=== PATIENT | female | born 1940 | race Caucasian/White ===

== ENCOUNTER 2018-06-21 17:01 | Inpatient (IN) | payer MEDICARE, OTHER, SELFPAY ==
[2018-06-21 17:05] VITALS: BP 165/79; PULSE 52; RESP 16; TEMP 35.3; O2SAT 99; BMI 21.6
--- NOTE | 2018-06-21 17:27 | EKG12_ITS ---
Test Reason : GEN ILLNESS Blood Pressure : / mmHG Vent. Rate : 050 BPM Atrial Rate : 050 BPM P-R Int : 196 ms QRS Dur : 096 ms QT Int : 540 ms P-R-T Axes : 060 033 039 degrees QTc Int : 492 ms Poor data quality, interpretation may be adversely affected Sinus bradycardia Prolonged QT Abnormal ECG Confirmed by TALON TILLEY, CHRISTIAN ([id number]), video editor MILTON DUVALL ([id number] on 06/22/2018 3:50:41 PM Referred By: JAMES Confirmed By:CHRISTIAN HANLEY MD
--- NOTE | 2018-06-21 17:27 | RAD_ITS ---
STUDY: X-RAY CHEST REASON FOR EXAM: Female, 78 years old. Aches. TECHNIQUE: Portable chest. COMPARISON: 08/26/2014. FINDINGS: The lungs are clear and expanded. Mild linear fibrotic changes are noted at the left lung base. There is no demonstrated pleural abnormality. Normal size heart. Normal mediastinum and jez. Normal visualized pulmonary arteries. Normal visualized aortic arch and descending thoracic aorta. Normal visualized thoracic spine. Normal visualized ribs, clavicles, and shoulders. There is no demonstrated abnormality of the visualized soft tissue structures of the upper abdomen. RAD/Chest 1 View (Portable) IMPRESSION: No acute process. Electronically Signed: Marilyn Dockery MD at 17:58 EST Tel , Service support ,
--- NOTE | 2018-06-21 17:29 | ED.VIS.GEN ---
History of Present Illness Chief Complaint: General Illness Informant: Patient, Family Onset: Today Context: - - since woke up Timing: Continuous Quality: weak Location: all over Current Severity: Severe Maximum Severity: Severe Worsened by: nothing Relieved by: nothing Associated Symptoms: feels cold, tired. no other sx. Narrative: Son states patient is usually very active as she was yesterday when he saw her and was with her. She lives alone. She has been lying in bed all day today because of being tired and feeling weak and cold. She has no other symptoms. Coincidentally, she was scratched in the right hand by a stray cat yesterday. She states it is not bothering her. Prior similar symptoms: No - Past Medical History (1) Alcohol abuse Status: Chronic (2) Benign essential hypertension Status: Chronic (3) Chronic back pain Status: Chronic (4) Chronic blood loss anemia Status: Chronic (5) Depression Status: Chronic (6) Hyperlipidemia Status: Chronic (7) PUD (peptic ulcer disease) Status: Chronic Past Medical History - Allergies and Home Meds Allergies/Adverse Reactions: Allergies No Known Allergies Allergy (Verified 06/21/18 17:10) Surgical History: appendectomy, - - Right hip hemiarthroplasty. Lives: Alone Smoking Status: Never smoker Alcohol: Occasional - states she has a glass of wine before bed nightly. son states in recent past, was drinking heavily while coping w/ of daughter last year. Drugs: None - Family History Maternal Family History: Reports: No pertinent history Paternal Family History: Reports: No pertinent history Review of Systems General: Reports: Malaise. Denies: Chills, Fever, Sweats Eyes: Denies: Visual changes - bilaterally, Diplopia ENT: Denies: Bilateral ear pain, Rhinorrhea, Sore throat Cardiovascular: Denies: Chest pain, Palpitations, Heart racing Respiratory: Denies: Dyspnea, Cough, Dyspnea on exertion, Orthopnea, Paroxysmal nocturnal dyspnea Gastrointestinal: Denies: Abdominal pain, Nausea, Vomiting, Diarrhea, Constipation, Melena, Hematochezia Genitourinary: Denies: Dysuria, Hematuria, Frequency Musculoskeletal: Reports: Extremity Pain - achy in BLE today. Denies: Neck pain, Back pain, Swelling Skin: Reports: Abrasions - right hand yesterday by stray cat. Denies: Rash, Abscess, Wounds Neurological: Denies: Headache, Weakness, Parasthesia, Numbness Psych: Denies: Suicidal thoughts, Suicidal ideations Endocrine: Reports: Cold intolerance. Denies: Polyuria, Polydipsia Hematologic: Reports: Easy bruising. Denies: Easy bleeding Allergy: Denies: Uticaria, Swelling of the mouth, Swelling of the tongue Physical Exam Vital Signs/Narrative: Vital Signs Pulse Resp BP Pulse Ox 06/21/18 17:05 52 L 16 165/79 H 99 Inital Vital Signs reviewed: Yes General: Well nourished, Well developed, - - appears weak. speaking, but softly. Head: Normocephalic, Atraumatic Eyes: Perrl, EOMI. Negative for: Scleral icterus ENT: Moist mucous membranes, No rhinorrhea, TM's clear. Negative for: Nasal congestion, Sinus tenderness Neck: Supple, Nontender, No lymphadenopathy, No JVD Cardiovascular: Regular rate, Regular rhythm, No murmurs, Normal S1, Normal S2, Bradycardia - borderline w/ HR in low 50's Respiratory: No distress, CTA bilaterally, Chest nontender Abdomen: Soft, Nontender, Nondistended, Normal bowel sounds Back: Nontender, Normal Inspection Extremities: Nontender, No edema, - - no RUE epitrochlear or axillary LAD Skin: Normal color, No rash, Trauma - small superficial abrasion w/ minor contusion dorsal right hand w/o discharge or signs of infection Neurological: Alert, Oriented x3, Cranial nerves II-XII grossly intact, Normal Sensation, Weakness - all over, worse in LEs; able to move them but not able to resist gravity for more than 1-2 seconds. Psychological: Normal affect Diagnostic/Tx/Re-eval Impressions Chest X-Ray 06/21/18 17:27 IMPRESSION: No acute process. Electronically Signed: Marilyn Dockery MD at 17:58 EST Tel , Service support , 06/21/18 17:27 Chest 1 View (Portable) [RAD] Stat Laboratory Results 06/21/18 06/21/18 06/21/18 17:47 17:47 17:47 WBC 7.5 RBC 4.93 Hgb 16.3 H Hct 46.3 MCV 93.9 MCH 33.1 H MCHC 35.2 RDW 14.3 RDW Differential 48.6 H Plt Count 252 MPV 9.2 Immature Gran % (Auto) 0.100 Neut % (Auto) 78.5 H Lymph % (Auto) 13.4 L [place] % (Auto) 7.5 Eos % (Auto) 0.1 Baso % (Auto) 0.4 Absolute Neuts (auto) 5.9 Absolute Lymphs (auto) 1.00 Total Counted Not Reportable Sodium 127 L Potassium 4.2 Chloride 93 L Carbon Dioxide 19.0 L Anion Gap 15 BUN 32 H Creatinine 0.95 Estim Creat Clear Calc 39.85 Est GFR (MDRD) Af Amer 73 Est GFR (MDRD) Non-Af 61 BUN/Creatinine Ratio 33.6 H Glucose 46 L Lactic Acid 3.4 H Calcium 9.2 Troponin I < 0.015 TSH 0.40 Urine Color Urine Clarity Urine pH Ur Specific [place] Urine Protein Urine Glucose (UA) Urine Ketones Urine Occult Blood Urine Nitrite Urine Bilirubin Urine Urobilinogen Ur Leukocyte Esterase Urine RBC Urine WBC Ur Squamous Epith Cells Urine Bacteria Urine Mucus 06/21/18 18:26 WBC RBC Hgb Hct MCV MCH MCHC RDW RDW Differential Plt Count MPV Immature Gran % (Auto) Neut % (Auto) Lymph % (Auto) [place] % (Auto) Eos % (Auto) Baso % (Auto) Absolute Neuts (auto) Absolute Lymphs (auto) Total Counted Sodium Potassium Chloride Carbon Dioxide Anion Gap BUN Creatinine Estim Creat Clear Calc Est GFR (MDRD) Af Amer Est GFR (MDRD) Non-Af BUN/Creatinine Ratio Glucose Lactic Acid Calcium Troponin I TSH Urine Color Fiona Urine Clarity Cloudy Urine pH 5.0 Ur Specific [place] 1.025 Urine Protein 100 H Urine Glucose (UA) Normal Urine Ketones 50 H Urine Occult Blood 10 H Urine Nitrite Positive H Urine Bilirubin 1 H Urine Urobilinogen 1 H Ur Leukocyte Esterase 100 H Urine RBC 0-5 SEEN Urine WBC 50-100 SEEN Ur Squamous Epith Cells 0 SEEN Urine Bacteria 3+ Urine Mucus 0 SEEN - Rhythm Strip Rhythm Strip: Sinus Rhythm Rate: 55 Ectopy: None - EKG Initial EKG Interpretation: No Acute Injury Pattern, Sinus Bradycardia, - - otherwise nml EKG Prior: Unchanged - Medical Decision Making Lactate was obtained because the patient's temperature was low, however after the workup was completed, she does not meet Sirs criteria, although the lactic acid is elevated/abnormal. She was given IV fluids, given her prerenal azotemia likely due to dehydration, as well as Rocephin for what appears to be a significant urinary tract infection. She has mild hyponatremia at 127, possibly contributing to her weakness. On reevaluation she is more alert, however still feels fairly weak and states that she could not stand or walk at home. I discussed admission to the hospital which she was amenable to. Discussed with hospitalist. ED Disposition - Plan for ED Patient: Disposition: Acute Care Hospital [facility] Chief Complaint: General Illness Diagnosis: UTI (urinary tract infection), Generalized weakness, Dehydration
[2018-06-21 18:11] LABS: Absolute Neutrophil Count 5.9 X10^3/uL (2.0-7.7); Basophil# 0.03 X10^3/uL; Basophil% 0.4 % (0-1); Eosinophil# 0.01 X10^3/uL; Eosinophils% 0.1 % (0-5); Hematocrit 46.3 % (37-47); Hemoglobin 16.3 g/dl (12.0-15.0); Lymphocyte % 13.4 % (19-41); Mean Corp Hgb Conc 35.2 g/gl (32-36); Mean Corpuscular Hgb 33.1 pg (27.0-32.0); Mean Corpuscular Volume 93.9 fL (81-99); Mean Platelet Vol. 9.2 fl (6.2-12.0); Monocyte# 0.56 X10^3/uL; Monocyte% 7.5 % (0-10); Neutrophil # 5.85 X10^3/uL (2.7-7.7); Neutrophil % 78.5 % (47-70); POSITIVE COUNT NO; POSITIVE DIFFERENTIAL NO; POSITIVE MORPHOLOGY NO; Platelet Count 252 K/mm3 (150-450); RBC Distribution Width CV 14.3 % (11.6-14.6); RBC Distribution Width SD 48.6 fl (35.1-43.9); Red Blood Count 4.93 M/mm3 (4.2-5.4); White Blood Count 7.5 K/mm3 (4.4-11.0)
[2018-06-21 18:30] LABS: Anion Gap 15 (5-15); BUN 32 mg/dL (7-18); BUN/Creat Ratio 33.6 RATIO (10-20); Calcium,Total 9.2 mg/dL (8.5-10.1); Chloride 93 mmol/L (98-107); Creatinine, Serum 0.95 mg/dL (0.55-1.02); EST Glomerular Filtration Rate 61 mL/min (>60); Est Glom Filt Rate - Afr Amer 73 mL/min (>60); Estimated Creatinine Clearance 39.85 ml/min; Glucose 46 mg/dL (74-106); Potassium 4.2 mmol/L (3.5-5.1); Sodium Level 127 mmol/L (136-145)
[2018-06-21] MEDS: 0.9% Normal Saline 1,000 ML 150 ML IV (18:35)
[2018-06-21 18:38] LABS: Lactic Acid 3.4 mmol/L (0.4-2.0)
[2018-06-21 18:38] LABS: Mucous, Urine 0 SEEN /hpf (<or=2+); Squamous Epithelial Cells - UA 0 SEEN /hpf (5-10)
[2018-06-21 18:42] LABS: Glucose, Dipstick Normal (Normal); Ketone-Dipstick 50 mg/dl (Negative); Leukocyte Esterase-Dipstick 100 /ul (Negative); Nitrite-Dipstick Positive (Negative); Occult Blood-Urine 10 /ul (Negative); Protein-Dipstick 100 mg/dl (Negative); Specific Gravity, Urine 1.025 (1.002-1.030); Urine Urobilinogen 1 mg/dl (Normal)
[2018-06-21 18:51] LABS: Color, Urine Amber (Yellow); Urine Bilirubin Dipstick 1 mg/dL (Negative); Urine Clarity Cloudy (Clear)
[2018-06-21 18:52] LABS: Red Blood Cells-Urine 0-5 SEEN /hpf (0-5); White Blood Cells 50-100 SEEN /hpf (0-5)
[2018-06-21 18:53] LABS: Bacteria 3+ /hpf (None Seen)
[2018-06-21 19:02] VITALS: BP 131/68; PULSE 95; RESP 16; O2SAT 97
[2018-06-21] MEDS: Ceftriaxone 1 GM/50 ML BAG IV (20:39)
--- NOTE | 2018-06-21 21:31 | PCM.HP.STD ---
Problem List (1) Decreased functional residual capacity Status: Acute (2) UTI (urinary tract infection) Status: Acute (3) Generalized weakness Status: Acute (4) Dehydration Status: Acute (5) History of DVT (deep vein thrombosis) Status: Chronic (6) PUD (peptic ulcer disease) Status: Chronic (7) Chronic back pain Status: Chronic (8) Hyperlipidemia Status: Chronic (9) Depression Status: Chronic (10) Benign essential hypertension Status: Chronic (11) Alcohol abuse Status: Chronic (12) Right arm weakness Status: Acute (13) Gastrointestinal bleed Status: Chronic (14) Recurrent dislocation of right hip Status: Chronic (15) Chronic blood loss anemia Status: Chronic (16) Recurrent falls Status: Chronic History of Present Illness Date of Admission: 06/21/18 Chief Complaint: Could not to stand up and was not able to walk today The patient is a 78 year old F with multiple comorbidities as mentioned above including recurrent fall, chronic blood loss anemia, PUD with history of GI bleed was brought into ER for generalized weakness. The patient is lethargic and very dehydrated and history taken from the son. She nods her head but understands the simple question. As per the son, she could not stand up and walk this morning today. She denies any recent fall. She is dehydrated and has decreased appetite. Denies lower urinary tract symptoms including burning micturition, increased frequency, urgency, or obstructive symptoms. She denies URI or flulike symptoms. She is feeling cold and shivering. The patient also had cat scratch in her right hand but does not have ulcer and no change in the function of her hand; although she has osteoarthritic changes of PIP and DIP. She is able to make a right-hand fist and abrasions. Vitals in the ER shows temperature 95.5?F temporal; HR 52/M.In ED, basic workup shows H&H 16.3/46.3 suggestive of hemoconcentration. Her baseline H&H is 11.3/33.9. Hyponatremia, hypochloremia. Bicarb 19. UA is positive of nitrite, LE, WBC 5200 cells and 3+ bacteria suggestive of UTI. Chest x-ray reported no acute process. [] Past Medical History Past Medical History (Chronic Problems): Chronic Problems History of DVT (deep vein thrombosis) (Chronic) PUD (peptic ulcer disease) (Chronic) Chronic back pain (Chronic) Hyperlipidemia (Chronic) Depression (Chronic) Benign essential hypertension (Chronic) Alcohol abuse (Chronic) Gastrointestinal bleed (Chronic) Recurrent dislocation of right hip (Chronic) Chronic blood loss anemia (Chronic) Recurrent falls (Chronic) Allergies No Known Allergies Allergy (Verified 06/21/18 17:10) Home Medications: Ambulatory Orders Medication Instructions Recorded Atorvastatin Calcium [Lipitor] 40 mg PO QHS #30 tablet 08/24/13 Pantoprazole Sodium [Protonix] 40 mg PO BID #60 tablet 06/16/14 fentaNYL patch [Duragesic patch] 25 mcg TRANSDERM. Q72H #10 patch 06/29/14 Aspirin E.C. [Ecotrin] 81 mg PO DAILY 06/21/18 Cholecalciferol (Vitamin D3) 2,000 unit PO DAILY 06/21/18 [D3-2000] Ferrous Sulfate [Iron] 325 mg PO DAILY 06/21/18 Ibandronate Sodium [Boniva] 150 mg PO Q30D 06/21/18 Metoprolol Succinate [Toprol Xl] 100 mg PO DAILY 06/21/18 Surgical History: appendectomy, - - Right hip hemiarthroplasty. Lives: Alone Smoking Status: Never smoker Alcohol: Occasional - states she has a glass of wine before bed nightly. son states in recent past, was drinking heavily while coping w/ of daughter last year. Drugs: None - *Family History Maternal History Items: No pertinent history Paternal History Items: No pertinent history Review of Systems Constitutional: Reports: Anorexia, Chills, Malaise, Weakness, Fatigue. Denies: Weight Change HEENT: Denies: Head Aches, Sinus Congestion, Sinus Drainage Cardiovascular: Denies: Chest Pain, Palpitations Respiratory: Denies: Cough, Shortness of breath at rest, Sputum production Gastrointestinal: Denies: Abdominal Pain, Nausea, Vomiting Genitourinary: Denies: Dysuria, Frequency, Hematuria, Nocturia, Retention, Urgency Musculoskeletal: Reports: Back Pain, Joint Pain. Denies: Joint Tenderness Skin: Denies: Rash, Wounds Neurological: Reports: Balance problems. Denies: Focal weakness, Numbness, Tingling Psychiatric: Denies: Anxiety, Depression, Homicidal Ideations, Suicidal Ideations Hematologic/ Lymphatic: Denies: Easy Bruising, Easy Bleeding VTE Information - Inpt Only VTE Present on Admission: No VTE Mechan Device Prophylaxis: SCD's VTE Pharm Prophylaxis ordered?: No Patient Problems: Active and Suspected Problems UTI (urinary tract infection) (Acute) Generalized weakness (Acute) Dehydration (Acute) Decreased functional residual capacity (Acute) - Physical Exam General: Alert, Oriented x3, Cooperative, Lethargic HEENT: Atraumatic, PERRLA, EOMI, Normocephalic Oral: Dry Mucosa Neck: Supple, No JVD, Negative Carotid Bruits Lungs: Clear to auscultation, No rhonchi, No wheeze, No rales, Diminished Cardiovascular: Regular rate, Regular Rhythm, Normal S1, Normal S2, No murmurs Abdomen: Bowel Sounds Present, Soft, Non Tender, Non-Distended Extremities: No edema, Capillary Refill Less than 3 Seconds Skin: No rashes, No breakdown Musculoskeletal: No Tenderness to Palpation of Joints or Extremities, Arthritic Changes, Muscle Wasting Neurological: Cranial nerves II-XII grossly intact, Deep Tendon Reflexes 2+/4 and Symmetrical, Neuro grossly intact, - - Patient able to lift legs for 5 seconds. Power 4/5 at major joints and lower extremity Psych/Mental Status: Normal Affect, Appropriate Vital Signs Temp Pulse Resp BP Pulse Ox 95.5 F L 95 16 131/68 H 97 06/21/18 17:05 06/21/18 19:02 06/21/18 19:02 06/21/18 19:02 06/21/18 19:02 Oxygen Delivery Method Room Air Weight: 118 lb 4.8 oz Body Mass Index (BMI) 21.6 Finger Stick Blood Glucose 88 Laboratory Tests Past 24 Hrs 06/21/18 06/21/18 06/21/18 17:47 17:47 17:47 WBC 7.5 RBC 4.93 Hgb 16.3 H Hct 46.3 MCV 93.9 MCH 33.1 H MCHC 35.2 RDW 14.3 RDW Differential 48.6 H Plt Count 252 MPV 9.2 Immature Gran % (Auto) 0.100 Neut % (Auto) 78.5 H Lymph % (Auto) 13.4 L [place] % (Auto) 7.5 Eos % (Auto) 0.1 Baso % (Auto) 0.4 Absolute Neuts (auto) 5.9 Absolute Lymphs (auto) 1.00 Total Counted Not Reportable Sodium 127 L Potassium 4.2 Chloride 93 L Carbon Dioxide 19.0 L Anion Gap 15 BUN 32 H Creatinine 0.95 Estim Creat Clear Calc 39.85 Est GFR (MDRD) Af Amer 73 Est GFR (MDRD) Non-Af 61 BUN/Creatinine Ratio 33.6 H Glucose 46 L Lactic Acid 3.4 H Calcium 9.2 Troponin I < 0.015 TSH 0.40 Urine Color Urine Clarity Urine pH Ur Specific [place] Urine Protein Urine Glucose (UA) Urine Ketones Urine Occult Blood Urine Nitrite Urine Bilirubin Urine Urobilinogen Ur Leukocyte Esterase Urine RBC Urine WBC Ur Squamous Epith Cells Urine Bacteria Urine Mucus 06/21/18 18:26 WBC RBC Hgb Hct MCV MCH MCHC RDW RDW Differential Plt Count MPV Immature Gran % (Auto) Neut % (Auto) Lymph % (Auto) [place] % (Auto) Eos % (Auto) Baso % (Auto) Absolute Neuts (auto) Absolute Lymphs (auto) Total Counted Sodium Potassium Chloride Carbon Dioxide Anion Gap BUN Creatinine Estim Creat Clear Calc Est GFR (MDRD) Af Amer Est GFR (MDRD) Non-Af BUN/Creatinine Ratio Glucose Lactic Acid Calcium Troponin I TSH Urine Color [place]iona Urine Clarity Cloudy Urine pH 5.0 Ur Specific [place] 1.025 Urine Protein 100 H Urine Glucose (UA) Normal Urine Ketones 50 H Urine Occult Blood 10 H Urine Nitrite Positive H Urine Bilirubin 1 H Urine Urobilinogen 1 H Ur Leukocyte Esterase 100 H Urine RBC 0-5 SEEN Urine WBC 50-100 SEEN Ur Squamous Epith Cells 0 SEEN Urine Bacteria 3+ Urine Mucus 0 SEEN Assessment/Plan All Active Problems UTI (urinary tract infection) (Acute) Generalized weakness (Acute) Dehydration (Acute) Decreased functional residual capacity (Acute) Right arm weakness (Acute) The patient is a 78 year old F with multiple comorbidities as mentioned above including recurrent fall, chronic blood loss anemia, PUD with history of GI bleed was brought into ER for generalized weakness. The patient is lethargic and very dehydrated and history taken from the son. She nods her head but understands the simple question. As per the son, she could not stand up and walk this morning today. She denies any recent fall. She is dehydrated and has decreased appetite. Denies lower urinary tract symptoms including burning micturition, increased frequency, urgency, or obstructive symptoms. She denies URI or flulike symptoms. She is feeling cold and shivering. The patient also had cat in her right hand but does not have ulcer and no change in the function of her hand; although she has osteoarthritic changes of PIP and DIP. She is able to make a right-hand fist and abrasions. Vitals in the ER shows temperature 95.5?F temporal; HR 52/M.In ED, basic workup shows H&H 16.3/46.3 suggestive of hemoconcentration. Her baseline H&H is 11.3/33.9. Hyponatremia, hypochloremia. Bicarb 19. UA is positive of nitrite, LE, WBC 5200 cells and 3+ bacteria suggestive of UTI. Chest x-ray reported no acute process. 1. SIRS (08/18; hypothermia, temperature 95.5?F), with sepsis, lactic acid 3.4 and generalized weakness probably related to UTI: Patient is being admitted on regular MedSurg floor. Started on IV Rocephin. Urine culture ordered in the ER. Blood cultures x2 ordered. The patient retains urine, bladder scan postvoid residual and will need kidneys and bladder ultrasound. BUN/creatinine 32/0.95 suggestive of prerenal azotemia. 2. UTI: As mentioned above 3. Lactic acidosis probably secondary to sepsis UTI and dehydration: Needs vigorous rehydration. IV fluid normal saline 150 mill per hour major intake/output. 4. Abrasions and right dorsum of hand due to cat scratch; does not look infectious/sepsis: Acute decrease in functional capacity: PT and OT. 5. Hypertension: Blood pressure is controlled. Other chronic comorbidities include chronic peptic ulcer disease with past history of GI bleed, history of DVT, dyslipidemia, recurrent falls, chronic lower back pain and diffuse degenerative joint disease with history of recurrent dislocation of right hip: Home medication reconciliation done. Living will/advanced directive: Discussed with the patient and her son near the bedside. Patient does not want artificial life support including intubation, tube feed, ventilator and/chest compression. Patient has living will at home and son was advised to bring the copy scanned in our EMR. Patient is DNR CC Arrest. Total time spent in [id number] encounter in discussion of advanced directive 18 minutes. Code Visit OBSV E&M: 38422 Initial observation care L3 Procedures: 69123 Advncd Care Plan 30 Min
[2018-06-21 21:53] LABS: Reflex Lactate? Y
[2018-06-21 22:14] VITALS: BP 163/80; PULSE 56; RESP 16; TEMP 35.8; O2SAT 100
[2018-06-21 22:15] VITALS: BMI 21.2
[2018-06-21 22:23] VITALS: BMI 21.2
[2018-06-21 22:53] LABS: Erythrocyte Sedimentation Rate 11 mm/hr (0-30)
[2018-06-21] MEDS: Pantoprazole Sodium 40 MG Tablet PO (23:02)
[2018-06-21] MEDS: Atorvastatin Calcium 40 MG Tablet PO (23:02)
[2018-06-21] MEDS: Enoxaparin 40 MG/0.4 ML Syringe SC (23:02)
[2018-06-21] MEDS: Docusate Sodium 100 MG Capsule 200 MG PO (23:05)
[2018-06-21 23:35] LABS: Bedside Glucose 49 mg/dL (70-110)
[2018-06-22] MEDS: Dextrose 50%-Water 25 GM/50 ML DISP.SYRIN IV (00:02)
[2018-06-22] MEDS: Dextrose 5%/0.9% NaCl 1,000 ML 150 ML IV (00:03)
[2018-06-22] MEDS: oxyCODONE 5 MG Tablet PO ×3 (00:43→10:25)
[2018-06-22] MEDS: Acetaminophen 325 MG Tablet 650 MG PO ×2 (00:43→10:25)
--- NOTE | 2018-06-22 00:44 | NURSING ---
Pt had Fentanyl 25mcg patch on from home. Clarified with Dr. Pereyra that he does not want pt to continue this. Patch wasted with Cara Bergman RN in Rx destroyer.
--- NOTE | 2018-06-22 00:47 | NURSING ---
Pt had on 25mcg Fentanyl patch from home. Wasted with pt's primary RN, Dottie Cox, in Rx destroyer per MD orders to remove.
[2018-06-22 00:56] LABS: Urine Chloride 42 mmol/L (Not Establ.); Urine Sodium 60 mmol/L (Not Establ.)
[2018-06-22 01:08] LABS: Osmolality, Urine 557 mOsm/KG
[2018-06-22 01:16] LABS: Bedside Glucose 227 mg/dL (70-110)
[2018-06-22 02:46] VITALS: BP 132/71; PULSE 69; RESP 18; TEMP 37.4; O2SAT 99
[2018-06-22 05:04] LABS: Absolute Lymphocyte Count 0.64 X10^3/ul (0.83-4.51); Absolute Neutrophil Count 9.4 X10^3/uL (2.0-7.7); Basophil# 0.01 X10^3/uL; Basophil% 0.1 % (0-1); Hematocrit 34.9 % (37-47); Hemoglobin 12.5 g/dl (12.0-15.0); Lymphocyte # 0.64 X10^3/ul (4.0); Lymphocyte % 5.7 % (19-41); Mean Corp Hgb Conc 35.8 g/gl (32-36); Mean Corpuscular Volume 92.1 fL (81-99); Mean Platelet Vol. 8.9 fl (6.2-12.0); Monocyte# 1.08 X10^3/uL; Monocyte% 9.7 % (0-10); Neutrophil # 9.43 X10^3/uL (2.7-7.7); Neutrophil % 84.2 % (47-70); Platelet Count 210 K/mm3 (150-450); RBC Distribution Width CV 13.3 % (11.6-14.6); Red Blood Count 3.79 M/mm3 (4.2-5.4); White Blood Count 11.2 K/mm3 (4.4-11.0)
[2018-06-22 05:05] LABS: POSITIVE COUNT NO; POSITIVE DIFFERENTIAL NO; POSITIVE MORPHOLOGY NO
[2018-06-22 05:28] LABS: Anion Gap 11 (5-15); BUN 31 mg/dL (7-18); BUN/Creat Ratio 28.4 RATIO (10-20); Calcium,Total 7.3 mg/dL (8.5-10.1); Chloride 99 mmol/L (98-107); Creatinine, Serum 1.09 mg/dL (0.55-1.02); EST Glomerular Filtration Rate 52 mL/min (>60); Est Glom Filt Rate - Afr Amer 63 mL/min (>60); Estimated Creatinine Clearance 33.13 ml/min; Glucose 274 mg/dL (74-106); Sodium Level 131 mmol/L (136-145)
[2018-06-22 05:30] LABS: Lactic Acid 2.1 mmol/L (0.4-2.0)
[2018-06-22] MEDS: 0.9% Normal Saline 1,000 ML 100 ML IV ×2 (06:17→18:21)
[2018-06-22 06:31] LABS: Bedside Glucose 234 mg/dL (70-110)
--- NOTE | 2018-06-22 06:58 | US_ITS ---
STUDY: RENAL ULTRASOUND - COMPLETE REASON FOR EXAM: Female, 78 years old. Hydronephrosis TECHNIQUE: Ultrasound evaluation of the kidneys was performed with real-time and static shipley-scale imaging. COMPARISON: None. FINDINGS: RIGHT KIDNEY: Normal location of the right kidney, which is normal in size. The right kidney measures 9.0 x 4.2 x 4.7 cm. There is a normal cortex of the right kidney. The renal cortex measures 1.5 cm. There is an 8 mm upper pole cyst. There are no right renal calculi. There is no right hydronephrosis. DISTAL RIGHT URETER: There is non-visualization of the distal right ureter. LEFT KIDNEY: Normal location of the left kidney, which is normal in size. The left kidney measures 9.2 x 4.6 x 4.7 cm. There is a normal cortex of the left kidney. The renal cortex measures 1.1 cm. There is no left renal mass or cyst. There are no left renal calculi. There is no left hydronephrosis. DISTAL LEFT URETER: There is non-visualization of the distal left ureter. BLADDER: The partially distended urinary bladder has a volume of 72 ml. There is a normal wall thickness of the distended urinary bladder. There is no demonstrated mass within the urinary bladder. There are no demonstrated bladder calculi. US/Kidney and Bladder IMPRESSION: Probable small right upper pole cyst. Electronically Signed: Alan Guerin DO at 0:01 EST Tel [phone], Service support ,
[2018-06-22 08:40] LABS: Hemoglobin A1c 5.1 % (4.2-6.3)
[2018-06-22 08:46] VITALS: BP 125/49; PULSE 70; RESP 18; TEMP 36.9; O2SAT 96
[2018-06-22] MEDS: Ferrous Sulfate 325 MG Tablet PO (08:47)
[2018-06-22] MEDS: Polyethylene Glycol 3350 17 GM PACKET PO (08:47)
[2018-06-22] MEDS: Aspirin E.C. 81 MG Tablet PO (08:47)
[2018-06-22] MEDS: Enoxaparin 40 MG/0.4 ML Syringe SC (08:47)
[2018-06-22] MEDS: Pantoprazole Sodium 40 MG Tablet PO ×2 (08:47→23:06)
[2018-06-22 08:48] VITALS: PULSE 70
[2018-06-22] MEDS: Metoprolol(XL)Succ 100 MG Tablet PO (08:48)
[2018-06-22 08:58] LABS: Reflex Lactate? Y
--- NOTE | 2018-06-22 09:48 | PCM.PN.HOSP ---
Patient Problems: Active and Suspected Problems UTI (urinary tract infection) (Acute) Generalized weakness (Acute) Dehydration (Acute) Decreased functional residual capacity (Acute) Severe sepsis (Acute) Subjective: complains of diffuse arthralgias--chronic. Did have some oral pain after drinking Ensure chocolate. Vitals/I&O's: Vital Signs Temp Pulse Resp BP Pulse Ox 36.9 C 70 18 125/49 H 96 06/22/18 08:46 06/22/18 08:48 06/22/18 08:46 06/22/18 08:46 06/22/18 08:46 Oxygen Delivery Method Room Air Weight: 51 kg Body Mass Index (BMI) 21.2 Finger Stick Blood Glucose 88 Intake and Output for Last 24 Hours 06/20/18 06/21/18 06/22/18 23:59 23:59 23:59 Intake Total 1845 / 1845 Output Total 1100 / 1100 Balance - / 745 / 745 General: Alert, Cooperative, No apparent distress, - - febrile HEENT: Atraumatic, Normocephalic Oral: Moist Mucosa, No Gingival or Mucosal Lesions/ Ulcerations Neck: No Nodes, Thyroid Normal Size and Texture Lungs: Clear to auscultation, Normal air movement, No rhonchi, No wheeze Cardiovascular: Regular rate, Regular Rhythm, Normal S1, Normal S2, No murmurs Abdomen: Bowel Sounds Present, Soft, Non Tender, Non-Distended, No Hepato-splenomegaly, - - no CVA tenderness Extremities: No edema, No Calf Tenderness Skin: No rashes, No breakdown Musculoskeletal: No Tenderness to Palpation of Joints or Extremities, No Muscle Wasting Neurological: - - no clonus. DTRs intact. Psych/Mental Status: Appropriate, Flat Affect Microbiology Past 72 Hours 06/22/18 00:58 Mucosa - Nasopharyngeal Influenza Types A,B Direct FA (KYLER) - Final Laboratory Results 06/21/18 17:47: WBC 7.5, RBC 4.93, Hgb 16.3 H, Hct 46.3, MCV 93.9, MCH 33.1 H, MCHC 35.2, RDW 14.3, RDW Differential 48.6 H, Plt Count 252, MPV 9.2, Immature Gran % (Auto) 0.100, Neut % (Auto) 78.5 H, Lymph % (Auto) 13.4 L, [place] % (Auto) 7.5, Eos % (Auto) 0.1, Baso % (Auto) 0.4, Absolute Neuts (auto) 5.9, Absolute Lymphs (auto) 1.00, Total Counted Not Reportable 06/21/18 17:47: Sodium 127 L, Potassium 4.2, Chloride 93 L, Carbon Dioxide 19.0 L, Anion Gap 15, BUN 32 H, Creatinine 0.95, Estim Creat Clear Calc 39.85, Est GFR (MDRD) Af Amer 73, Est GFR (MDRD) Non-Af 61, BUN/Creatinine Ratio 33.6 H, Glucose 46 L, Calcium 9.2, Troponin I < 0.015, TSH 0.40 06/21/18 17:47: Lactic Acid 3.4 H 06/21/18 17:55: ESR 11 06/21/18 18:26: Urine Color Fiona, Urine Clarity Cloudy, Urine pH 5.0, Ur Specific [place] 1.025, Urine Protein 100 H, Urine Glucose (UA) Normal, Urine Ketones 50 H, Urine Occult Blood 10 H, Urine Nitrite Positive H, Urine Bilirubin 1 H, Urine Urobilinogen 1 H, Ur Leukocyte Esterase 100 H, Urine RBC 0-5 SEEN, Urine WBC 50-100 SEEN, Ur Squamous Epith Cells 0 SEEN, Urine Bacteria 3+, Urine Mucus 0 SEEN 06/21/18 23:00: Lactic Acid 3.0 H 06/21/18 23:33: POC Glucose 49 L 06/22/18 00:30: Urine Osmolality 557 06/22/18 00:30: Urine Creatinine 66.40 06/22/18 00:30: Ur Random Sodium 60, Urine Potassium 44.0, Urine Chloride 42 06/22/18 01:13: POC Glucose 227 H 06/22/18 04:52: WBC 11.2 H, RBC 3.79 L, Hgb 12.5, Hct 34.9 L, MCV 92.1, MCH 33.0 H, MCHC 35.8, RDW 13.3, RDW Differential 43.0, Plt Count 210, MPV 8.9, Immature Gran % (Auto) 0.300, Neut % (Auto) 84.2 H, Lymph % (Auto) 5.7 L, [place] % (Auto) 9.7, Eos % (Auto) 0.0, Baso % (Auto) 0.1, Absolute Neuts (auto) 9.4 H, Absolute Lymphs (auto) 0.64 L, Total Counted Not Reportable 06/22/18 04:52: Sodium 131 L, Potassium 4.0, Chloride 99, Carbon Dioxide 21.0, Anion Gap 11, BUN 31 H, Creatinine 1.09 H, Estim Creat Clear Calc 33.13, Est GFR (MDRD) Af Amer 63, Est GFR (MDRD) Non-Af 52 L, BUN/Creatinine Ratio 28.4 H, Glucose 274 H, Calcium 7.3 L 06/22/18 04:52: Lactic Acid 2.1 H 06/22/18 04:52: Hemoglobin A1c 5.1 06/22/18 06:26: POC Glucose 234 H Current Medications Acetaminophen (Tylenol) 650 mg PO Q6H PRN PRN PRN Reason: Mild Pain (scale 0-3)/T>100.7 Last Admin: 06/22/18 00:43 Dose: 650 mg Al Hydroxide/Mg Hydroxide (Mylanta Ii) 30 ml PO Q6H PRN PRN PRN Reason: Gastric Burning [facility]ir[facility]) [facility] Last Admin: 06/22/18 08:47 Dose: 81 mg Atorvastatin Calcium (Lipitor) 40 mg PO QHS [facility] Last Admin: 06/21/18 23:02 Dose: 40 mg Bisacodyl (Dulcolax) 10 mg RECTAL DAILY PRN PRN PRN Reason: Constipation Cholecalciferol (Vitamin D) 2,000 unit PO DAILY [facility] Last Admin: 06/22/18 08:48 Dose: 2,000 unit Docusate Sodium (Colace) 200 mg PO BID PRN PRN PRN Reason: Constipation Last Admin: 06/21/18 23:05 Dose: 200 mg Enoxaparin Sodium (Lovenox) 40 mg SC DAILY [facility] Last Admin: 06/22/18 08:47 Dose: 40 mg Ferrous Sulfate (Ferrous Sulfate) [facility] Last Admin: 06/22/18 08:47 Dose: 325 mg Ceftriaxone Sodium (Rocephin) 1 gm in 50 mls @ 100 mls/hr IV Q24 [facility] Sodium Chloride () 1,000 mls @ 100 mls/hr IV .Q10H [facility] Last Admin: 06/22/18 06:17 Dose: 100 mls/hr Metoprolol Succinate (Toprol Xl (Beta Jaxon)) 100 mg PO DAILY [facility] Last Admin: 06/22/18 08:48 Dose: 100 mg Nutritional Formula (Lactose Free) (Ensure Enlive) 120 ml PO 4X/DAY [facility] Last Admin: 06/22/18 08:49 Dose: 120 ml Ondansetron HCl (Zofran) 4 mg IV Q8H PRN PRN PRN Reason: Nausea Oxycodone HCl (Oxyir) 5 mg PO Q4H PRN PRN PRN Reason: Moderate Pain (pain scale 4-5) Last Admin: 06/22/18 06:23 Dose: 5 mg Pantoprazole Sodium (Protonix) 40 mg PO BID [facility] Last Admin: 06/22/18 08:47 Dose: 40 mg Polyethylene Glycol (Miralax) 17 gm PO DAILY [facility] Last Admin: 06/22/18 08:47 Dose: 17 gm Tamsulosin HCl (Flomax) 0.4 mg PO DAILY [facility] Medical Necessity - Tobacco Use Smoking Status: Never smoker Assessment/Plan All Active Problems UTI (urinary tract infection) (Acute) Generalized weakness (Acute) Dehydration (Acute) Decreased functional residual capacity (Acute) Severe sepsis (Acute) 1. Severe sepsis POA (2/4 SIRS criteria: temp < 36 and HR > 90) 2/2 UTI continue IVF follow up lactic acid until normal follow up cultures. 2. UTI. CTX follow up renal US, no clinical pyelo 3. chronic pain patient lethargic on arrival, so fentanyl held now that she is more alert, will resume 4. DVT proph: LMWH. DW patient's son at bedside. Code Visit Inpatient E&M: [id number] [facility] Hosp L3
[2018-06-22] MEDS: Ceftriaxone 1 GM/50 ML BAG IV (09:50)
[2018-06-22] MEDS: Tamsulosin HCl 0.4 MG Capsule PO (09:51)
--- NOTE | 2018-06-22 09:54 | PN_ITS ---
Patient Problems: Active and Suspected Problems UTI (urinary tract infection) (Acute) Generalized weakness (Acute) Dehydration (Acute) Decreased functional residual capacity (Acute) Severe sepsis (Acute) Subjective: complains of diffuse arthralgias--chronic. Did have some oral pain after drinking Ensure chocolate. Vitals/I&O's: Vital Signs Temp Pulse Resp BP Pulse Ox 36.9 C 70 18 125/49 H 96 06/22/18 08:46 06/22/18 08:48 06/22/18 08:46 06/22/18 08:46 06/22/18 08:46 Oxygen Delivery Method Room Air Weight: 51 kg Body Mass Index (BMI) 21.2 Finger Stick Blood Glucose 88 Intake and Output for Last 24 Hours 06/20/18 06/21/18 06/22/18 23:59 23:59 23:59 Intake Total 1845 / 1845 Output Total 1100 / 1100 Balance - / 745 / 745 General: Alert, Cooperative, No apparent distress, - - febrile HEENT: Atraumatic, Normocephalic Oral: Moist Mucosa, No Gingival or Mucosal Lesions/ Ulcerations Neck: No Nodes, Thyroid Normal Size and Texture Lungs: Clear to auscultation, Normal air movement, No rhonchi, No wheeze Cardiovascular: Regular rate, Regular Rhythm, Normal S1, Normal S2, No murmurs Abdomen: Bowel Sounds Present, Soft, Non Tender, Non-Distended, No Hepato- splenomegaly, - - no CVA tenderness Extremities: No edema, No Calf Tenderness Skin: No rashes, No breakdown Musculoskeletal: No Tenderness to Palpation of Joints or Extremities, No Muscle Wasting Neurological: - - no clonus. DTRs intact. Psych/Mental Status: Appropriate, Flat Affect Microbiology Past 72 Hours 06/22/18 00:58 Mucosa - Nasopharyngeal Influenza Types A,B Direct FA (KYLER) - Final Laboratory Results 06/21/18 17:47: WBC 7.5, RBC 4.93, Hgb 16.3 H, Hct 46.3, MCV 93.9, MCH 33.1 H, MCHC 35.2, RDW 14.3, RDW Differential 48.6 H, Plt Count 252, MPV 9.2, Immature Gran % (Auto) 0.100, Neut % (Auto) 78.5 H, Lymph % (Auto) 13.4 L, [place] % (Auto) 7.5, Eos % (Auto) 0.1, Baso % (Auto) 0.4, Absolute Neuts (auto) 5.9, Absolute Lymphs (auto) 1.00, Total Counted Not Reportable 06/21/18 17:47: Sodium 127 L, Potassium 4.2, Chloride 93 L, Carbon Dioxide 19.0 L, Anion Gap 15, BUN 32 H, Creatinine 0.95, Estim Creat Clear Calc 39.85, Est GFR (MDRD) Af Amer 73, Est GFR (MDRD) Non-Af 61, BUN/Creatinine Ratio 33.6 H, Glucose 46 L, Calcium 9.2, Troponin I < 0.015, TSH 0.40 06/21/18 17:47: Lactic Acid 3.4 H 06/21/18 17:55: ESR 11 06/21/18 18:26: Urine Color Fiona, Urine Clarity Cloudy, Urine pH 5.0, Ur Specific [place] 1.025, Urine Protein 100 H, Urine Glucose (UA) Normal, Urine Ketones 50 H, Urine Occult Blood 10 H, Urine Nitrite Positive H, Urine Bilirubin 1 H, Urine Urobilinogen 1 H, Ur Leukocyte Esterase 100 H, Urine RBC 0-5 SEEN, Urine WBC 50-100 SEEN, Ur Squamous Epith Cells 0 SEEN, Urine Bacteria 3+, Urine Mucus 0 SEEN 06/21/18 23:00: Lactic Acid 3.0 H 06/21/18 23:33: POC Glucose 49 L 06/22/18 00:30: Urine Osmolality 557 06/22/18 00:30: Urine Creatinine 66.40 06/22/18 00:30: Ur Random Sodium 60, Urine Potassium 44.0, Urine Chloride 42 06/22/18 01:13: POC Glucose 227 H 06/22/18 04:52: WBC 11.2 H, RBC 3.79 L, Hgb 12.5, Hct 34.9 L, MCV 92.1, MCH 33.0 H, MCHC 35.8, RDW 13.3, RDW Differential 43.0, Plt Count 210, MPV 8.9, Immature Gran % (Auto) 0.300, Neut % (Auto) 84.2 H, Lymph % (Auto) 5.7 L, [place] % (Auto) 9.7, Eos % (Auto) 0.0, Baso % (Auto) 0.1, Absolute Neuts (auto) 9.4 H, Absolute Lymphs (auto) 0.64 L, Total Counted Not Reportable 06/22/18 04:52: Sodium 131 L, Potassium 4.0, Chloride 99, Carbon Dioxide 21.0, Anion Gap 11, BUN 31 H, Creatinine 1.09 H, Estim Creat Clear Calc 33.13, Est GFR (MDRD) Af Amer 63, Est GFR (MDRD) Non-Af 52 L, BUN/Creatinine Ratio 28.4 H, Glucose 274 H, Calcium 7.3 L 06/22/18 04:52: Lactic Acid 2.1 H 06/22/18 04:52: Hemoglobin A1c 5.1 06/22/18 06:26: POC Glucose 234 H Current Medications Acetaminophen (Tylenol) 650 mg PO Q6H PRN PRN PRN Reason: Mild Pain (scale 0-3)/T>100.7 Last Admin: 06/22/18 00:43 Dose: 650 mg Al Hydroxide/Mg Hydroxide (Mylanta Ii) 30 ml PO Q6H PRN PRN PRN Reason: Gastric [facility]ing [facility] Last Admin: 06/22/18 08:47 Dose: 81 mg Atorvastatin Calcium (Lipitor) 40 mg PO QHS [facility] Last Admin: 06/21/18 23:02 Dose: 40 mg Bisacodyl (Dulcolax) 10 mg RECTAL DAILY PRN PRN PRN Reason: Constipation Cholecalciferol (Vitamin D) 2,000 unit PO DAILY [facility] Last Admin: 06/22/18 08:48 Dose: 2,000 unit Docusate Sodium (Colace) 200 mg PO BID PRN PRN PRN Reason: Constipation Last Admin: 06/21/18 23:05 Dose: 200 mg Enoxaparin Sodium (Lovenox) 40 mg SC DAILY [facility] Last Admin: 06/22/18 08:47 Dose: 40 mg Ferrous Sulfate ([facility]ous Sulfate) [facility] Last Admin: 06/22/18 08:47 Dose: 325 mg Ceftriaxone Sodium (Rocephin) 1 gm in 50 mls @ 100 mls/hr IV Q24 [facility] Sodium Chloride () 1,000 mls @ 100 mls/hr IV .Q10H [facility] Last Admin: 06/22/18 06:17 Dose: 100 mls/hr Metoprolol Succinate (Toprol Xl (Beta Jaxon)) 100 mg PO DAILY [facility] Last Admin: 06/22/18 08:48 Dose: 100 mg Nutritional Formula (Lactose Free) (Ensure Enlive) 120 ml PO 4X/DAY [facility] Last Admin: 06/22/18 08:49 Dose: 120 ml Ondansetron HCl (Zofran) 4 mg IV Q8H PRN PRN PRN Reason: Nausea Oxycodone HCl (Oxyir) 5 mg PO Q4H PRN PRN PRN Reason: Moderate Pain (pain scale 4-5) Last Admin: 06/22/18 06:23 Dose: 5 mg Pantoprazole Sodium (Protonix) 40 mg PO BID [facility] Last Admin: 06/22/18 08:47 Dose: 40 mg Polyethylene Glycol (Miralax) 17 gm PO DAILY [facility] Last Admin: 06/22/18 08:47 Dose: 17 gm Tamsulosin HCl (Flomax) 0.4 mg PO DAILY [facility] Medical Necessity - Tobacco Use Smoking Status: Never smoker Assessment/Plan All Active Problems UTI (urinary tract infection) (Acute) Generalized weakness (Acute) Dehydration (Acute) Decreased functional residual capacity (Acute) Severe sepsis (Acute) 1. Severe sepsis * POA (2/4 SIRS criteria: temp < 36 and HR > 90) * 2/2 UTI * continue IVF * follow up lactic acid until normal * follow up cultures. 2. UTI. * CTX * follow up renal US, no clinical pyelo 3. chronic pain * patient lethargic on arrival, so fentanyl held * now that she is more alert, will resume 4. DVT proph: LMWH. DW patient's son at bedside. Code Visit Inpatient E&M: [id number] Subs Hosp L3
[2018-06-22] MEDS: fentaNYL 25 MCG Patch TRANSDERM. (10:33)
[2018-06-22 11:12] VITALS: O2SAT 96
[2018-06-22 11:40] LABS: Bedside Glucose 136 mg/dL (70-110)
[2018-06-22 14:20] VITALS: BP 120/55; PULSE 61; RESP 18; TEMP 36.9; O2SAT 98
[2018-06-22 16:36] LABS: Bedside Glucose 154 mg/dL (70-110)
[2018-06-22 17:00] LABS: Lactic Acid 1.4 mmol/L (0.4-2.0)
[2018-06-22 19:49] VITALS: BP 147/81; PULSE 73; RESP 14; TEMP 37.1; O2SAT 99
[2018-06-22] MEDS: Atorvastatin Calcium 40 MG Tablet PO (23:06)
[2018-06-22 23:26] LABS: Bedside Glucose 106 mg/dL (70-110)
[2018-06-23 03:07] VITALS: BP 126/56; PULSE 61; RESP 16; TEMP 37.1; O2SAT 98
[2018-06-23] MEDS: 0.9% Normal Saline 1,000 ML 100 ML IV ×2 (04:15→14:42)
[2018-06-23 06:56] LABS: Absolute Lymphocyte Count 1.29 X10^3/ul (0.83-4.51); Basophil# 0.02 X10^3/uL; Basophil% 0.3 % (0-1); Eosinophil# 0.07 X10^3/uL; Eosinophils% 1.1 % (0-5); Hemoglobin 11.2 g/dl (12.0-15.0); Lymphocyte # 1.29 X10^3/ul (4.0); Mean Corpuscular Hgb 32.7 pg (27.0-32.0); Mean Corpuscular Volume 93.6 fL (81-99); Mean Platelet Vol. 9.2 fl (6.2-12.0); Monocyte# 0.76 X10^3/uL; Monocyte% 12.4 % (0-10); Platelet Count 160 K/mm3 (150-450); RBC Distribution Width CV 13.8 % (11.6-14.6); RBC Distribution Width SD 45.9 fl (35.1-43.9); Red Blood Count 3.42 M/mm3 (4.2-5.4); White Blood Count 6.2 K/mm3 (4.4-11.0)
[2018-06-23 07:00] LABS: POSITIVE COUNT NO; POSITIVE DIFFERENTIAL NO; POSITIVE MORPHOLOGY NO
[2018-06-23 07:01] LABS: Bedside Glucose 98 mg/dL (70-110)
[2018-06-23 07:06] LABS: Anion Gap 5 (5-15); BUN 16 mg/dL (7-18); BUN/Creat Ratio 22.3 RATIO (10-20); Calcium,Total 7.3 mg/dL (8.5-10.1); Chloride 106 mmol/L (98-107); Creatinine, Serum 0.72 mg/dL (0.55-1.02); EST Glomerular Filtration Rate 84 mL/min (>60); Est Glom Filt Rate - Afr Amer 102 mL/min (>60); Estimated Creatinine Clearance 36.12 ml/min; Glucose 81 mg/dL (74-106); Potassium 3.7 mmol/L (3.5-5.1); Sodium Level 135 mmol/L (136-145)
--- NOTE | 2018-06-23 08:42 | PCM.PN.HOSP ---
Patient Problems: Active and Suspected Problems UTI (urinary tract infection) (Acute) Generalized weakness (Acute) Decreased functional residual capacity (Acute) Subjective: Feeling better. Wants to go home and take care of her pets. Vitals/I&O's: Vital Signs Temp Pulse Resp BP Pulse Ox 37.1 C 61 16 126/56 H 98 06/23/18 03:07 06/23/18 03:07 06/23/18 03:07 06/23/18 03:07 06/23/18 03:07 Oxygen Delivery Method Room Air Weight: 51 kg Body Mass Index (BMI) 21.2 Finger Stick Blood Glucose 88 Intake and Output for Last 24 Hours 06/21/18 06/22/18 06/23/18 23:59 23:59 23:59 Intake Total 3324 / 3324 1475 / 1475 Output Total 1100 / 1100 Balance - / - 2224 / 2224 1475 / 1475 General: Alert, Cooperative, No apparent distress HEENT: Atraumatic, Normocephalic Oral: Moist Mucosa, No Gingival or Mucosal Lesions/ Ulcerations Neck: No Nodes, Thyroid Normal Size and Texture Lungs: Clear to auscultation, Normal air movement, No rhonchi, No wheeze Cardiovascular: Regular rate, Regular Rhythm, Normal S1, Normal S2, No murmurs Abdomen: Bowel Sounds Present, Soft, Non Tender, Non-Distended, No Hepato-splenomegaly Extremities: No edema, No Calf Tenderness Skin: No rashes, No breakdown Musculoskeletal: No Tenderness to Palpation of Joints or Extremities, No Muscle Wasting Psych/Mental Status: Flat Affect, - - minimal eye contact. withdrawn when told she would not be discharged today. Microbiology Past 72 Hours 06/22/18 00:58 Mucosa - Nasopharyngeal Influenza Types A,B Direct FA (KYLER) - Final Laboratory Results 06/22/18 09:56: Lactic Acid 3.0 H 06/22/18 11:35: POC Glucose 136 H 06/22/18 16:22: Lactic Acid 1.4 06/22/18 16:23: POC Glucose 154 H 06/22/18 23:09: POC Glucose 106 06/23/18 06:25: Sodium 135 L, Potassium 3.7, Chloride 106, Carbon Dioxide 24.0, Anion Gap 5, BUN 16, Creatinine 0.72, Estim Creat Clear Calc 36.12, Est GFR (MDRD) Af Amer 102, Est GFR (MDRD) Non-Af 84, BUN/Creatinine Ratio 22.3 H, Glucose 81, Calcium 7.3 L 06/23/18 06:25: WBC 6.2, RBC 3.42 L, Hgb 11.2 L, Hct 32.0 L, MCV 93.6, MCH 32.7 H, MCHC 35.0, RDW 13.8, RDW Differential 45.9 H, Plt Count 160, MPV 9.2, Immature Gran % (Auto) 0.200, Neut % (Auto) 65.0, Lymph % (Auto) 21.0, [place] % (Auto) 12.4 H, Eos % (Auto) 1.1, Baso % (Auto) 0.3, Absolute Neuts (auto) 4.0, Absolute Lymphs (auto) 1.29, Total Counted Not Reportable 06/23/18 06:52: POC Glucose 98 Current Medications Acetaminophen (Tylenol) 650 mg PO Q6H PRN PRN PRN Reason: Mild Pain (scale 0-3)/T>100.7 Last Admin: 06/22/18 10:25 Dose: 650 mg Al Hydroxide/Mg Hydroxide (Mylanta Ii) 30 ml PO Q6H PRN PRN PRN Reason: Gastric Burning [facility]) [facility] Last Admin: 06/22/18 08:47 Dose: 81 mg Atorvastatin Calcium (Lipitor) 40 mg PO QHS [facility] Last Admin: 06/22/18 23:06 Dose: 40 mg Bisacodyl (Dulcolax) 10 mg RECTAL DAILY PRN PRN PRN Reason: Constipation Cholecalciferol (Vitamin D) 2,000 unit PO DAILY [facility] Last Admin: 06/22/18 08:48 Dose: 2,000 unit Docusate Sodium (Colace) 200 mg PO BID PRN PRN PRN Reason: Constipation Last Admin: 06/21/18 23:05 Dose: 200 mg Enoxaparin Sodium (Lovenox) 40 mg SC DAILY [facility] Last Admin: 06/22/18 08:47 Dose: 40 mg Fentanyl (Duragesic Patch) 25 mcg TRANSDERM. Q72H [facility] Last Admin: 06/22/18 10:33 Dose: 25 mcg Ferrous Sulfate (F[facility]ous Sulfate) [facility] Last Admin: 06/22/18 08:47 Dose: 325 mg Ceftriaxone Sodium (Rocephin) 1 gm in 50 mls @ 100 mls/hr IV Q24 [facility] Last Admin: 06/22/18 09:50 Dose: 100 mls/hr Sodium Chloride () 1,000 mls @ 100 mls/hr IV .Q10H [facility] Last Admin: 06/23/18 04:15 Dose: 100 mls/hr Metoprolol Succinate (Toprol Xl (Beta Jaxon)) 100 mg PO DAILY [facility] Last Admin: 06/22/18 08:48 Dose: 100 mg Nutritional Formula (Lactose Free) (Ensure Enlive) 120 ml PO 4X/DAY [facility] Last Admin: 06/22/18 23:11 Dose: Not Given Ondansetron HCl (Zofran) 4 mg IV Q8H PRN PRN PRN Reason: Nausea Oxycodone HCl (Oxyir) 5 mg PO Q4H PRN PRN PRN Reason: Moderate Pain (pain scale 4-5) Last Admin: 06/22/18 10:25 Dose: 5 mg Pantoprazole Sodium (Protonix) 40 mg PO BID [facility] Last Admin: 06/22/18 23:06 Dose: 40 mg Polyethylene Glycol (Miralax) 17 gm PO DAILY [facility] Last Admin: 06/22/18 08:47 Dose: 17 gm Tamsulosin HCl (Flomax) 0.4 mg PO DAILY [facility] Medical Necessity - Tobacco Use Smoking Status: Never smoker Assessment/Plan All Active Problems Severe sepsis (Resolved) UTI (urinary tract infection) (Acute) Generalized weakness (Acute) Dehydration (Resolved) Decreased functional residual capacity (Acute) 1. Severe sepsis resolved POA (2/4 SIRS criteria: temp < 36 and HR > 90) 2/2 UTI HLIV lactic acid normal follow up cultures. 2. UTI. CTX follow up renal US, no clinical pyelo 3. chronic pain patient lethargic on arrival, so fentanyl held now that she is more alert, will resume 4. DVT proph: LMWH. 5. Disposition: pt wants to go home today to care for her pets. I told her I need verification on cultures before discharging her. She was informed that she could leave on her own accord, but by doing so, she will be leaving AMA. Additionally, told she could get worse or even by doing so; and insurance may not pay for her hospitalization if she leaves AMA. Reluctantly, pt says that she will stay. Code Visit Inpatient E&M: [id number] Subs Hosp L2
--- NOTE | 2018-06-23 08:46 | PN_ITS ---
Patient Problems: Active and Suspected Problems UTI (urinary tract infection) (Acute) Generalized weakness (Acute) Decreased functional residual capacity (Acute) Subjective: Feeling better. Wants to go home and take care of her pets. Vitals/I&O's: Vital Signs Temp Pulse Resp BP Pulse Ox 37.1 C 61 16 126/56 H 98 06/23/18 03:07 06/23/18 03:07 06/23/18 03:07 06/23/18 03:07 06/23/18 03:07 Oxygen Delivery Method Room Air Weight: 51 kg Body Mass Index (BMI) 21.2 Finger Stick Blood Glucose 88 Intake and Output for Last 24 Hours 06/21/18 06/22/18 06/23/18 23:59 23:59 23:59 Intake Total 3324 / 3324 1475 / 1475 Output Total 1100 / 1100 Balance - / - 2224 / 2224 1475 / 1475 General: Alert, Cooperative, No apparent distress HEENT: Atraumatic, Normocephalic Oral: Moist Mucosa, No Gingival or Mucosal Lesions/ Ulcerations Neck: No Nodes, Thyroid Normal Size and Texture Lungs: Clear to auscultation, Normal air movement, No rhonchi, No wheeze Cardiovascular: Regular rate, Regular Rhythm, Normal S1, Normal S2, No murmurs Abdomen: Bowel Sounds Present, Soft, Non Tender, Non-Distended, No Hepato- splenomegaly Extremities: No edema, No Calf Tenderness Skin: No rashes, No breakdown Musculoskeletal: No Tenderness to Palpation of Joints or Extremities, No Muscle Wasting Psych/Mental Status: Flat Affect, - - minimal eye contact. withdrawn when told she would not be discharged today. Microbiology Past 72 Hours 06/22/18 00:58 Mucosa - Nasopharyngeal Influenza Types A,B Direct FA (KYLER) - Final Laboratory Results 06/22/18 09:56: Lactic Acid 3.0 H 06/22/18 11:35: POC Glucose 136 H 06/22/18 16:22: Lactic Acid 1.4 06/22/18 16:23: POC Glucose 154 H 06/22/18 23:09: POC Glucose 106 06/23/18 06:25: Sodium 135 L, Potassium 3.7, Chloride 106, Carbon Dioxide 24.0, Anion Gap 5, BUN 16, Creatinine 0.72, Estim Creat Clear Calc 36.12, Est GFR (MDRD) Af Amer 102, Est GFR (MDRD) Non-Af 84, BUN/Creatinine Ratio 22.3 H, Glucose 81, Calcium 7.3 L 06/23/18 06:25: WBC 6.2, RBC 3.42 L, Hgb 11.2 L, Hct 32.0 L, MCV 93.6, MCH 32.7 H, MCHC 35.0, RDW 13.8, RDW Differential 45.9 H, Plt Count 160, MPV 9.2, Immature Gran % (Auto) 0.200, Neut % (Auto) 65.0, Lymph % (Auto) 21.0, [place] % (Auto) 12.4 H, Eos % (Auto) 1.1, Baso % (Auto) 0.3, Absolute Neuts (auto) 4.0, Absolute Lymphs (auto) 1.29, Total Counted Not Reportable 06/23/18 06:52: POC Glucose 98 Current Medications Acetaminophen (Tylenol) 650 mg PO Q6H PRN PRN PRN Reason: Mild Pain (scale 0-3)/T>100.7 Last Admin: 06/22/18 10:25 Dose: 650 mg Al Hydroxide/Mg Hydroxide (Mylanta Ii) 30 ml PO Q6H PRN PRN PRN Reason: Gastric Burning [facility]) [facility] Last Admin: 06/22/18 08:47 Dose: 81 mg Atorvastatin Calcium (Lipitor) 40 mg PO QHS [facility] Last Admin: 06/22/18 23:06 Dose: 40 mg Bisacodyl (Dulcolax) 10 mg RECTAL DAILY PRN PRN PRN Reason: Constipation Cholecalciferol (Vitamin D) 2,000 unit PO DAILY [facility] Last Admin: 06/22/18 08:48 Dose: 2,000 unit Docusate Sodium (Colace) 200 mg PO BID PRN PRN PRN Reason: Constipation Last Admin: 06/21/18 23:05 Dose: 200 mg Enoxaparin Sodium (Lovenox) 40 mg SC DAILY [facility] Last Admin: 06/22/18 08:47 Dose: 40 mg Fentanyl (Duragesic Patch) 25 mcg TRANSDERM. Q72H [facility] Last Admin: 06/22/18 10:33 Dose: 25 mcg Ferrous Sulfate (F[facility]ous Sulfate) [facility] Last Admin: 06/22/18 08:47 Dose: 325 mg Ceftriaxone Sodium (Rocephin) 1 gm in 50 mls @ 100 mls/hr IV Q24 [facility] Last Admin: 06/22/18 09:50 Dose: 100 mls/hr Sodium Chloride () 1,000 mls @ 100 mls/hr IV .Q10H [facility] Last Admin: 06/23/18 04:15 Dose: 100 mls/hr Metoprolol Succinate (Toprol Xl (Beta Jaxon)) 100 mg PO DAILY [facility] Last Admin: 06/22/18 08:48 Dose: 100 mg Nutritional Formula (Lactose Free) (Ensure Enlive) 120 ml PO 4X/DAY [facility] Last Admin: 06/22/18 23:11 Dose: Not Given Ondansetron HCl (Zofran) 4 mg IV Q8H PRN PRN PRN Reason: Nausea Oxycodone HCl (Oxyir) 5 mg PO Q4H PRN PRN PRN Reason: Moderate Pain (pain scale 4-5) Last Admin: 06/22/18 10:25 Dose: 5 mg Pantoprazole Sodium (Protonix) 40 mg PO BID [facility] Last Admin: 06/22/18 23:06 Dose: 40 mg Polyethylene Glycol (Miralax) 17 gm PO DAILY [facility] Last Admin: 06/22/18 08:47 Dose: 17 gm Tamsulosin HCl (Flomax) 0.4 mg PO DAILY [facility] Medical Necessity - Tobacco Use Smoking Status: Never smoker Assessment/Plan All Active Problems Severe sepsis (Resolved) UTI (urinary tract infection) (Acute) Generalized weakness (Acute) Dehydration (Resolved) Decreased functional residual capacity (Acute) 1. Severe sepsis * resolved * POA (2/4 SIRS criteria: temp < 36 and HR > 90) * 2/2 UTI * HLIV * lactic acid normal * follow up cultures. 2. UTI. * CTX * follow up renal US, no clinical pyelo 3. chronic pain * patient lethargic on arrival, so fentanyl held * now that she is more alert, will resume 4. DVT proph: LMWH. 5. Disposition: * pt wants to go home today to care for her pets. I told her I need verification on cultures before discharging her. She was informed that she could leave on her own accord, but by doing so, she will be leaving AMA. Additionally, told she could get worse or even by doing so; and insurance may not pay for her hospitalization if she leaves AMA. Reluctantly, pt says that she will stay. Code Visit Inpatient E&M: 06135 Subs Hosp L2
[2018-06-23 10:40] VITALS: BP 142/90; PULSE 68; RESP 18; TEMP 36.8; O2SAT 95
[2018-06-23 10:48] VITALS: PULSE 68
[2018-06-23] MEDS: Ferrous Sulfate 325 MG Tablet PO (10:48)
[2018-06-23] MEDS: Metoprolol(XL)Succ 100 MG Tablet PO (10:48)
[2018-06-23] MEDS: Ceftriaxone 1 GM/50 ML BAG IV (10:48)
[2018-06-23] MEDS: Aspirin E.C. 81 MG Tablet PO (10:48)
[2018-06-23] MEDS: Tamsulosin HCl 0.4 MG Capsule PO (10:48)
[2018-06-23] MEDS: Enoxaparin 40 MG/0.4 ML Syringe SC (10:48)
[2018-06-23] MEDS: Pantoprazole Sodium 40 MG Tablet PO ×2 (10:48→22:53)
--- NOTE | 2018-06-23 12:40 | CASEMGMT ---
ABIGAIL RODRIGUEZ INITIAL ASSESSMENT D/C PLAN: Home Face to Face with patient for initial transition planning/care coordination assessment. ABIGAIL RODRIGUEZ introduced self and role at [facility]. Pt resting in bed, awake/alert/oriented. Pt willing to participate in assessment and able to answer all questions appropriately. Care providers, pharmacy, and demographics verified. PCP: Eleonora Ceron Pharmacy: [facility] Insurance: [facility] A & B, [facility] Health Plan Prescription Benefit: Yes Living Will/HPOA: States has both LW and HCPOA. States her son, Umair, is HCPOA. Copy of LW found on pt's paper chart, but copy of HCPOA not found. Pt made aware and stated she thought they were all on the same form. States she will check with her son to see if he can bring in HCPOA papers. LNOK: sonUmair. Living Arrangements: Pt lives alone. Son, Umair lives close and is supportive. Pt states she lives in a 2-story home. Bedroom is on 2nd floor and she has a stair lift on that flight of stairs. Has one stair to enter home. Pt states prior to recently becoming isll, she was independent with all ADL's @ home and very active, stating that she was still walking her dog, and that she was even push-mowing her front yard, and using tractor to mow the bigger back yard over the summer. Transportation: Pt currently drives. Son able to assist with transportation. DME: Pt states has a shower chair, quad cane, 2 walker (keeps one on each floor), stair lift, and hospital bed. Pt states she has considered getting a medical alert button. Information on local companies that provide medical alert buttons given to pt. Pt denies needing other DME at this time. HHC/Out-patient therapy: PT/OT notes reviewed. Pt states used [facility]HC several years ago after hip surgery. Declines the need and states does not want HHC upon discharge. Discussed out-pt therapy with patient and she declines this as well, stating she feels she is active enough and does not need it. Pt states she has a membership at [facility] and prefers to start going there more frequently instead of going somewhere else for therapy. Pt made aware that if she changes her mind and decides she would like HHC or out-pt therapy to let staff know before discharge. She was also made aware either of these can be set-up through her PCP and instructed to discuss this with her PCP if she is interested. Pt wishes to return home and declines offer of HHC or out-pt therapy. Pt states that her suddenly in August and that she has been having a hard time with this loss. Pt also states that their daughter 8 yrs prior on the exact day. Emotional support provided. Pt states she does not go to counseling for this and is not interested in going anywhere, stating she can talk to Father Clement about any time I need or want to and that she has several close friends she talks to as well and that this is helpful. Pt reports she has never been on an anti-depressant and is not interested in this either. Pt declines wanting to talk with anyone further any declines further assistance. CM to follow for any further discharge planning needs that may arise. Steffanie FLETCHER RN CM
[2018-06-23 14:44] VITALS: BP 155/73; PULSE 88; RESP 18; TEMP 36.6; O2SAT 100
[2018-06-23 18:30] LABS: Bedside Glucose 105 mg/dL (70-110)
[2018-06-23 20:04] VITALS: BP 138/72; PULSE 61; RESP 20; TEMP 36.9; O2SAT 96
[2018-06-23] MEDS: Atorvastatin Calcium 40 MG Tablet PO (22:53)
[2018-06-24] MEDS: 0.9% Normal Saline 1,000 ML 100 ML IV (01:48)
[2018-06-24 02:05] VITALS: BP 133/68; PULSE 62; RESP 18; TEMP 36.5; O2SAT 98
[2018-06-24 08:51] VITALS: BP 149/79; PULSE 62; RESP 16; TEMP 36.3; O2SAT 98
[2018-06-24] MEDS: Ferrous Sulfate 325 MG Tablet PO (09:00)
[2018-06-24] MEDS: Aspirin E.C. 81 MG Tablet PO (09:00)
[2018-06-24 09:31] LABS: Bedside Glucose 156 mg/dL (70-110)
[2018-06-24] MEDS: Ceftriaxone 1 GM/50 ML BAG IV (10:13)
[2018-06-24] MEDS: Pantoprazole Sodium 40 MG Tablet PO (10:13)
[2018-06-24] MEDS: Enoxaparin 40 MG/0.4 ML Syringe SC (10:13)
[2018-06-24 10:14] VITALS: PULSE 61
[2018-06-24] MEDS: Tamsulosin HCl 0.4 MG Capsule PO (10:14)
[2018-06-24] MEDS: Metoprolol(XL)Succ 100 MG Tablet PO (10:14)
[2018-06-24 11:48] VITALS: BP 157/87; PULSE 68; RESP 16; O2SAT 100
--- NOTE | 2018-06-24 11:49 | DCINST_ITS ---
- Discharge Diagnoses Current Active Problems: Current Active and Chronic Problems UTI (urinary tract infection) (Acute) Generalized weakness (Acute) Decreased functional residual capacity (Acute) You will use the following diet at home:: No restrictions Your food should be the consistency of: Regular Your liquids should be the consistency of: Regular/Thin Discharge Activity: Return to Normal Activity Call your doctor if you observe: Fever of 101 or Higher, Inability to urinate Allergies/Adverse Reactions: Allergies No Known Allergies Allergy (Verified 06/21/18 17:10) Medications to take at Discharge Atorvastatin Calcium [Lipitor] 40 mg PO QHS #30 tablet 08/24/13 Pantoprazole Sodium [Protonix] 40 mg PO BID #60 tablet 06/16/14 fentaNYL patch [Duragesic patch] 25 mcg TRANSDERM. Q72H #10 patch 06/29/14 Aspirin E.C. [Ecotrin] 81 mg PO DAILY 06/21/18 Cholecalciferol (Vitamin D3) [D3-2000] 2,000 unit PO DAILY 06/21/18 Ferrous Sulfate [Iron] 325 mg PO DAILY 06/21/18 Ibandronate Sodium [Boniva] 150 mg PO Q30D 06/21/18 Metoprolol Succinate [Toprol Xl] 100 mg PO DAILY 06/21/18 Ciprofloxacin 500 mg PO BID #10 ml 06/24/18 The following prescriptions were given: Ciprofloxacin 500 mg PO BID #10 ml Primary Care Physician: Ramona Crews MD [Primary Care Provider] - Within 2 Weeks Test Results: Test results from this visit will be discussed in further detail at your follow- up appointment, if applicable. Proposed Discharge Date: 06/24/18
--- NOTE | 2018-06-24 11:49 | PCM.DC.SUM ---
Discharge Date and Diagnosis - Problem List Patient Problems: Active and Suspected Problems UTI (urinary tract infection) (Acute) Generalized weakness (Acute) Decreased functional residual capacity (Acute) Date of Admission: 06/21/18 Date of Discharge: 06/24/18 - Primary Discharge Diagnosis Active and Suspected Problems UTI (urinary tract infection) (Acute) Generalized weakness (Acute) Decreased functional residual capacity (Acute) 1. Severe sepsis resolved POA (2/4 SIRS criteria: temp < 36 and HR > 90) 2/2 UTI HLIV lactic acid normal follow up cultures. 2. UTI. presumptive E. coli discharge with 5 more days of cipro 3. 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 Electronically Signed: Marilyn Dockery MD at 17:58 EST Tel , Service support , Renal Ultrasound 06/22/18 06:58 IMPRESSION: Probable small right upper pole cyst. Electronically Signed: Alan Guerin DO at 0:01 EST Tel [phone], Service support , Operations: None, - Procedures: None Summary of Care Provided: The patient is a 78 year old F with weakness and change in mental status. Patient was found to have severe sepsis upon arrival and a urinary tract infection. Urine culture came back showing presumptive E. coli which was pansensitive. Patient be discharged with 5 more days of ciprofloxacin. Patient did have severe sepsis upon arrival did receive IV fluids. Lactic acid did normalize. Patient did have confusion when she presented and her fentanyl was really held but that resolved. That was likely due to her severe sepsis. Patient was felt to benefit from therapy services, however the patient declined. [] Patient Problems: Active and Suspected Problems UTI (urinary tract infection) (Acute) Generalized weakness (Acute) Decreased functional residual capacity (Acute) - Physical Exam General: Alert, No apparent distress, - - up in bed. afebrile. HEENT: Atraumatic, Normocephalic Psych/Mental Status: Normal Affect, Appropriate Vital Signs Temp Pulse Resp BP Pulse Ox 36.3 C L 61 16 149/79 H 98 06/24/18 08:51 06/24/18 10:14 06/24/18 08:51 06/24/18 08:51 06/24/18 08:51 Oxygen Delivery Method Room Air Weight: 51 kg Body Mass Index (BMI) 21.2 Finger Stick Blood Glucose 88 Intake and Output for Last 24 Hours 06/22/18 06/23/18 06/24/18 23:59 23:59 23:59 Intake Total 3324 / 3324 3731 / 3731 1446 / 1446 Output Total 1100 / 1100 Balance 2224 / 2224 3731 / 3731 1446 / 1446 Microbiology Past 72 Hours 06/22/18 00:20 Blood Culture - Preliminary Blood Culture (Wb) - Anticubital Right No growth in 48 hours. 06/22/18 00:12 Blood Culture - Preliminary Blood Culture (Wb) - Anticubital Right No growth in 48 hours. 06/21/18 18:26 Urine Culture - Final Urine, Catheterized Presumptive E. coli 06/22/18 00:58 Influenza Types A,B Direct FA (KYLER) - Final Mucosa - Nasopharyngeal POC Glucose 06/24/18 06/23/18 08:55 18:09 POC Glucose 156 H 105 Discharge Diet: No Restrictions Discharge Activity: Return to Normal Activity Call your doctor if you observe: Fever of 101 or Higher, Inability to urinate Home Medications: Medications to take at Discharge Atorvastatin Calcium [Lipitor] 40 mg PO QHS #30 tablet 08/24/13 Pantoprazole Sodium [Protonix] 40 mg PO BID #60 tablet 06/16/14 fentaNYL patch [Duragesic patch] 25 mcg TRANSDERM. Q72H #10 patch 06/29/14 Aspirin E.C. [Ecotrin] 81 mg PO DAILY 06/21/18 Cholecalciferol (Vitamin D3) [D3-2000] 2,000 unit PO DAILY 06/21/18 Ferrous Sulfate [Iron] 325 mg PO DAILY 06/21/18 Ibandronate Sodium [Boniva] 150 mg PO Q30D 06/21/18 Metoprolol Succinate [Toprol Xl] 100 mg PO DAILY 06/21/18 Ciprofloxacin 500 mg PO BID #10 ml 06/24/18 Following Prescrptions Were Given to Patient: Ciprofloxacin 500 mg PO BID #10 ml Primary Care Physician: Ramona Crews MD [Primary Care Provider] - Within 2 Weeks Disposition: Home Minutes spent on discharge:: 26 Patient Condition:: Good Medical Necessity - Tobacco Use Smoking Status: Never smoker Meaningful Use Info Meaningful Use Diagnoses (Choose all that apply): None applicable Code Visit Inpatient E&M: 34268 Disch Hosp
--- NOTE | 2018-06-24 11:52 | DS.PCM_ITS ---
Discharge Date and Diagnosis - Problem List Patient Problems: Active and Suspected Problems UTI (urinary tract infection) (Acute) Generalized weakness (Acute) Decreased functional residual capacity (Acute) Date of Admission: 06/21/18 Date of Discharge: 06/24/18 - Primary Discharge Diagnosis Active and Suspected Problems UTI (urinary tract infection) (Acute) Generalized weakness (Acute) Decreased functional residual capacity (Acute) 1. Severe sepsis * resolved * POA (2/4 SIRS criteria: temp < 36 and HR > 90) * 2/2 UTI * HLIV * lactic acid normal * follow up cultures. 2. UTI. * presumptive E. coli * discharge with 5 more days of cipro 3. chronic pain * patient lethargic on arrival, so fentanyl held * now that she is more alert, will resume - Secondary Discharge Diagnosis Chronic Problems History of DVT (deep vein thrombosis) (Chronic) PUD (peptic ulcer disease) (Chronic) Chronic back pain (Chronic) Hyperlipidemia (Chronic) Depression (Chronic) Benign essential hypertension (Chronic) Alcohol abuse (Chronic) Gastrointestinal bleed (Chronic) Recurrent dislocation of right hip (Chronic) Chronic blood loss anemia (Chronic) Recurrent falls (Chronic) Hospital Course and Treatment Imaging Results: Clinical Impression(s) from Imaging Studies Chest X-Ray 06/21/18 17:27 IMPRESSION: No acute process. Electronically Signed: Marilyn Dockery MD at 17:58 EST Tel , Service support , Renal Ultrasound 06/22/18 06:58 IMPRESSION: Probable small right upper pole cyst. Electronically Signed: Alan Guerin DO at 0:01 EST Tel [phone], Service support , Operations: None, - Procedures: None Summary of Care Provided: The patient is a 78 year old F with weakness and change in mental status. Patient was found to have severe sepsis upon arrival and a urinary tract infection. Urine culture came back showing presumptive E. coli which was pansensitive. Patient be discharged with 5 more days of ciprofloxacin. Patient did have severe sepsis upon arrival did receive IV fluids. Lactic acid did normalize. Patient did have confusion when she presented and her fentanyl was really held but that resolved. That was likely due to her severe sepsis. Patient was felt to benefit from therapy services, however the patient declined. [] Patient Problems: Active and Suspected Problems UTI (urinary tract infection) (Acute) Generalized weakness (Acute) Decreased functional residual capacity (Acute) - Physical Exam General: Alert, No apparent distress, - - up in bed. afebrile. HEENT: Atraumatic, Normocephalic Psych/Mental Status: Normal Affect, Appropriate Vital Signs Temp Pulse Resp BP Pulse Ox 36.3 C L 61 16 149/79 H 98 06/24/18 08:51 06/24/18 10:14 06/24/18 08:51 06/24/18 08:51 06/24/18 08:51 Oxygen Delivery Method Room Air Weight: 51 kg Body Mass Index (BMI) 21.2 Finger Stick Blood Glucose 88 Intake and Output for Last 24 Hours 06/22/18 06/23/18 06/24/18 23:59 23:59 23:59 Intake Total 3324 / 3324 3731 / 3731 1446 / 1446 Output Total 1100 / 1100 Balance 2224 / 2224 3731 / 3731 1446 / 1446 Microbiology Past 72 Hours 06/22/18 00:20 Blood Culture - Preliminary Blood Culture (Wb) - Anticubital Right No growth in 48 hours. 06/22/18 00:12 Blood Culture - Preliminary Blood Culture (Wb) - Anticubital Right No growth in 48 hours. 06/21/18 18:26 Urine Culture - Final Urine, Catheterized Presumptive E. coli 06/22/18 00:58 Influenza Types A,B Direct FA ([facility]) - Final Mucosa - Nasopharyngeal POC Glucose 06/24/18 06/23/18 08:55 18:09 POC Glucose 156 H 105 Discharge Diet: No Restrictions Discharge Activity: Return to Normal Activity Call your doctor if you observe: Fever of 101 or Higher, Inability to urinate Home Medications: Medications to take at Discharge Atorvastatin Calcium [Lipitor] 40 mg PO QHS #30 tablet 08/24/13 Pantoprazole Sodium [Protonix] 40 mg PO BID #60 tablet 06/16/14 fentaNYL patch [Duragesic patch] 25 mcg TRANSDERM. Q72H #10 patch 06/29/14 Aspirin E.C. [Ecotrin] 81 mg PO DAILY 06/21/18 Cholecalciferol (Vitamin D3) [D3-2000] 2,000 unit PO DAILY 06/21/18 Ferrous Sulfate [Iron] 325 mg PO DAILY 06/21/18 Ibandronate Sodium [Boniva] 150 mg PO Q30D 06/21/18 Metoprolol Succinate [Toprol Xl] 100 mg PO DAILY 06/21/18 Ciprofloxacin 500 mg PO BID #10 ml 06/24/18 Following Prescrptions Were Given to Patient: Ciprofloxacin 500 mg PO BID #10 ml Primary Care Physician: Ramona Crews MD [Primary Care Provider] - Within 2 Weeks Disposition: Home Minutes spent on discharge:: 26 Patient Condition:: Good Medical Necessity - Tobacco Use Smoking Status: Never smoker Meaningful Use Info Meaningful Use Diagnoses (Choose all that apply): None applicable Code Visit Inpatient E&M: 54557 Disch Hosp
== END 2018-06-24 13:27 | disposition home or self-care (01) | DRG 871 ==
LOC: ED 20:10 → MS2 21:40
PROVIDERS: Family Medicine; Admitting Provider Internal Medicine; Emergency Provider Emergency Medicine; Family Provider Family Medicine; PCP Family Medicine
DX: A41.9 Sepsis, unspecified organism (principal); G93.41 Metabolic encephalopathy; E87.2 Acidosis; N39.0 Urinary tract infection, site not specified; E87.1 Hypo-osmolality and hyponatremia; R65.20 Severe sepsis without septic shock; Z86.718 Personal history of other venous thrombosis and embolism; Z66 Do not resuscitate; E78.5 Hyperlipidemia, unspecified; B96.20 Unspecified Escherichia coli [E. coli] as the cause of diseases classified elsewhere; I10 Essential (primary) hypertension; E86.0 Dehydration; M19.041 Primary osteoarthritis, right hand; S60.511A Abrasion of right hand, initial encounter; W55.03XA Scratched by cat, initial encounter; G89.29 Other chronic pain; E16.2 Hypoglycemia, unspecified
CPT/HCPCS: 36415; 71045; 76770; 80048; 81001; 82436; 82570; 82962; 83036; 83605; 83935; 84133; 84300; 84443; 84484; 85025; 85652; 87040; 87086; 87088; 87186; 87804; 93005; 97110; 97116; 97161; 97165; 97530; 97802; 99285; J7030; P9612; A4216

== ENCOUNTER → 2018-07-31 13:56 | Outpatient (CLI) | payer MEDICARE, OTHER, SELFPAY ==
[2018-07-31 15:21] LABS: Absolute Lymphocyte Count 1.73 X10^3/ul (0.83-4.51); Absolute Neutrophil Count 2.4 X10^3/uL (2.0-7.7); Basophil# 0.08 X10^3/uL; Basophil% 1.3 % (0-1); Eosinophil# 0.78 X10^3/uL; Eosinophils% 12.9 % (0-5); Hematocrit 36.1 % (37-47); Hemoglobin 12.2 g/dl (12.0-15.0); Lymphocyte # 1.73 X10^3/ul (4.0); Lymphocyte % 28.5 % (19-41); Mean Corp Hgb Conc 33.8 g/gl (32-36); Mean Corpuscular Hgb 32.1 pg (27.0-32.0); Mean Platelet Vol. 8.8 fl (6.2-12.0); Monocyte# 1.08 X10^3/uL; Monocyte% 17.8 % (0-10); Neutrophil # 2.38 X10^3/uL (2.7-7.7); Neutrophil % 39.2 % (47-70); Platelet Count 214 K/mm3 (150-450); RBC Distribution Width CV 13.3 % (11.6-14.6); RBC Distribution Width SD 45.9 fl (35.1-43.9); White Blood Count 6.1 K/mm3 (4.4-11.0)
[2018-07-31 15:23] LABS: POSITIVE COUNT NO; POSITIVE DIFFERENTIAL NO; POSITIVE MORPHOLOGY NO
[2018-07-31 15:37] LABS: ALB/GLOB Ratio 1.2 RATIO (0.9-2.4); AST(SGOT) 32 U/L (15-37); Alanine Aminotransfer ALT/SGPT 23 U/L (13-56); Albumin, Serum 3.7 g/dL (3.2-5.0); Alkaline Phosphatase 109 U/L (45-117); Anion Gap 6 (5-15); BUN 16 mg/dL (7-18); BUN/Creat Ratio 17.1 RATIO (10-20); Calcium,Total 8.5 mg/dL (8.5-10.1); Chloride 98 mmol/L (98-107); Creatinine, Serum 0.93 mg/dL (0.55-1.02); EST Glomerular Filtration Rate 62 mL/min (>60); Est Glom Filt Rate - Afr Amer 75 mL/min (>60); Globulin 3.2 g/dL (2.2-4.2); Glucose 78 mg/dL (74-106); Potassium 4.2 mmol/L (3.5-5.1); Protein, Total 6.9 g/dL (6.4-8.2); Sodium Level 132 mmol/L (136-145)
== END ==
PROVIDERS: Family Provider Family Medicine; PCP Family Medicine; Visit Provider Family Medicine
DX: Z01.818 Encounter for other preprocedural examination (principal)
CPT/HCPCS: 36415; 80053; 85025

== ENCOUNTER → 2018-09-19 10:40 | Outpatient (CLI) | payer MEDICARE, OTHER, SELFPAY ==
--- NOTE | 2018-09-19 10:45 | RAD_ITS ---
STUDY: X-RAY - RIGHT SHOULDER REASON FOR EXAM: Female, 78 years old. Fall. TECHNIQUE: 4 view(s) of the shoulder. COMPARISON: Chest, June 21, 2018. FINDINGS: There is severe degenerative arthrosis of the glenohumeral articulation. There are degenerative changes of the glenohumeral joint. Normal acromioclavicular joint. There is a questionable remote fracture versus surgical changes of the distal clavicle. Normal acromion. There is demineralization of the humerus and visualized osseous structures. The soft tissue structures are unremarkable. Normal visualized pulmonary apex. RAD/Shoulder min 2 Views IMPRESSION: Degenerative changes of the right shoulder. Findings appear unchanged from a CT of the chest dated June 21, 2018. Electronically Signed: Patricio Bello DO at 22:38 EST Tel [phone], Service support ,
== END ==
PROVIDERS: Family Provider Family Medicine; PCP Family Medicine; Referring Provider Family Medicine; Visit Provider Family Medicine
DX: S40.011A Contusion of right shoulder, initial encounter (principal); X58.XXXA Exposure to other specified factors, initial encounter; Y93.9 Activity, unspecified; Y92.9 Unspecified place or not applicable; Y99.9 Unspecified external cause status
CPT/HCPCS: 73030

== ENCOUNTER 2018-09-19 17:01 | Emergency (ER) | payer MEDICARE, OTHER, SELFPAY ==
[2018-09-19 17:02] VITALS: BP 146/75; PULSE 74; RESP 18; TEMP 36.5; O2SAT 97; BMI 21.1
--- NOTE | 2018-09-19 17:56 | CT_ITS ---
STUDY: CT BRAIN WITHOUT CONTRAST REASON FOR EXAM: Female, 78 years old. Status post fall RADIATION DOSAGE (If Supplied By Facility): CTDIvol = ( 44.99 ) mGy, DLP = ( 762.36 ) mGycm TECHNIQUE: Transaxial CT imaging of the brain was performed without administration of intravenous contrast material. Individualized dose optimization techniques were used for this CT. COMPARISON: August 26, 2014 CT head FINDINGS: Normal soft tissue structures. Normal calvarium. There is moderate cerebral atrophy with widening of the extra-axial spaces and ventricular dilatation. There are areas of decreased attenuation within the white matter tracts of the supratentorial brain, consistent with microvascular disease changes. There is low attenuation within the left external capsule. Stable since prior study. Normal brainstem. There is mild cerebellar atrophy. There is no intracranial hemorrhage. There are no findings of an acute ischemic infarction. Normal visualized paranasal sinuses. CT/Brain/Head without Contrast IMPRESSION: Atrophy. Stable ischemic changes of left basal ganglia. No evidence of acute hemorrhage infarct or edema. Electronically Signed: Viridiana Bragg MD at 19:26 EST Tel , Service support ,
--- NOTE | 2018-09-19 17:58 | CT_ITS ---
STUDY: CT CERVICAL SPINE WITHOUT CONTRAST REASON FOR EXAM: Female, 78 years old. Pain RADIATION DOSAGE (If Supplied By Facility): CTDIvol = ( 11.70 ) mGy, DLP = ( 227.27 ) mGycm TECHNIQUE: High resolution transaxial imaging was performed without contrast material. Sagittal and coronal images were reconstructed. Individualized dose optimization techniques were used for this CT. COMPARISON: December 31, 2013 CT scan cervical spine FINDINGS: Normal craniovertebral junction. There are degenerative changes of the anterior atlantoaxial articulation. Normal odontoid process. 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 This is relatively similar to the prior study. The fracture of the posterior spinous process C5-C6 is less apparent than on the prior study. There is multilevel spondylosis. C2-3: Normal endplates. Normal disc height and morphology. Normal central canal and intervertebral neuroforamina. C3-4: There is slight anterolisthesis facet arthropathy minimal neural foramina narrowing or significant central stenosis C4-5: There is anterolisthesis a broad disc osteophyte minimal neural foramina narrowing facet arthropathy minimal central stenosis. C5-6: There is disc space narrowing broad disc osteophyte moderate neural foramina narrowing. There is ligamentum flavum calcification mild central stenosis. C6-7: There is minimal spondylosis. There is no significant neural foramina narrowing or central stenosis. C7-T1: Normal endplates. Normal disc height and morphology. Normal central canal and intervertebral neuroforamina. Normal visualized soft tissue structures. CT/Spine Cervical without Contras IMPRESSION: Stable alignment of the cervical spine, no visualized evidence of an acute fracture. There is stable 4 mm anterolisthesis C4-C5. The prior fracture seen at the posterior spinous process at the level of C5 appears to have healed or is not well seen since prior study. Electronically Signed: Viridiana Bragg MD at 19:32 EST Tel , Service support ,
[2018-09-19] MEDS: Ondansetron 4 MG/2 ML Vial IV (18:10)
[2018-09-19] MEDS: Morphine 4 MG/ML Syringe IV (18:13)
[2018-09-19 18:22] LABS: Absolute Lymphocyte Count 1.33 X10^3/ul (0.83-4.51); Absolute Neutrophil Count 1.8 X10^3/uL (2.0-7.7); Basophil# 0.07 X10^3/uL; Basophil% 1.8 % (0-1); Eosinophil# 0.19 X10^3/uL; Hematocrit 33.3 % (37-47); Hemoglobin 11.3 g/dl (12.0-15.0); Lymphocyte # 1.33 X10^3/ul (4.0); Lymphocyte % 34.8 % (19-41); Mean Corp Hgb Conc 33.9 g/gl (32-36); Mean Corpuscular Hgb 32.1 pg (27.0-32.0); Mean Corpuscular Volume 94.6 fL (81-99); Mean Platelet Vol. 8.9 fl (6.2-12.0); Monocyte# 0.38 X10^3/uL; Monocyte% 9.9 % (0-10); Neutrophil # 1.79 X10^3/uL (2.7-7.7); Neutrophil % 46.9 % (47-70); Platelet Count 251 K/mm3 (150-450); RBC Distribution Width CV 12.9 % (11.6-14.6); RBC Distribution Width SD 44.5 fl (35.1-43.9); Red Blood Count 3.52 M/mm3 (4.2-5.4); White Blood Count 3.8 K/mm3 (4.4-11.0)
[2018-09-19 18:25] LABS: POSITIVE COUNT NO; POSITIVE DIFFERENTIAL NO; POSITIVE MORPHOLOGY NO
[2018-09-19 18:31] LABS: Anion Gap 12 (5-15); BUN 12 mg/dL (7-18); BUN/Creat Ratio 14.4 RATIO (10-20); Calcium,Total 7.7 mg/dL (8.5-10.1); Chloride 96 mmol/L (98-107); Creatinine, Serum 0.84 mg/dL (0.55-1.02); EST Glomerular Filtration Rate 71 mL/min (>60); Est Glom Filt Rate - Afr Amer 85 mL/min (>60); Estimated Creatinine Clearance 42.99 ml/min; Glucose 73 mg/dL (74-106); Potassium 3.7 mmol/L (3.5-5.1); Sodium Level 129 mmol/L (136-145)
[2018-09-19 18:59] VITALS: BP 124/81; PULSE 68; RESP 18; O2SAT 96
--- NOTE | 2018-09-19 19:46 | ED.DCSUM_ITS ---
- ER Visit Summary Date of Service: 09/19/18 Chief Complaint: Right shoulder pain History of Present Illness: The patient is a 78 F who fell 1 week ago hitting her right shoulder and the back of her head. Patient states right shoulder pain started severely 3 or 4 days ago. It does feel as if it comes across top of her shoulder from her neck. She was seen at her PCPs office today. An x-ray was taken but results were not available. She was given a steroid injection. She is chronically on a 25 mcg fentanyl patch for chronic back pain. Due to continued severe pain family brought her in for evaluation. Physical Examination: Vital signs are unremarkable. Patient is lying on the bed rolling back and forth holding her shoulder. Head and neck examination reveals no obvious sign of trauma. No C-spine tenderness. Heart is regular rate and rhythm. Lung sounds are clear. Chest wall is nontender. Abdomen is soft and nontender. Right upper extremity examination reveals mild tenderness of the posterior aspect of the right shoulder joint. She has good range of motion. No sign of dislocation. Test Results: I reviewed the right shoulder x-rays from earlier today. Formal read is not back. She appears to have a an old chronic distal clavicle fracture that never fully healed. Otherwise no acute findings were noted. CBC here reveals white count 3.8 hemoglobin 11.3. Chemistry studies reveal a sodium of 129 which is chronic for her. CT the head shows atrophy with stable ischemic changes in the left basal ganglia. CT the C-spine shows no acute fracture. There is a prior fracture noted to the posterior spinous process of C5 which appears to have healed. Emergency Department Course and Treatment: Patient was given a dose of morphine, Zofran, and IV fluids. She slept for a time after her CT scan. Patient is awake at this time and requesting discharge home. She does feel improved. We talked about the possibility of muscle spasm in her neck in that her pain started a couple days after her fall leading to a radiculopathy across the shoulder. We talked about the possibility of disruption of the prior clavicle fracture site causing her spasm and pain. She got a steroid injection which should start taking in shortly. She also has the fentanyl patch on. She will be written for a few tabs of [place] for home for breakthrough pain only. Patient and son are comfortable with this plan. Treatment Plan: [] Disposition: Discharge Impression: Right shoulder pain status post fall This note was generated with [employer] dictation software. It may contain incorrect words, spelling, and punctuation that were not noted in review of the chart prior to signing ED Disposition - Plan for ED Patient: Referrals: Ramona Crews MD [Primary Care Provider] -
--- NOTE | 2018-09-19 19:46 | ED.DEP ---
ED Disposition - Plan for ED Patient: Disposition: Home or Assisted Living Instructions: ED Contusion Shoulder Prescriptions: Hydrocodone Bitart/Apap 5-325 [[place] 5MG-325MG] 1 tablet PO Q6H PRN PRN 3 Days #8 tablet PRN Reason: Pain Referrals: Ramona Crews MD [Primary Care Provider] - 1 Week if not improving
[2018-09-19 20:00] VITALS: BP 131/73; PULSE 71; RESP 19
--- NOTE | 2018-09-19 20:05 | ED.RN ---
1999 PT discharged, all questions answered. Rx for pain med given. Son requested that pt be wheeled down to main entrance for package pick up as the er entrance is blocked by ems. this rn brought her to the main entrance as requested. pt and family were very happy.
== END 2018-09-19 20:12 | disposition home or self-care (01) ==
PROVIDERS: Emergency Provider Emergency Medicine; Family Provider Family Medicine; PCP Family Medicine
DX: S40.011A Contusion of right shoulder, initial encounter (principal); M54.2 Cervicalgia; W19.XXXA Unspecified fall, initial encounter; Y93.9 Activity, unspecified; Y92.9 Unspecified place or not applicable; Y99.9 Unspecified external cause status; I10 Essential (primary) hypertension; M54.9 Dorsalgia, unspecified; G89.29 Other chronic pain; Z79.82 Long term (current) use of aspirin; Z79.899 Other long term (current) drug therapy; Z86.718 Personal history of other venous thrombosis and embolism; Z87.19 Personal history of other diseases of the digestive system; Z86.2 Personal history of diseases of the blood and blood-forming organs and certain disorders involving the immune mechanism; Z87.11 Personal history of peptic ulcer disease
CPT/HCPCS: 70450; 72125; 73030; 80048; 85025; 96374; 96375; 99284; J7030; J2405

== ENCOUNTER 2018-09-27 13:50 | Inpatient (IN) | payer MEDICARE, OTHER, SELFPAY ==
[2018-09-27] VITALS (19 sets, daily range): BP systolic 125–197; BP diastolic 39–105; PULSE 65–89; RESP 14–21; TEMP 36.6–36.9; O2SAT 94–99; BMI 20.7; BMI 21.1
[2018-09-27 14:25] LABS: Absolute Lymphocyte Count 0.73 X10^3/ul (0.83-4.51); Absolute Neutrophil Count 7.1 X10^3/uL (2.0-7.7); Basophil# 0.03 X10^3/uL; Basophil% 0.3 % (0-1); Hemoglobin 13.2 g/dl (12.0-15.0); Lymphocyte # 0.73 X10^3/ul (4.0); Lymphocyte % 8.2 % (19-41); Mean Corp Hgb Conc 34.7 g/gl (32-36); Mean Corpuscular Hgb 32.2 pg (27.0-32.0); Mean Corpuscular Volume 92.7 fL (81-99); Mean Platelet Vol. 8.7 fl (6.2-12.0); Monocyte# 1.07 X10^3/uL; Neutrophil # 7.06 X10^3/uL (2.7-7.7); Neutrophil % 79.4 % (47-70); Platelet Count 234 K/mm3 (150-450); RBC Distribution Width CV 13.2 % (11.6-14.6); RBC Distribution Width SD 44.1 fl (35.1-43.9); White Blood Count 8.9 K/mm3 (4.4-11.0)
[2018-09-27 14:27] LABS: POSITIVE COUNT NO; POSITIVE DIFFERENTIAL NO; POSITIVE MORPHOLOGY NO
--- NOTE | 2018-09-27 14:34 | CT_ITS ---
STUDY: CT ABDOMEN AND PELVIS WITHOUT CONTRAST REASON FOR EXAM: Female, 78 years old. Right-sided back pain following a recent fall. RADIATION DOSAGE (If Supplied By Facility): CTDIvol = ( 6.98 ) mGy, DLP = ( 300.37 ) mGycm TECHNIQUE: Transaxial images were obtained from the dome of the diaphragm to the symphysis pubis without oral contrast, and without intravenous contrast. Sagittal and coronal images were reconstructed. Individualized dose optimization techniques were used for this CT. COMPARISON: Comparison is made with prior study dated June 14, 2014. FINDINGS: Dense calcified nodules in the left breast. Mild increase in markings at the lung bases suggestive of linear atelectasis and/or scarring. The visualized portions of the heart are within normal limits. Normal liver. The gallbladder is distended. Increased densities are seen within it suggestive of either multiple gallstones or sludge within the gallbladder lumen. Correlation with ultrasound is recommended. Normal spleen. Normal pancreas. Normal bilateral adrenal glands. Normal right kidney. Normal left kidney. Normal visualized stomach. Normal small intestine. Contrast and a moderate amount of fecal material is seen throughout the colon. There are multiple colonic diverticula consistent with diverticulosis. There is non-visualization of the appendix. There is diffuse atherosclerotic calcification of the abdominal aorta and its major visceral branches, without a demonstrated aneurysm. Normal inferior vena cava. Normal retroperitoneum. Normal urinary bladder. There is a right-sided inguinal hernia containing adipose tissue. There are diffuse degenerative changes of the visualized lumbar spine. The patient is status post right hip replacement. CT/Abdomen/Pelvis without Cont IMPRESSION: Distention of the gallbladder. I suspect either multiple tiny stones or sludge within the lumen. Correlation with ultrasound is recommended. Electronically Signed: Khai Mcclain MD at 15:44 EST , Service support ,
--- NOTE | 2018-09-27 14:34 | EKG12_ITS ---
Test Reason : RHYTHM CHANGE Blood Pressure : / mmHG Vent. Rate : 081 BPM Atrial Rate : 081 BPM P-R Int : 182 ms QRS Dur : 084 ms QT Int : 408 ms P-R-T Axes : 049 007 -39 degrees QTc Int : 473 ms Sinus rhythm with Fusion complexes and Premature atrial complexes Nonspecific ST and T wave abnormality Prolonged QT Abnormal ECG When compared with ECG of 27-SEP-2018 14:54, MANUAL COMPARISON REQUIRED, DATA IS UNCONFIRMED Confirmed by TALON TILLEY, CHRISTIAN ([id number]), managing editor MILTON DUVALL ([id number]) on 09/29/2018 9:30:21 AM Referred By: Ramona Crews Confirmed By:CHRISTIAN HANLEY MD
[2018-09-27 14:37] LABS: Anion Gap 10 (5-15); BUN 26 mg/dL (7-18); BUN/Creat Ratio 20.5 RATIO (10-20); Calcium,Total 9.6 mg/dL (8.5-10.1); Chloride 98 mmol/L (98-107); Creatinine, Serum 1.27 mg/dL (0.55-1.02); EST Glomerular Filtration Rate 43 mL/min (>60); Est Glom Filt Rate - Afr Amer 53 mL/min (>60); Estimated Creatinine Clearance 28.44 ml/min; Glucose 180 mg/dL (74-106); Potassium 3.5 mmol/L (3.5-5.1); Sodium Level 131 mmol/L (136-145)
[2018-09-27 15:06] LABS: AST(SGOT) 1379 U/L (15-37); Alanine Aminotransfer ALT/SGPT 556 U/L (13-56); Albumin, Serum 4.4 g/dL (3.2-5.0); Alkaline Phosphatase 148 U/L (45-117); Bilirubin, Direct 0.91 mg/dL (0.00-0.30); Globulin 3.4 g/dL (2.2-4.2); Protein, Total 7.8 g/dL (6.4-8.2)
--- NOTE | 2018-09-27 15:47 | US_ITS ---
STUDY: ABDOMINAL ULTRASOUND - RIGHT UPPER QUADRANT REASON FOR VISIT: Female, 78 years old. Right upper quadrant pain TECHNIQUE: Ultrasound evaluation of the right upper quadrant was performed with real-time and static jorgensen-scale imaging. TECHNICAL QUALITY: Adequate. COMPARISON: None. FINDINGS: Liver: The liver measures 13.7 cm. There is increased echogenicity consistent with fatty infiltration. The bile ducts are within normal limits. There is hepatic color flow. The direction of portal flow is hepatopetal. There is no demonstrated mass lesion. Gallbladder: Normal distended gallbladder. The gallbladder wall measures 3 mm. There is a negative sonographic Ponce's sign. There is no pericholecystic fluid. Multiple tiny hyperechoic foci. Common Bile Duct (C.B.D.): The common bile duct measures 3 mm. Pancreas: Normal pancreatic head and body. Nonvisualized tail secondary to bowel gas. There is no demonstrated pancreatic mass or cyst. Right Kidney: Normal size of the right kidney. The right kidney measures 10.1 x 4 0.3, 55.2 cm. Normal renal cortex. The right cortex measures 1.3 cm. There is no demonstrated renal mass or cyst. There is no right hydronephrosis. US/Gallbladder IMPRESSION: Normal size mildly fatty liver. Normal size gallbladder without wall thickening. Multiple tiny gallstones. Nondistended common bile duct. Unremarkable pancreatic head and body. Nonvisualized tail secondary to bowel gas. Normal right kidney. Electronically Signed: Lilian Bhatt MD at 16:55 EST , Service support ,
[2018-09-27] MEDS: Morphine 4 MG/ML Syringe IV (15:52)
[2018-09-27] MEDS: 0.9% Normal Saline 1,000 ML 250 ML IV ×3 (15:52→22:42)
[2018-09-27] MEDS: Ondansetron 4 MG/2 ML Vial IV (15:52)
--- NOTE | 2018-09-27 16:05 | ED.VISSUMM ---
- ER Visit Summary Date of Service: 09/27/18 Chief Complaint: Abdominal pain History of Present Illness: The patient is a 78 F presenting for evaluation secondary to abdominal pain. Patient apparently has been dealing with increasing generalized weakness recently. Patient suffered a fall couple weeks ago and had injuries to her face neck and shoulders. She was seen in the emergency department for this subsequently. Since then, and since yesterday the patient has developed abdominal pain. She describes it as a continuous aching diffuse pain without real localization exacerbating or relieving qualities. Is not been associated with any sort of nausea vomiting or diarrhea Joann. Patient denies any presence of fever with this. Patient's son states that she has had significantly decreased p.o. intake recently and he attributes that potentially to some depression due to loss of femoral members recently. Physical Examination: Vital signs within normal limits. Somewhat ill-appearing female no acute distress. Moist mucous membranes no conjunctival pallor or scleral icterus. Neck supple. Heart regular rate and rhythm. Lungs clear. Abdomen tender in the epigastrium without obvious evidence of guarding or rebound tenderness. NIH stroke scale is 0. Test Results: EKG demonstrates a sinus rhythm 69 with PACs and nonspecific ST changes. CBC unremarkable, chemistry shows creatinine 1.27 and elevation of the patient's ALT AST to [address] abdomen and pelvis shows potential changes around the patient's gallbladder Emergency Department Course and Treatment: Patient presented for evaluation secondary to abdominal pain. Initially the patient's abdominal exam was not really localizing anywhere other than minimally in the epigastrium so generalized workup was obtained. Patient was found to have profoundly elevated liver enzymes which is a new finding for the patient, and CT shows potential changes of the patient's gallbladder. Patient was given fluid hydration morphine and Zofran. Right upper quadrant ultrasound was found to be negative. 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 I do believe that she requires admission. I discussed this with hospitalist, additional studies including acetaminophen and salicylates and toxicology screens were ordered, and the patient will be admitted for further workup and treatment. Disposition: Admission Impression: 1. Acute hepatitis This note was generated with [employer] dictation software. It may contain incorrect words, spelling, and punctuation that were not noted in review of the chart prior to signing ED Disposition - Plan for ED Patient: Referrals: Ramona Crews MD [Primary Care Provider] -
--- NOTE | 2018-09-27 17:03 | NURSING ---
DR ALVINA CORBETT
--- NOTE | 2018-09-27 17:08 | HP.PCM_ITS ---
History of Present Illness Date of Admission: 09/27/18 Chief Complaint: upper abdominal pain, right shoulder pain The patient is a 78 year old F with past medical history of arthritis and hypertension. She was admitted through the ED on 09/27/2018 with a complaint of upper abdominal pain for 2 days with assisted left shoulder pain. According to patient, she fell a few days ago and came to the ED where she had a right shoulder x-ray done. 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 These findings appear unchanged from previous CT of the chest dated June 21, 2018. Patient states she has a fentanyl patch over the left shoulder into went home. 2 days ago started having severe right upper quadrant abdominal pain which she described as sharp with no aggravating or relieving factors. Pain was rated at 10 out of 10. Patient states she has been taking Tylenol for the past few days and takes 2 tablets 3 times a day as listed per the instructions on the medication bottle. Abdominal pain persisted so she decided to come into the ED today. In the ED, vitals were unremarkable performed temperature of 97.6 Fahrenheit. Labs showed sodium of 131 which is chronic and creatinine of 1.27 with a baseline less than 1. Total bilirubin was 1.8 and direct bilirubin was 0.91 with AST of 1379 and ALT of 556 as well as ALP of 148. Of note, patient has had normal liver enzymes the most recent being just in July 2018. Lipase was pending at time of review and troponin was negative. CBC was normal with platelets being above 200. Abdominal CT showed normal liver and distended gallbladder with increased density seen in the gallbladder suggestive of either multiple gallstones or sludge within the gallbladder lumen. Gallbladder ultrasound done showed fatty infiltration of liver and normal distended gallbladder with a gallbladder wall measuring around 3 mm. Ponce's sign was negative sonographically with multiple tiny hypoechoic foci. Pancreas is also normal. She has been admitted to be managed for acute liver failure of unknown etiology, with acetaminophen toxicity being highly suspected. 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 Q72H #10 patch 06/29/14 Aspirin E.C. [Ecotrin] 81 mg PO DAILY 06/21/18 Cholecalciferol (Vitamin D3) 2,000 unit PO DAILY 06/21/18 [D3-2000] Ibandronate Sodium [Boniva] 150 mg PO Q30D 06/21/18 Metoprolol Succinate [Toprol Xl] 100 mg PO DAILY 06/21/18 Acetaminophen [Tylenol Arthritis] 650 mg PO QHS 09/27/18 Calcium Carbonate [Calcium] 600 mg PO DAILY 09/27/18 Ferrous Sulfate 325 mg PO DAILY 09/27/18 Surgical History: appendectomy, - - Right hip hemiarthroplasty. Psychiatric History: Depression Lives: Alone Smoking Status: Former smoker Alcohol: None Drugs: None - *Family History Maternal History Items: No pertinent history Paternal History Items: No pertinent history Review of Systems Constitutional: Reports: Malaise, Weakness, Fatigue. Denies: Chills, Fever, Weight Change Eyes: Denies: Blurred vision HEENT: Denies: Head Aches, Sinus Congestion, Sinus Drainage Cardiovascular: Denies: Chest Pain, Chest Pressure, Palpitations Respiratory: Denies: Cough, Shortness of Breath, Shortness of breath at rest, Sputum production Gastrointestinal: Reports: Abdominal Pain. Denies: Nausea, Vomiting Genitourinary: Denies: Dysuria Musculoskeletal: Denies: Joint Pain, Joint Tenderness Skin: Denies: Rash, Wounds Neurological: Denies: Numbness, Tingling, Focal weakness Psychiatric: Denies: Anxiety, Depression, Homicidal Ideations, Suicidal Ideations Hematologic/ Lymphatic: Denies: Easy Bruising, Easy Bleeding VTE Information - Inpt Only VTE Present on Admission: No VTE Mechan Device Prophylaxis: SCD's - Physical Exam General: Alert, Oriented x3, Cooperative, Lethargic HEENT: Atraumatic, PERRLA, EOMI, - - mild jaundice of sclera Oral: Dry Mucosa Neck: Supple, No JVD, Negative Carotid Bruits Lungs: Clear to auscultation, Normal air movement, No rhonchi, No wheeze, No rales Cardiovascular: Regular rate, Regular Rhythm, Normal S1, Normal S2, No murmurs Abdomen: Bowel Sounds Present, Soft, - - marked epigastric and moderate RUQ tenderness, no guarding or rebound tenderness. liver is not palpable. No organomegaly Extremities: No clubbing, No cyanosis, No edema, Capillary Refill Less than 3 Seconds Skin: No rashes, No breakdown Musculoskeletal: No Tenderness to Palpation of Joints or Extremities Lymphatic: No Cervical, Supraclavicular, or Inguinal Adenopathy Neurological: Cranial nerves II-XII grossly intact, Neuro grossly intact, Motor Exam 5/5 strength throughout Psych/Mental Status: Normal Affect, Appropriate, Alert and oriented to time, place, person, mood and affect Vital Signs Temp Pulse Resp BP Pulse Ox 977.6 F H 65 18 160/84 H 98 09/27/18 13:53 09/27/18 16:32 09/27/18 16:32 09/27/18 13:53 09/27/18 16:32 Weight: 110 lb Body Mass Index (BMI) 20.7 Finger Stick Blood Glucose 88 Laboratory Tests Past 24 Hrs 09/27/18 09/27/18 09/27/18 14:10 14:10 14:15 WBC 8.9 RBC 4.10 L Hgb 13.2 Hct 38.0 MCV 92.7 MCH 32.2 H MCHC 34.7 RDW 13.2 RDW Differential 44.1 H Plt Count 234 MPV 8.7 Immature Gran % (Auto) 0.100 Neut % (Auto) 79.4 H Lymph % (Auto) 8.2 L Chase % (Auto) 12.0 H Eos % (Auto) 0.0 Baso % (Auto) 0.3 Absolute Neuts (auto) 7.1 Absolute Lymphs (auto) 0.73 L Total Counted Not Reportable Sodium 131 L Potassium 3.5 Chloride 98 Carbon Dioxide 23.0 Anion Gap 10 BUN 26 H Creatinine 1.27 H Estim Creat Clear Calc 28.44 Est GFR (MDRD) Af Amer 53 L Est GFR (MDRD) Non-Af 43 L BUN/Creatinine Ratio 20.5 H Glucose 180 H Calcium 9.6 Total Bilirubin 1.80 H Direct Bilirubin 0.91 H AST 1379 H ALT 556 H Alkaline Phosphatase 148 H Troponin I 0.024 Total Protein 7.8 Albumin 4.4 Globulin 3.4 Diagnostic Data Abdomen/Pelvis CT 09/27/18 14:34 IMPRESSION: Distention of the gallbladder. I suspect either multiple tiny stones or sludge within the lumen. Correlation with ultrasound is recommended. Electronically Signed: Khai Mcclain MD at 15:44 EST , Service support , Gallbladder Ultrasound 09/27/18 15:47 IMPRESSION: Normal size mildly fatty liver. Normal size gallbladder without wall thickening. Multiple tiny gallstones. Nondistended common bile duct. Unremarkable pancreatic head and body. Nonvisualized tail secondary to bowel gas. Normal right kidney. Electronically Signed: Lilian Bhatt MD at 16:55 EST , Service support , Assessment/Plan All Active Problems Severe sepsis (Resolved) UTI (urinary tract infection) (Acute) Generalized weakness (Acute) Dehydration (Resolved) Decreased functional residual capacity (Acute) 78-year-old female admitted with a complaint of upper abdominal pain for 2 days as well as right shoulder pain which have been going on for a while. 1. Acute liver failure, suspect acetaminophen poisoning. * abdominal pain started 2 days ago; has been taking tyelenol for right shoulder pain. No evidence of encephalopathy as she is AO x 3 and has no hepatic flap * took ~ 6 325mg tablets daily * CT abdomen done showed distention of the gallbladder suspected multiple tiny stones or sludge within the lumen. * Gallbladder ultrasound showed normal distended gallbladder with multiple tiny hyperechoic foci and negative sonographic Ponce sign * Total bilirubin is 1.8 with direct bilirubin of 0.91. AST is 1379 as well as ALP of 148. These were all normal small 2 months ago. Lipase is pending. * Platelets greater than 200. * Will admit to ICU for close monitoring * Check serum acetaminophen level, serum alcohol level and drug toxicology screen * Hepatitis panel ordered. ED * Will give N-acetylcysteine per protocol for acetaminophen toxicity * Will trend liver enzymes * hydrate with IV fluid * will check liver enzymes * will hold all hepatotoxic medications- tylenol, atorvastatin * check coagulation profile * get general surgery consult o/a of multiple gallstones in gallbladder. * 2. FRANK: Cr is 1.27. baseline is <1. hydrate with IVF 3. Hyponatremia: sodium is 131. This is chronic. Will monitor 4. Hypertension: On metoprolol. 5. Arthritis of the right shoulder: We will hold fentanyl patch. on Ibandronate 50 mg monthly. Will give IV ketorolac for pain. DVT prophylaxis: SCDs GI prophylaxis: PPI Code status: full code Patient counseled extensively about different types of CODE STATUS including full code, DNR CCA and DNR CCA. Patient elects to be full code. Total face -to-face time 17 minutes. Code Visit Inpatient E&M: 99973 Init Hosp L3 Procedures: 26975 Advncd Care Plan 30 Min
--- NOTE | 2018-09-27 17:18 | NURSING ---
ICU ACUTE LIVER FAILURE ALVINA
[2018-09-27 17:33] LABS: Lipase 114 U/L (73-393)
[2018-09-27 18:23] LABS: Acetaminophen (Tylenol) Level 26.6 ug/mL (10.0-30.0); Salicylate < 1.7 mg/dL (2.8-20.0)
[2018-09-27 18:28] LABS: Mucous, Urine 0 SEEN /hpf (<or=2+); Red Blood Cells-Urine 0 SEEN /hpf (0-5)
[2018-09-27 18:51] LABS: Color, Urine Yellow (Yellow); Glucose, Dipstick Normal (Normal); Ketone-Dipstick 5 mg/dl (Negative); Leukocyte Esterase-Dipstick 100 /ul (Negative); Nitrite-Dipstick Negative (Negative); Occult Blood-Urine 10 /ul (Negative); Protein-Dipstick 15 mg/dl (Negative); Urine Bilirubin Dipstick Negative (Negative); Urine Clarity Sl. Cloudy (Clear); Urine Urobilinogen Normal (Normal)
[2018-09-27 18:58] LABS: GGTP 244 U/L (5-55)
[2018-09-27 18:59] LABS: International Normalized Ratio 1.3; Prothrombin Time (Protime)PT. 15.9 SECONDS (11.7-14.9)
[2018-09-27 19:00] LABS: Bacteria 3+ /hpf (None Seen)
[2018-09-27 19:01] LABS: White Blood Cells 0-5 SEEN /hpf (0-5)
[2018-09-27 19:02] LABS: Squamous Epithelial Cells - UA 0-5 SEEN /hpf (5-10)
[2018-09-27 19:26] LABS: Amphetamine Urine VISTA NEGATIVE (<1000 ng/mL); Barbiturate Urine VISTA NEGATIVE (< 200 ng/mL); Benzodiazepine Urine VISTA NEGATIVE (< 200 ng/mL); Cocaine Urine VISTA NEGATIVE (< 300 ng/mL); Ecstacy Urine VISTA NEGATIVE (< 500 ng/mL); Methadone Urine VISTA NEGATIVE (< 300 ng/mL); PCP Urine VISTA NEGATIVE (< 25 ng/mL); THC Urine VISTA NEGATIVE (< 50 ng/mL); Vista UDS pH Range 7
[2018-09-27] MEDS: Ketorolac 15 MG/ML Vial IV (20:36)
[2018-09-27] MEDS: Pantoprazole Sodium 40 MG Tablet PO (21:22)
[2018-09-27] MEDS: hydrALAZINE 20 MG/ML Vial 10 MG IV (21:30)
[2018-09-27 21:38] LABS: AST(SGOT) 865 U/L (15-37); Alanine Aminotransfer ALT/SGPT 439 U/L (13-56); Albumin, Serum 3.2 g/dL (3.2-5.0); Alkaline Phosphatase 111 U/L (45-117); Bilirubin, Direct 0.74 mg/dL (0.00-0.30); Globulin 2.5 g/dL (2.2-4.2); Protein, Total 5.7 g/dL (6.4-8.2)
--- NOTE | 2018-09-27 22:56 | EKG12_ITS ---
Test Reason : ABNL PAIN Blood Pressure : / mmHG Vent. Rate : 064 BPM Atrial Rate : 064 BPM P-R Int : 194 ms QRS Dur : 088 ms QT Int : 452 ms P-R-T Axes : 054 -06 -11 degrees QTc Int : 466 ms Sinus rhythm with Premature atrial complexes Nonspecific ST abnormality Abnormal ECG Confirmed by TALON TILLEY, CHRISTIAN ([id number]), manuscript editor MILTON DUVALL ([id number]) on 10/03/2018 11:11:39 AM Referred By: ARIC Confirmed By:CHRISTIAN HANLEY MD
[2018-09-27] MEDS: 0.9% NaCl Peripheral Flush Adult/Peds IV ×2 (23:22→23:57)
[2018-09-27] MEDS: Morphine 2 MG/ML Syringe IV (23:22)
[2018-09-27] MEDS: proMETHazine 25 MG/ML Syringe 6.25 MG IV (23:57)
[2018-09-28] VITALS (19 sets, daily range): BP systolic 116–164; BP diastolic 46–85; PULSE 59–97; RESP 14–21; TEMP 36.6–37.2; O2SAT 96–100
[2018-09-28] MEDS: HYDROmorphone 0.5 MG/0.5 ML SYRINGE IV (01:51)
[2018-09-28] MEDS: 0.9% NaCl Peripheral Flush Adult/Peds IV ×2 (01:52→09:36)
[2018-09-28] MEDS: 0.9% Normal Saline 1,000 ML 250 ML IV (02:39)
[2018-09-28] MEDS: hydrALAZINE 20 MG/ML Vial 10 MG IV (03:28)
[2018-09-28 03:44] LABS: Absolute Lymphocyte Count 0.86 X10^3/ul (0.83-4.51); Absolute Neutrophil Count 5.1 X10^3/uL (2.0-7.7); Basophil# 0.03 X10^3/uL; Basophil% 0.5 % (0-1); Eosinophil# 0.03 X10^3/uL; Eosinophils% 0.5 % (0-5); Hematocrit 30.5 % (37-47); Hemoglobin 10.7 g/dl (12.0-15.0); Lymphocyte # 0.86 X10^3/ul (4.0); Lymphocyte % 13.5 % (19-41); Mean Corp Hgb Conc 35.1 g/gl (32-36); Mean Corpuscular Hgb 32.6 pg (27.0-32.0); Mean Platelet Vol. 8.4 fl (6.2-12.0); Monocyte# 0.31 X10^3/uL; Monocyte% 4.9 % (0-10); Neutrophil # 5.12 X10^3/uL (2.7-7.7); Neutrophil % 80.4 % (47-70); Platelet Count 199 K/mm3 (150-450); RBC Distribution Width CV 12.4 % (11.6-14.6); RBC Distribution Width SD 40.2 fl (35.1-43.9); Red Blood Count 3.28 M/mm3 (4.2-5.4); White Blood Count 6.4 K/mm3 (4.4-11.0)
[2018-09-28 03:45] LABS: POSITIVE COUNT NO; POSITIVE DIFFERENTIAL NO; POSITIVE MORPHOLOGY NO
[2018-09-28 04:04] LABS: ALB/GLOB Ratio 1.1 RATIO (0.9-2.4); AST(SGOT) 848 U/L (15-37); Alanine Aminotransfer ALT/SGPT 488 U/L (13-56); Albumin, Serum 2.7 g/dL (3.2-5.0); Alkaline Phosphatase 90 U/L (45-117); Anion Gap 16 (5-15); BUN 17 mg/dL (7-18); BUN/Creat Ratio 21.6 RATIO (10-20); Calcium,Total 7.3 mg/dL (8.5-10.1); Chloride 105 mmol/L (98-107); Creatinine, Serum 0.79 mg/dL (0.55-1.02); EST Glomerular Filtration Rate 75 mL/min (>60); Est Glom Filt Rate - Afr Amer 91 mL/min (>60); Estimated Creatinine Clearance 36.12 ml/min; Globulin 2.5 g/dL (2.2-4.2); Glucose 117 mg/dL (74-106); Potassium 3.2 mmol/L (3.5-5.1); Protein, Total 5.2 g/dL (6.4-8.2); Sodium Level 141 mmol/L (136-145)
--- NOTE | 2018-09-28 06:58 | PCM.CON.CC ---
Reason for Consult Date of Consultation: 09/28/18 Reason for Consultation: Acute liver injury History of Present Illness: The patient is a 78-year-old female, with a history as outlined below, who presented to the emergency department on September 27 with complaints of abdominal pain and lower extremity weakness. She states that approximately 2 weeks ago she experienced a mechanical fall while moving furniture. Since that time, she has been experiencing neck pain. The patient was evaluated in the emergency department on September 19 with the aforementioned complaints. A CT of the C-spine revealed no acute fracture. The patient was treated symptomatically with morphine, Zofran and IV fluids. In addition, she did receive a steroid injection. The patient reports the presence of chronic hip pain, for which she utilizes transdermal fentanyl. While the patient initially reported improvement in her pain related complaints, she states that over the last 3-5 days her neck pain has once again worsened. She states that her son purchased her Tylenol to use for ongoing pain. She states that over the last 3-4 days she has been utilizing a total of 6 tablets of acetaminophen daily. She denies any previous history of liver related pathology. She denies a history of hepatitis. The patient does not drink alcohol or smoke. While she did report the presence of nonspecific abdominal pain along with a mild degree of nausea, she denied vomiting or diarrhea. On presentation to the emergency department, the patient was noted to be afebrile and hemodynamically stable. She was maintaining appropriate oxygen saturations on room air. Laboratory evaluation revealed no evidence of a leukocytosis. INR was noted to be 1.3. Chemistry profile revealed evidence of acute kidney injury with a creatinine of 1.27. Total bili was elevated to 1.8. AST was increased to 1379, ALT of 556, alkaline phosphatase of 148 and GGT level of 244. The aforementioned elevation in transaminase levels were all acute in nature. Urinalysis was positive for leukocyte esterase, negative for nitrites with no urine white blood cells and 3+ bacteria. Toxicology screen was positive for opiates. The patient's acetaminophen level was noted to be 26. Hepatitis serology is currently pending. A CT abdomen/pelvis without contrast revealed distention of the gallbladder was suspected tiny stones or sludge within the lumen. A follow-up gallbladder ultrasound revealed mild fatty infiltration of the liver with normal gallbladder size without wall thickening and multiple tiny gallstones. There was a nondistended common bile duct along with an unremarkable pancreatic head and body. Although the patient had no overt need for ICU level of care, she was admitted to the medical intensive care unit. Orders were placed by the admitting physician to administer N-acetylcysteine to the patient, despite the patient have an acetaminophen level of 26. Of note, the patient's admitting diagnosis was acute liver failure. I was contacted by the overnight hospitalist to discuss the case. I had not previously been notified of the patient by the admitting provider. When I was notified of the consultation placed to me upon patient arrival to the ICU, I asked the nurse to have the admitting hospitalist call me to discuss the case. I never received such a phone call. I did explain my concern that if the patient had been admitted under the pretenses that she had fulminant liver failure with the need for N-acetylcysteine, that she should have been transferred to a tertiary care facility from the beginning. The overnight hospitalist did reach out to an outside tertiary care facility and spoke with one of their automobile brakes bonder, who felt that the patients liver injury was likely medication related and did not feel that her presentation was consistent with fulminant liver failure and NAC was therefore not indicated. This morning, the patient reports that she is feeling well after getting rest overnight. Her abdominal pain has improved with this morning. Past Medical History Past Medical History (Chronic Problems): Chronic Problems History of DVT (deep vein thrombosis) (Chronic) PUD (peptic ulcer disease) (Chronic) Chronic back pain (Chronic) Hyperlipidemia (Chronic) Depression (Chronic) Benign essential hypertension (Chronic) Alcohol abuse (Chronic) Gastrointestinal bleed (Chronic) Recurrent dislocation of right hip (Chronic) Chronic blood loss anemia (Chronic) Recurrent falls (Chronic) Allergies No Known Allergies Allergy (Verified 09/27/18 13:56) Home Medications: Ambulatory Orders Medication Instructions Recorded Atorvastatin Calcium [Lipitor] 40 mg PO QHS #30 tablet 08/24/13 Pantoprazole Sodium [Protonix] 40 mg PO BID #60 tablet 06/16/14 fentaNYL patch [Duragesic patch] 25 mcg TRANSDERM. Q72H #10 patch 06/29/14 Aspirin E.C. [Ecotrin] 81 mg PO DAILY 06/21/18 Cholecalciferol (Vitamin D3) 2,000 unit PO DAILY 06/21/18 [D3-2000] Ibandronate Sodium [Boniva] 150 mg PO Q30D 06/21/18 Metoprolol Succinate [Toprol Xl] 100 mg PO DAILY 06/21/18 Acetaminophen [Tylenol Arthritis] 650 mg PO QHS 09/27/18 Calcium Carbonate [Calcium] 600 mg PO DAILY 09/27/18 Ferrous Sulfate 325 mg PO DAILY 09/27/18 Surgical History: appendectomy, - - Right hip hemiarthroplasty. Psychiatric History: Depression Lives: Alone Smoking Status: Former smoker Alcohol: None Drugs: None - *Family History Maternal History Items: No pertinent history Paternal History Items: No pertinent history Review of Systems Constitutional: Denies: Chills, Fever Eyes: Denies: Blurred vision, Double vision HEENT: Denies: Head Aches, Sinus Congestion, Sinus Drainage Cardiovascular: Denies: Chest Pain, Palpitations Respiratory: Denies: Cough, Shortness of breath at rest, Sputum production Gastrointestinal: Reports: Abdominal Pain, Nausea. Denies: Diarrhea, Vomiting Genitourinary: Denies: Dysuria Musculoskeletal: Reports: Neck Pain, Shoulder Pain Skin: Denies: Rash, Wounds Neurological: Denies: Numbness, Tingling, Focal weakness Psychiatric: Denies: Anxiety, Depression, Homicidal Ideations, Suicidal Ideations Hematologic/ Lymphatic: Denies: Easy Bruising, Easy Bleeding Objective: The patient's most recent lab work, culture data and imaging studies have all been personally reviewed. - Physical Exam General: Alert, Cooperative, No apparent distress HEENT: Atraumatic, PERRLA, Normocephalic Oral: No Gingival or Mucosal Lesions/ Ulcerations Neck: Supple, No Nodes, Trachea Midline Lungs: Normal air movement, No rhonchi, No wheeze, No rales Cardiovascular: Regular rate, Regular Rhythm, Normal S1, Normal S2, No murmurs Abdomen: Bowel Sounds Present, - - Mild tenderness with palpation. No rebound, guarding or rigidity. Extremities: No clubbing, No cyanosis, No edema Skin: No breakdown Musculoskeletal: No Muscle Wasting, - Lymphatic: No Cervical, Supraclavicular, or Inguinal Adenopathy Neurological: Cranial nerves II-XII grossly intact, Neuro grossly intact Psych/Mental Status: Normal Affect, Appropriate Vital Signs Temp Pulse Resp BP Pulse Ox 37.2 C 77 19 H 142/53 H 98 09/28/18 06:00 09/28/18 06:00 09/28/18 06:00 09/28/18 06:00 09/28/18 06:00 Oxygen Delivery Method Room Air Weight: 113 lb 15.664 oz Body Mass Index (BMI) 21.1 Finger Stick Blood Glucose 88 Intake and Output for Last 24 Hours 09/26/18 09/27/18 09/28/18 23:59 23:59 23:59 Intake Total 3279 / 3279 Output Total 950 / 950 Balance 2329 / 2329 Laboratory Tests Past 24 Hrs 09/27/18 09/27/18 09/27/18 14:10 14:10 14:10 WBC 8.9 RBC 4.10 L Hgb 13.2 Hct 38.0 MCV 92.7 MCH 32.2 H MCHC 34.7 RDW 13.2 RDW Differential 44.1 H Plt Count 234 MPV 8.7 Immature Gran % (Auto) 0.100 Neut % (Auto) 79.4 H Lymph % (Auto) 8.2 L Dillon % (Auto) 12.0 H Eos % (Auto) 0.0 Baso % (Auto) 0.3 Absolute Neuts (auto) 7.1 Absolute Lymphs (auto) 0.73 L Total Counted Not Reportable PT 15.9 H INR 1.3 Sodium 131 L Potassium 3.5 Chloride 98 Carbon Dioxide 23.0 Anion Gap 10 BUN 26 H Creatinine 1.27 H Estim Creat Clear Calc 28.44 Est GFR (MDRD) Af Amer 53 L Est GFR (MDRD) Non-Af 43 L BUN/Creatinine Ratio 20.5 H Glucose 180 H Calcium 9.6 Total Bilirubin Direct Bilirubin GGT AST ALT Alkaline Phosphatase Troponin I Total Protein Albumin Globulin Albumin/Globulin Ratio Lipase Urine Color Urine Clarity Urine pH Ur Specific [place] Urine Protein Urine Glucose (UA) Urine Ketones Urine Occult Blood Urine Nitrite Urine Bilirubin Urine Urobilinogen Ur Leukocyte Esterase Urine RBC Urine WBC Ur Squamous Epith Cells Urine Bacteria Urine Mucus Salicylates Urine Opiates Screen Urine Methadone Screen Acetaminophen Ur Barbiturates Screen Ur Phencyclidine Scrn Ur Amphetamines Screen U Methamphetamin-MDMA U Benzodiazepines Scrn Urine Cocaine Screen U Cannabinoids Screen Ur Drug Screen Comment Ethyl Alcohol Hepatitis A IgM Ab Hep Bs Antigen Hep B Core IgM Ab Hepatitis C Ab (EIA) 09/27/18 09/27/18 09/27/18 14:15 14:15 17:22 WBC RBC Hgb Hct MCV MCH MCHC RDW RDW Differential Plt Count MPV Immature Gran % (Auto) Neut % (Auto) Lymph % (Auto) Dillon % (Auto) Eos % (Auto) Baso % (Auto) Absolute Neuts (auto) Absolute Lymphs (auto) Total Counted PT INR Sodium Potassium Chloride Carbon Dioxide Anion Gap BUN Creatinine Estim Creat Clear Calc Est GFR (MDRD) Af Amer Est GFR (MDRD) Non-Af BUN/Creatinine Ratio Glucose Calcium Total Bilirubin 1.80 H Direct Bilirubin 0.91 H GGT AST 1379 H ALT 556 H Alkaline Phosphatase 148 H Troponin I 0.024 Total Protein 7.8 Albumin 4.4 Globulin 3.4 Albumin/Globulin Ratio Lipase 114 Urine Color Urine Clarity Urine pH Ur Specific [place] Urine Protein Urine Glucose (UA) Urine Ketones Urine Occult Blood Urine Nitrite Urine Bilirubin Urine Urobilinogen Ur Leukocyte Esterase Urine RBC Urine WBC Ur Squamous Epith Cells Urine Bacteria Urine Mucus Salicylates < 1.7 L Urine Opiates Screen Urine Methadone Screen Acetaminophen 26.6 Ur Barbiturates Screen Ur Phencyclidine Scrn Ur Amphetamines Screen U Methamphetamin-MDMA U Benzodiazepines Scrn Urine Cocaine Screen U Cannabinoids Screen Ur Drug Screen Comment Ethyl Alcohol Hepatitis A IgM Ab Hep Bs Antigen Hep B Core IgM Ab Hepatitis C Ab (EIA) 09/27/18 09/27/18 09/27/18 17:22 17:22 17:22 WBC RBC Hgb Hct MCV MCH MCHC RDW RDW Differential Plt Count MPV Immature Gran % (Auto) Neut % (Auto) Lymph % (Auto) Dillon % (Auto) Eos % (Auto) Baso % (Auto) Absolute Neuts (auto) Absolute Lymphs (auto) Total Counted PT INR Sodium Potassium Chloride Carbon Dioxide Anion Gap BUN Creatinine Estim Creat Clear Calc Est GFR (MDRD) Af Amer Est GFR (MDRD) Non-Af BUN/Creatinine Ratio Glucose Calcium Total Bilirubin Direct Bilirubin GGT 244 H AST ALT Alkaline Phosphatase Troponin I Total Protein Albumin Globulin Albumin/Globulin Ratio Lipase Urine Color Urine Clarity Urine pH Ur Specific [place] Urine Protein Urine Glucose (UA) Urine Ketones Urine Occult Blood Urine Nitrite Urine Bilirubin Urine Urobilinogen Ur Leukocyte Esterase Urine RBC Urine WBC Ur Squamous Epith Cells Urine Bacteria Urine Mucus Salicylates Urine Opiates Screen Urine Methadone Screen Acetaminophen Ur Barbiturates Screen Ur Phencyclidine Scrn Ur Amphetamines Screen U Methamphetamin-MDMA U Benzodiazepines Scrn Urine Cocaine Screen U Cannabinoids Screen Ur Drug Screen Comment Ethyl Alcohol 8.0 Hepatitis A IgM Ab Pending Hep Bs Antigen Pending Hep B Core IgM Ab Pending Hepatitis C Ab (EIA) Pending 09/27/18 09/27/18 09/27/18 18:20 18:30 21:15 WBC RBC Hgb Hct MCV MCH MCHC RDW RDW Differential Plt Count MPV Immature Gran % (Auto) Neut % (Auto) Lymph % (Auto) Dillon % (Auto) Eos % (Auto) Baso % (Auto) Absolute Neuts (auto) Absolute Lymphs (auto) Total Counted PT INR Sodium Potassium Chloride Carbon Dioxide Anion Gap BUN Creatinine Estim Creat Clear Calc Est GFR (MDRD) Af Amer Est GFR (MDRD) Non-Af BUN/Creatinine Ratio Glucose Calcium Total Bilirubin 1.50 H Direct Bilirubin 0.74 H GGT AST 865 H ALT 439 H Alkaline Phosphatase 111 Troponin I Total Protein 5.7 L Albumin 3.2 Globulin 2.5 Albumin/Globulin Ratio Lipase Urine Color Yellow Urine Clarity Sl. Cloudy Urine pH 5.0 Ur Specific [place] 1.020 Urine Protein 15 H Urine Glucose (UA) Normal Urine Ketones 5 H Urine Occult Blood 10 H Urine Nitrite Negative Urine Bilirubin Negative Urine Urobilinogen Normal Ur Leukocyte Esterase 100 H Urine RBC 0 SEEN Urine WBC 0-5 SEEN Ur Squamous Epith Cells 0-5 SEEN Urine Bacteria 3+ Urine Mucus 0 SEEN Salicylates Urine Opiates Screen POSITIVE H Urine Methadone Screen NEGATIVE Acetaminophen Ur Barbiturates Screen NEGATIVE Ur Phencyclidine Scrn NEGATIVE Ur Amphetamines Screen NEGATIVE U Methamphetamin-MDMA NEGATIVE U Benzodiazepines Scrn NEGATIVE Urine Cocaine Screen NEGATIVE U Cannabinoids Screen NEGATIVE Ur Drug Screen Comment Ethyl Alcohol Hepatitis A IgM Ab Hep Bs Antigen Hep B Core IgM Ab Hepatitis C Ab (EIA) 09/27/18 09/28/18 09/28/18 23:25 02:40 03:35 WBC 6.4 RBC 3.28 L Hgb 10.7 L Hct 30.5 L MCV 93.0 MCH 32.6 H MCHC 35.1 RDW 12.4 RDW Differential 40.2 Plt Count 199 MPV 8.4 Immature Gran % (Auto) 0.200 Neut % (Auto) 80.4 H Lymph % (Auto) 13.5 L Dillon % (Auto) 4.9 Eos % (Auto) 0.5 Baso % (Auto) 0.5 Absolute Neuts (auto) 5.1 Absolute Lymphs (auto) 0.86 Total Counted Not Reportable PT INR Sodium Potassium Chloride Carbon Dioxide Anion Gap BUN Creatinine Estim Creat Clear Calc Est GFR (MDRD) Af Amer Est GFR (MDRD) Non-Af BUN/Creatinine Ratio Glucose Calcium Total Bilirubin Direct Bilirubin GGT AST ALT Alkaline Phosphatase Troponin I 0.039 0.050 H Total Protein Albumin Globulin Albumin/Globulin Ratio Lipase Urine Color Urine Clarity Urine pH Ur Specific [place] Urine Protein Urine Glucose (UA) Urine Ketones Urine Occult Blood Urine Nitrite Urine Bilirubin Urine Urobilinogen Ur Leukocyte Esterase Urine RBC Urine WBC Ur Squamous Epith Cells Urine Bacteria Urine Mucus Salicylates Urine Opiates Screen Urine Methadone Screen Acetaminophen Ur Barbiturates Screen Ur Phencyclidine Scrn Ur Amphetamines Screen U Methamphetamin-MDMA U Benzodiazepines Scrn Urine Cocaine Screen U Cannabinoids Screen Ur Drug Screen Comment Ethyl Alcohol Hepatitis A IgM Ab Hep Bs Antigen Hep B Core IgM Ab Hepatitis C Ab (EIA) 09/28/18 09/28/18 03:35 05:40 WBC RBC Hgb Hct MCV MCH MCHC RDW RDW Differential Plt Count MPV Immature Gran % (Auto) Neut % (Auto) Lymph % (Auto) Dillon % (Auto) Eos % (Auto) Baso % (Auto) Absolute Neuts (auto) Absolute Lymphs (auto) Total Counted PT INR Sodium 141 Potassium 3.2 L Chloride 105 Carbon Dioxide 20.0 L Anion Gap 16 H BUN 17 Creatinine 0.79 Estim Creat Clear Calc 36.12 Est GFR (MDRD) Af Amer 91 Est GFR (MDRD) Non-Af 75 BUN/Creatinine Ratio 21.6 H Glucose 117 H Calcium 7.3 L Total Bilirubin 1.40 H Direct Bilirubin GGT AST 848 H ALT 488 H Alkaline Phosphatase 90 Troponin I 0.068 H Total Protein 5.2 L Albumin 2.7 L Globulin 2.5 Albumin/Globulin Ratio 1.1 Lipase Urine Color Urine Clarity Urine pH Ur Specific [place] Urine Protein Urine Glucose (UA) Urine Ketones Urine Occult Blood Urine Nitrite Urine Bilirubin Urine Urobilinogen Ur Leukocyte Esterase Urine RBC Urine WBC Ur Squamous Epith Cells Urine Bacteria Urine Mucus Salicylates Urine Opiates Screen Urine Methadone Screen Acetaminophen Ur Barbiturates Screen Ur Phencyclidine Scrn Ur Amphetamines Screen U Methamphetamin-MDMA U Benzodiazepines Scrn Urine Cocaine Screen U Cannabinoids Screen Ur Drug Screen Comment Ethyl Alcohol Hepatitis A IgM Ab Hep Bs Antigen Hep B Core IgM Ab Hepatitis C Ab (EIA) Clinical Impression(s) from Imaging Studies Abdomen/Pelvis CT 09/27/18 14:34 IMPRESSION: Distention of the gallbladder. I suspect either multiple tiny stones or sludge within the lumen. Correlation with ultrasound is recommended. Electronically Signed: Khai Mcclain MD at 15:44 EST , Service support , Gallbladder Ultrasound 09/27/18 15:47 IMPRESSION: Normal size mildly fatty liver. Normal size gallbladder without wall thickening. Multiple tiny gallstones. Nondistended common bile duct. Unremarkable pancreatic head and body. Nonvisualized tail secondary to bowel gas. Normal right kidney. Electronically Signed: Lilian Bhatt MD at 16:55 EST , Service support , Assessment/Plan RECOMMENDATIONS: 1. Continue to monitor liver function profile daily. Avoid acetaminophen and continue to hold statin. 2. Oxycodone can be utilized for shoulder pain complaints. Continue transdermal fentanyl patch per home regimen. 3. Home antihypertensives can be restarted. 4. Physical therapy to evaluate patient today 5. Potassium repletion as ordered. 6. Recheck coagulation profile this morning. 7. Remove Etienne catheter. IMPRESSIONS: 1. Acute liver injury Potentially related to recent ingestion of acetaminophen coupled with a prescription for [place] provided by the emergency department on September 19. In addition, the patient was also taking a statin on a daily basis. She has no known prior history of any underlying liver disease. The patient's transaminase levels began to improve even before N-acetylcysteine was administered last evening. The N-acetylcysteine has been subsequently discontinued. Recommend continuing to check the patient's liver function studies on a daily basis. Avoid potential hepatotoxic medications. 2. Acute kidney injury Likely prerenal in etiology, as the patient's creatinine has normalized with a mild degree of volume expansion. Urine output is currently appropriate. Recommend that the patient's Etienne catheter be removed. 3. Recent fall with residual musculoskeletal pain/chronic pain syndrome The patient continues to report the presence of shoulder pain, following her recent fall. The patient's transdermal fentanyl patch will be continued. As needed oxycodone can be utilized for additional pain control. I will defer any additional workup to the patient's hospitalist. 4. Indeterminate troponin elevation The patient has had a slow upward climb and her troponin overnight. She is currently without complaints of chest pain. Will obtain surface echocardiogram for further evaluation. We will continue to trend troponins until they begin to decline. 5. Hypertension/hyperlipidemia Complicates care, management, recovery and prognosis. Okay to continue home antihypertensives. Recommend continuing to hold the patient's statin, given underlying liver injury. This note was generated with [employer] dictation software. It may contain incorrect words, spelling, and punctuation that were not noted in checking the note before signing. DISPOSITION: The patient is medically stable for transfer out of the intensive care unit. Code Visit Inpatient E&M: 48279 Init Hosp L3
--- NOTE | 2018-09-28 07:37 | ECHOD_ITS ---
Reason For Study: Dyspnea/SOB Procedure This was a 2D Doppler, Color Flow transthoracic echocardiogram. Exam performed portable in ICU/CCU. Left Ventricle Normal LV size. Moderate concentric left ventricular hypertrophy. Left ventricular systolic function is normal. The estimated ejection fraction is 65 %. Stage 1 diastolic dysfunction. No regional wall motion abnormalities noted. Right Ventricle Normal RV size. Normal systolic function. Atria The left atrium is mildly enlarged. Normal right atrium. Bubble contrast study negative for right to left interatrial shunt. Mitral Valve Normal mitral valve. Mild-Moderate (1-2+) eccentric mitral valve insufficiency. Tricuspid Valve Normal tricuspid valve. Mild to moderate (1-2+) tricuspid valve insufficiency. Pulmonary artery systolic pressure is 44 mmHg. Aortic Valve Normal aortic valve. Trisinus/trileaflet aortic valve. Mild (1+) eccentric aortic valve insufficiency. Pulmonic Valve Normal pulmonic valve. Great Vessels Normal aortic root. The pulmonary artery is normal size. Normal inferior vena cava. Pericardium/Pleural No pericardial effusion. Medication Performed a rapid injection of agitated mix of 9 cc saline and 1cc air to assess for atrial septal defect. MMode/2D Measurements & Calculations LVIDd: 4.4 cm IVSd: 1.4 cm LA dimension: 3.8 cm LVIDs: 2.9 cm LVPWd: 1.2 cm RVDd: 3.0 cm FS: 34.1 % LAV(MOD-sp4): 65.8 ml LA A4 area: 23.2 cm2 RA A4 area: 15.9 cm2 Time Measurements MV dec time: 0.33 sec Doppler Measurements & Calculations MV E max leonard: 41.0 cm/sec Lat Peak E' Leonard: 6.7 cm/sec Med Peak E' Leonard: 4.6 cm/sec MV A max leonard: 58.8 cm/sec E/E' lat: 6.1 E/E' med: 8.8 MV E/A: 0.70 MV V2 max: 64.3 cm/sec MV P1/2t max leonard: 49.2 cm/sec Ao V2 max: 94.5 cm/sec MV max P.7 mmHg MV P1/2t: 74.9 msec Ao max P.6 mmHg MV V2 mean: 36.7 cm/sec MV dec slope: 192.3 cm/sec2 MV mean P.62 mmHg MV V2 VTI: 15.2 cm MVA(P1/2t): 2.9 cm2 AI max leonard: 314.5 cm/sec LV V1 max: 78.1 cm/sec MR max leonard: 561.8 cm/sec AI max P.6 mmHg LV V1 max P.4 mmHg MR max P.2 mmHg AI dec slope: 228.9 cm/sec2 MR mean leonard: 405.3 cm/sec AI P1/2t: 402.5 msec MR mean P.8 mmHg MR VTI: 152.1 cm PA V2 max: 100.2 cm/sec PI end-d leonard: 118.5 cm/sec TR max leonard: 310.6 cm/sec TR max P.6 mmHg Interpretation Summary Normal LV size. Left ventricular systolic function is normal. The estimated ejection fraction is 65 %. Stage 1 diastolic dysfunction. Mild (1+) eccentric aortic valve insufficiency. Mild-Moderate (1-2+) eccentric mitral valve insufficiency. Moderate concentric left ventricular hypertrophy. Mild to moderate (1-2+) tricuspid valve insufficiency. Ordering Physician: Hilton Weldon D.O. Performed By: Jeevan Villagomez RCS
[2018-09-28 09:13] LABS: International Normalized Ratio 1.6; Prothrombin Time (Protime)PT. 18.6 SECONDS (11.7-14.9)
[2018-09-28] MEDS: Pantoprazole Sodium 40 MG Tablet PO ×2 (09:35→21:01)
[2018-09-28] MEDS: Metoprolol(XL)Succ 100 MG Tablet PO (09:35)
[2018-09-28] MEDS: Potassium Chloride 10mEq/100mL 10 MEQ/100 ML IV.SOLN. 100 MEQ IV BOLUS ×4 (09:36→17:13)
[2018-09-28] MEDS: Calcium (Elemental) 500 MG Tablet PO (09:36)
[2018-09-28] MEDS: oxyCODONE 5 MG Tablet PO ×2 (09:49→18:19)
--- NOTE | 2018-09-28 10:03 | PCM.PN.HOSP ---
Subjective: Patient seen and examined this morning. She is looking much better and has no complaints. Liver enzymes have trended down. She has no fever or chills, no cough or chest pain, no shortness of breath, and abdominal pain has improved. She has no diarrhea vomiting. Review of systems otherwise negative. Labs and vitals reviewed. Vitals/I&O's: Vital Signs Temp Pulse Resp BP Pulse Ox 97.8 F 95 21 H 159/67 H 99 09/28/18 08:00 09/28/18 09:35 09/28/18 08:00 09/28/18 09:35 09/28/18 08:00 Oxygen Delivery Method Room Air Weight: 113 lb 15.664 oz Body Mass Index (BMI) 21.1 Finger Stick Blood Glucose 88 Intake and Output for Last 24 Hours 09/26/18 09/27/18 09/28/18 23:59 23:59 23:59 Intake Total 3279 / 3279 Output Total 950 / 950 Balance 2329 / 2329 General: Alert, Oriented x3, Cooperative, No apparent distress HEENT: Atraumatic, PERRLA, EOMI, Normocephalic, - - has a tinge of jaundice in sclera Oral: Moist Mucosa Neck: Supple, No JVD, Negative Carotid Bruits Lungs: Clear to auscultation, Normal air movement, No rhonchi, No wheeze, No rales Cardiovascular: Regular rate, Regular Rhythm, Normal S1, Normal S2, No murmurs Abdomen: Bowel Sounds Present, Soft, Non Tender, Non-Distended, No Hepato-splenomegaly Extremities: No clubbing, No cyanosis, No edema, Capillary Refill Less than 3 Seconds Skin: No rashes, No breakdown Musculoskeletal: No Tenderness to Palpation of Joints or Extremities Lymphatic: No Cervical, Supraclavicular, or Inguinal Adenopathy Neurological: Cranial nerves II-XII grossly intact, Neuro grossly intact, Motor Exam 5/5 strength throughout Psych/Mental Status: Normal Affect, Appropriate, Alert and oriented to time, place, person, mood and affect Laboratory Results 09/27/18 14:10: WBC 8.9, RBC 4.10 L, Hgb 13.2, Hct 38.0, MCV 92.7, MCH 32.2 H, MCHC 34.7, RDW 13.2, RDW Differential 44.1 H, Plt Count 234, MPV 8.7, Immature Gran % (Auto) 0.100, Neut % (Auto) 79.4 H, Lymph % (Auto) 8.2 L, [place] % (Auto) 12.0 H, Eos % (Auto) 0.0, Baso % (Auto) 0.3, Absolute Neuts (auto) 7.1, Absolute Lymphs (auto) 0.73 L, Total Counted Not Reportable 09/27/18 14:10: Sodium 131 L, Potassium 3.5, Chloride 98, Carbon Dioxide 23.0, Anion Gap 10, BUN 26 H, Creatinine 1.27 H, Estim Creat Clear Calc 28.44, Est GFR (MDRD) Af Amer 53 L, Est GFR (MDRD) Non-Af 43 L, BUN/Creatinine Ratio 20.5 H, Glucose 180 H, Calcium 9.6 09/27/18 14:10: PT 15.9 H, INR 1.3 09/27/18 14:15: Total Bilirubin 1.80 H, Direct Bilirubin 0.91 H, AST 1379 H, ALT 556 H, Alkaline Phosphatase 148 H, Troponin I 0.024, Total Protein 7.8, Albumin 4.4, Globulin 3.4 09/27/18 14:15: Lipase 114 09/27/18 17:22: Salicylates < 1.7 L, Acetaminophen 26.6 09/27/18 17:22: Hepatitis A IgM Ab Pending, Hep Bs Antigen Pending, Hep B Core IgM Ab Pending, Hepatitis C Ab (EIA) Pending 09/27/18 17:22: GGT 244 H 09/27/18 17:22: Ethyl Alcohol 8.0 09/27/18 18:20: Urine Color Yellow, Urine Clarity Sl. Cloudy, Urine pH 5.0, Ur Specific [place] 1.020, Urine Protein 15 H, Urine Glucose (UA) Normal, Urine Ketones 5 H, Urine Occult Blood 10 H, Urine Nitrite Negative, Urine Bilirubin Negative, Urine Urobilinogen Normal, Ur Leukocyte Esterase 100 H, Urine RBC 0 SEEN, Urine WBC 0-5 SEEN, Ur Squamous Epith Cells 0-5 SEEN, Urine Bacteria 3+, Urine Mucus 0 SEEN 09/27/18 18:30: Urine Opiates Screen POSITIVE H, Urine Methadone Screen NEGATIVE, Ur Barbiturates Screen NEGATIVE, Ur Phencyclidine Scrn NEGATIVE, Ur Amphetamines Screen NEGATIVE, U Methamphetamin-MDMA NEGATIVE, U Benzodiazepines Scrn NEGATIVE, Urine Cocaine Screen NEGATIVE, U Cannabinoids Screen NEGATIVE, Ur Drug Screen Comment 09/27/18 21:15: Total Bilirubin 1.50 H, Direct Bilirubin 0.74 H, AST 865 H, ALT 439 H, Alkaline Phosphatase 111, Total Protein 5.7 L, Albumin 3.2, Globulin 2.5 09/27/18 23:25: Troponin I 0.039 09/28/18 02:40: Troponin I 0.050 H 09/28/18 03:35: WBC 6.4, RBC 3.28 L, Hgb 10.7 L, Hct 30.5 L, MCV 93.0, MCH 32.6 H, MCHC 35.1, RDW 12.4, RDW Differential 40.2, Plt Count 199, MPV 8.4, Immature Gran % (Auto) 0.200, Neut % (Auto) 80.4 H, Lymph % (Auto) 13.5 L, [place] % (Auto) 4.9, Eos % (Auto) 0.5, Baso % (Auto) 0.5, Absolute Neuts (auto) 5.1, Absolute Lymphs (auto) 0.86, Total Counted Not Reportable 09/28/18 03:35: Sodium 141, Potassium 3.2 L, Chloride 105, Carbon Dioxide 20.0 L, Anion Gap 16 H, BUN 17, Creatinine 0.79, Estim Creat Clear Calc 36.12, Est GFR (MDRD) Af Amer 91, Est GFR (MDRD) Non-Af 75, BUN/Creatinine Ratio 21.6 H, Glucose 117 H, Calcium 7.3 L, Total Bilirubin 1.40 H, AST 848 H, ALT 488 H, Alkaline Phosphatase 90, Total Protein 5.2 L, Albumin 2.7 L, Globulin 2.5, Albumin/Globulin Ratio 1.1 09/28/18 05:40: Troponin I 0.068 H 09/28/18 08:50: Troponin I 0.069 H 09/28/18 08:50: Lactic Acid 1.0 09/28/18 08:50: PT 18.6 H, INR 1.6 Diagnostic Data Abdomen/Pelvis CT 09/27/18 14:34 IMPRESSION: Distention of the gallbladder. I suspect either multiple tiny stones or sludge within the lumen. Correlation with ultrasound is recommended. Electronically Signed: Khai Mcclain MD at 15:44 EST , Service support , Gallbladder Ultrasound 09/27/18 15:47 IMPRESSION: Normal size mildly fatty liver. Normal size gallbladder without wall thickening. Multiple tiny gallstones. Nondistended common bile duct. Unremarkable pancreatic head and body. Nonvisualized tail secondary to bowel gas. Normal right kidney. Electronically Signed: Lilian Bhatt MD at 16:55 EST , Service support , Current Medications Calcium Carbon[facility] (Os-Chaka 500) [facility] Last Admin: 09/28/18 09:36 Dose: 500 mg Hydralazine HCl (Apresoline Iv) 10 mg IV Q4H PRN PRN PRN Reason: SBP > 160 Last Admin: 09/28/18 03:28 Dose: 10 mg Sodium Chloride () 250 mls @ 15 mls/hr IV .[id number] PRN PRN Reason: SALINE FLUSH Potassium Chloride () 10 meq in 100 mls @ 100 mls/hr IV BOLUS Q1H [facility] Stop: 09/28/18 12:59 Last Admin: 09/28/18 09:36 Dose: 100 mls/hr Magnesium Hydroxide (Milk Of Magnesia) 30 ml PO DAILY PRN PRN PRN Reason: Constipation Metoprolol Succinate (Toprol Xl (Beta Jaxon)) 100 mg PO DAILY [facility] Last Admin: 09/28/18 09:35 Dose: 100 mg Ondansetron HCl (Zofran) 4 mg IV Q6H PRN PRN PRN Reason: nausea, emesis Oxycodone HCl (Oxyir) 5 mg PO Q4H PRN PRN PRN Reason: PAIN Last Admin: 09/28/18 09:49 Dose: 5 mg Pantoprazole Sodium (Protonix) 40 mg PO BID [facility] Last Admin: 09/28/18 09:35 Dose: 40 mg Promethazine HCl (Phenergan) 6.25 mg IV Q4H PRN PRN PRN Reason: NAUSEA/VOMITING Last Admin: 09/27/18 23:57 Dose: 6.25 mg Sodium Chloride () 5 - 15 ml IV UD PRN PRN Reason: SALINE FLUSH Last Admin: 09/28/18 09:36 Dose: 10 ml Medical Necessity - Tobacco Use Smoking Status: Former smoker Assessment/Plan All Active Problems Severe sepsis (Resolved) UTI (urinary tract infection) (Acute) Generalized weakness (Acute) Dehydration (Resolved) Decreased functional residual capacity (Acute) 78-year-old female admitted with a complaint of upper abdominal pain for 2 days as well as right shoulder pain which have been going on for a while. 1. Acute liver failure, suspect acetaminophen poisoning. liver enzymes have trended down. abdominal pain has improved. patient feels better today. hepatitis panel is still pending AST/ALT down to 865/488 today. total bilirubin down to 1.4 this morning patient received IV N acetyl cysteine overnight. her blood acetaminophen level was 26microgram, approximately 24 hours after she last ingested tylenol, which per the [facility]y normogram, put her in high risk range. of note, water pollution scientist was consulted when patient was admitted to ICU, but he refused consult. continue holding atorvastatin. lipase level was normal coagulation panel was negative. 2. FRANK: resolved. Cr down to 0.79. was 1.27 on admission. 3. NSTEMI: troponin trended up to 0.050->0.068->0.069. 2D echo pending. Will consult cardiology. 2D echo pending. 4. Hypokalemia: K is 3.2. WIll replace and monitor 5. Hyponatremia: resolved. Na is 141 today. 6. Hypertension: On metoprolol. 7. Arthritis of the right shoulder: We will hold fentanyl patch. on Ibandronate 50 mg monthly. Will give IV ketorolac for pain. DVT prophylaxis: SCDs GI prophylaxis: PPI Code status: full code Code Visit Inpatient E&M: 47622 Subs Hosp L3
--- NOTE | 2018-09-28 10:04 | CASEMGMT ---
RN CM Assessment Presentation: Severe sepsis, UTI, Dehydration, Liver failure Intro role of CM and purpose of RN CM assessment to patient and her son. She is able to participate in RN CM Assessment. PCP: Dr. Henderson Pref[facility]acy[facility] Insurance: [facility] Prescription Benefit: yes LNOK: [address] Living Arrangements: Lives in two story home with chair lift to second floor. Pt states she is independent in ADL's, cleaning, meals. Transportation: drives or family can drive. DME: Has cane, walker but uses intermittently only. (denies having oxygen, Cpap or neb) HHC: none DC PLAN: Home on discharge. PT/OT pending.
--- NOTE | 2018-09-28 10:18 | PN_ITS ---
Subjective: Patient seen and examined this morning. She is looking much better and has no complaints. Liver enzymes have trended down. She has no fever or chills, no cough or chest pain, no shortness of breath, and abdominal pain has improved. She has no diarrhea vomiting. Review of systems otherwise negative. Labs and vitals reviewed. Vitals/I&O's: Vital Signs Temp Pulse Resp BP Pulse Ox 97.8 F 95 21 H 159/67 H 99 09/28/18 08:00 09/28/18 09:35 09/28/18 08:00 09/28/18 09:35 09/28/18 08:00 Oxygen Delivery Method Room Air Weight: 113 lb 15.664 oz Body Mass Index (BMI) 21.1 Finger Stick Blood Glucose 88 Intake and Output for Last 24 Hours 09/26/18 09/27/18 09/28/18 23:59 23:59 23:59 Intake Total 3279 / 3279 Output Total 950 / 950 Balance 2329 / 2329 General: Alert, Oriented x3, Cooperative, No apparent distress HEENT: Atraumatic, PERRLA, EOMI, Normocephalic, - - has a tinge of jaundice in sclera Oral: Moist Mucosa Neck: Supple, No JVD, Negative Carotid Bruits Lungs: Clear to auscultation, Normal air movement, No rhonchi, No wheeze, No rales Cardiovascular: Regular rate, Regular Rhythm, Normal S1, Normal S2, No murmurs Abdomen: Bowel Sounds Present, Soft, Non Tender, Non-Distended, No Hepato- splenomegaly Extremities: No clubbing, No cyanosis, No edema, Capillary Refill Less than 3 Seconds Skin: No rashes, No breakdown Musculoskeletal: No Tenderness to Palpation of Joints or Extremities Lymphatic: No Cervical, Supraclavicular, or Inguinal Adenopathy Neurological: Cranial nerves II-XII grossly intact, Neuro grossly intact, Motor Exam 5/5 strength throughout Psych/Mental Status: Normal Affect, Appropriate, Alert and oriented to time, place, person, mood and affect Laboratory Results 09/27/18 14:10: WBC 8.9, RBC 4.10 L, Hgb 13.2, Hct 38.0, MCV 92.7, MCH 32.2 H, MCHC 34.7, RDW 13.2, RDW Differential 44.1 H, Plt Count 234, MPV 8.7, Immature Gran % (Auto) 0.100, Neut % (Auto) 79.4 H, Lymph % (Auto) 8.2 L, [place] % (Auto) 12.0 H, Eos % (Auto) 0.0, Baso % (Auto) 0.3, Absolute Neuts (auto) 7.1, Absolute Lymphs (auto) 0.73 L, Total Counted Not Reportable 09/27/18 14:10: Sodium 131 L, Potassium 3.5, Chloride 98, Carbon Dioxide 23.0, Anion Gap 10, BUN 26 H, Creatinine 1.27 H, Estim Creat Clear Calc 28.44, Est GFR (MDRD) Af Amer 53 L, Est GFR (MDRD) Non-Af 43 L, BUN/Creatinine Ratio 20.5 H, Glucose 180 H, Calcium 9.6 09/27/18 14:10: PT 15.9 H, INR 1.3 09/27/18 14:15: Total Bilirubin 1.80 H, Direct Bilirubin 0.91 H, AST 1379 H, ALT 556 H, Alkaline Phosphatase 148 H, Troponin I 0.024, Total Protein 7.8, Albumin 4.4, Globulin 3.4 09/27/18 14:15: Lipase 114 09/27/18 17:22: Salicylates < 1.7 L, Acetaminophen 26.6 09/27/18 17:22: Hepatitis A IgM Ab Pending, Hep Bs Antigen Pending, Hep B Core IgM Ab Pending, Hepatitis C Ab (EIA) Pending 09/27/18 17:22: GGT 244 H 09/27/18 17:22: Ethyl Alcohol 8.0 09/27/18 18:20: Urine Color Yellow, Urine Clarity Sl. Cloudy, Urine pH 5.0, Ur Specific [place] 1.020, Urine Protein 15 H, Urine Glucose (UA) Normal, Urine Ketones 5 H, Urine Occult Blood 10 H, Urine Nitrite Negative, Urine Bilirubin Negative, Urine Urobilinogen Normal, Ur Leukocyte Esterase 100 H, Urine RBC 0 SEEN, Urine WBC 0-5 SEEN, Ur Squamous Epith Cells 0-5 SEEN, Urine Bacteria 3+, Urine Mucus 0 SEEN 09/27/18 18:30: Urine Opiates Screen POSITIVE H, Urine Methadone Screen NEGATIVE, Ur Barbiturates Screen NEGATIVE, Ur Phencyclidine Scrn NEGATIVE, Ur Amphetamines Screen NEGATIVE, U Methamphetamin-MDMA NEGATIVE, U Benzodiazepines Scrn NEGATIVE, Urine Cocaine Screen NEGATIVE, U Cannabinoids Screen NEGATIVE, Ur Drug Screen Comment 09/27/18 21:15: Total Bilirubin 1.50 H, Direct Bilirubin 0.74 H, AST 865 H, ALT 439 H, Alkaline Phosphatase 111, Total Protein 5.7 L, Albumin 3.2, Globulin 2.5 09/27/18 23:25: Troponin I 0.039 09/28/18 02:40: Troponin I 0.050 H 09/28/18 03:35: WBC 6.4, RBC 3.28 L, Hgb 10.7 L, Hct 30.5 L, MCV 93.0, MCH 32.6 H, MCHC 35.1, RDW 12.4, RDW Differential 40.2, Plt Count 199, MPV 8.4, Immature Gran % (Auto) 0.200, Neut % (Auto) 80.4 H, Lymph % (Auto) 13.5 L, [place] % (Auto) 4.9, Eos % (Auto) 0.5, Baso % (Auto) 0.5, Absolute Neuts (auto) 5.1, Absolute Lymphs (auto) 0.86, Total Counted Not Reportable 09/28/18 03:35: Sodium 141, Potassium 3.2 L, Chloride 105, Carbon Dioxide 20.0 L , Anion Gap 16 H, BUN 17, Creatinine 0.79, Estim Creat Clear Calc 36.12, Est GFR (MDRD) Af Amer 91, Est GFR (MDRD) Non-Af 75, BUN/Creatinine Ratio 21.6 H, Glucose 117 H, Calcium 7.3 L, Total Bilirubin 1.40 H, AST 848 H, ALT 488 H, Alkaline Phosphatase 90, Total Protein 5.2 L, Albumin 2.7 L, Globulin 2.5, Albumin/Globulin Ratio 1.1 09/28/18 05:40: Troponin I 0.068 H 09/28/18 08:50: Troponin I 0.069 H 09/28/18 08:50: Lactic Acid 1.0 09/28/18 08:50: PT 18.6 H, INR 1.6 Diagnostic Data Abdomen/Pelvis CT 09/27/18 14:34 IMPRESSION: Distention of the gallbladder. I suspect either multiple tiny stones or sludge within the lumen. Correlation with ultrasound is recommended. Electronically Signed: Khai Mcclain MD at 15:44 EST , Service support , Gallbladder Ultrasound 09/27/18 15:47 IMPRESSION: Normal size mildly fatty liver. Normal size gallbladder without wall thickening. Multiple tiny gallstones. Nondistended common bile duct. Unremarkable pancreatic head and body. Nonvisualized tail secondary to bowel gas. Normal right kidney. Electronically Signed: Lilian Bhatt MD at 16:55 EST , Service support , Current Medications [facility]cium Carbon[facility] (Os-Chaka 500) [facility] Last Admin: 09/28/18 09:36 Dose: 500 mg Hydralazine HCl (Apresoline Iv) 10 mg IV Q4H PRN PRN PRN Reason: SBP > 160 Last Admin: 09/28/18 03:28 Dose: 10 mg Sodium Chloride () 250 mls @ 15 mls/hr IV .[id number] PRN PRN Reason: SALINE FLUSH Potassium Chloride () 10 meq in 100 mls @ 100 mls/hr IV BOLUS Q1H [facility] Stop: 09/28/18 12:59 Last Admin: 09/28/18 09:36 Dose: 100 mls/hr Magnesium Hydroxide (Milk Of Magnesia) 30 ml PO DAILY PRN PRN PRN Reason: Constipation Metoprolol Succinate (Toprol Xl (Beta Jaxon)) 100 mg PO DAILY [facility] Last Admin: 09/28/18 09:35 Dose: 100 mg Ondansetron HCl (Zofran) 4 mg IV Q6H PRN PRN PRN Reason: nausea, emesis Oxycodone HCl (Oxyir) 5 mg PO Q4H PRN PRN PRN Reason: PAIN Last Admin: 09/28/18 09:49 Dose: 5 mg Pantoprazole Sodium (Protonix) 40 mg PO BID [facility] Last Admin: 09/28/18 09:35 Dose: 40 mg Promethazine HCl (Phenergan) 6.25 mg IV Q4H PRN PRN PRN Reason: NAUSEA/VOMITING Last Admin: 09/27/18 23:57 Dose: 6.25 mg Sodium Chloride () 5 - 15 ml IV UD PRN PRN Reason: SALINE FLUSH Last Admin: 09/28/18 09:36 Dose: 10 ml Medical Necessity - Tobacco Use Smoking Status: Former smoker Assessment/Plan All Active Problems Severe sepsis (Resolved) UTI (urinary tract infection) (Acute) Generalized weakness (Acute) Dehydration (Resolved) Decreased functional residual capacity (Acute) 78-year-old female admitted with a complaint of upper abdominal pain for 2 days as well as right shoulder pain which have been going on for a while. 1. Acute liver failure, suspect acetaminophen poisoning. * liver enzymes have trended down. abdominal pain has improved. * patient feels better today. * hepatitis panel is still pending * AST/ALT down to 865/488 today. * total bilirubin down to 1.4 this morning * patient received IV N acetyl cysteine overnight. * her blood acetaminophen level was 26microgram, approximately 24 hours after she last ingested tylenol, which per the [facility]y normogram, put her in high risk range. * of note, echo technician was consulted when patient was admitted to ICU, but he refused consult. * continue holding atorvastatin. * lipase level was normal * coagulation panel was negative. * * 2. FRANK: resolved. Cr down to 0.79. was 1.27 on admission. 3. NSTEMI: * troponin trended up to 0.050->0.068->0.069. * 2D echo pending. * Will consult cardiology. * 2D echo pending. 4. Hypokalemia: K is 3.2. WIll replace and monitor 5. Hyponatremia: resolved. Na is 141 today. 6. Hypertension: On metoprolol. 7. Arthritis of the right shoulder: We will hold fentanyl patch. on Ibandronate 50 mg monthly. Will give IV ketorolac for pain. DVT prophylaxis: SCDs GI prophylaxis: PPI Code status: full code Code Visit Inpatient E&M: 25275 Subs Hosp L3
--- NOTE | 2018-09-28 12:31 | CASEMGMT ---
Living will is on pt chart in summary section. Living will indicates pt has not completed a HCPOA. SW met with pt and pt confirms this. SW explained HCPOA and pt requesting to complete at this time. SW assisted pt in completing HCPOA naming her son [address]. Copy placed on pt paper chart and original given to pt with instruction to give copy to son and PCP. ABHISHEK Hayes
--- NOTE | 2018-09-28 13:13 | PCM.CONS.C ---
Reason for Consult Date of Consultation: 09/28/18 Reason for Consultation: Abnormal cardiac enzymes History of Present Illness: The patient is a 78-year-old female, who presented to the emergency department on September 27 with complaints of abdominal pain and lower extremity weakness. She states that approximately 2 weeks ago she experienced a mechanical fall while moving furniture. Since that time, she has been experiencing neck pain. The patient was evaluated in the emergency department on September 19 with the aforementioned complaints. A CT of the C-spine revealed no acute fracture. The patient was treated symptomatically with morphine, Zofran and IV fluids. In addition, she did receive a steroid injection. The patient reports the presence of chronic hip pain, for which she utilizes transdermal fentanyl. While the patient initially reported improvement in her pain related complaints, she states that over the last 3-5 days her neck pain has once again worsened. She states that her son purchased her Tylenol to use for ongoing pain. She states that over the last 3-4 days she has been utilizing a total of 6 tablets of acetaminophen daily. She denies any previous history of liver related pathology. She denies a history of hepatitis. The patient does not drink alcohol or smoke. While she did report the presence of nonspecific abdominal pain along with a mild degree of nausea, she denied vomiting or diarrhea. She specifically denies any chest pain she does not think that she passed out. On presentation to the hospital she was noted to have abnormal liver enzymes and was admitted to the intensive care unit. Cardiac enzymes were obtained and noted to be abnormal and hence this consultation. Past Medical History Allergies/Adverse Reactions: Allergies No Known Allergies Allergy (Verified 09/27/18 13:56) Home Medications: Ambulatory Orders Medication Instructions Recorded Atorvastatin Calcium [Lipitor] 40 mg PO QHS #30 tablet 08/24/13 Pantoprazole Sodium [Protonix] 40 mg PO BID #60 tablet 06/16/14 fentaNYL patch [Duragesic patch] 25 mcg TRANSDERM. Q72H #10 patch 06/29/14 Aspirin E.C. [Ecotrin] 81 mg PO DAILY 06/21/18 Cholecalciferol (Vitamin D3) 2,000 unit PO DAILY 06/21/18 [D3-2000] Ibandronate Sodium [Boniva] 150 mg PO Q30D 06/21/18 Metoprolol Succinate [Toprol Xl] 100 mg PO DAILY 06/21/18 Acetaminophen [Tylenol Arthritis] 650 mg PO QHS 09/27/18 Calcium Carbonate [Calcium] 600 mg PO DAILY 09/27/18 Ferrous Sulfate 325 mg PO DAILY 09/27/18 Past Medical History (Chronic Problems): Chronic Problems History of DVT (deep vein thrombosis) (Chronic) PUD (peptic ulcer disease) (Chronic) Chronic back pain (Chronic) Hyperlipidemia (Chronic) Depression (Chronic) Benign essential hypertension (Chronic) Alcohol abuse (Chronic) Gastrointestinal bleed (Chronic) Recurrent dislocation of right hip (Chronic) Chronic blood loss anemia (Chronic) Recurrent falls (Chronic) Surgical History: appendectomy, - - Right hip hemiarthroplasty. Psychiatric History: Depression - *Family History Maternal History Items: No pertinent history Paternal History Items: No pertinent history Lives: Alone Smoking Status: Former smoker Alcohol: None Drugs: None Review of Systems - Review of Systems General: Reports: Malaise. Denies: Fever, Fatigue, Night Sweats HEENT: Denies: Vision Change Cardiovascular: Denies: Chest Discomfort, Shortness of Breath, Orthopnea, PND, Peripheral Edema, Palpitations, Lightheadedness, Dizziness, Near Syncope, Syncope Respiratory: Denies: Cough, Sputum Production, Hemoptysis Gastrointestinal: Reports: Abdominal Discomfort. Denies: Hematemesis, Hematochezia, Melena Genitourinary: Denies: Dysuria, Hematuria Muscoloskeletal: Denies: Myalgias Skin: Denies: Rash Neurological: Denies: Dizziness Psychiatric: Denies: Anxiety Endocrine: Denies: Unexplained Weight Loss Hematologic/ Lymphatic: Denies: Anemia Subjectve: Pleasant lady in no apparent distress Objective: Vital Signs Temp Pulse Resp BP Pulse Ox 98.3 F 70 16 142/63 H 100 09/28/18 12:00 09/28/18 12:35 09/28/18 12:00 09/28/18 12:00 09/28/18 12:00 Oxygen Delivery Method Room Air Weight: 113 lb 15.664 oz Body Mass Index (BMI) 21.1 Finger Stick Blood Glucose 88 Intake and Output for Last 24 Hours 09/26/18 09/27/18 09/28/18 23:59 23:59 23:59 Intake Total 3891 / 3891 Output Total 1300 / 1300 Balance 2591 / 2591 General: Awake, Alert, Oriented x 3 HEENT: PERRL, EOMI, Sclera Non Icteric, - - Bruise noted above the right eye Neck: Supple, Good ROM, No Lymph Node Enlargement Lungs: Clear to auscultation Cardiovascular: Regular Rhythm, Normal S1, Normal S2, No Murmurs, No Rubs, No Gallops Vascular: No Carotid Bruits, Normal Femoral Pulses, Normal Radial Pulses, Normal Dorsalis Pedal Pulse, Normal Posterior Tibial Pulses Abdomen: Bowel Sounds Present, Soft, Non Tender, No HSM, No Organomegaly Extremities: No Cyanosis, No Clubbing, No edema Neurological: No Focal Motor or Sensory Deficit Psych/Mental Status: Appropriate 09/27/18 14:10: WBC 8.9, RBC 4.10 L, Hgb 13.2, Hct 38.0, MCV 92.7, MCH 32.2 H, MCHC 34.7, RDW 13.2, RDW Differential 44.1 H, Plt Count 234, MPV 8.7, Immature Gran % (Auto) 0.100, Neut % (Auto) 79.4 H, Lymph % (Auto) 8.2 L, [place] % (Auto) 12.0 H, Eos % (Auto) 0.0, Baso % (Auto) 0.3, Absolute Neuts (auto) 7.1, Total Counted Not Reportable 09/27/18 14:10: Sodium 131 L, Potassium 3.5, Chloride 98, Carbon Dioxide 23.0, Anion Gap 10, BUN 26 H, Creatinine 1.27 H, Est GFR (MDRD) Af Amer 53 L, Est GFR (MDRD) Non-Af 43 L, BUN/Creatinine Ratio 20.5 H, Glucose 180 H, Calcium 9.6 09/27/18 14:10: PT 15.9 H, INR 1.3 09/27/18 14:15: Total Bilirubin 1.80 H, Direct Bilirubin 0.91 H, Troponin I 0.024 09/27/18 18:20: Urine Color Yellow, Urine Clarity Sl. Cloudy, Urine pH 5.0, Ur Specific [place] 1.020, Urine Protein 15 H, Urine Glucose (UA) Normal, Urine Ketones 5 H, Urine Occult Blood 10 H, Urine Nitrite Negative, Urine Bilirubin Negative, Urine Urobilinogen Normal, Ur Leukocyte Esterase 100 H, Urine RBC 0 SEEN, Urine WBC 0-5 SEEN 09/27/18 21:15: Total Bilirubin 1.50 H, Direct Bilirubin 0.74 H 09/27/18 23:25: Troponin I 0.039 09/28/18 02:40: Troponin I 0.050 H 09/28/18 03:35: WBC 6.4, RBC 3.28 L, Hgb 10.7 L, Hct 30.5 L, MCV 93.0, MCH 32.6 H, MCHC 35.1, RDW 12.4, RDW Differential 40.2, Plt Count 199, MPV 8.4, Immature Gran % (Auto) 0.200, Neut % (Auto) 80.4 H, Lymph % (Auto) 13.5 L, [place] % (Auto) 4.9, Eos % (Auto) 0.5, Baso % (Auto) 0.5, Absolute Neuts (auto) 5.1, Total Counted Not Reportable 09/28/18 03:35: Sodium 141, Potassium 3.2 L, Chloride 105, Carbon Dioxide 20.0 L, Anion Gap 16 H, BUN 17, Creatinine 0.79, Est GFR (MDRD) Af Amer 91, Est GFR (MDRD) Non-Af 75, BUN/Creatinine Ratio 21.6 H, Glucose 117 H, Calcium 7.3 L, Total Bilirubin 1.40 H 09/28/18 05:40: Troponin I 0.068 H 09/28/18 08:50: Troponin I 0.069 H 09/28/18 08:50: Lactic Acid 1.0 09/28/18 08:50: PT 18.6 H, INR 1.6 Rhythm: EKG: Normal sinus rhythm with no acute changes Assessment/Plan 1. Abnormal cardiac enzymes Patient presents after a mechanical fall a while ago and was noted to have abnormal liver function tests and now has mildly abnormal cardiac enzymes without any clinical evidence of angina and no EKG changes. These do not meet the criteria of a non-ST elevation myocardial infarction and suggests myocardial necrosis. The exact etiology of her stressful factor is not known at this particular time. Will recommend an echocardiogram to assess her left ventricular function Obtain a myocardial perfusion stress test to exclude ischemia. At this juncture I would not perform any other cardiac testing. Would hold off on her high intensity statin, as you are doing. 2. Hypertension Blood pressure appears to be under fair control. Due to the liver metabolism of metoprolol I would recommend reducing the dose to 50 mg a day Would start amlodipine 5 mg a day Thank you for allowing me to participate in the care of your patient. Please don't hesitate to call if any issues arise
--- NOTE | 2018-09-28 13:17 | CON.PCM_ITS ---
Reason for Consult Date of Consultation: 09/28/18 Reason for Consultation: Abnormal cardiac enzymes History of Present Illness: The patient is a 78-year-old female, who presented to the emergency department on September 27 with complaints of abdominal pain and lower extremity weakness. She states that approximately 2 weeks ago she experienced a mechanical fall while moving furniture. Since that time, she has been experiencing neck pain. The patient was evaluated in the emergency department on September 19 with the aforementioned complaints. A CT of the C-spine revealed no acute fracture. The patient was treated symptomatically with morphine, Zofran and IV fluids. In addition, she did receive a steroid injection. The patient reports the presence of chronic hip pain, for which she utilizes transdermal fentanyl. While the patient initially reported improvement in her pain related complaints, she states that over the last 3-5 days her neck pain has once again worsened. She states that her son purchased her Tylenol to use for ongoing pain. She states that over the last 3-4 days she has been utilizing a total of 6 tablets of acetaminophen daily. She denies any previous history of liver related pathology. She denies a history of hepatitis. The patient does not drink alcoh ol or smoke. While she did report the presence of nonspecific abdominal pain along with a mild degree of nausea, she denied vomiting or diarrhea. She specifically denies any chest pain she does not think that she passed out. On presentation to the hospital she was noted to have abnormal liver enzymes and was admitted to the intensive care unit. Cardiac enzymes were obtained and noted to be abnormal and hence this consultation. Past Medical History Allergies/Adverse Reactions: Allergies No Known Allergies Allergy (Verified 09/27/18 13:56) Home Medications: Ambulatory Orders Medication Instructions Recorded Atorvastatin Calcium [Lipitor] 40 mg PO QHS #30 tablet 08/24/13 Pantoprazole Sodium [Protonix] 40 mg PO BID #60 tablet 06/16/14 fentaNYL patch [Duragesic patch] 25 mcg TRANSDERM. Q72H #10 patch 06/29/14 Aspirin E.C. [Ecotrin] 81 mg PO DAILY 06/21/18 Cholecalciferol (Vitamin D3) 2,000 unit PO DAILY 06/21/18 [D3-2000] Ibandronate Sodium [Boniva] 150 mg PO Q30D 06/21/18 Metoprolol Succinate [Toprol Xl] 100 mg PO DAILY 11/07/18 Acetaminophen [Tylenol Arthritis] 650 mg PO QHS 09/27/18 Calcium Carbonate [Calcium] 600 mg PO DAILY 09/27/18 Ferrous Sulfate 325 mg PO DAILY 09/27/18 Past Medical History (Chronic Problems): Chronic Problems History of DVT (deep vein thrombosis) (Chronic) PUD (peptic ulcer disease) (Chronic) Chronic back pain (Chronic) Hyperlipidemia (Chronic) Depression (Chronic) Benign essential hypertension (Chronic) Alcohol abuse (Chronic) Gastrointestinal bleed (Chronic) Recurrent dislocation of right hip (Chronic) Chronic blood loss anemia (Chronic) Recurrent falls (Chronic) Surgical History: appendectomy, - - Right hip hemiarthroplasty. Psychiatric History: Depression - *Family History Maternal History Items: No pertinent history Paternal History Items: No pertinent history Lives: Alone Smoking Status: Former smoker Alcohol: None Drugs: None Review of Systems - Review of Systems General: Reports: Malaise. Denies: Fever, Fatigue, Night Sweats HEENT: Denies: Vision Change Cardiovascular: Denies: Chest Discomfort, Shortness of Breath, Orthopnea, PND, Peripheral Edema, Palpitations, Lightheadedness, Dizziness, Near Syncope, Syncope Respiratory: Denies: Cough, Sputum Production, Hemoptysis Gastrointestinal: Reports: Abdominal Discomfort. Denies: Hematemesis, Hematochezia, Melena Genitourinary: Denies: Dysuria, Hematuria Muscoloskeletal: Denies: Myalgias Skin: Denies: Rash Neurological: Denies: Dizziness Psychiatric: Denies: Anxiety Endocrine: Denies: Unexplained Weight Loss Hematologic/ Lymphatic: Denies: Anemia Subjectve: Pleasant lady in no apparent distress Objective: Vital Signs Temp Pulse Resp BP Pulse Ox 98.3 F 70 16 142/63 H 100 09/28/18 12:00 09/28/18 12:35 09/28/18 12:00 09/28/18 12:00 09/28/18 12:00 Oxygen Delivery Method Room Air Weight: 113 lb 15.664 oz Body Mass Index (BMI) 21.1 Finger Stick Blood Glucose 88 Intake and Output for Last 24 Hours 09/26/18 09/27/18 09/28/18 23:59 23:59 23:59 Intake Total 3891 / 3891 Output Total 1300 / 1300 Balance 2591 / 2591 General: Awake, Alert, Oriented x 3 HEENT: PERRL, EOMI, Sclera Non Icteric, - - Bruise noted above the right eye Neck: Supple, Good ROM, No Lymph Node Enlargement Lungs: Clear to auscultation Cardiovascular: Regular Rhythm, Normal S1, Normal S2, No Murmurs, No Rubs, No Gallops Vascular: No Carotid Bruits, Normal Femoral Pulses, Normal Radial Pulses, Normal Dorsalis Pedal Pulse, Normal Posterior Tibial Pulses Abdomen: Bowel Sounds Present, Soft, Non Tender, No HSM, No Organomegaly Extremities: No Cyanosis, No Clubbing, No edema Neurological: No Focal Motor or Sensory Deficit Psych/Mental Status: Appropriate 09/27/18 14:10: WBC 8.9, RBC 4.10 L, Hgb 13.2, Hct 38.0, MCV 92.7, MCH 32.2 H, MCHC 34.7, RDW 13.2, RDW Differential 44.1 H, Plt Count 234, MPV 8.7, Immature Gran % (Auto) 0.100, Neut % (Auto) 79.4 H, Lymph % (Auto) 8.2 L, [place] % (Auto) 12.0 H, Eos % (Auto) 0.0, Baso % (Auto) 0.3, Absolute Neuts (auto) 7.1, Total Counted Not Reportable 09/27/18 14:10: Sodium 131 L, Potassium 3.5, Chloride 98, Carbon Dioxide 23.0, Anion Gap 10, BUN 26 H, Creatinine 1.27 H, Est GFR (MDRD) Af Amer 53 L, Est GFR (MDRD) Non-Af 43 L, BUN/Creatinine Ratio 20.5 H, Glucose 180 H, Calcium 9.6 09/27/18 14:10: PT 15.9 H, INR 1.3 09/27/18 14:15: Total Bilirubin 1.80 H, Direct Bilirubin 0.91 H, Troponin I 0.024 09/27/18 18:20: Urine Color Yellow, Urine Clarity Sl. Cloudy, Urine pH 5.0, Ur Specific [place] 1.020, Urine Protein 15 H, Urine Glucose (UA) Normal, Urine Ketones 5 H, Urine Occult Blood 10 H, Urine Nitrite Negative, Urine Bilirubin Negative, Urine Urobilinogen Normal, Ur Leukocyte Esterase 100 H, Urine RBC 0 SEEN, Urine WBC 0-5 SEEN 09/27/18 21:15: Total Bilirubin 1.50 H, Direct Bilirubin 0.74 H 09/27/18 23:25: Troponin I 0.039 09/28/18 02:40: Troponin I 0.050 H 09/28/18 03:35: WBC 6.4, RBC 3.28 L, Hgb 10.7 L, Hct 30.5 L, MCV 93.0, MCH 32.6 H, MCHC 35.1, RDW 12.4, RDW Differential 40.2, Plt Count 199, MPV 8.4, Immature Gran % (Auto) 0.200, Neut % (Auto) 80.4 H, Lymph % (Auto) 13.5 L, [place] % (Auto) 4.9, Eos % (Auto) 0.5, Baso % (Auto) 0.5, Absolute Neuts (auto) 5.1, Total Counted Not Reportable 09/28/18 03:35: Sodium 141, Potassium 3.2 L, Chloride 105, Carbon Dioxide 20.0 L , Anion Gap 16 H, BUN 17, Creatinine 0.79, Est GFR (MDRD) Af Amer 91, Est GFR (MDRD) Non-Af 75, BUN/Creatinine Ratio 21.6 H, Glucose 117 H, Calcium 7.3 L, Total Bilirubin 1.40 H 09/28/18 05:40: Troponin I 0.068 H 09/28/18 08:50: Troponin I 0.069 H 09/28/18 08:50: Lactic Acid 1.0 09/28/18 08:50: PT 18.6 H, INR 1.6 Rhythm: EKG: Normal sinus rhythm with no acute changes Assessment/Plan 1. Abnormal cardiac enzymes * Patient presents after a mechanical fall a while ago and was noted to have abnormal liver function tests and now has mildly abnormal cardiac enzymes without any clinical evidence of angina and no EKG changes. * These do not meet the criteria of a non-ST elevation myocardial infarction and suggests myocardial necrosis. The exact etiology of her stressful factor is not known at this particular time. Will recommend an echocardiogram to assess her left ventricular function * Obtain a myocardial perfusion stress test to exclude ischemia. * At this juncture I would not perform any other cardiac testing. * Would hold off on her high intensity statin, as you are doing. 2. Hypertension * Blood pressure appears to be under fair control. * Due to the liver metabolism of metoprolol I would recommend reducing the dose to 50 mg a day * Would start amlodipine 5 mg a day * * Thank you for allowing me to participate in the care of your patient. Please don't hesitate to call if any issues arise
[2018-09-29] VITALS (9 sets, daily range): BP systolic 118–141; BP diastolic 61–69; PULSE 59–75; RESP 14–16; TEMP 36.4–36.8; O2SAT 95–100
[2018-09-29 04:12] LABS: HEPATITIS B SURFACE AG Negative (Negative); Hepatitis A IgM Antibody Negative (Negative); Hepatitis B Core AB IgM Negative (Negative)
[2018-09-29 04:58] LABS: Absolute Lymphocyte Count 0.94 X10^3/ul (0.83-4.51); Absolute Neutrophil Count 2.7 X10^3/uL (2.0-7.7); Basophil# 0.06 X10^3/uL; Basophil% 1.4 % (0-1); Eosinophil# 0.19 X10^3/uL; Eosinophils% 4.5 % (0-5); Hematocrit 29.6 % (37-47); Hemoglobin 10.2 g/dl (12.0-15.0); Lymphocyte # 0.94 X10^3/ul (4.0); Lymphocyte % 22.2 % (19-41); Mean Corp Hgb Conc 34.5 g/gl (32-36); Mean Corpuscular Hgb 32.6 pg (27.0-32.0); Mean Corpuscular Volume 94.6 fL (81-99); Mean Platelet Vol. 9.1 fl (6.2-12.0); Monocyte# 0.35 X10^3/uL; Monocyte% 8.3 % (0-10); Neutrophil # 2.69 X10^3/uL (2.7-7.7); Neutrophil % 63.4 % (47-70); Platelet Count 167 K/mm3 (150-450); RBC Distribution Width SD 43.1 fl (35.1-43.9); Red Blood Count 3.13 M/mm3 (4.2-5.4); White Blood Count 4.2 K/mm3 (4.4-11.0)
[2018-09-29 05:00] LABS: POSITIVE COUNT NO; POSITIVE DIFFERENTIAL NO; POSITIVE MORPHOLOGY NO
[2018-09-29 05:06] LABS: International Normalized Ratio 1.7; Prothrombin Time (Protime)PT. 20.1 SECONDS (11.7-14.9)
[2018-09-29 05:07] LABS: Partial Thromboplast Time 33.2 Seconds (24.1-36.2)
[2018-09-29] MEDS: Pantoprazole Sodium 40 MG Tablet PO (05:08)
[2018-09-29] MEDS: amLODIPine 5 MG Tablet PO (05:08)
[2018-09-29 05:24] LABS: ALB/GLOB Ratio 1.2 RATIO (0.9-2.4); AST(SGOT) 1590 U/L (15-37); Alanine Aminotransfer ALT/SGPT 982 U/L (13-56); Albumin, Serum 2.7 g/dL (3.2-5.0); Alkaline Phosphatase 98 U/L (45-117); Anion Gap 11 (5-15); BUN 17 mg/dL (7-18); BUN/Creat Ratio 23.7 RATIO (10-20); Calcium,Total 7.6 mg/dL (8.5-10.1); Chloride 111 mmol/L (98-107); Creatinine, Serum 0.72 mg/dL (0.55-1.02); EST Glomerular Filtration Rate 84 mL/min (>60); Est Glom Filt Rate - Afr Amer 102 mL/min (>60); Estimated Creatinine Clearance 36.12 ml/min; Globulin 2.2 g/dL (2.2-4.2); Glucose 76 mg/dL (74-106); Potassium 4.6 mmol/L (3.5-5.1); Protein, Total 4.9 g/dL (6.4-8.2); Sodium Level 140 mmol/L (136-145)
--- NOTE | 2018-09-29 05:55 | EKG12_ITS ---
Test Reason : AM EKG Blood Pressure : / mmHG Vent. Rate : 059 BPM Atrial Rate : 059 BPM P-R Int : 180 ms QRS Dur : 078 ms QT Int : 436 ms P-R-T Axes : 048 017 011 degrees QTc Int : 431 ms Sinus bradycardia Otherwise normal ECG When compared with ECG of 27-SEP-2018 23:18, MANUAL COMPARISON REQUIRED, DATA IS UNCONFIRMED Confirmed by TALON TILLEY, CHRISTIAN ([id number]), sound editor MARYAN CARLOS ([id number]) on 10/09/2018 5:29:15 PM Referred By: Ramona Crews Confirmed By:CHRISTIAN HANLEY MD
--- NOTE | 2018-09-29 08:05 | PCM.PROGNOTE ---
Subjective: The patient was seen and examined at the bedside this morning. Events from the last 24 hours have been reviewed. The patient is currently afebrile, hemodynamically stable and maintaining appropriate oxygen saturations on room air. The patient denies the presence of abdominal pain, nausea or vomiting this morning. She states that she is supposed to undergo cardiac testing this morning. I did explain to the patient this morning my concern that her transaminase levels have increased and her bilirubin level has also jumped. I explained to her that I thought she would be best served by being evaluated by a volunteer services assistant. However, the patient was adamant that she was not interested in being transferred to another facility for evaluation, stating that she wished to be discharged home instead. Objective: The patient's most recent lab work, culture data and imaging studies have all been personally reviewed. CT abdomen/pelvis without contrast revealed distention of the gallbladder was suspected tiny stones or sludge within the lumen. A follow-up gallbladder ultrasound revealed mild fatty infiltration of the liver with normal gallbladder size without wall thickening and multiple tiny gallstones. There was a nondistended common bile duct along with an unremarkable pancreatic head and body. - Physical Exam General: Alert, Oriented x3, Cooperative, No apparent distress HEENT: Atraumatic, PERRLA, Normocephalic Oral: No Gingival or Mucosal Lesions/ Ulcerations Neck: Supple, No Nodes, Trachea Midline Lungs: Normal air movement, No rhonchi, No wheeze, No rales Cardiovascular: Regular rate, Regular Rhythm, Normal S1, Normal S2, No murmurs Abdomen: Bowel Sounds Present, Soft, Non Tender Extremities: No clubbing, No cyanosis, No edema Skin: No breakdown Musculoskeletal: No Muscle Wasting Lymphatic: No Cervical, Supraclavicular, or Inguinal Adenopathy Neurological: Cranial nerves II-XII grossly intact, Neuro grossly intact Psych/Mental Status: Normal Affect, Appropriate Vital Signs Temp Pulse Resp BP Pulse Ox 36.8 C 59 L 16 141/67 H 95 09/29/18 05:04 09/29/18 05:04 09/29/18 05:04 09/29/18 05:04 09/29/18 07:02 Oxygen Delivery Method Room Air Weight: 115 lb 11.883 oz Body Mass Index (BMI) 21.1 Finger Stick Blood Glucose 88 Intake and Output for Last 24 Hours 09/27/18 09/28/1819 23:59 23:59 23:59 Intake Total 4131 / 4131 50 / 50 Output Total 1300 / 1300 Balance 2831 / 2831 50 / 50 Laboratory Tests Past 24 Hrs 09/28/18 09/28/18 09/28/18 08:50 08:50 08:50 WBC RBC Hgb Hct MCV MCH MCHC RDW RDW Differential Plt Count MPV Immature Gran % (Auto) Neut % (Auto) Lymph % (Auto) [place] % (Auto) Eos % (Auto) Baso % (Auto) Absolute Neuts (auto) Absolute Lymphs (auto) Total Counted PT 18.6 H INR 1.6 APTT Sodium Potassium Chloride Carbon Dioxide Anion Gap BUN Creatinine Estim Creat Clear Calc Est GFR (MDRD) Af Amer Est GFR (MDRD) Non-Af BUN/Creatinine Ratio Glucose Lactic Acid 1.0 Calcium Total Bilirubin AST ALT Alkaline Phosphatase Troponin I 0.069 H Total Protein Albumin Globulin Albumin/Globulin Ratio 09/29/18 09/29/18 09/29/18 04:40 04:40 04:40 WBC 4.2 L RBC 3.13 L Hgb 10.2 L Hct 29.6 L MCV 94.6 MCH 32.6 H MCHC 34.5 RDW 13.0 RDW Differential 43.1 Plt Count 167 MPV 9.1 Immature Gran % (Auto) 0.200 Neut % (Auto) 63.4 Lymph % (Auto) 22.2 [place] % (Auto) 8.3 Eos % (Auto) 4.5 Baso % (Auto) 1.4 H Absolute Neuts (auto) 2.7 Absolute Lymphs (auto) 0.94 Total Counted Not Reportable PT 20.1 H INR 1.7 APTT 33.2 Sodium 140 Potassium 4.6 Chloride 111 H Carbon Dioxide 18.0 L Anion Gap 11 BUN 17 Creatinine 0.72 Estim Creat Clear Calc 36.12 Est GFR (MDRD) Af Amer 102 Est GFR (MDRD) Non-Af 84 BUN/Creatinine Ratio 23.7 H Glucose 76 Lactic Acid Calcium 7.6 L Total Bilirubin 2.00 H AST 1590 H ALT 982 H Alkaline Phosphatase 98 Troponin I Total Protein 4.9 L Albumin 2.7 L Globulin 2.2 Albumin/Globulin Ratio 1.2 Clinical Impression(s) from Imaging Studies Abdomen/Pelvis CT 09/27/18 14:34 IMPRESSION: Distention of the gallbladder. I suspect either multiple tiny stones or sludge within the lumen. Correlation with ultrasound is recommended. Electronically Signed: Khai Mcclain MD at 15:44 EST , Service support , Gallbladder Ultrasound 09/27/18 15:47 IMPRESSION: Normal size mildly fatty liver. Normal size gallbladder without wall thickening. Multiple tiny gallstones. Nondistended common bile duct. Unremarkable pancreatic head and body. Nonvisualized tail secondary to bowel gas. Normal right kidney. Electronically Signed: Lilian Bhatt MD at 16:55 EST , Service support , Medical Necessity - Tobacco Use Smoking Status: Former smoker Assessment/Plan All Active Problems Severe sepsis (Resolved) UTI (urinary tract infection) (Acute) Generalized weakness (Acute) Dehydration (Resolved) Decreased functional residual capacity (Acute) RECOMMENDATIONS: 1. I do think that the patient should be evaluated by a volunteer services assistant. However, the patient is adamant that she is not interested in being transferred to another facility for evaluation. IMPRESSIONS: 1. Acute liver injury Potentially related to recent ingestion of acetaminophen coupled with a prescription for [place] provided by the emergency department on September 19. In addition, the patient was also taking a statin on a daily basis. She has no known prior history of any underlying liver disease. Although the patient initially received N-acetylcysteine with improvement in transaminase levels noted, her AST and ALT have both increased this morning. In addition, the patient's INR has risen to 1.7. I spoke with the patient about my recommendation that she be evaluated by a liver specialist. Nevertheless, the patient was quite adamant that she was not interested in being transferred to another facility for evaluation. 2. Acute kidney injury Resolved. Likely prerenal in etiology, as the patient's creatinine has normalized with a mild degree of volume expansion. 3. Recent fall with residual musculoskeletal pain/chronic pain syndrome The patient continues to report the presence of shoulder pain, following her recent fall. As needed oxycodone can be utilized for additional pain control. I will defer any additional workup to the patient's hospitalist. 4. Indeterminate troponin elevation The patient did have an elevated troponin level on presentation. Cardiology has evaluated the patient and echocardiogram showed no wall motion abnormalities with intact systolic function. 5. Hypertension/hyperlipidemia Complicates care, management, recovery and prognosis. Recommend continuing to hold the patient's statin, given underlying liver injury. This note was generated with [employer] dictation software. It may contain incorrect words, spelling, and punctuation that were not noted in checking the note before signing. Code Visit Inpatient E&M: 46236 Subs Hosp L2
--- NOTE | 2018-09-29 08:18 | PN_ITS ---
Subjective: The patient was seen and examined at the bedside this morning. Events from the last 24 hours have been reviewed. The patient is currently afebrile, hemodynamically stable and maintaining appropriate oxygen saturations on room air. The patient denies the presence of abdominal pain, nausea or vomiting this morning. She states that she is supposed to undergo cardiac testing this morning. I did explain to the patient this morning my concern that her transaminase levels have increased and her bilirubin level has also jumped. I explained to her that I thought she would be best served by being evaluated by a registered nurse post partum. However, the patient was adamant that she was not interested in being transferred to another facility for evaluation, stating that she wished to be discharged home instead. Objective: The patient's most recent lab work, culture data and imaging studies have all been personally reviewed. CT abdomen/pelvis without contrast revealed distention of the gallbladder was suspected tiny stones or sludge within the lumen. A follow-up gallbladder ultrasound revealed mild fatty infiltration of the liver with normal gallbladder size without wall thickening and multiple tiny gallstones. There was a nondistended common bile duct along with an unremarkable pancreatic head and body. - Physical Exam General: Alert, Oriented x3, Cooperative, No apparent distress HEENT: Atraumatic, PERRLA, Normocephalic Oral: No Gingival or Mucosal Lesions/ Ulcerations Neck: Supple, No Nodes, Trachea Midline Lungs: Normal air movement, No rhonchi, No wheeze, No rales Cardiovascular: Regular rate, Regular Rhythm, Normal S1, Normal S2, No murmurs Abdomen: Bowel Sounds Present, Soft, Non Tender Extremities: No clubbing, No cyanosis, No edema Skin: No breakdown Musculoskeletal: No Muscle Wasting Lymphatic: No Cervical, Supraclavicular, or Inguinal Adenopathy Neurological: Cranial nerves II-XII grossly intact, Neuro grossly intact Psych/Mental Status: Normal Affect, Appropriate Vital Signs Temp Pulse Resp BP Pulse Ox 36.8 C 59 L 16 141/67 H 95 09/29/18 05:04 09/29/18 05:04 09/29/18 05:04 09/29/18 05:04 09/29/18 07:02 Oxygen Delivery Method Room Air Weight: 115 lb 11.883 oz Body Mass Index (BMI) 21.1 Finger Stick Blood Glucose 88 Intake and Output for Last 24 Hours 09/27/18 09/28/1819 23:59 23:59 23:59 Intake Total 4131 / 4131 50 / 50 Output Total 1300 / 1300 Balance 2831 / 2831 50 / 50 Laboratory Tests Past 24 Hrs 09/28/18 09/28/18 09/28/18 08:50 08:50 08:50 WBC RBC Hgb Hct MCV MCH MCHC RDW RDW Differential Plt Count MPV Immature Gran % (Auto) Neut % (Auto) Lymph % (Auto) [place] % (Auto) Eos % (Auto) Baso % (Auto) Absolute Neuts (auto) Absolute Lymphs (auto) Total Counted PT 18.6 H INR 1.6 APTT Sodium Potassium Chloride Carbon Dioxide Anion Gap BUN Creatinine Estim Creat Clear Calc Est GFR (MDRD) Af Amer Est GFR (MDRD) Non-Af BUN/Creatinine Ratio Glucose Lactic Acid 1.0 Calcium Total Bilirubin AST ALT Alkaline Phosphatase Troponin I 0.069 H Total Protein Albumin Globulin Albumin/Globulin Ratio 09/29/18 09/29/18 09/29/18 04:40 04:40 04:40 WBC 4.2 L RBC 3.13 L Hgb 10.2 L Hct 29.6 L MCV 94.6 MCH 32.6 H MCHC 34.5 RDW 13.0 RDW Differential 43.1 Plt Count 167 MPV 9.1 Immature Gran % (Auto) 0.200 Neut % (Auto) 63.4 Lymph % (Auto) 22.2 [place] % (Auto) 8.3 Eos % (Auto) 4.5 Baso % (Auto) 1.4 H Absolute Neuts (auto) 2.7 Absolute Lymphs (auto) 0.94 Total Counted Not Reportable PT 20.1 H INR 1.7 APTT 33.2 Sodium 140 Potassium 4.6 Chloride 111 H Carbon Dioxide 18.0 L Anion Gap 11 BUN 17 Creatinine 0.72 Estim Creat Clear Calc 36.12 Est GFR (MDRD) Af Amer 102 Est GFR (MDRD) Non-Af 84 BUN/Creatinine Ratio 23.7 H Glucose 76 Lactic Acid Calcium 7.6 L Total Bilirubin 2.00 H AST 1590 H ALT 982 H Alkaline Phosphatase 98 Troponin I Total Protein 4.9 L Albumin 2.7 L Globulin 2.2 Albumin/Globulin Ratio 1.2 Clinical Impression(s) from Imaging Studies Abdomen/Pelvis CT 09/27/18 14:34 IMPRESSION: Distention of the gallbladder. I suspect either multiple tiny stones or sludge within the lumen. Correlation with ultrasound is recommended. Electronically Signed: Khai Mcclain MD at 15:44 EST , Service support , Gallbladder Ultrasound 09/27/18 15:47 IMPRESSION: Normal size mildly fatty liver. Normal size gallbladder without wall thickening. Multiple tiny gallstones. Nondistended common bile duct. Unremarkable pancreatic head and body. Nonvisualized tail secondary to bowel gas. Normal right kidney. Electronically Signed: Lilian Bhatt MD at 16:55 EST , Service support , Medical Necessity - Tobacco Use Smoking Status: Former smoker Assessment/Plan All Active Problems Severe sepsis (Resolved) UTI (urinary tract infection) (Acute) Generalized weakness (Acute) Dehydration (Resolved) Decreased functional residual capacity (Acute) RECOMMENDATIONS: 1. I do think that the patient should be evaluated by a registered nurse post partum. However, the patient is adamant that she is not interested in being transferred to another facility for evaluation. IMPRESSIONS: 1. Acute liver injury Potentially related to recent ingestion of acetaminophen coupled with a prescription for [place] provided by the emergency department on September 19. In addition, the patient was also taking a statin on a daily basis. She has no known prior history of any underlying liver disease. Although the patient initially received N-acetylcysteine with improvement in transaminase levels noted, her AST and ALT have both increased this morning. In addition, the patient's INR has risen to 1.7. I spoke with the patient about my recommendation that she be evaluated by a liver specialist. Nevertheless, the patient was quite adamant that she was not interested in being transferred to another facility for evaluation. 2. Acute kidney injury Resolved. Likely prerenal in etiology, as the patient's creatinine has normalized with a mild degree of volume expansion. 3. Recent fall with residual musculoskeletal pain/chronic pain syndrome The patient continues to report the presence of shoulder pain, following her recent fall. As needed oxycodone can be utilized for additional pain control. I will defer any additional workup to the patient's hospitalist. 4. Indeterminate troponin elevation The patient did have an elevated troponin level on presentation. Cardiology has evaluated the patient and echocardiogram showed no wall motion abnormalities with intact systolic function. 5. Hypertension/hyperlipidemia Complicates care, management, recovery and prognosis. Recommend continuing to hold the patient's statin, given underlying liver injury. This note was generated with [employer] dictation software. It may contain incorrect words, spelling, and punctuation that were not noted in checking the note before signing. Code Visit Inpatient E&M: 12916 Subs Hosp L2
--- NOTE | 2018-09-29 08:45 | NURSING ---
PATIENT TRANSPORTED OFF THE UNIT VIA WHEELCHAIR AT THIS TIME TO STRESS TEST.
--- NOTE | 2018-09-29 09:55 | NURSING ---
PATIENT BACK TO ROOM FROM STRESS TEST. PATIENT ALREADY INJECTED WITH NUCLEAR DYE BUT REFUSING TO HAVE IMAGES DONE. PATIENTS SON CLAUDETTE AT THE BEDSIDE AND IS TALKING WITH THE PATIENT ABOUT THE STRESS TEST. PATIENT THEN CHANGED HER MIND AND WOULD LIKE TO HAVE THE NUCLEAR STRESS TEST DONE. [facility] IN NUCLEAR WAS CALLED BY THIS RN TO MAKE SURE THAT PATIENT CAN STILL HAVE THE STRESS TEST COMPLETED AND IT WAS VERIFIED THAT IT COULD STILL BE DONE. MELLY LISW TO PATIENT ROOM WITH A WHEELCHAIR TO TAKE PATIENT BACK TO STRESS LAB TO COMPLETE HER TEST. WILL AWAIT HER RETURN.
--- NOTE | 2018-09-29 10:25 | NURSING ---
DR. TINSLEY AT THE BEDSIDE TALKING WITH CLAUDETTE PATIENT SON.
--- NOTE | 2018-09-29 12:30 | STRESSREP ---
Stress Test Report Pharmacologic myocardial perfusion stress test. 78-year-old lady with a history of abnormal cardiac enzymes. Stress protocol: Resting EKG demonstrates sinus bradycardia with a rate of 57 bpm normal intervals are noted resting blood pressure 130/88 mmHg. 0.4 mg of regadenoson was infused per usual protocol followed by rapid intravenous saline flush injection continuous EKG monitoring was performed. The patient maintained sinus rhythm throughout the recording the resting heart rate was 88 bpm which is 61% of maximum predicted heart rate the maximum workload was 1 metabolic equivalent. At rest there were no ST or T wave changes noted suggest abnormal flow reserve. The final blood pressure 132/64 mmHg. Myocardial perfusion protocol. 12.0 mCi of technetium 99m sestamibi was injected at rest. 0.4 mg of regadenoson was infused per usual protocol. At peak infusion 36.0 mCi of technetium 99m sestamibi was injected stress images were obtained stress and rest images were reconstructed and compared in the short axis vertical long horizontal long axis. Perfusion SPECT analysis: Review of the stress images demonstrate normal uptake of tracer noted in all areas of the myocardium. The resting images similarly demonstrate normal uptake of tracer noted in all areas of myocardium. Gated SPECT analysis: The gated ejection fraction is noted to be 85%. Conclusion: Normal pharmacologic myocardial perfusion stress test. Preserved ejection fraction.
--- NOTE | 2018-09-29 12:38 | PN.CARD_ITS ---
Subjectve: Patient seen and evaluated. Appears to be stable. Objective: Vital Signs Temp Pulse Resp BP Pulse Ox 98.3 F 64 16 141/67 H 95 09/29/18 05:04 09/29/18 07:00 09/29/18 05:04 09/29/18 05:04 09/29/18 07:02 Oxygen Delivery Method Room Air Weight: 115 lb 11.883 oz Body Mass Index (BMI) 21.1 Finger Stick Blood Glucose 88 Intake and Output for Last 24 Hours 09/27/18 09/28/18 09/29/18 23:59 23:59 23:59 Intake Total 4131 / 4131 50 / 50 Output Total 1300 / 1300 Balance 2831 / 2831 50 / 50 General: Awake, Alert, Oriented x 3 HEENT: PERRL, EOMI, Sclera Non Icteric Neck: Supple, Good ROM, No Lymph Node Enlargement Lungs: Clear to auscultation Cardiovascular: Regular Rhythm, Normal S1, Normal S2, No Murmurs, No Rubs, No Gallops 09/29/18 04:40: WBC 4.2 L, RBC 3.13 L, Hgb 10.2 L, Hct 29.6 L, MCV 94.6, MCH 32.6 H, MCHC 34.5, RDW 13.0, RDW Differential 43.1, Plt Count 167, MPV 9.1, Immature Gran % (Auto) 0.200, Neut % (Auto) 63.4, Lymph % (Auto) 22.2, [place] % (Auto) 8.3, Eos % (Auto) 4.5, Baso % (Auto) 1.4 H, Absolute Neuts (auto) 2.7, Total Counted Not Reportable 09/29/18 04:40: Sodium 140, Potassium 4.6, Chloride 111 H, Carbon Dioxide 18.0 L , Anion Gap 11, BUN 17, Creatinine 0.72, Est GFR (MDRD) Af Amer 102, Est GFR (MDRD) Non-Af 84, BUN/Creatinine Ratio 23.7 H, Glucose 76, Calcium 7.6 L, Total Bilirubin 2.00 H 09/29/18 04:40: PT 20.1 H, INR 1.7, APTT 33.2 09/29/18 04:40: Total Bilirubin Cancelled, Direct Bilirubin Cancelled Rhythm: EKG: ECHO: Stress Test: Cardiac Cath: PCI: CT Surgery: Holter monitor: EPS: PPM: CXR: Chest CT Scan: Medical Necessity - Tobacco Use Smoking Status: Former smoker Assessment/Plan 1. Abnormal cardiac enzymes * Patient presents after a mechanical fall a while ago and was noted to have abnormal liver function tests and now has mildly abnormal cardiac enzymes without any clinical evidence of angina and no EKG changes. * These do not meet the criteria of a non-ST elevation myocardial infarction and suggests myocardial necrosis. The exact etiology of her stressful factor is not known at this particular time. * Myocardial perfusion stress test did not demonstrate any evidence of ischemia. I would therefore not recommend any other cardiac testing at this particular time. * Would hold off on her high intensity statin, as you are doing. 2. Hypertension * Blood pressure appears to be under fair control. * Due to the liver metabolism of metoprolol I would recommend reducing the dose to 50 mg a day * Would start amlodipine 5 mg a day * * Thank you for allowing me to participate in the care of your patient. Please don't hesitate to call if any issues arise
[2018-09-29 13:08] LABS: AST(SGOT) 4487 U/L (15-37); Alanine Aminotransfer ALT/SGPT 2523 U/L (13-56); Albumin, Serum 3.3 g/dL (3.2-5.0); Alkaline Phosphatase 124 U/L (45-117); Bilirubin, Direct 1.48 mg/dL (0.00-0.30); Protein, Total 6.3 g/dL (6.4-8.2)
[2018-09-29] MEDS: Calcium (Elemental) 500 MG Tablet PO (16:25)
[2018-09-29] MEDS: Metoprolol(XL)Succ 50 MG Tablet PO (16:25)
--- NOTE | 2018-09-29 17:00 | NURSING ---
REPORT CALLED TO EZIO HAYES AT [facility].
[2018-09-29 18:44] LABS: Hep C Antibodies <0.1 s/co ratio (0.0-0.9)
--- NOTE | 2018-09-29 19:01 | PCM.DC.SUM ---
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 I suspect either multiple tiny stones or sludge within the lumen. Correlation with ultrasound is recommended. Electronically Signed: Khai Mcclain MD at 15:44 EST , Service support , Gallbladder Ultrasound 09/27/18 15:47 IMPRESSION: Normal size mildly fatty liver. Normal size gallbladder without wall thickening. Multiple tiny gallstones. Nondistended common bile duct. Unremarkable pancreatic head and body. Nonvisualized tail secondary to bowel gas. Normal right kidney. Electronically Signed: Lilian Bhatt MD at 16:55 EST , Service support , Interpretation Summary Normal LV size. Left ventricular systolic function is normal. The estimated ejection fraction is 65 %. Stage 1 diastolic dysfunction. Mild (1+) eccentric aortic valve insufficiency. Mild-Moderate (1-2+) eccentric mitral valve insufficiency. Moderate concentric left ventricular hypertrophy. Mild to moderate (1-2+) tricuspid valve insufficiency. critical care- [facility] Operations: None, - Procedures: None Summary of Care Provided: The patient is a 78 year old F with past medical history of arthritis and hypertension. She was admitted through the ED on 09/27/2018 with a complaint of upper abdominal pain for 2 days with assisted left shoulder pain. According to patient, she fell a few days ago and came to the ED where she had a right shoulder x-ray done. 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 These findings appear unchanged from previous CT of the chest dated June 21, 2018. Patient states she has a fentanyl patch over the left shoulder. 2 days ago started having severe right upper quadrant abdominal pain which she described as sharp with no aggravating or relieving factors. Pain was rated at 10 out of 10. Patient states she has been taking Tylenol for the past few days and takes 2 tablets 3 times a day as listed per the instructions on the medication bottle. Abdominal pain persisted so she decided to come into the ED today. In the ED, vitals were unremarkable performed temperature of 97.6 Fahrenheit. Labs showed sodium of 131 which is chronic and creatinine of 1.27 with a baseline less than 1. Total bilirubin was 1.8 and direct bilirubin was 0.91 with AST of 1379 and ALT of 556 as well as ALP of 148. Of note, patient has had normal liver enzymes the most recent being just in July 2018. Lipase was pending at time of review and troponin was negative. CBC was normal with platelets being above 200. Abdominal CT showed normal liver and distended gallbladder with increased density seen in the gallbladder suggestive of either multiple gallstones or sludge within the gallbladder lumen. Gallbladder ultrasound done showed fatty infiltration of liver and normal distended gallbladder with a gallbladder wall measuring around 3 mm. Ponce's sign was negative sonographically with multiple tiny hypoechoic foci. Pancreas was normal. She was admitted to be managed for acute liver failure of unknown etiology, with acetaminophen toxicity being highly suspected. Based on the [facility] nomogram with patient's last dose being about 24 hours prior to admission and her level being 26.6, she fell within the treatment category and so was started on IV N-acetylcysteine. Patient was initially admitted to ICU for closer monitoring. Of note, commissioner of internal revenue refused initial consult that was placed to see patient in the ICU after patient was admitted. Initial INR was 1.3. patient's liver enzymes initially trended down with bilirubin trended down to 1.4 and AST and ALT trended down to 865 and 488 respectively. She was also managed for FRANK with creatinine being 1.27 on admission which trended down to 0.79. It was noted that her troponins trended up slightly to a peak of 0.069 and cardiology was consulted. Hob Grinder finally saw patient the following day after he was called again overnight about the patient. She had a stress test which was negative. She also developed hypokalemia which resolved with replacement. Patient generally improved and felt much better. However her enzymes again trended up, with total bilirubin trending up to 2, AST/ALT trending up to 1590/982. INR also trended up to 1.6. Decision was made to transfer patient to a tertiary care facility for pathology assessment. However patient refused to be transferred because she wanted to stay close to home. Her son requested a repeat liver profile because he stated that he strongly believe that the elevated liver enzymes were lab error and so wanted to see what a repeat blood work will show. Repeat liver enzymes showed further upward trending with total bilirubin going up to 2.6 and AST going up to 4487. ALT had gone up to 2523. INR had gone up to 1.7. Patient's son then admitted at that time that he had gone home and counted the Tylenol pills and realized that out of the 100 total in the bottle, there was only 66 left indicating the patient had taken about 4 tablets within 3-4 days. This was much more than patient had admitted to when she was initially admitted. Further discussions were had with his son and decision was made to transfer patient to [facility], with accepting physician being Dr. Lubin of the hepatology unit. Acute hepatitis screen ordered was pending at time of discharge. Patient seen and examined. She had no complaints and felt much better. She was still refusing to be discharged as her preference was to either be discharged home after staying [facility]. Patient was however advised that she needed a tertiary care with hepatology and GI service. Review of systems otherwise negative. Labs and vitals reviewed. Home medication reviewed and reconciled. o/e: Vital Signs Height 5 ft 1 in Weight: 115 lb 11.883 oz Weight in Pounds 115.7 lbs Pulse Ox 100 Temperature 97.6 F Pulse Rate 75 Respiratory Rate 14 Blood Pressure [BP] 158/60 Blood Pressure 118/61 Blood Pressure Position [BP] Semi-Fowlers Blood Pressure Position Semi-Fowlers General: Alert, Oriented x3, Cooperative, No apparent distress HEENT: Atraumatic, PERRLA, EOMI, Normocephalic, - - has a tinge of jaundice in sclera Oral: Moist Mucosa Neck: Supple, No JVD, Negative Carotid Bruits Lungs: Clear to auscultation, Normal air movement, No rhonchi, No wheeze, No rales Cardiovascular: Regular rate, Regular Rhythm, Normal S1, Normal S2, No murmurs Abdomen: Bowel Sounds Present, Soft, Non Tender, Non-Distended, No Hepato-splenomegaly Extremities: No clubbing, No cyanosis, No edema, Capillary Refill Less than 3 Seconds Skin: No rashes, No breakdown Musculoskeletal: No Tenderness to Palpation of Joints or Extremities Lymphatic: No Cervical, Supraclavicular, or Inguinal Adenopathy Neurological: Cranial nerves II-XII grossly intact, Neuro grossly intact, Motor Exam 5/5 strength throughout Psych/Mental Status: Normal Affect, Appropriate, Alert and oriented to time, place, person, mood and affect Plan is for transfer to [facility] to the hepatology service. - Physical Exam Vital Signs Temp Pulse Resp BP Pulse Ox 97.6 F L 75 14 118/61 100 09/29/18 16:27 09/29/18 16:27 09/29/18 16:27 09/29/18 16:27 09/29/18 16:27 Oxygen Delivery Method Room Air Weight: 115 lb 11.883 oz Body Mass Index (BMI) 21.1 Finger Stick Blood Glucose 88 Intake and Output for Last 24 Hours 09/27/18 09/28/18 09/29/18 23:59 23:59 23:59 Intake Total 4131 / 4131 50 / 50 Output Total 1300 / 1300 Balance 2831 / 2831 50 / 50 Laboratory Tests Past 24 Hrs 09/27/18 09/29/18 09/29/18 17:22 04:40 04:40 WBC 4.2 L RBC 3.13 L Hgb 10.2 L Hct 29.6 L MCV 94.6 MCH 32.6 H MCHC 34.5 RDW 13.0 RDW Differential 43.1 Plt Count 167 MPV 9.1 Immature Gran % (Auto) 0.200 Neut % (Auto) 63.4 Lymph % (Auto) 22.2 [place] % (Auto) 8.3 Eos % (Auto) 4.5 Baso % (Auto) 1.4 H Absolute Neuts (auto) 2.7 Absolute Lymphs (auto) 0.94 Total Counted Not Reportable PT INR APTT Sodium 140 Potassium 4.6 Chloride 111 H Carbon Dioxide 18.0 L Anion Gap 11 BUN 17 Creatinine 0.72 Estim Creat Clear Calc 36.12 Est GFR (MDRD) Af Amer 102 Est GFR (MDRD) Non-Af 84 BUN/Creatinine Ratio 23.7 H Glucose 76 Calcium 7.6 L Total Bilirubin 2.00 H Direct Bilirubin AST 1590 H ALT 982 H Alkaline Phosphatase 98 Total Protein 4.9 L Albumin 2.7 L Globulin 2.2 Albumin/Globulin Ratio 1.2 Hepatitis A IgM Ab Negative Hep Bs Antigen Negative Hep B Core IgM Ab Negative Hepatitis C Ab (EIA) <0.1 09/29/18 09/29/18 09/29/18 04:40 04:40 12:25 WBC RBC Hgb Hct MCV MCH MCHC RDW RDW Differential Plt Count MPV Immature Gran % (Auto) Neut % (Auto) Lymph % (Auto) [place] % (Auto) Eos % (Auto) Baso % (Auto) Absolute Neuts (auto) Absolute Lymphs (auto) Total Counted PT 20.1 H INR 1.7 APTT 33.2 Sodium Potassium Chloride Carbon Dioxide Anion Gap BUN Creatinine Estim Creat Clear Calc Est GFR (MDRD) Af Amer Est GFR (MDRD) Non-Af BUN/Creatinine Ratio Glucose Calcium Total Bilirubin Cancelled 2.60 H Direct Bilirubin Cancelled 1.48 H AST Cancelled 4487 H ALT Cancelled 2523 H Alkaline Phosphatase Cancelled 124 H Total Protein Cancelled 6.3 L Albumin Cancelled 3.3 Globulin Cancelled 3.0 Albumin/Globulin Ratio Hepatitis A IgM Ab Hep Bs Antigen Hep B Core IgM Ab Hepatitis C Ab (EIA) Discharge Diet: Low fat/ Low Cholesterol Home Medications: Medications to take at Discharge Atorvastatin Calcium [Lipitor] 40 mg PO QHS #30 tablet 08/24/13 Pantoprazole Sodium [Protonix] 40 mg PO BID #60 tablet 06/16/14 fentaNYL patch [Duragesic patch] 25 mcg TRANSDERM. Q72H #10 patch 06/29/14 Aspirin E.C. [Ecotrin] 81 mg PO DAILY 06/21/18 Cholecalciferol (Vitamin D3) [D3-2000] 2,000 unit PO DAILY 06/21/18 Ibandronate Sodium [Boniva] 150 mg PO Q30D 06/21/18 Metoprolol Succinate [Toprol Xl] 100 mg PO DAILY 06/21/18 Acetaminophen [Tylenol Arthritis] 650 mg PO QHS 09/27/18 Calcium Carbonate [Calcium] 600 mg PO DAILY 09/27/18 Ferrous Sulfate 325 mg PO DAILY 09/27/18 Primary Care Physician: Ramona Crews MD [Primary Care Provider] - Please follow up with your Primary Care Physician in: one week Disposition: Acute care Hospital - [facility] Minutes spent on discharge:: 55 Patient Condition:: Stable Medical Necessity - Tobacco Use Smoking Status: Former smoker Meaningful Use Info Meaningful Use Diagnoses (Choose all that apply): None applicable Code Visit Inpatient E&M: 02290 Disch Hosp
--- NOTE | 2018-09-29 19:14 | DS.PCM_ITS ---
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 I suspect either multiple tiny stones or sludge within the lumen. Correlation with ultrasound is recommended. Electronically Signed: Khai Mcclain MD at 15:44 EST , Service support , Gallbladder Ultrasound 09/27/18 15:47 IMPRESSION: Normal size mildly fatty liver. Normal size gallbladder without wall thickening. Multiple tiny gallstones. Nondistended common bile duct. Unremarkable pancreatic head and body. Nonvisualized tail secondary to bowel gas. Normal right kidney. Electronically Signed: Lilian Bhatt MD at 16:55 EST , Service support , Interpretation Summary Normal LV size. Left ventricular systolic function is normal. The estimated ejection fraction is 65 %. Stage 1 diastolic dysfunction. Mild (1+) eccentric aortic valve insufficiency. Mild-Moderate (1-2+) eccentric mitral valve insufficiency. Moderate concentric left ventricular hypertrophy. Mild to moderate (1-2+) tricuspid valve insufficiency. critical care- [facility] Operations: None, - Procedures: None Summary of Care Provided: The patient is a 78 year old F with past medical history of arthritis and hypertension. She was admitted through the ED on 09/27/2018 with a complaint of upper abdominal pain for 2 days with assisted left shoulder pain. According to patient, she fell a few days ago and came to the ED where she had a right shoulder x-ray done. 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 These findings appear unchanged from previous CT of the chest dated June 21, 2018. Patient states she has a fentanyl patch over the left shoulder. 2 days ago started having severe right upper quadrant abdominal pain which she described as sharp with no aggravating or relieving factors. Pain was rated at 10 out of 10. Patient states she has been taking Tylenol for the past few days and takes 2 tablets 3 times a day as listed per the instructions on the medication bottle. Abdominal pain persisted so she decided to come into the ED today. In the ED, vitals were unremarkable performed temperature of 97.6 Fahrenheit. Labs showed sodium of 131 which is chronic and creatinine of 1.27 with a baseline less than 1. Total bilirubin was 1.8 and direct bilirubin was 0.91 with AST of 1379 and ALT of 556 as well as ALP of 148. Of note, patient has had normal liver enzymes the most recent being just in July 2018. Lipase was pending at time of review and troponin was negative. CBC was normal with platelets being above 200. Abdominal CT showed normal liver and distended gallbladder with increased density seen in the gallbladder suggestive of either multiple gallstones or sludge within the gallbladder lumen. Gallbladder ultrasound done showed fatty infiltration of liver and normal distended gallbladder with a gallbladder wall measuring around 3 mm. Ponce's sign was negative sonographically with multiple tiny hypoechoic foci. Pancreas was normal. She was admitted to be managed for acute liver failure of unknown etiology, with acetaminophen toxicity being highly suspected. Based on the [facility] nomogram with patient's last dose being about 24 hours prior to admission and her level being 26.6, she fell within the treatment category and so was started on IV N-acetylcysteine. Patient was initially admitted to ICU for closer monitoring. Of note, scrap drop engineer refused initial consult that was placed to see patient in the ICU after patient was admitted. Initial INR was 1.3. patient's liver enzymes initially trended down with bilirubin trended down to 1.4 and AST and ALT trended down to 865 and 488 respectively. She was also managed for FRANK with creatinine being 1.27 on admission which trended down to 0.79. It was noted that her troponins trended up slightly to a peak of 0.069 and cardiology was consulted. Tank Calibrator finally saw patient the following day after he was called again overnight about the patient. She had a stress test which was negative. She also developed hypokalemia which resolved with replacement. Patient generally improved and felt much better. However her enzymes again trended up, with total bilirubin trending up to 2, AST/ALT trend ing up to 1590/982. INR also trended up to 1.6. Decision was made to transfer patient to a tertiary care facility for pathology assessment. However patient refused to be transferred because she wanted to stay close to home. Her son requested a repeat liver profile because he stated that he strongly believe that the elevated liver enzymes were lab error and so wanted to see what a repeat blood work will show. Repeat liver enzymes showed further upward trending with total bilirubin going up to 2.6 and AST going up to 4487. ALT had gone up to 2523. INR had gone up to 1.7. Patient's son then admitted at that time that he had gone home and counted the Tylenol pills and realized that out of the 100 total in the bottle, there was only 66 left indicating the patient had taken about 4 tablets within 3-4 days. This was much more than patient had admitted to when she was initially admitted. Further discussions were had with his son and decision was made to transfer patient to [facility], with accepting physician being Dr. Lubin of the hepatology unit. Acute hepatitis screen ordered was pending at time of discharge. Patient seen and examined. She had no complaints and felt much better. She was still refusing to be discharged as her preference was to either be discharged home after staying [facility]. Patient was however advised that she needed a tertiary care with hepatology and GI service. Review of systems otherwise negative. Labs and vitals reviewed. Home medication reviewed and reconciled. o/e: Vital Signs Height 5 ft 1 in Weight: 115 lb 11.883 oz Weight in Pounds 115.7 lbs Pulse Ox 100 Temperature 97.6 F Pulse Rate 75 Respiratory Rate 14 Blood Pressure [BP] 158/60 Blood Pressure 118/61 Blood Pressure Position [BP] Semi-Fowlers Blood Pressure Position Semi-Fowlers General: Alert, Oriented x3, Cooperative, No apparent distress HEENT: Atraumatic, PERRLA, EOMI, Normocephalic, - - has a tinge of jaundice in sclera Oral: Moist Mucosa Neck: Supple, No JVD, Negative Carotid Bruits Lungs: Clear to auscultation, Normal air movement, No rhonchi, No wheeze, No rales Cardiovascular: Regular rate, Regular Rhythm, Normal S1, Normal S2, No murmurs Abdomen: Bowel Sounds Present, Soft, Non Tender, Non-Distended, No Hepato- splenomegaly Extremities: No clubbing, No cyanosis, No edema, Capillary Refill Less than 3 Seconds Skin: No rashes, No breakdown Musculoskeletal: No Tenderness to Palpation of Joints or Extremities Lymphatic: No Cervical, Supraclavicular, or Inguinal Adenopathy Neurological: Cranial nerves II-XII grossly intact, Neuro grossly intact, Motor Exam 5/5 strength throughout Psych/Mental Status: Normal Affect, Appropriate, Alert and oriented to time, place, person, mood and affect Plan is for transfer to [facility] to the hepatology service. - Physical Exam Vital Signs Temp Pulse Resp BP Pulse Ox 97.6 F L 75 14 118/61 100 09/29/18 16:27 09/29/18 16:27 09/29/18 16:27 09/29/18 16:27 09/29/18 16:27 Oxygen Delivery Method Room Air Weight: 115 lb 11.883 oz Body Mass Index (BMI) 21.1 Finger Stick Blood Glucose 88 Intake and Output for Last 24 Hours 09/27/18 09/28/18 09/29/18 23:59 23:59 23:59 Intake Total 4131 / 4131 50 / 50 Output Total 1300 / 1300 Balance 2831 / 2831 50 / 50 Laboratory Tests Past 24 Hrs 09/27/18 09/29/18 09/29/18 17:22 04:40 04:40 WBC 4.2 L RBC 3.13 L Hgb 10.2 L Hct 29.6 L MCV 94.6 MCH 32.6 H MCHC 34.5 RDW 13.0 RDW Differential 43.1 Plt Count 167 MPV 9.1 Immature Gran % (Auto) 0.200 Neut % (Auto) 63.4 Lymph % (Auto) 22.2 [place] % (Auto) 8.3 Eos % (Auto) 4.5 Baso % (Auto) 1.4 H Absolute Neuts (auto) 2.7 Absolute Lymphs (auto) 0.94 Total Counted Not Reportable PT INR APTT Sodium 140 Potassium 4.6 Chloride 111 H Carbon Dioxide 18.0 L Anion Gap 11 BUN 17 Creatinine 0.72 Estim Creat Clear Calc 36.12 Est GFR (MDRD) Af Amer 102 Est GFR (MDRD) Non-Af 84 BUN/Creatinine Ratio 23.7 H Glucose 76 Calcium 7.6 L Total Bilirubin 2.00 H Direct Bilirubin AST 1590 H ALT 982 H Alkaline Phosphatase 98 Total Protein 4.9 L Albumin 2.7 L Globulin 2.2 Albumin/Globulin Ratio 1.2 Hepatitis A IgM Ab Negative Hep Bs Antigen Negative Hep B Core IgM Ab Negative Hepatitis C Ab (EIA) <0.1 09/29/18 09/29/18 09/29/18 04:40 04:40 12:25 WBC RBC Hgb Hct MCV MCH MCHC RDW RDW Differential Plt Count MPV Immature Gran % (Auto) Neut % (Auto) Lymph % (Auto) [place] % (Auto) Eos % (Auto) Baso % (Auto) Absolute Neuts (auto) Absolute Lymphs (auto) Total Counted PT 20.1 H INR 1.7 APTT 33.2 Sodium Potassium Chloride Carbon Dioxide Anion Gap BUN Creatinine Estim Creat Clear Calc Est GFR (MDRD) Af Amer Est GFR (MDRD) Non-Af BUN/Creatinine Ratio Glucose Calcium Total Bilirubin Cancelled 2.60 H Direct Bilirubin Cancelled 1.48 H AST Cancelled 4487 H ALT Cancelled 2523 H Alkaline Phosphatase Cancelled 124 H Total Protein Cancelled 6.3 L Albumin Cancelled 3.3 Globulin Cancelled 3.0 Albumin/Globulin Ratio Hepatitis A IgM Ab Hep Bs Antigen Hep B Core IgM Ab Hepatitis C Ab (EIA) Discharge Diet: Low fat/ Low Cholesterol Home Medications: Medications to take at Discharge Atorvastatin Calcium [Lipitor] 40 mg PO QHS #30 tablet 08/24/13 Pantoprazole Sodium [Protonix] 40 mg PO BID #60 tablet 06/16/14 fentaNYL patch [Duragesic patch] 25 mcg TRANSDERM. Q72H #10 patch 06/29/14 Aspirin E.C. [Ecotrin] 81 mg PO DAILY 06/21/18 Cholecalciferol (Vitamin D3) [D3-2000] 2,000 unit PO DAILY 06/21/18 Ibandronate Sodium [Boniva] 150 mg PO Q30D 06/21/18 Metoprolol Succinate [Toprol Xl] 100 mg PO DAILY 06/21/18 Acetaminophen [Tylenol Arthritis] 650 mg PO QHS 09/27/18 Calcium Carbonate [Calcium] 600 mg PO DAILY 09/27/18 Ferrous Sulfate 325 mg PO DAILY 09/27/18 Primary Care Physician: Ramona Crews MD [Primary Care Provider] - Please follow up with your Primary Care Physician in: one week Disposition: Acute care Hospital - [facility] Minutes spent on discharge:: 55 Patient Condition:: Stable Medical Necessity - Tobacco Use Smoking Status: Former smoker Meaningful Use Info Meaningful Use Diagnoses (Choose all that apply): None applicable Code Visit Inpatient E&M: 64336 Disch Hosp
== END 2018-09-29 18:34 | disposition short-term general hospital (02) | DRG 442 ==
LOC: ED 15:14 → ICU 17:43 → PCU 09-28 11:39
PROVIDERS: Family Medicine; Internal Medicine Cardiovascular Disease; Internal Medicine Critical Care Medicine; Admitting Provider Student in an Organized Health Care Education/Training Program; Emergency Provider Emergency Medicine; Family Provider Family Medicine; PCP Family Medicine; Visit Provider Student in an Organized Health Care Education/Training Program
DX: K71.10 Toxic liver disease with hepatic necrosis, without coma (principal); N17.9 Acute kidney failure, unspecified; E87.1 Hypo-osmolality and hyponatremia; T39.1X5A Adverse effect of 4-Aminophenol derivatives, initial encounter; M19.011 Primary osteoarthritis, right shoulder; I10 Essential (primary) hypertension; Z79.899 Other long term (current) drug therapy; E78.5 Hyperlipidemia, unspecified; E87.6 Hypokalemia; Z87.891 Personal history of nicotine dependence; Z86.718 Personal history of other venous thrombosis and embolism; R74.8 Abnormal levels of other serum enzymes
CPT/HCPCS: 36415; 74176; 76705; 78452; 80048; 80053; 80074; 80076; 80307; 80320; 80329; 81001; 82977; 83605; 83690; 84484; 85025; 85610; 85730; 93005; 93017; 93306; 97162; 97165; 97802; 99282; A9500; J7030; A4216; G0480; J2405; J2785

== ENCOUNTER → 2018-10-04 09:11 | Outpatient (CLI) | payer MEDICARE, OTHER, SELFPAY ==
[2018-09-27 18:07] VITALS: BMI 21.1
[2018-10-04 10:17] LABS: Hematocrit 31.7 % (37-47); Mean Corp Hgb Conc 34.7 g/gl (32-36); Mean Corpuscular Hgb 32.6 pg (27.0-32.0); Mean Corpuscular Volume 94.1 fL (81-99); Mean Platelet Vol. 9.9 fl (6.2-12.0); Platelet Count 231 K/mm3 (150-450); RBC Distribution Width CV 13.7 % (11.6-14.6); RBC Distribution Width SD 45.3 fl (35.1-43.9); Red Blood Count 3.37 M/mm3 (4.2-5.4); White Blood Count 14.7 K/mm3 (4.4-11.0)
[2018-10-04 10:22] LABS: AST(SGOT) 186 U/L (15-37); Alanine Aminotransfer ALT/SGPT 906 U/L (13-56); Albumin, Serum 3.6 g/dL (3.2-5.0); Alkaline Phosphatase 137 U/L (45-117); Anion Gap 10 (5-15); BUN 14 mg/dL (7-18); BUN/Creat Ratio 13.5 RATIO (10-20); Bilirubin, Direct 0.65 mg/dL (0.00-0.30); Calcium,Total 8.8 mg/dL (8.5-10.1); Chloride 104 mmol/L (98-107); Creatinine, Serum 1.04 mg/dL (0.55-1.02); EST Glomerular Filtration Rate 55 mL/min (>60); Est Glom Filt Rate - Afr Amer 66 mL/min (>60); Glucose 84 mg/dL (74-106); Potassium 3.1 mmol/L (3.5-5.1); Protein, Total 6.6 g/dL (6.4-8.2); Sodium Level 136 mmol/L (136-145)
[2018-10-04 10:38] LABS: Scan Indicated on CBC? Y/N NO
[2018-10-04 10:41] LABS: International Normalized Ratio 1.1; Prothrombin Time (Protime)PT. 14.2 SECONDS (11.7-14.9)
== END ==
PROVIDERS: Family Provider Family Medicine; PCP Family Medicine
DX: K72.00 Acute and subacute hepatic failure without coma (principal)
CPT/HCPCS: 36415; 80048; 80076; 85027; 85610

== ENCOUNTER → 2018-10-11 11:11 | Outpatient (CLI) | payer MEDICARE, OTHER, SELFPAY ==
[2018-09-27 18:07] VITALS: BMI 21.1
[2018-10-11 12:45] LABS: Hematocrit 32.4 % (37-47); Hemoglobin 10.9 g/dl (12.0-15.0); Mean Corp Hgb Conc 33.6 g/gl (32-36); Mean Corpuscular Hgb 33.5 pg (27.0-32.0); Mean Corpuscular Volume 99.7 fL (81-99); Mean Platelet Vol. 9.6 fl (6.2-12.0); Platelet Count 251 K/mm3 (150-450); RBC Distribution Width CV 14.3 % (11.6-14.6); RBC Distribution Width SD 49.6 fl (35.1-43.9); Red Blood Count 3.25 M/mm3 (4.2-5.4); Scan Indicated on CBC? Y/N NO; White Blood Count 4.4 K/mm3 (4.4-11.0)
[2018-10-11 12:47] LABS: Prothrombin Time (Protime)PT. 13.4 SECONDS (11.7-14.9)
[2018-10-11 13:07] LABS: AST(SGOT) 32 U/L (15-37); Alanine Aminotransfer ALT/SGPT 137 U/L (13-56); Albumin, Serum 3.3 g/dL (3.2-5.0); Alkaline Phosphatase 97 U/L (45-117); Anion Gap 8 (5-15); BUN 18 mg/dL (7-18); BUN/Creat Ratio 19.8 RATIO (10-20); Bilirubin, Direct 0.28 mg/dL (0.00-0.30); Calcium,Total 8.3 mg/dL (8.5-10.1); Chloride 105 mmol/L (98-107); Creatinine, Serum 0.91 mg/dL (0.55-1.02); EST Glomerular Filtration Rate 64 mL/min (>60); Est Glom Filt Rate - Afr Amer 77 mL/min (>60); Globulin 2.9 g/dL (2.2-4.2); Glucose 90 mg/dL (74-106); Potassium 3.7 mmol/L (3.5-5.1); Protein, Total 6.2 g/dL (6.4-8.2); Sodium Level 136 mmol/L (136-145)
== END ==
PROVIDERS: Family Provider Family Medicine; PCP Family Medicine; Referring Provider Family Medicine; Visit Provider Family Medicine
DX: K72.00 Acute and subacute hepatic failure without coma (principal)
CPT/HCPCS: 36415; 80048; 80076; 85027; 85610

== ENCOUNTER → 2018-10-25 09:07 | Outpatient (CLI) | payer MEDICARE, OTHER, SELFPAY ==
[2018-09-27 18:07] VITALS: BMI 21.1
[2018-10-25 10:32] LABS: Hemoglobin 12.3 g/dl (12.0-15.0); Mean Corp Hgb Conc 34.2 g/gl (32-36); Mean Corpuscular Hgb 32.9 pg (27.0-32.0); Mean Corpuscular Volume 96.3 fL (81-99); Mean Platelet Vol. 8.8 fl (6.2-12.0); Platelet Count 230 K/mm3 (150-450); RBC Distribution Width CV 13.2 % (11.6-14.6); RBC Distribution Width SD 44.6 fl (35.1-43.9); Red Blood Count 3.74 M/mm3 (4.2-5.4); White Blood Count 3.8 K/mm3 (4.4-11.0)
[2018-10-25 10:34] LABS: Prothrombin Time (Protime)PT. 12.8 SECONDS (11.7-14.9)
[2018-10-25 10:36] LABS: Scan Indicated on CBC? Y/N NO
[2018-10-25 10:49] LABS: AST(SGOT) 46 U/L (15-37); Alanine Aminotransfer ALT/SGPT 36 U/L (13-56); Albumin, Serum 3.9 g/dL (3.2-5.0); Alkaline Phosphatase 81 U/L (45-117); Anion Gap 8 (5-15); BUN 18 mg/dL (7-18); BUN/Creat Ratio 22.8 RATIO (10-20); Bilirubin, Direct 0.27 mg/dL (0.00-0.30); Calcium,Total 8.1 mg/dL (8.5-10.1); Chloride 98 mmol/L (98-107); Creatinine, Serum 0.79 mg/dL (0.55-1.02); EST Glomerular Filtration Rate 75 mL/min (>60); Est Glom Filt Rate - Afr Amer 91 mL/min (>60); Globulin 2.9 g/dL (2.2-4.2); Glucose 89 mg/dL (74-106); Potassium 3.9 mmol/L (3.5-5.1); Protein, Total 6.8 g/dL (6.4-8.2); Sodium Level 131 mmol/L (136-145)
== END ==
PROVIDERS: Family Provider Family Medicine; PCP Family Medicine
DX: K72.00 Acute and subacute hepatic failure without coma (principal)
CPT/HCPCS: 36415; 80048; 80076; 85027; 85610

== ENCOUNTER → 2018-10-27 15:22 | Outpatient (CLI) | payer MEDICARE, OTHER, SELFPAY ==
[2018-09-27 18:07] VITALS: BMI 21.1
[2018-10-27 17:52] LABS: ALB/GLOB Ratio 1.4 RATIO (0.9-2.4); AST(SGOT) 71 U/L (15-37); Alanine Aminotransfer ALT/SGPT 47 U/L (13-56); Albumin, Serum 4.1 g/dL (3.2-5.0); Alkaline Phosphatase 100 U/L (45-117); Anion Gap 13 (5-15); BUN 10 mg/dL (7-18); BUN/Creat Ratio 13.6 RATIO (10-20); Calcium,Total 9.4 mg/dL (8.5-10.1); Chloride 91 mmol/L (98-107); Creatinine, Serum 0.74 mg/dL (0.55-1.02); EST Glomerular Filtration Rate 82 mL/min (>60); Est Glom Filt Rate - Afr Amer 99 mL/min (>60); Globulin 2.9 g/dL (2.2-4.2); Glucose 59 mg/dL (74-106); Sodium Level 128 mmol/L (136-145)
[2018-10-27 17:56] LABS: Erythrocyte Sedimentation Rate 8 mm/hr (0-30)
== END ==
PROVIDERS: Family Provider Family Medicine; PCP Family Medicine; Referring Provider Family Medicine; Visit Provider Family Medicine
DX: M35.3 Polymyalgia rheumatica (principal); T88.7XXA Unspecified adverse effect of drug or medicament, initial encounter; T39.1X5A Adverse effect of 4-Aminophenol derivatives, initial encounter; Y92.9 Unspecified place or not applicable
CPT/HCPCS: 36415; 80053; 85652

== ENCOUNTER → 2018-12-08 12:12 | Outpatient (CLI) | payer MEDICARE, OTHER, SELFPAY ==
[2018-09-27 18:07] VITALS: BMI 21.1
--- NOTE | 2018-12-08 12:17 | RAD_ITS ---
STUDY: X-RAY - UNILATERAL RIBS ( RIGHT ) WITH CHEST REASON FOR EXAM: Female, 78 years old. Pain after a fall TECHNIQUE - RIBS: 3 view(s) of the ribs. TECHNIQUE - CHEST: Single PA view of the chest. COMPARISON: 2013 FINDINGS - RIBS: Normal visualized ribs without a demonstrated fracture. FINDINGS - CHEST: The lungs are clear and expanded. There is no demonstrated pleural abnormality. Normal size heart. Normal mediastinum and jez. Normal visualized pulmonary arteries. Normal visualized aortic arch and descending thoracic aorta. Normal visualized thoracic spine. Normal visualized ribs, clavicles, and shoulders. There is no demonstrated abnormality of the visualized soft tissue structures of the upper abdomen. RAD/Ribs Uni Min 3V w/PA Chest IMPRESSION: RIBS: Normal x-ray examination of the ribs. CHEST: Normal x-ray examination of the chest. Electronically Signed: Alejandro Osorio MD at 15:24 EDT , Service support ,
[2018-12-08 17:58] LABS: Mucous, Urine 0 SEEN /hpf (<or=2+); Red Blood Cells-Urine 0 SEEN /hpf (0-5)
[2018-12-08 18:18] LABS: Color, Urine Yellow (Yellow); Glucose, Dipstick Normal (Normal); Ketone-Dipstick 5 mg/dl (Negative); Leukocyte Esterase-Dipstick 500 /ul (Negative); Nitrite-Dipstick Negative (Negative); Occult Blood-Urine 10 /ul (Negative); Protein-Dipstick Negative (Negative); Urine Bilirubin Dipstick Negative (Negative); Urine Clarity Sl. Cloudy (Clear); Urine Urobilinogen Normal (Normal)
[2018-12-08 18:33] LABS: Bacteria 4+ /hpf (None Seen); Squamous Epithelial Cells - UA 0-5 SEEN /hpf (5-10); Transitional Epithelial - Ur 0-5 SEEN /hpf (0-5); White Blood Cells 5-10 SEEN /hpf (0-5)
== END ==
PROVIDERS: Family Provider Family Medicine; PCP Family Medicine; Referring Provider Family Medicine; Visit Provider Family Medicine
DX: R07.81 Pleurodynia (principal); R10.9 Unspecified abdominal pain; W19.XXXA Unspecified fall, initial encounter
CPT/HCPCS: 71101; 81001

== ENCOUNTER 2018-12-12 21:16 | Inpatient (IN) | payer MEDICARE, OTHER, SELFPAY ==
[2018-09-27 18:07] VITALS: BMI 21.1
[2018-12-12 21:17] VITALS: BP 90/51; PULSE 83; RESP 18; TEMP 36.8; O2SAT 100; BMI 18.8
[2018-12-12 21:27] VITALS: BP 109/73; PULSE 85; PULSE 89; RESP 16; RESP 18; TEMP 36.8; O2SAT 100; O2SAT 98
[2018-12-12 21:36] VITALS: BP 112/64
--- NOTE | 2018-12-12 21:57 | EKG12_ITS ---
Test Reason : WEAKNESS Blood Pressure : / mmHG Vent. Rate : 089 BPM Atrial Rate : 089 BPM P-R Int : 152 ms QRS Dur : 086 ms QT Int : 388 ms P-R-T Axes : 057 023 073 degrees QTc Int : 472 ms Normal sinus rhythm Nonspecific ST abnormality Abnormal ECG Confirmed by FERMÍN PETERS ([id number]), assistant production editor MILTON DUVALL ([id number] on 12/18/2018 2:19:41 PM Referred By: Ramona Crews Confirmed By:MIRA PETERS
--- NOTE | 2018-12-12 22:09 | RAD_ITS ---
STUDY: X-RAY CHEST REASON FOR EXAM: Female, 78 years old. Weakness. TECHNIQUE: Single frontal view of the chest. COMPARISON: December 08, 2018 FINDINGS: There is no new focal consolidation. Normal size heart. Normal mediastinum and jez. Normal visualized pulmonary arteries. Normal visualized aortic arch and descending thoracic aorta. Normal visualized thoracic spine. Normal visualized ribs, clavicles, and shoulders. There is no demonstrated abnormality of the visualized soft tissue structures of the upper abdomen. RAD/Chest 1 View (Portable) IMPRESSION: No acute cardiopulmonary process. Electronically Signed: Jennifer Patel MD at 22:26 EDT Tel , Service support ,
[2018-12-12 22:14] LABS: Absolute Lymphocyte Count 1.12 X10^3/ul (0.83-4.51); Absolute Neutrophil Count 8.2 X10^3/uL (2.0-7.7); Basophil# 0.01 X10^3/uL; Basophil% 0.1 % (0-1); Eosinophil# 0.01 X10^3/uL; Eosinophils% 0.1 % (0-5); Hematocrit 33.7 % (37-47); Hemoglobin 12.1 g/dl (12.0-15.0); Lymphocyte # 1.12 X10^3/ul (4.0); Lymphocyte % 10.7 % (19-41); Mean Corp Hgb Conc 35.9 g/gl (32-36); Mean Corpuscular Hgb 34.3 pg (27.0-32.0); Mean Corpuscular Volume 95.5 fL (81-99); Mean Platelet Vol. 8.7 fl (6.2-12.0); Monocyte# 1.09 X10^3/uL; Monocyte% 10.4 % (0-10); Neutrophil # 8.16 X10^3/uL (2.7-7.7); Neutrophil % 78.1 % (47-70); POSITIVE COUNT NO; POSITIVE DIFFERENTIAL NO; POSITIVE MORPHOLOGY NO; Platelet Count 219 K/mm3 (150-450); RBC Distribution Width CV 13.8 % (11.6-14.6); RBC Distribution Width SD 47.5 fl (35.1-43.9); Red Blood Count 3.53 M/mm3 (4.2-5.4); White Blood Count 10.5 K/mm3 (4.4-11.0)
[2018-12-12 22:15] VITALS: BP 95/66; PULSE 93; RESP 10; TEMP 36.7; O2SAT 97
[2018-12-12 22:23] LABS: Anion Gap 14 (5-15); BUN 36 mg/dL (7-18); BUN/Creat Ratio 21.4 RATIO (10-20); Calcium,Total 9.3 mg/dL (8.5-10.1); Chloride 84 mmol/L (98-107); Creatinine, Serum 1.68 mg/dL (0.55-1.02); EST Glomerular Filtration Rate 31 mL/min (>60); Est Glom Filt Rate - Afr Amer 38 mL/min (>60); Estimated Creatinine Clearance 20.97 ml/min; Glucose 153 mg/dL (74-106); Potassium 3.6 mmol/L (3.5-5.1); Sodium Level 125 mmol/L (136-145)
[2018-12-12 22:35] LABS: Mucous, Urine 0 SEEN /hpf (<or=2+); Red Blood Cells-Urine 0 SEEN /hpf (0-5)
[2018-12-12 22:43] LABS: Color, Urine Yellow (Yellow); Glucose, Dipstick Normal (Normal); Ketone-Dipstick 15 mg/dl (Negative); Leukocyte Esterase-Dipstick 500 /ul (Negative); Nitrite-Dipstick Negative (Negative); Occult Blood-Urine 10 /ul (Negative); Protein-Dipstick 30 mg/dl (Negative); Specific Gravity, Urine 1.025 (1.002-1.030); Urine Bilirubin Dipstick 1 mg/dL (Negative); Urine Clarity Cloudy (Clear); Urine Urobilinogen 1 mg/dl (Normal)
[2018-12-12 22:45] LABS: Bacteria 3+ /hpf (None Seen); Squamous Epithelial Cells - UA 0-5 SEEN /hpf (5-10); White Blood Cells 0-5 SEEN /hpf (0-5)
[2018-12-12 23:00] VITALS: BP 97/67; PULSE 57; RESP 16; TEMP 36.6; O2SAT 97
--- NOTE | 2018-12-12 23:30 | HP.PCM_ITS ---
Problem List (1) Intractable nausea and vomiting Status: Acute (2) UTI (urinary tract infection) Status: Acute (3) Generalized weakness Status: Acute (4) Depression Status: Chronic History of Present Illness Date of Admission: 12/12/18 Chief Complaint: generalized weakness The patient is a 78 year old F with a significant history of depression; hypertension; alcohol abuse; peptic ulcer disease; DVT; who presented to the emergency department with a 2-week history of generalized weakness. The patient reported that she can not walk without a cane. Patient's son saw patient having difficulty standing even with the use of a kitchen island for support. She fell about 3 months ago and has pain at the right side from the fall. Imaging had not shown any broken bones. Also patient reports intractable nausea and vomiting for about 2 weeks. She is not able to keep anything down. Her son bought her some baby food to try which she was able to keep down. Per son this generalized weakness; and nausea vomiting was reported to PCP's office and patient was advised to follow-up at the ED. Patient was recently diagnosed with UTI and was supposed to be started on antibiotics. However her son spanish moss picker gabapentin at the pharmacy shop; which she thought it was for her mothers urinary tract infection. So far patient has take n 2 doses of this gabapentin supposedly being used to treat UTI. Patient denies any urinary symptoms. However at the emergency department her urinalysis was abnormal with 500 leukocyte esterase and 3+ bacteria. His urine nitrite was negative. Patient reported taking about 2 glasses of wine; about 4 times in a week. His son is concerned about alcoholism. Patient does not think she is drinking too much. Reportedly patient's in August 2017 and ever since patient has been depressed. At the ED patent patient was found to have black to red watery vomitus that tested positive for occult blood. Her son thought that the vomitus was alcohol but patient denied. T Past Medical History Past Medical History (Chronic Problems): Chronic Problems History of DVT (deep vein thrombosis) (Chronic) PUD (peptic ulcer disease) (Chronic) Chronic back pain (Chronic) Hyperlipidemia (Chronic) Depression (Chronic) Benign essential hypertension (Chronic) Alcohol abuse (Chronic) Gastrointestinal bleed (Chronic) Recurrent dislocation of right hip (Chronic) Chronic blood loss anemia (Chronic) Recurrent falls (Chronic) Allergies No Known Allergies Allergy (Verified 12/12/18 21:19) Home Medications: Ambulatory Orders Medication Instructions Recorded Pantoprazole Sodium [Protonix] 40 mg PO BID #60 tablet 06/16/14 fentaNYL patch [Duragesic patch] 25 mcg TRANSDERM. Q72H #10 patch 06/29/14 Aspirin E.C. [Ecotrin] 81 mg PO DAILY 06/21/18 Cholecalciferol (Vitamin D3) 2,000 unit PO DAILY 06/21/18 [D3-2000] Ibandronate Sodium [Boniva] 150 mg PO Q30D 06/21/18 Metoprolol Succinate [Toprol Xl] 100 mg PO DAILY 06/21/18 Acetaminophen [Tylenol Arthritis] 650 mg PO QHS 09/27/18 Calcium Carbonate [Calcium] 600 mg PO DAILY 09/27/18 Ferrous Sulfate 325 mg PO DAILY 09/27/18 Atorvastatin Calcium [Lipitor] 10 mg PO QHS 12/12/18 Duloxetine HCl 30 mg PO 12/12/18 Fluoxetine HCl [Prozac] 40 mg PO 12/12/18 Gabapentin [Neurontin] 100 mg PO 12/12/18 Surgical History: appendectomy, - - Right hip hemiarthroplasty. Psychiatric History: Depression Lives: Alone Smoking Status: Never smoker Alcohol: Heavy - *Family History Maternal History Items: - - Patient's brother, nephew and nieces had alcohol problem and went to alcohol rehab. Serveral of patient's sister had stroke. Paternal History Items: - - Patient's brother, nephew and nieces had alcohol problem and went to alcohol rehab. Serveral of patient's sister had stroke. Review of Systems Constitutional: Reports: Anorexia, Weight Change - Reportedly in the last 4 to 5weeks patient has lost about which 13 to 18 pounds.. Denies: Chills, Fever HEENT: Denies: Head Aches, Sinus Congestion, Sinus Drainage Cardiovascular: Denies: Chest Pain, Palpitations Respiratory: Denies: Cough, Shortness of breath at rest, Sputum production Gastrointestinal: Reports: Nausea, Vomiting. Denies: Abdominal Pain Genitourinary: Denies: Dysuria Musculoskeletal: Denies: Joint Pain, Joint Tenderness Skin: Denies: Rash, Wounds Neurological: Denies: Numbness, Tingling, Focal weakness Psychiatric: Reports: Depression. Denies: Anxiety, Homicidal Ideations, Suicidal Ideations Hematologic/ Lymphatic: Denies: Easy Bruising, Easy Bleeding VTE Information - Inpt Only VTE Present on Admission: No VTE Mechan Device Prophylaxis: SCD's VTE Pharm Prophylaxis ordered?: No Patient Problems: Active and Suspected Problems Intractable nausea and vomiting (Acute) - Physical Exam General: Alert, Oriented x3, Cooperative HEENT: Atraumatic, PERRLA, EOMI, Normocephalic Neck: Supple, No JVD, Negative Carotid Bruits Lungs: Clear to auscultation, Normal air movement Cardiovascular: Normal S1, Normal S2, No murmurs, Tachycardic Abdomen: Bowel Sounds Present, Soft, Non Tender Extremities: No edema, Capillary Refill Less than 3 Seconds, Tenderness - Right rib Skin: - - left forearm with ecchymosis Musculoskeletal: No Tenderness to Palpation of Joints or Extremities Neurological: Neuro grossly intact Psych/Mental Status: Depressed Vital Signs Temp Pulse Resp BP Pulse Ox 97.8 F 57 L 16 97/67 97 12/12/18 23:00 12/12/18 23:00 12/12/18 23:00 12/12/18 23:00 12/12/18 23:00 Oxygen Delivery Method Room Air Weight: 46.629 kg Body Mass Index (BMI) 18.8 Finger Stick Blood Glucose 88 Laboratory Tests Past 24 Hrs 12/12/18 12/12/18 12/12/18 21:40 21:40 22:25 WBC 10.5 RBC 3.53 L Hgb 12.1 Hct 33.7 L MCV 95.5 MCH 34.3 H MCHC 35.9 RDW 13.8 RDW Differential 47.5 H Plt Count 219 MPV 8.7 Immature Gran % (Auto) 0.600 Neut % (Auto) 78.1 H Lymph % (Auto) 10.7 L [place] % (Auto) 10.4 H Eos % (Auto) 0.1 Baso % (Auto) 0.1 Absolute Neuts (auto) 8.2 H Absolute Lymphs (auto) 1.12 Total Counted Not Reportable Sodium 125 L Potassium 3.6 Chloride 84 L Carbon Dioxide 27.0 Anion Gap 14 BUN 36 H Creatinine 1.68 H Estim Creat Clear Calc 20.97 Est GFR (MDRD) Af Amer 38 L Est GFR (MDRD) Non-Af 31 L BUN/Creatinine Ratio 21.4 H Glucose 153 H Calcium 9.3 Troponin I 0.016 Urine Color Yellow Urine Clarity Cloudy Urine pH 5.0 Ur Specific [place] 1.025 Urine Protein 30 H Urine Glucose (UA) Normal Urine Ketones 15 H Urine Occult Blood 10 H Urine Nitrite Negative Urine Bilirubin 1 H Urine Urobilinogen 1 H Ur Leukocyte Esterase 500 H Urine RBC 0 SEEN Urine WBC 0-5 SEEN Ur Squamous Epith Cells 0-5 SEEN Urine Bacteria 3+ Urine Mucus 0 SEEN Assessment/Plan All Active Problems Intractable nausea and vomiting (Acute) Severe sepsis (Resolved) UTI (urinary tract infection) (Acute) Generalized weakness (Acute) Dehydration (Resolved) Decreased functional residual capacity (Acute) The patient is a 78 year old F with a significant history of depression; hype rtension; alcohol abuse; peptic ulcer disease; DVT; who presented to the emergency department with a 2-week history of generalized weakness; intractable nausea and vomiting; recently diagnosed UTI and found to have hyponatremia; and a positive gastric occult blood from her vomitus. Intractable nausea and vomiting with positive occult gastric content We will hydrate with normal saline with 40 potassium going to 100 mL's per hour for 10 hours. Zofran as needed for nausea and vomiting Clear liquid diet. Will consult general surgery to evaluate the patient for EGD. Family reported is been a long time since patient had EGD Protonix 40 mg IV twice daily We will stop baby aspirin No chemo prophylaxis at this time. Check CMP in am FRANK on presentation her creatinine was 1.68. Review of order echo shows a creatinine baseline of around 0.7 to 0.91. Likely prerenal from hypovolemia secondary to vomiting. IV hydration as above Avoid nephrotoxins Trend BMP. UTI Patient denies any urinary symptoms. Because of outpatient diagnosed abnormal urinalysis and abnormal urinalysis here and with reported weakness will treat patient for acute cystitis. Family to clarify the diagnosis of his gabapentin prescription. Will hold gabapentin for now. Consider clarifying UTI treatment with DR. Vázquez's office. Will start patient on Ceftriaxone for UTI. Depression Confirm that she is depressed, has poor appetite,has insomnia, loss of energy, and has psychomotor retardation. Reportedly filled Duloxetine 11/06 and and fluoxetine on 11/22. We will continue Fluoxetine at this time. Reportedly he see a psychiatrist/psychologist Dr. Avila at [facility]. Her PCP is Dr. Vázquez. We will continue fluoxetine at this time. Consider confirming anti-depressant regimen with Dr. Vázquez's office Counselled Alcohol abuse Report multiple falls with bruises Counseled We will place on a CIWA protocol with multivitamins, folic acid, thiamine and as needed Ativan. Check magnesium level Check Alcohol level Generalized weakness Likely due to due to psychomotor retardation from depression and alcohol use. Counseled PT and OT to work with patient. Hyponatremia On presentation his sodium was 125. Review of old records shows that patient has a history of chronic hyponatremia. Serum osmolality; urine osmolality and urine sodium was ordered. Likely secondary to beer potomania from chronic alcohol use. Hypertensive; On presentation patient's blood pressure was within goal Trend blood pressures. Acute on chronic pain Reportedly patient fell about 3 months ago and has placed a fentanyl patch on the right side of the back because the area is sore. Reportedly she was put on a fentanyl patch about 3 to 4 years ago after she had hip replacement; and she continues to be on Fentanyl patch. In the long-term recommend tapering narcotic use. Importantly the patient family report that patient had an adverse reaction to Tylenol and does not use Tylenol. DVT prophylaxis No chemical thromboprophylaxis at this time because of positive occult gastric content SCD ordered. Code Visit Inpatient E&M: 79262 Init Hosp L3
[2018-12-12 23:53] LABS: Urine Sodium 23 mmol/L (Not Establ.)
[2018-12-12 23:54] VITALS: BP 109/73; PULSE 91; RESP 16
[2018-12-13] VITALS (28 sets, daily range): BP systolic 87–152; BP diastolic 37–87; PULSE 54–111; RESP 14–18; TEMP 36.3–37.3; O2SAT 94–100; BMI 18.5
--- NOTE | 2018-12-13 00:37 | ED.RN ---
ASKED PT ABOUT FLUOXETINE AND DULOXETINE SINCE BOTH RX'S WERE FILLED RECENTLY. PT STATES SHE IS UNSURE OF HER MEDICATION, BUT SHE HAS NOT CHANGED OR STOPPED TAKING EITHER ANTI-DEPRESSANTS. MEDICATIONS LISTED UNCONFIRMED.
[2018-12-13 00:45] LABS: Osmolality, Serum 276 mOsm/KG (280-301)
--- NOTE | 2018-12-13 00:45 | ED.VISSUMM ---
- ER Visit Summary Date of Service: 12/12/18 Chief Complaint: Weakness History of Present Illness: The patient is a 78 F presenting with weakness. Per patient and her son she has been very weak over the past several days. Her appetite has been declining. She has not been eating. She gave her primary care physician a urine sample on Tuesday. On Tuesday she was told that she had a urinary tract infection and antibiotics were called in. Her son states he picked up the medication today. She has taken this medication twice. It is gabapentin. He was not aware that this is not an antibiotic. The pharmacy is currently closed and we are unable to verify if she has another prescription waiting for her. She denies fever. She denies chest pain or shortness of breath. She denies abdominal pain. Denies urinary complaints. She has had nausea and vomiting. She denies diarrhea or constipation. She feels she fell several weeks ago and has been having pain in her right side. She states she had negative rib x-rays per her primary care physician. Denies other complaints. Physical Examination: Vitals are stable. Patient is afebrile. Alert no acute distress. HEENT exam dry mucous membranes. Neck is supple. Lungs are clear and equal bilaterally. Heart is regular and tachycardic Abdomen is soft nontender nondistended. No guarding or rebound Extremities are unremarkable. Skin is warm and dry. No focal neurologic deficit. Remainder of exam is unremarkable. Emergency Department Course and Treatment: EKG is sinus rhythm rate of 89 with no acute ischemic changes. Chest x-ray shows no acute process. CBC unremarkable. Chemistry shows sodium 125, chloride 84, glucose 153, BUN 36, creatinine 1.68. Previous creatinine 0.74, October 2018. Urinalysis shows positive leukocytes, 0-5 white blood cells, 0 red cells. Urine culture was sent. Troponin 0.016. Patient was given IV fluids. Discussed with the hospitalist for admission. Disposition: Admission Impression: Generalized weakness, AK I, hyponatremia This note was generated with [employer] dictation software. It may contain incorrect words, spelling, and punctuation that were not noted in review of the chart prior to signing
--- NOTE | 2018-12-13 00:49 | ED.DCSUM_ITS ---
- ER Visit Summary Date of Service: 12/12/18 Chief Complaint: Weakness History of Present Illness: The patient is a 78 F presenting with weakness. Per patient and her son she has been very weak over the past several days. Her appetite has been declining. She has not been eating. She gave her primary car e physician a urine sample on Tuesday. On Tuesday she was told that she had a urinary tract infection and antibiotics were called in. Her son states he picked up the medication today. She has taken this medication twice. It is gabapentin. He was not aware that this is not an antibiotic. The pharmacy is currently closed and we are unable to verify if she has another prescription waiting for her. She denies fever. She denies chest pain or shortness of breath. She denies abdominal pain. Denies urinary complaints. She has had nausea and vomiting. She denies diarrhea or constipation. She feels she fell several weeks ago and has been having pain in her right side. She states she had negative rib x-rays per her primary care physician. Denies other complaints. Physical Examination: Vitals are stable. Patient is afebrile. Alert no acute distress. HEENT exam dry mucous membranes. Neck is supple. Lungs are clear and equal bilaterally. Heart is regular and tachycardic Abdomen is soft nontender nondistended. No guarding or rebound Extremities are unremarkable. Skin is warm and dry. No focal neurologic deficit. Remainder of exam is unremarkable. Emergency Department Course and Treatment: EKG is sinus rhythm rate of 89 with no acute ischemic changes. Chest x-ray shows no acute process. CBC unremarkable. Chemistry shows sodium 125, chloride 84, glucose 153, BUN 36, creatinine 1.68. Previous creatinine 0.74, October 2018. Urinalysis shows positive leukocytes, 0-5 white blood cells, 0 red cells. Urine culture was sent. Troponin 0.016. Patient was given IV fluids. Discussed with the hospitalist for admission. Disposition: Admission Impression: Generalized weakness, AK I, hyponatremia This note was generated with Pollen dictation software. It may contain incorrect words, spelling, and punctuation that were not noted in review of the chart prior to signing
[2018-12-13 00:53] LABS: Osmolality, Urine 567 mOsm/KG
[2018-12-13 02:23] LABS: Alcohol, Blood (Medical)-Serum < 3.0 mg/dL
[2018-12-13] MEDS: Potassium Chloride 40 MEQ in 0.9% Normal Saline 1,000 ML 100 MEQ IV (02:33)
[2018-12-13 02:57] LABS: ALB/GLOB Ratio 1.4 RATIO (0.9-2.4); AST(SGOT) 30 U/L (15-37); Alanine Aminotransfer ALT/SGPT 22 U/L (13-56); Albumin, Serum 3.3 g/dL (3.2-5.0); Alkaline Phosphatase 131 U/L (45-117); Anion Gap 10 (5-15); BUN 43 mg/dL (7-18); BUN/Creat Ratio 30.3 RATIO (10-20); Calcium,Total 8.2 mg/dL (8.5-10.1); Chloride 87 mmol/L (98-107); Creatinine, Serum 1.42 mg/dL (0.55-1.02); EST Glomerular Filtration Rate 38 mL/min (>60); Est Glom Filt Rate - Afr Amer 46 mL/min (>60); Estimated Creatinine Clearance 24.42 ml/min; Globulin 2.3 g/dL (2.2-4.2); Glucose 122 mg/dL (74-106); Magnesium 1.8 mg/dL (1.6-2.6); Potassium 3.9 mmol/L (3.5-5.1); Protein, Total 5.6 g/dL (6.4-8.2); Sodium Level 128 mmol/L (136-145); Thyroid Stim Hormone (TSH) 1.44 uIU/mL (0.358-3.74)
[2018-12-13] MEDS: Ceftriaxone 1 GM/50 ML BAG IV ×2 (03:25→23:49)
--- NOTE | 2018-12-13 07:38 | PCM.CONS.GEN ---
Problem List (1) Hematemesis Status: Acute (2) Gastrointestinal bleed Status: Chronic Reason for Consult Date of Consultation: 12/13/18 Reason for Consultation: Hematemesis. Upper GI bleed. History of Present Illness: The patient is a 78 year old F who presented with a 2 weeks history of nausea and vomiting. She notes yesterday she had 4 episodes of the hematemesis. She notes difficulty with swallowing for the last 2 weeks. She notes a history of peptic ulcers ion 2013. She had an upper scope by Dr. Renee at that time. Patient states she is on Prilosec 40 mg BID. She denies abdominal pain. She was recently hospitalized in September 2018 for acute liver failure secondary to acetaminophen overdose. She also consumes at least 1 glass of wine per night. She notes consuming alcohol for a long time. She notes she has cut down in consumption. Patient has had previous left lower leg blood clot 7-8 years ago. She is on a daily ASA. 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 Q72H #10 patch 06/29/14 Aspirin E.C. [Ecotrin] 81 mg PO DAILY 06/21/18 Cholecalciferol (Vitamin D3) 2,000 unit PO DAILY 06/21/18 [D3-2000] Ibandronate Sodium [Boniva] 150 mg PO Q30D 06/21/18 Metoprolol Succinate [Toprol Xl] 100 mg PO DAILY 06/21/18 Acetaminophen [Tylenol Arthritis] 650 mg PO QHS 09/27/18 Calcium Carbonate [Calcium] 600 mg PO DAILY 09/27/18 Ferrous Sulfate 325 mg PO DAILY 09/27/18 Atorvastatin Calcium [Lipitor] 10 mg PO QHS 12/12/18 Duloxetine HCl 30 mg PO 12/12/18 Fluoxetine HCl [Prozac] 40 mg PO 12/12/18 Gabapentin [Neurontin] 100 mg PO DAILY 12/12/18 Surgical History: appendectomy, - - Right hip hemiarthroplasty. Psychiatric History: Depression Lives: Alone Smoking Status: Never smoker Alcohol: Heavy - *Family History Maternal History Items: - - Patient's brother, nephew and nieces had alcohol problem and went to alcohol rehab. Serveral of patient's sister had stroke. Paternal History Items: - - Patient's brother, nephew and nieces had alcohol problem and went to alcohol rehab. Serveral of patient's sister had stroke. Review of Systems Constitutional: Reports: Anorexia, Weakness, Weight Change HEENT: Denies: Head Aches, Sinus Congestion, Sinus Drainage Cardiovascular: Denies: Chest Pain, Palpitations Respiratory: Denies: Cough, Shortness of breath at rest, Sputum production Gastrointestinal: Reports: Hematemesis, Nausea. Denies: Abdominal Pain, Diarrhea Genitourinary: Reports: Dysuria Musculoskeletal: Denies: Joint Pain, Joint Tenderness Skin: Denies: Rash, Wounds Neurological: Reports: Balance problems Psychiatric: Reports: Anxiety, Depression Hematologic/ Lymphatic: Reports: Anemia, Easy Bruising, Easy Bleeding, Hx of blood clot. Denies: Hx of blood transfusion Patient Problems: Active and Suspected Problems Intractable nausea and vomiting (Acute) Hematemesis (Acute) - Physical Exam General: Alert, Oriented x3, Cooperative, - - Malnourished HEENT: Atraumatic, PERRLA, EOMI, Normocephalic Neck: Supple, No JVD, Negative Carotid Bruits Lungs: Clear to auscultation, Normal air movement Cardiovascular: Regular rate, No murmurs Abdomen: Bowel Sounds Present, Soft, Non Tender Extremities: No edema, Capillary Refill Less than 3 Seconds Skin: No rashes, No breakdown Musculoskeletal: No Tenderness to Palpation of Joints or Extremities Neurological: Neuro grossly intact Psych/Mental Status: Normal Affect, Appropriate Vital Signs Temp Pulse Resp BP Pulse Ox 98 F 90 16 112/65 98 12/13/18 05:23 12/13/18 05:23 12/13/18 05:23 12/13/18 05:23 12/13/18 05:23 Oxygen Delivery Method Room Air Weight: 101 lb 3.075 oz Body Mass Index (BMI) 18.5 Finger Stick Blood Glucose 88 Intake and Output for Last 24 Hours 12/11/18 12/12/18 12/13/18 23:59 23:59 23:59 Intake Total 474 / 474 Output Total 240 / 240 Balance 234 / 234 Microbiology Past 72 Hours 12/13/18 00:05 Gastric Occult Blood - Final Gastric Fluid/Contents Occult Blood Positive Laboratory Tests Past 24 Hrs 12/12/18 12/12/18 12/12/18 21:40 21:40 21:40 WBC 10.5 RBC 3.53 L Hgb 12.1 Hct 33.7 L MCV 95.5 MCH 34.3 H MCHC 35.9 RDW 13.8 RDW Differential 47.5 H Plt Count 219 MPV 8.7 Immature Gran % (Auto) 0.600 Neut % (Auto) 78.1 H Lymph % (Auto) 10.7 L [place] % (Auto) 10.4 H Eos % (Auto) 0.1 Baso % (Auto) 0.1 Absolute Neuts (auto) 8.2 H Absolute Lymphs (auto) 1.12 Total Counted Not Reportable Sodium 125 L Potassium 3.6 Chloride 84 L Carbon Dioxide 27.0 Anion Gap 14 BUN 36 H Creatinine 1.68 H Estim Creat Clear Calc 20.97 Est GFR (MDRD) Af Amer 38 L Est GFR (MDRD) Non-Af 31 L BUN/Creatinine Ratio 21.4 H Glucose 153 H Serum Osmolality 276 L Calcium 9.3 Magnesium Total Bilirubin AST ALT Alkaline Phosphatase Troponin I 0.016 Total Protein Albumin Globulin Albumin/Globulin Ratio TSH Urine Color Urine Clarity Urine pH Ur Specific [place] Urine Protein Urine Glucose (UA) Urine Ketones Urine Occult Blood Urine Nitrite Urine Bilirubin Urine Urobilinogen Ur Leukocyte Esterase Urine RBC Urine WBC Ur Squamous Epith Cells Urine Bacteria Urine Mucus Urine Osmolality Ur Random Sodium Ethyl Alcohol 12/12/18 12/12/18 12/12/18 22:25 22:25 22:25 WBC RBC Hgb Hct MCV MCH MCHC RDW RDW Differential Plt Count MPV Immature Gran % (Auto) Neut % (Auto) Lymph % (Auto) [place] % (Auto) Eos % (Auto) Baso % (Auto) Absolute Neuts (auto) Absolute Lymphs (auto) Total Counted Sodium Potassium Chloride Carbon Dioxide Anion Gap BUN Creatinine Estim Creat Clear Calc Est GFR (MDRD) Af Amer Est GFR (MDRD) Non-Af BUN/Creatinine Ratio Glucose Serum Osmolality Calcium Magnesium Total Bilirubin AST ALT Alkaline Phosphatase Troponin I Total Protein Albumin Globulin Albumin/Globulin Ratio TSH Urine Color Yellow Urine Clarity Cloudy Urine pH 5.0 Ur Specific [place] 1.025 Urine Protein 30 H Urine Glucose (UA) Normal Urine Ketones 15 H Urine Occult Blood 10 H Urine Nitrite Negative Urine Bilirubin 1 H Urine Urobilinogen 1 H Ur Leukocyte Esterase 500 H Urine RBC 0 SEEN Urine WBC 0-5 SEEN Ur Squamous Epith Cells 0-5 SEEN Urine Bacteria 3+ Urine Mucus 0 SEEN Urine Osmolality 567 Ur Random Sodium 23 Ethyl Alcohol 12/13/18 12/13/18 01:45 01:45 WBC RBC Hgb Hct MCV MCH MCHC RDW RDW Differential Plt Count MPV Immature Gran % (Auto) Neut % (Auto) Lymph % (Auto) [place] % (Auto) Eos % (Auto) Baso % (Auto) Absolute Neuts (auto) Absolute Lymphs (auto) Total Counted Sodium 128 L Potassium 3.9 Chloride 87 L Carbon Dioxide 31.0 Anion Gap 10 BUN 43 H Creatinine 1.42 H Estim Creat Clear Calc 24.42 Est GFR (MDRD) Af Amer 46 L Est GFR (MDRD) Non-Af 38 L BUN/Creatinine Ratio 30.3 H Glucose 122 H Serum Osmolality Calcium 8.2 L Magnesium 1.8 Total Bilirubin 1.30 H AST 30 ALT 22 Alkaline Phosphatase 131 H Troponin I Total Protein 5.6 L Albumin 3.3 Globulin 2.3 Albumin/Globulin Ratio 1.4 TSH 1.44 Urine Color Urine Clarity Urine pH Ur Specific [place] Urine Protein Urine Glucose (UA) Urine Ketones Urine Occult Blood Urine Nitrite Urine Bilirubin Urine Urobilinogen Ur Leukocyte Esterase Urine RBC Urine WBC Ur Squamous Epith Cells Urine Bacteria Urine Mucus Urine Osmolality Ur Random Sodium Ethyl Alcohol < 3.0 Assessment/Plan All Active Problems Intractable nausea and vomiting (Acute) Hematemesis (Acute) Severe sepsis (Resolved) UTI (urinary tract infection) (Acute) Generalized weakness (Acute) Dehydration (Resolved) Decreased functional residual capacity (Acute) I have been consulted in conjunction with Dr. Martínez. Impression: Hematemesis. Upper GI bleed. Etiology gastric ulcer versus esophageal varices versus mass Plan: I have discussed this patient with Dr. Martínez. Dr. Martínez will plan to perform an EGD with possible biopsies. Procedure details, risks and benefits have been explained to the patient. Patient has been NPO. Patient has had the opportunity to ask and have questions answered. Patient verbally understands and agrees with the plan. Thank you for allowing us to participate in this patient's care. Code Visit Office Visits / Consults: [id number] IP Consult L3
[2018-12-13 09:14] LABS: International Normalized Ratio 1.2; Prothrombin Time (Protime)PT. 14.6 SECONDS (11.7-14.9)
--- NOTE | 2018-12-13 10:58 | CASEMGMT ---
Addendum entered by Zara Ferrer 12/13/18 15:23: This RN CM to room and pt is still out of the dept for testing at this time. This RN CM will attempt again tomorrow. Nick HAYES CM Original Note: Addendum entered by Zara Ferrer 12/13/18 13:28: This RN CM back to room to complete CM assessment and pt is out of the dept for testing again at this time. Per Raymundo HAYES, pt went down for EGD about 1030 and then was sent back up at 1130 without completion because they became delayed. Pt was just taken back down about 15minutes ago again for the EGD. Nick HAYES CM Original Note: THis RN CM to room to complete CM assessment and pt is out of the dept for testing at this time. Will attempt later. Nick HAYES CM
--- NOTE | 2018-12-13 11:15 | EGD_PTH ---
PATIENT: TELLY GOOD LOC: ALY U#:[id number] AGE/SX: 78/F ROOM: [facility] RE12/13/[address]: Dr. Elisha Villa MD : 1940 BED: 1 DIS: 12/15/2018 SPEC #: [id number] RECD: 12/13/18 14:37 STATUS: MARIO REAna María #: [id number] ADAIR: 12/13/18 11:[address]: Star Martínez DEPT: SURGICAL PATHOLOGY RECD BY: Kiran Mead ENTERED: 12/14/18 11:10 SP TYPE: EGD BIOPSY OTHR DR: MD Dr. Mahad Mckeon DO Dr. Joseph Agyepong, MD Dr. Robert D Cebul, MD Tissues: A - Gastric mucous membrane B - Esophageal mucous membrane Procedures: PAS Fungus (control) Special Stain Group I Surgery Specimen Level IV Comments: @ Ordering doctor for SUIV edited from to @ evangelista DORSEY at 12/14/18 1519 @ Submitting doctor edited from to @ by WILLIAN at 12/14/18 1515 HEADER OPERATION: EGD (MAC) PRE-OP DIAGNOSIS: GI bleed TISSUE SUBMITTED: A - Antral biopsy for H. pylori and pathology, B - Distal esophageal biopsies MICROSCOPIC DIAGNOSIS A. Antral biopsy: Mild gastritis. See microscopic description and comment. B. Distal esophagus, biopsy: Fragments of squamous epithelium with focal ulceration and associated acute inflammation. Special stain for fungi is negative for organisms; matched control is appropriate. SJ:amie 12/15/18 COMMENT A. The results of immunohistochemistry for Helicobacter pylori will be reported separately ([id number]). MICROSCOPIC DESCRIPTION Slides are reviewed. A. The specimen shows fragments of gastric mucosa with chronic inflammatory cell infiltrates in the lamina propria consisting of lymphocytes and plasma cells, consistent with mild chronic gastritis. GROSS DESCRIPTION A - Received in fixative is one container labeled with the patient's name and designated antral biopsy. The specimen consists of a single pink portion of soft tissue measuring 0.5 x 0.1 x 0.1 cm. The specimen is totally submitted in one cassette. B - Received in fixative is one container labeled with the patient's name and designated distal esophageal biopsies. The specimen consists of three pink fragments of soft tissue that in aggregate measure 0.3 x 0.2 x 0.1 cm. The specimen is totally submitted in one cassette. / CE:amie 12/14/18 TC:5 CPT: 60598 x2, [id number]
--- NOTE | 2018-12-13 11:15 | IMM_PTH ---
PATIENT: TELLY GOOD LOC: Yu U#:[id number] AGE/SX: 78/F ROOM: [facility] RE12/13/[address]: Dr. Elisha Villa MD : 1940 BED: 1 DIS: 12/15/2018 SPEC #: [id number] RECD: 12/14/18 14:00 STATUS: MARIO REAna María #: [id number] ADAIR: 12/13/18 11:[address]: Star Martínez DEPT: IMMUNOHISTOCHEMISTRY RECD BY: Maya Rodrigez ENTERED: 12/14/18 14:01 SP TYPE: IMMUNO OTHR DR: MD Dr. Mahad Mckeon DO Dr. Joseph Agyepong, MD Tissues: A - Stomach, NOS Procedures: H Pylori (initial) PHYSICIAN & INSTITUTION [place] [id number] SPECIMEN INFORMATION: Tissue Source: A - Antral biopsy Clinical Info: GI bleed Specimen Number: [id number] CPT code: 05998 METHODOLOGY: Deparaffinized sections of prefer/formalin-fixed tissue or PAP/DQ stained slides are incubated with monoclonal/polyclonal antibodies/oligonucleotide probes. Localization is made via biotin free immunoperoxidase method. Appropriate controls are performed and reacted as expected. Results on target cell population are indicated in the following table: RESULTS: ANTIBODY / CLONE RESULT Block A H Pylori (polyclonal) negative These tests were developed and their performance characteristics determined by [facility]. They may not have been cleared or approved by the U.[place]. Food and Drug Administration. The FDA has determined that such clearance or approval is not necessary. INTERPRETATION: A. Antral biopsy: Negative for Helicobacter pylori organisms. SJ:amie 12/15/18
--- NOTE | 2018-12-13 12:16 | PCM.PROGNOTE ---
<Mone Giron - Last Filed: 12/13/18 12:31> Patient Problems: Active and Suspected Problems Intractable nausea and vomiting (Acute) Hematemesis (Acute) Subjective: Patient seen and examined. Complains of dry mouth and thirst. Denies further nausea, vomiting, abdominal pain. She currently has tremors which reports is her baseline. Denies other complaints. - Physical Exam General: Alert, Oriented x3, Cooperative HEENT: Atraumatic, PERRLA, EOMI, Normocephalic Oral: Dry Mucosa Neck: Supple, No JVD, Negative Carotid Bruits Lungs: Clear to auscultation, Normal air movement Cardiovascular: Regular rate, Regular Rhythm, Normal S1, Normal S2, No murmurs Abdomen: Bowel Sounds Present, Soft, Non Tender, Non-Distended Extremities: No clubbing, No cyanosis, No edema, Capillary Refill Less than 3 Seconds Skin: No rashes, No breakdown, - - Left thigh and left forearm with ecchymosis 2/2 fall at home. Musculoskeletal: No Tenderness to Palpation of Joints or Extremities Neurological: Cranial nerves II-XII grossly intact, Neuro grossly intact Psych/Mental Status: Anxious Vital Signs Temp Pulse Resp BP Pulse Ox 98.2 F 98 14 105/59 L 99 12/13/18 09:06 12/13/18 09:06 12/13/18 09:06 12/13/18 09:06 12/13/18 09:06 Oxygen Delivery Method Room Air Weight: 101 lb 3.075 oz Body Mass Index (BMI) 18.5 Finger Stick Blood Glucose 88 Intake and Output for Last 24 Hours 12/11/18 12/12/18 12/13/18 23:59 23:59 23:59 Intake Total 474 / 474 Output Total 240 / 240 Balance 234 / 234 Microbiology Past 72 Hours 12/13/18 00:05 Gastric Occult Blood - Final Gastric Fluid/Contents Occult Blood Positive Laboratory Tests Past 24 Hrs 12/12/18 12/12/18 12/12/18 21:40 21:40 21:40 WBC 10.5 RBC 3.53 L Hgb 12.1 Hct 33.7 L MCV 95.5 MCH 34.3 H MCHC 35.9 RDW 13.8 RDW Differential 47.5 H Plt Count 219 MPV 8.7 Immature Gran % (Auto) 0.600 Neut % (Auto) 78.1 H Lymph % (Auto) 10.7 L [place] % (Auto) 10.4 H Eos % (Auto) 0.1 Baso % (Auto) 0.1 Absolute Neuts (auto) 8.2 H Absolute Lymphs (auto) 1.12 Total Counted Not Reportable PT INR Sodium 125 L Potassium 3.6 Chloride 84 L Carbon Dioxide 27.0 Anion Gap 14 BUN 36 H Creatinine 1.68 H Estim Creat Clear Calc 20.97 Est GFR (MDRD) Af Amer 38 L Est GFR (MDRD) Non-Af 31 L BUN/Creatinine Ratio 21.4 H Glucose 153 H Serum Osmolality 276 L Calcium 9.3 Magnesium Total Bilirubin AST ALT Alkaline Phosphatase Troponin I 0.016 Total Protein Albumin Globulin Albumin/Globulin Ratio TSH Urine Color Urine Clarity Urine pH Ur Specific [place] Urine Protein Urine Glucose (UA) Urine Ketones Urine Occult Blood Urine Nitrite Urine Bilirubin Urine Urobilinogen Ur Leukocyte Esterase Urine RBC Urine WBC Ur Squamous Epith Cells Urine Bacteria Urine Mucus Urine Osmolality Ur Random Sodium Ethyl Alcohol 12/12/18 12/12/18 12/12/18 22:25 22:25 22:25 WBC RBC Hgb Hct MCV MCH MCHC RDW RDW Differential Plt Count MPV Immature Gran % (Auto) Neut % (Auto) Lymph % (Auto) [place] % (Auto) Eos % (Auto) Baso % (Auto) Absolute Neuts (auto) Absolute Lymphs (auto) Total Counted PT INR Sodium Potassium Chloride Carbon Dioxide Anion Gap BUN Creatinine Estim Creat Clear Calc Est GFR (MDRD) Af Amer Est GFR (MDRD) Non-Af BUN/Creatinine Ratio Glucose Serum Osmolality Calcium Magnesium Total Bilirubin AST ALT Alkaline Phosphatase Troponin I Total Protein Albumin Globulin Albumin/Globulin Ratio TSH Urine Color Yellow Urine Clarity Cloudy Urine pH 5.0 Ur Specific [place] 1.025 Urine Protein 30 H Urine Glucose (UA) Normal Urine Ketones 15 H Urine Occult Blood 10 H Urine Nitrite Negative Urine Bilirubin 1 H Urine Urobilinogen 1 H Ur Leukocyte Esterase 500 H Urine RBC 0 SEEN Urine WBC 0-5 SEEN Ur Squamous Epith Cells 0-5 SEEN Urine Bacteria 3+ Urine Mucus 0 SEEN Urine Osmolality 567 Ur Random Sodium 23 Ethyl Alcohol 12/13/18 12/13/18 12/13/18 01:45 01:45 07:51 WBC RBC Hgb Hct MCV MCH MCHC RDW RDW Differential Plt Count MPV Immature Gran % (Auto) Neut % (Auto) Lymph % (Auto) [place] % (Auto) Eos % (Auto) Baso % (Auto) Absolute Neuts (auto) Absolute Lymphs (auto) Total Counted PT 14.6 INR 1.2 Sodium 128 L Potassium 3.9 Chloride 87 L Carbon Dioxide 31.0 Anion Gap 10 BUN 43 H Creatinine 1.42 H Estim Creat Clear Calc 24.42 Est GFR (MDRD) Af Amer 46 L Est GFR (MDRD) Non-Af 38 L BUN/Creatinine Ratio 30.3 H Glucose 122 H Serum Osmolality Calcium 8.2 L Magnesium 1.8 Total Bilirubin 1.30 H AST 30 ALT 22 Alkaline Phosphatase 131 H Troponin I Total Protein 5.6 L Albumin 3.3 Globulin 2.3 Albumin/Globulin Ratio 1.4 TSH 1.44 Urine Color Urine Clarity Urine pH Ur Specific [place] Urine Protein Urine Glucose (UA) Urine Ketones Urine Occult Blood Urine Nitrite Urine Bilirubin Urine Urobilinogen Ur Leukocyte Esterase Urine RBC Urine WBC Ur Squamous Epith Cells Urine Bacteria Urine Mucus Urine Osmolality Ur Random Sodium Ethyl Alcohol < 3.0 Medical Necessity - Tobacco Use Smoking Status: Never smoker Assessment/Plan All Active Problems Intractable nausea and vomiting (Acute) Hematemesis (Acute) Severe sepsis (Resolved) UTI (urinary tract infection) (Acute) Generalized weakness (Acute) Dehydration (Resolved) Decreased functional residual capacity (Acute) 1. Upper GI bleed, N/V with hematemesis- Dr. Martínez, General surgery on consult. History of peptic ulcers. Plan for EGD with possible biopsies later today. No further vomiting, hematemesis. Gastric fluid positive for occult blood. Hemoglobin stable. Hold home aspirin regimen. Trend CBC. Continue IV PPI. PRN antiemetics. Consult speech therapy given report of difficulty swallowing for the past 2 weeks. 2. Acute kidney injury/hyponatremia-secondary to hypovolemia as a result of #1. Improving with IV fluids. Trend BMP. 3. Recent UTI-completed treatment. Urinalysis not remarkable. Culture pending. 4. Chronic alcohol abuse- CIWA/Ativan protocol. Continue thiamine, folic acid, multivitamin supplementation. 5. Depression-patient appears to be on both duloxetine and fluoxetine? Check med rec however recommend only one SSRI. 6. Generalized weakness/debility with falls at home-patient has ecchymosis on left thigh and forearm secondary to recent fall at home. She reports she lives alone. PT/OT. Fall precautions. 7. Hypertension-stable, continue home metoprolol regimen. 8. Hyperlipidemia-continue statin. 9. Chronic pain/arthritis-continue home fentanyl patch. DVT prophylaxis-SCDs This patient was seen by Mone Giron NP-C under the supervision of Dr. Godfrey. <Mahad Godfrey - Last Filed: 12/13/18 14:24> Subjective: Was having vomiting for 2 weeks. Unable to eat--instantly throws up, but able drink water and carbonated beverages. - Physical Exam General: Alert, Cooperative HEENT: Atraumatic, Normocephalic Lungs: Clear to auscultation, Normal air movement Cardiovascular: Regular rate, Regular Rhythm, Normal S1, Normal S2, No murmurs Abdomen: Bowel Sounds Present, Soft, Non Tender, Non-Distended Extremities: No edema, No Calf Tenderness Skin: No rashes, No breakdown, - Vital Signs Temp Pulse Resp BP Pulse Ox 37.1 C 54 L 14 96/55 L 95 12/13/18 13:00 12/13/18 13:00 12/13/18 13:00 12/13/18 13:00 12/13/18 13:00 Oxygen Delivery Method Room Air Weight: 45.9 kg Body Mass Index (BMI) 18.5 Finger Stick Blood Glucose 88 Intake and Output for Last 24 Hours 12/11/18 12/12/18 12/13/18 23:59 23:59 23:59 Intake Total 474 / 474 Output Total 240 / 240 Balance 234 / 234 Microbiology Past 72 Hours 12/13/18 00:05 Gastric Occult Blood - Final Gastric Fluid/Contents Occult Blood Positive Laboratory Tests Past 24 Hrs 12/12/18 12/12/18 12/12/18 21:40 21:40 21:40 WBC 10.5 RBC 3.53 L Hgb 12.1 Hct 33.7 L MCV 95.5 MCH 34.3 H MCHC 35.9 RDW 13.8 RDW Differential 47.5 H Plt Count 219 MPV 8.7 Immature Gran % (Auto) 0.600 Neut % (Auto) 78.1 H Lymph % (Auto) 10.7 L [place] % (Auto) 10.4 H Eos % (Auto) 0.1 Baso % (Auto) 0.1 Absolute Neuts (auto) 8.2 H Absolute Lymphs (auto) 1.12 Total Counted Not Reportable PT INR Sodium 125 L Potassium 3.6 Chloride 84 L Carbon Dioxide 27.0 Anion Gap 14 BUN 36 H Creatinine 1.68 H Estim Creat Clear Calc 20.97 Est GFR (MDRD) Af Amer 38 L Est GFR (MDRD) Non-Af 31 L BUN/Creatinine Ratio 21.4 H Glucose 153 H Serum Osmolality 276 L Calcium 9.3 Magnesium Total Bilirubin AST ALT Alkaline Phosphatase Troponin I 0.016 Total Protein Albumin Globulin Albumin/Globulin Ratio TSH Urine Color Urine Clarity Urine pH Ur Specific [place] Urine Protein Urine Glucose (UA) Urine Ketones Urine Occult Blood Urine Nitrite Urine Bilirubin Urine Urobilinogen Ur Leukocyte Esterase Urine RBC Urine WBC Ur Squamous Epith Cells Urine Bacteria Urine Mucus Urine Osmolality Ur Random Sodium Ethyl Alcohol 12/12/18 12/12/18 12/12/18 22:25 22:25 22:25 WBC RBC Hgb Hct MCV MCH MCHC RDW RDW Differential Plt Count MPV Immature Gran % (Auto) Neut % (Auto) Lymph % (Auto) [place] % (Auto) Eos % (Auto) Baso % (Auto) Absolute Neuts (auto) Absolute Lymphs (auto) Total Counted PT INR Sodium Potassium Chloride Carbon Dioxide Anion Gap BUN Creatinine Estim Creat Clear Calc Est GFR (MDRD) Af Amer Est GFR (MDRD) Non-Af BUN/Creatinine Ratio Glucose Serum Osmolality Calcium Magnesium Total Bilirubin AST ALT Alkaline Phosphatase Troponin I Total Protein Albumin Globulin Albumin/Globulin Ratio TSH Urine Color Yellow Urine Clarity Cloudy Urine pH 5.0 Ur Specific [place] 1.025 Urine Protein 30 H Urine Glucose (UA) Normal Urine Ketones 15 H Urine Occult Blood 10 H Urine Nitrite Negative Urine Bilirubin 1 H Urine Urobilinogen 1 H Ur Leukocyte Esterase 500 H Urine RBC 0 SEEN Urine WBC 0-5 SEEN Ur Squamous Epith Cells 0-5 SEEN Urine Bacteria 3+ Urine Mucus 0 SEEN Urine Osmolality 567 Ur Random Sodium 23 Ethyl Alcohol 12/13/18 12/13/18 12/13/18 01:45 01:45 07:51 WBC RBC Hgb Hct MCV MCH MCHC RDW RDW Differential Plt Count MPV Immature Gran % (Auto) Neut % (Auto) Lymph % (Auto) [place] % (Auto) Eos % (Auto) Baso % (Auto) Absolute Neuts (auto) Absolute Lymphs (auto) Total Counted PT 14.6 INR 1.2 Sodium 128 L Potassium 3.9 Chloride 87 L Carbon Dioxide 31.0 Anion Gap 10 BUN 43 H Creatinine 1.42 H Estim Creat Clear Calc 24.42 Est GFR (MDRD) Af Amer 46 L Est GFR (MDRD) Non-Af 38 L BUN/Creatinine Ratio 30.3 H Glucose 122 H Serum Osmolality Calcium 8.2 L Magnesium 1.8 Total Bilirubin 1.30 H AST 30 ALT 22 Alkaline Phosphatase 131 H Troponin I Total Protein 5.6 L Albumin 3.3 Globulin 2.3 Albumin/Globulin Ratio 1.4 TSH 1.44 Urine Color Urine Clarity Urine pH Ur Specific [place] Urine Protein Urine Glucose (UA) Urine Ketones Urine Occult Blood Urine Nitrite Urine Bilirubin Urine Urobilinogen Ur Leukocyte Esterase Urine RBC Urine WBC Ur Squamous Epith Cells Urine Bacteria Urine Mucus Urine Osmolality Ur Random Sodium Ethyl Alcohol < 3.0 12/13/18 12:28 WBC RBC Hgb 7.2 L Hct 26.2 L MCV MCH MCHC RDW RDW Differential Plt Count MPV Immature Gran % (Auto) Neut % (Auto) Lymph % (Auto) [place] % (Auto) Eos % (Auto) Baso % (Auto) Absolute Neuts (auto) Absolute Lymphs (auto) Total Counted PT INR Sodium Potassium Chloride Carbon Dioxide Anion Gap BUN Creatinine Estim Creat Clear Calc Est GFR (MDRD) Af Amer Est GFR (MDRD) Non-Af BUN/Creatinine Ratio Glucose Serum Osmolality Calcium Magnesium Total Bilirubin AST ALT Alkaline Phosphatase Troponin I Total Protein Albumin Globulin Albumin/Globulin Ratio TSH Urine Color Urine Clarity Urine pH Ur Specific [place] Urine Protein Urine Glucose (UA) Urine Ketones Urine Occult Blood Urine Nitrite Urine Bilirubin Urine Urobilinogen Ur Leukocyte Esterase Urine RBC Urine WBC Ur Squamous Epith Cells Urine Bacteria Urine Mucus Urine Osmolality Ur Random Sodium Ethyl Alcohol Assessment/Plan Patient seen and examined independently. Data reviewed. I agree with the above note by the nurse practitioner. 1. Upper GI bleed: 2/2 PUD v MWT v varices for endoscopy IV PPI 2. Acute blood loss anemia 12.1 to 7.2 Monitor type and cross 1 unit, hold repeat Hg 2/2 above Code Visit Inpatient E&M: 26034 Subs Hosp L2
--- NOTE | 2018-12-13 12:30 | PN_ITS ---
<Mone Giron - Last Filed: 12/13/18 12:31> Patient Problems: Active and Suspected Problems Intractable nausea and vomiting (Acute) Hematemesis (Acute) Subjective: Patient seen and examined. Complains of dry mouth and thirst. Denies further nausea, vomiting, abdominal pain. She currently has tremors which reports is her baseline. Denies other complaints. - Physical Exam General: Alert, Oriented x3, Cooperative HEENT: Atraumatic, PERRLA, EOMI, Normocephalic Oral: Dry Mucosa Neck: Supple, No JVD, Negative Carotid Bruits Lungs: Clear to auscultation, Normal air movement Cardiovascular: Regular rate, Regular Rhythm, Normal S1, Normal S2, No murmurs Abdomen: Bowel Sounds Present, Soft, Non Tender, Non-Distended Extremities: No clubbing, No cyanosis, No edema, Capillary Refill Less than 3 Seconds Skin: No rashes, No breakdown, - - Left thigh and left forearm with ecchymosis 2/2 fall at home. Musculoskeletal: No Tenderness to Palpation of Joints or Extremities Neurological: Cranial nerves II-XII grossly intact, Neuro grossly intact Psych/Mental Status: Anxious Vital Signs Temp Pulse Resp BP Pulse Ox 98.2 F 98 14 105/59 L 99 12/13/18 09:06 12/13/18 09:06 12/13/18 09:06 12/13/18 09:06 12/13/18 09:06 Oxygen Delivery Method Room Air Weight: 101 lb 3.075 oz Body Mass Index (BMI) 18.5 Finger Stick Blood Glucose 88 Intake and Output for Last 24 Hours 12/11/18 12/12/18 12/13/18 23:59 23:59 23:59 Intake Total 474 / 474 Output Total 240 / 240 Balance 234 / 234 Microbiology Past 72 Hours 12/13/18 00:05 Gastric Occult Blood - Final Gastric Fluid/Contents Occult Blood Positive Laboratory Tests Past 24 Hrs 12/12/18 12/12/18 12/12/18 21:40 21:40 21:40 WBC 10.5 RBC 3.53 L Hgb 12.1 Hct 33.7 L MCV 95.5 MCH 34.3 H MCHC 35.9 RDW 13.8 RDW Differential 47.5 H Plt Count 219 MPV 8.7 Immature Gran % (Auto) 0.600 Neut % (Auto) 78.1 H Lymph % (Auto) 10.7 L [place] % (Auto) 10.4 H Eos % (Auto) 0.1 Baso % (Auto) 0.1 Absolute Neuts (auto) 8.2 H Absolute Lymphs (auto) 1.12 Total Counted Not Reportable PT INR Sodium 125 L Potassium 3.6 Chloride 84 L Carbon Dioxide 27.0 Anion Gap 14 BUN 36 H Creatinine 1.68 H Estim Creat Clear Calc 20.97 Est GFR (MDRD) Af Amer 38 L Est GFR (MDRD) Non-Af 31 L BUN/Creatinine Ratio 21.4 H Glucose 153 H Serum Osmolality 276 L Calcium 9.3 Magnesium Total Bilirubin AST ALT Alkaline Phosphatase Troponin I 0.016 Total Protein Albumin Globulin Albumin/Globulin Ratio TSH Urine Color Urine Clarity Urine pH Ur Specific [place] Urine Protein Urine Glucose (UA) Urine Ketones Urine Occult Blood Urine Nitrite Urine Bilirubin Urine Urobilinogen Ur Leukocyte Esterase Urine RBC Urine WBC Ur Squamous Epith Cells Urine Bacteria Urine Mucus Urine Osmolality Ur Random Sodium Ethyl Alcohol 12/12/18 12/12/18 12/12/18 22:25 22:25 22:25 WBC RBC Hgb Hct MCV MCH MCHC RDW RDW Differential Plt Count MPV Immature Gran % (Auto) Neut % (Auto) Lymph % (Auto) [place] % (Auto) Eos % (Auto) Baso % (Auto) Absolute Neuts (auto) Absolute Lymphs (auto) Total Counted PT INR Sodium Potassium Chloride Carbon Dioxide Anion Gap BUN Creatinine Estim Creat Clear Calc Est GFR (MDRD) Af Amer Est GFR (MDRD) Non-Af BUN/Creatinine Ratio Glucose Serum Osmolality Calcium Magnesium Total Bilirubin AST ALT Alkaline Phosphatase Troponin I Total Protein Albumin Globulin Albumin/Globulin Ratio TSH Urine Color Yellow Urine Clarity Cloudy Urine pH 5.0 Ur Specific [place] 1.025 Urine Protein 30 H Urine Glucose (UA) Normal Urine Ketones 15 H Urine Occult Blood 10 H Urine Nitrite Negative Urine Bilirubin 1 H Urine Urobilinogen 1 H Ur Leukocyte Esterase 500 H Urine RBC 0 SEEN Urine WBC 0-5 SEEN Ur Squamous Epith Cells 0-5 SEEN Urine Bacteria 3+ Urine Mucus 0 SEEN Urine Osmolality 567 Ur Random Sodium 23 Ethyl Alcohol 12/13/18 12/13/18 12/13/18 01:45 01:45 07:51 WBC RBC Hgb Hct MCV MCH MCHC RDW RDW Differential Plt Count MPV Immature Gran % (Auto) Neut % (Auto) Lymph % (Auto) [place] % (Auto) Eos % (Auto) Baso % (Auto) Absolute Neuts (auto) Absolute Lymphs (auto) Total Counted PT 14.6 INR 1.2 Sodium 128 L Potassium 3.9 Chloride 87 L Carbon Dioxide 31.0 Anion Gap 10 BUN 43 H Creatinine 1.42 H Estim Creat Clear Calc 24.42 Est GFR (MDRD) Af Amer 46 L Est GFR (MDRD) Non-Af 38 L BUN/Creatinine Ratio 30.3 H Glucose 122 H Serum Osmolality Calcium 8.2 L Magnesium 1.8 Total Bilirubin 1.30 H AST 30 ALT 22 Alkaline Phosphatase 131 H Troponin I Total Protein 5.6 L Albumin 3.3 Globulin 2.3 Albumin/Globulin Ratio 1.4 TSH 1.44 Urine Color Urine Clarity Urine pH Ur Specific [place] Urine Protein Urine Glucose (UA) Urine Ketones Urine Occult Blood Urine Nitrite Urine Bilirubin Urine Urobilinogen Ur Leukocyte Esterase Urine RBC Urine WBC Ur Squamous Epith Cells Urine Bacteria Urine Mucus Urine Osmolality Ur Random Sodium Ethyl Alcohol < 3.0 Medical Necessity - Tobacco Use Smoking Status: Never smoker Assessment/Plan All Active Problems Intractable nausea and vomiting (Acute) Hematemesis (Acute) Severe sepsis (Resolved) UTI (urinary tract infection) (Acute) Generalized weakness (Acute) Dehydration (Resolved) Decreased functional residual capacity (Acute) 1. Upper GI bleed, N/V with hematemesis- Dr. Martínez, General surgery on consult. History of peptic ulcers. Plan for EGD with possible biopsies later today. No further vomiting, hematemesis. Gastric fluid positive for occult blood. Hemoglobin stable. Hold home aspirin regimen. Trend CBC. Continue IV PPI. PRN antiemetics. Consult speech therapy given report of difficulty swallowing for the past 2 weeks. 2. Acute kidney injury/hyponatremia-secondary to hypovolemia as a result of #1. Improving with IV fluids. Trend BMP. 3. Recent UTI-completed treatment. Urinalysis not remarkable. Culture pending. 4. Chronic alcohol abuse- CIWA/Ativan protocol. Continue thiamine, folic acid, multivitamin supplementation. 5. Depression-patient appears to be on both duloxetine and fluoxetine? Check med rec however recommend only one SSRI. 6. Generalized weakness/debility with falls at home-patient has ecchymosis on left thigh and forearm secondary to recent fall at home. She reports she lives alone. PT/OT. Fall precautions. 7. Hypertension-stable, continue home metoprolol regimen. 8. Hyperlipidemia-continue statin. 9. Chronic pain/arthritis-continue home fentanyl patch. DVT prophylaxis-SCDs This patient was seen by Mone Giron NP-C under the supervision of Dr. Godfrey. <Mahad Godfrey - Last Filed: 12/13/18 14:24> Subjective: Was having vomiting for 2 weeks. Unable to eat--instantly throws up, but able drink water and carbonated beverages. - Physical Exam General: Alert, Cooperative HEENT: Atraumatic, Normocephalic Lungs: Clear to auscultation, Normal air movement Cardiovascular: Regular rate, Regular Rhythm, Normal S1, Normal S2, No murmurs Abdomen: Bowel Sounds Present, Soft, Non Tender, Non-Distended Extremities: No edema, No Calf Tenderness Skin: No rashes, No breakdown, - Vital Signs Temp Pulse Resp BP Pulse Ox 37.1 C 54 L 14 96/55 L 95 12/13/18 13:00 12/13/18 13:00 12/13/18 13:00 12/13/18 13:00 12/13/18 13:00 Oxygen Delivery Method Room Air Weight: 45.9 kg Body Mass Index (BMI) 18.5 Finger Stick Blood Glucose 88 Intake and Output for Last 24 Hours 12/11/18 12/12/18 12/13/18 23:59 23:59 23:59 Intake Total 474 / 474 Output Total 240 / 240 Balance 234 / 234 Microbiology Past 72 Hours 12/13/18 00:05 Gastric Occult Blood - Final Gastric Fluid/Contents Occult Blood Positive Laboratory Tests Past 24 Hrs 12/12/18 12/12/18 12/12/18 21:40 21:40 21:40 WBC 10.5 RBC 3.53 L Hgb 12.1 Hct 33.7 L MCV 95.5 MCH 34.3 H MCHC 35.9 RDW 13.8 RDW Differential 47.5 H Plt Count 219 MPV 8.7 Immature Gran % (Auto) 0.600 Neut % (Auto) 78.1 H Lymph % (Auto) 10.7 L [place] % (Auto) 10.4 H Eos % (Auto) 0.1 Baso % (Auto) 0.1 Absolute Neuts (auto) 8.2 H Absolute Lymphs (auto) 1.12 Total Counted Not Reportable PT INR Sodium 125 L Potassium 3.6 Chloride 84 L Carbon Dioxide 27.0 Anion Gap 14 BUN 36 H Creatinine 1.68 H Estim Creat Clear Calc 20.97 Est GFR (MDRD) Af Amer 38 L Est GFR (MDRD) Non-Af 31 L BUN/Creatinine Ratio 21.4 H Glucose 153 H Serum Osmolality 276 L Calcium 9.3 Magnesium Total Bilirubin AST ALT Alkaline Phosphatase Troponin I 0.016 Total Protein Albumin Globulin Albumin/Globulin Ratio TSH Urine Color Urine Clarity Urine pH Ur Specific [place] Urine Protein Urine Glucose (UA) Urine Ketones Urine Occult Blood Urine Nitrite Urine Bilirubin Urine Urobilinogen Ur Leukocyte Esterase Urine RBC Urine WBC Ur Squamous Epith Cells Urine Bacteria Urine Mucus Urine Osmolality Ur Random Sodium Ethyl Alcohol 12/12/18 12/12/18 12/12/18 22:25 22:25 22:25 WBC RBC Hgb Hct MCV MCH MCHC RDW RDW Differential Plt Count MPV Immature Gran % (Auto) Neut % (Auto) Lymph % (Auto) [place] % (Auto) Eos % (Auto) Baso % (Auto) Absolute Neuts (auto) Absolute Lymphs (auto) Total Counted PT INR Sodium Potassium Chloride Carbon Dioxide Anion Gap BUN Creatinine Estim Creat Clear Calc Est GFR (MDRD) Af Amer Est GFR (MDRD) Non-Af BUN/Creatinine Ratio Glucose Serum Osmolality Calcium Magnesium Total Bilirubin AST ALT Alkaline Phosphatase Troponin I Total Protein Albumin Globulin Albumin/Globulin Ratio TSH Urine Color Yellow Urine Clarity Cloudy Urine pH 5.0 Ur Specific [place] 1.025 Urine Protein 30 H Urine Glucose (UA) Normal Urine Ketones 15 H Urine Occult Blood 10 H Urine Nitrite Negative Urine Bilirubin 1 H Urine Urobilinogen 1 H Ur Leukocyte Esterase 500 H Urine RBC 0 SEEN Urine WBC 0-5 SEEN Ur Squamous Epith Cells 0-5 SEEN Urine Bacteria 3+ Urine Mucus 0 SEEN Urine Osmolality 567 Ur Random Sodium 23 Ethyl Alcohol 12/13/18 12/13/18 12/13/18 01:45 01:45 07:51 WBC RBC Hgb Hct MCV MCH MCHC RDW RDW Differential Plt Count MPV Immature Gran % (Auto) Neut % (Auto) Lymph % (Auto) [place] % (Auto) Eos % (Auto) Baso % (Auto) Absolute Neuts (auto) Absolute Lymphs (auto) Total Counted PT 14.6 INR 1.2 Sodium 128 L Potassium 3.9 Chloride 87 L Carbon Dioxide 31.0 Anion Gap 10 BUN 43 H Creatinine 1.42 H Estim Creat Clear Calc 24.42 Est GFR (MDRD) Af Amer 46 L Est GFR (MDRD) Non-Af 38 L BUN/Creatinine Ratio 30.3 H Glucose 122 H Serum Osmolality Calcium 8.2 L Magnesium 1.8 Total Bilirubin 1.30 H AST 30 ALT 22 Alkaline Phosphatase 131 H Troponin I Total Protein 5.6 L Albumin 3.3 Globulin 2.3 Albumin/Globulin Ratio 1.4 TSH 1.44 Urine Color Urine Clarity Urine pH Ur Specific [place] Urine Protein Urine Glucose (UA) Urine Ketones Urine Occult Blood Urine Nitrite Urine Bilirubin Urine Urobilinogen Ur Leukocyte Esterase Urine RBC Urine WBC Ur Squamous Epith Cells Urine Bacteria Urine Mucus Urine Osmolality Ur Random Sodium Ethyl Alcohol < 3.0 12/13/18 12:28 WBC RBC Hgb 7.2 L Hct 26.2 L MCV MCH MCHC RDW RDW Differential Plt Count MPV Immature Gran % (Auto) Neut % (Auto) Lymph % (Auto) [place] % (Auto) Eos % (Auto) Baso % (Auto) Absolute Neuts (auto) Absolute Lymphs (auto) Total Counted PT INR Sodium Potassium Chloride Carbon Dioxide Anion Gap BUN Creatinine Estim Creat Clear Calc Est GFR (MDRD) Af Amer Est GFR (MDRD) Non-Af BUN/Creatinine Ratio Glucose Serum Osmolality Calcium Magnesium Total Bilirubin AST ALT Alkaline Phosphatase Troponin I Total Protein Albumin Globulin Albumin/Globulin Ratio TSH Urine Color Urine Clarity Urine pH Ur Specific [place] Urine Protein Urine Glucose (UA) Urine Ketones Urine Occult Blood Urine Nitrite Urine Bilirubin Urine Urobilinogen Ur Leukocyte Esterase Urine RBC Urine WBC Ur Squamous Epith Cells Urine Bacteria Urine Mucus Urine Osmolality Ur Random Sodium Ethyl Alcohol Assessment/Plan Patient seen and examined independently. Data reviewed. I agree with the above note by the nurse practitioner. 1. Upper GI bleed: * 2/2 PUD v MWT v varices * for endoscopy * IV PPI 2. Acute blood loss anemia * 12.1 to 7.2 * Monitor * type and cross 1 unit, hold * repeat Hg * 2/2 above Code Visit Inpatient E&M: 60843 Subs Hosp L2
[2018-12-13 13:02] LABS: Hematocrit 26.2 % (37-47); Hemoglobin 7.2 g/dl (12.0-15.0)
--- NOTE | 2018-12-13 14:22 | OP.ENDO_ITS ---
12/13/2018 Ramona Crews [address] [place] [address] Re : Upper GI endoscopy procedure for [facility] Dear Dr. Crews This procedure was performed on Thursday, December 13, 2018. My impressions and recommendations are as follows: Impressions : - LA Grade B reflux esophagitis. Biopsied. - Clotted blood in the stomach. - Two oozing duodenal ulcers with adherent clot. Injected with epinephrine - Erythematous mucosa in the antrum. Biopsied. Recommendations : - Return patient to hospital [facility] for ongoing care. - NPO. - Continue present medications. - Repeat upper endoscopy tomorrow for retreatment. My findings are described in the full procedure note, which is enclosed. If I can be of further assistance, please feel free to contact me at Doctor phone number(s): Work: . Sincerely, Star Martínez MD 12/13/2018 2:21:33 PM This report has been signed electronically.
--- NOTE | 2018-12-13 14:23 | EKG12_ITS ---
Test Reason : POST-OP Blood Pressure : / mmHG Vent. Rate : 103 BPM Atrial Rate : 103 BPM P-R Int : 160 ms QRS Dur : 078 ms QT Int : 352 ms P-R-T Axes : 000 028 070 degrees QTc Int : 461 ms Sinus tachycardia with Premature atrial complexes Otherwise normal ECG When compared with ECG of 12-DEC-2018 22:06, MANUAL COMPARISON REQUIRED, DATA IS UNCONFIRMED Confirmed by FERMÍN PETERS ([id number]), writer editor MILTON DUVALL ([id number]) on 12/18/2018 2:41:28 PM Referred By: Ramona Crews Confirmed By:MIRA PETERS
--- NOTE | 2018-12-13 14:58 | CASEMGMT ---
Patient has a Healthcare POA and Healthcare LW on file. 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
[2018-12-13] MEDS: 0.9% Normal Saline 1,000 ML 125 ML IV ×2 (15:00→16:51)
[2018-12-13] MEDS: Ondansetron 4 MG/2 ML Vial IV (16:48)
[2018-12-13] MEDS: Multivitamins,Ther W-Minerals Tablet 1 TABLET PO (16:49)
[2018-12-13] MEDS: FLUoxetine 20 MG Capsule 40 MG PO (16:49)
[2018-12-13] MEDS: Metoprolol(XL)Succ 100 MG Tablet PO (16:49)
[2018-12-13] MEDS: Thiamine Hydrochloride 100 MG Tablet PO (16:49)
[2018-12-13] MEDS: Folic Acid 1 MG Tablet PO (16:50)
[2018-12-13 17:41] LABS: Hematocrit 17.8 % (37-47); Hemoglobin 6.3 g/dl (12.0-15.0)
[2018-12-14] VITALS (22 sets, daily range): BP systolic 101–142; BP diastolic 47–83; PULSE 60–72; RESP 12–18; TEMP 36.1–36.9; O2SAT 95–100
--- NOTE | 2018-12-14 06:44 | PCM.PN.BLA ---
Progress Note Pt claims no stools since yesterday Hgb 12 to 6 drop and 2 units PRBC Post transfusion labs not resulted Repeat EGD with significant duodenal ulceration and reflux esophagitis. No active bleeding Continue monitoring
--- NOTE | 2018-12-14 06:50 | OP.ENDO_ITS ---
12/14/2018 Ramona Crews [address] [place] [address] Re : Upper GI endoscopy procedure for [facility] Dear Dr. Crews This procedure was performed on December. My impressions and recommendations are as follows: Impressions : - LA Grade A reflux esophagitis. - Erythematous mucosa in the stomach. - Multiple non-bleeding duodenal ulcers. - No specimens collected. Active bleeding treated yesterday with epinephrine injections has stopped Recommendations : - Observe patient in PCU until patient is stable. - Clear liquid diet. - Continue present medications. My findings are described in the full procedure note, which is enclosed. If I can be of further assistance, please feel free to contact me at Doctor phone number(s): Work: . Sincerely, Star Martínez MD 12/14/2018 6:50:15 AM This report has been signed electronically.
[2018-12-14] MEDS: 0.9% Normal Saline 1,000 ML 125 ML IV ×2 (07:59→16:21)
[2018-12-14] MEDS: Folic Acid 1 MG Tablet PO (08:00)
[2018-12-14] MEDS: Thiamine Hydrochloride 100 MG Tablet PO ×2 (08:00→16:20)
[2018-12-14] MEDS: Multivitamins,Ther W-Minerals Tablet 1 TABLET PO (08:00)
[2018-12-14 08:03] LABS: Hematocrit 24.5 % (37-47); Hemoglobin 8.8 g/dl (12.0-15.0); Mean Corp Hgb Conc 35.9 g/gl (32-36); Mean Corpuscular Hgb 32.4 pg (27.0-32.0); Mean Corpuscular Volume 90.1 fL (81-99); Mean Platelet Vol. 8.3 fl (6.2-12.0); Platelet Count 102 K/mm3 (150-450); RBC Distribution Width CV 15.9 % (11.6-14.6); RBC Distribution Width SD 52.4 fl (35.1-43.9); Red Blood Count 2.72 M/mm3 (4.2-5.4); Scan Indicated on CBC? Y/N NO
[2018-12-14 08:22] LABS: ALB/GLOB Ratio 1.2 RATIO (0.9-2.4); AST(SGOT) 23 U/L (15-37); Alanine Aminotransfer ALT/SGPT 14 U/L (13-56); Albumin, Serum 2.4 g/dL (3.2-5.0); Alkaline Phosphatase 82 U/L (45-117); Anion Gap 5 (5-15); BUN 49 mg/dL (7-18); BUN/Creat Ratio 62.8 RATIO (10-20); Calcium,Total 7.6 mg/dL (8.5-10.1); Chloride 107 mmol/L (98-107); Creatinine, Serum 0.78 mg/dL (0.55-1.02); EST Glomerular Filtration Rate 76 mL/min (>60); Est Glom Filt Rate - Afr Amer 92 mL/min (>60); Estimated Creatinine Clearance 34.68 ml/min; Glucose 76 mg/dL (74-106); Potassium 3.4 mmol/L (3.5-5.1); Protein, Total 4.4 g/dL (6.4-8.2); Sodium Level 138 mmol/L (136-145)
--- NOTE | 2018-12-14 09:45 | CASEMGMT ---
Addendum entered by Zara Ferrer 12/14/18 10:13: Pt states that she has had some trip/falls recently and states that she has a small dog that frequently runs out in front of her at home. Pt states no other concerns regarding this at this time. Nick HAYES CM Original Note: ABIGAIL RODRIGUEZ assessment: Face to Face with patient for initial transition planning/care coordination assessment. ABIGAIL RODRIGUEZ introduced self and role at [facility], pt voices understanding and consents to assessment at this time. Pt is sitting up in bed in no distress at this time. Pt is A/Ox4 at this time and answers all questions appropriately at this time. Care providers, pharmacy, and demographics verified at this time. PCP: [facility]: [place] psychiatrist at [facility] [place]-pt states sees regularly and denies any depression concerns at this time. This ABIGAIL RODRIGUEZ did offer SW to speak with pt and pt declined at this time. Preferred Pharmacy: [facility] Rich Insurance: MCR A/B, APWU Prescription Benefit: MCR D Living Will/HPOA: Pt states has LW HPOA and this ABIGAIL RODRIGUEZ verified that they are on file at [facility] at this time. Pt states that her son, Umair Street, is HPOA. LNOK: Umair [address], son Living Arrangements: Pt states lives alone in 2 story home with chairlift to 2nd story and states no concerns at home at this time. Pt states is independent with ADL's. Transportation: Pt states drives self and states no transportation concerns at this time. DME/HHC: Pt states has the following DME: canes, walkers, w/c, grab bars, shower chair, and the stair lift to 2nd floor. Pt states no need for any further DME at this time. Pt states did go to [facility] and have HHC set up s/p hip surgery several years ago. Pt states no concerns with going home at time of discharge. Pt states is retired. Pt states does not smoke and states drinks wine occasionally before bed to help her sleep. Pt states no further concerns/needs at this time. CM to follow for any further questions/concerns/needs at this time. Advised pt to ask for CM if any further questions/concerns/needs arise, voices understanding. Pt Goal: Home Plan: Home Nick HAYES CM
[2018-12-14] MEDS: Metoprolol(XL)Succ 100 MG Tablet PO (09:50)
[2018-12-14] MEDS: FLUoxetine 20 MG Capsule 40 MG PO (09:58)
--- NOTE | 2018-12-14 11:03 | PCM.PN.HOSP ---
Patient Problems: Active and Suspected Problems Intractable nausea and vomiting (Acute) Hematemesis (Acute) Subjective: No further bleeding. Vitals/I&O's: Vital Signs Temp Pulse Resp BP Pulse Ox 36.7 C 70 16 107/62 97 12/14/18 08:02 12/14/18 10:50 12/14/18 08:02 12/14/18 09:50 12/14/18 08:37 Oxygen Delivery Method Room Air Weight: 45.9 kg Body Mass Index (BMI) 18.5 Finger Stick Blood Glucose 88 Intake and Output for Last 24 Hours 12/12/18 12/13/18 12/14/18 23:59 23:59 23:59 Intake Total 2662 / 2662 2580 / 2580 Output Total 240 / 240 Balance 2422 / 2422 2580 / 2580 General: Alert, No apparent distress HEENT: Atraumatic, Normocephalic Oral: Moist Mucosa, No Gingival or Mucosal Lesions/ Ulcerations Neck: No Nodes, Thyroid Normal Size and Texture Lungs: Clear to auscultation, Normal air movement, No rhonchi, No wheeze Cardiovascular: Regular rate, Regular Rhythm, Normal S1, Normal S2, No murmurs Abdomen: Bowel Sounds Present, Soft, Non Tender, Non-Distended, No Hepato-splenomegaly Extremities: No edema, No Calf Tenderness Skin: No rashes, No breakdown Psych/Mental Status: Normal Affect, Appropriate Microbiology Past 72 Hours 12/13/18 00:05 Gastric Fluid/Contents Gastric Occult Blood - Final Occult Blood Positive Laboratory Results 12/13/18 12:28: Hgb 7.2 L, Hct 26.2 L 12/13/18 17:30: Hgb 6.3 L, Hct 17.8 L 12/13/18 17:30: Blood Type A POSITIVE, Antibody Screen NEGATIVE, Crossmatch See Detail 12/13/18 17:30: Crossmatch See Detail 12/14/18 07:40: WBC 5.0, RBC 2.72 L, Hgb 8.8 L, Hct 24.5 L, MCV 90.1, MCH 32.4 H, MCHC 35.9, RDW 15.9 H, RDW Differential 52.4 H, Plt Count 102 L, MPV 8.3 12/14/18 07:40: Sodium 138, Potassium 3.4 L, Chloride 107, Carbon Dioxide 26.0, Anion Gap 5, BUN 49 H, Creatinine 0.78, Estim Creat Clear Calc 34.68, Est GFR (MDRD) Af Amer 92, Est GFR (MDRD) Non-Af 76, BUN/Creatinine Ratio 62.8 H, Glucose 76, Calcium 7.6 L, Total Bilirubin 0.50, AST 23, ALT 14, Alkaline Phosphatase 82, Total Protein 4.4 L, Albumin 2.4 L, Globulin 2.0 L, Albumin/Globulin Ratio 1.2 Current Medications Atorvastatin Calcium (Lipitor) 10 mg PO QHS [facility] Last Admin: 12/13/18 23:32 Dose: Not Given Bisacodyl (Dulcolax) 5 mg PO DAILY PRN PRN PRN Reason: Constipation Dextrose (D50w Syringe) 0 gm IV X1 PRN; Protocol PRN Reason: Hypoglycemia Fentanyl (Duragesic Patch) 25 mcg TRANSDERM. Q72H [facility] Last Admin: 12/14/18 09:57 Dose: Not Given Fluoxetine HCl (Prozac) 40 mg PO DAILY [facility] Last Admin: 12/14/18 09:58 Dose: 40 mg Folic Acid (Folic Acid) 1 mg PO DAILY@0800 [facility] Stop: 12/15/18 08:01 Last Admin: 12/14/18 08:00 Dose: 1 mg Glucagon () 1 mg IM .X1 PRN PRN Reason: Hypoglycemia Ceftriaxone Sodium (Rocephin) 1 gm in 50 mls @ 100 mls/hr IV QHS [facility] Last Admin: 12/13/18 23:49 Dose: 100 mls/hr Pantoprazole Sodium 40 mg/ (Sodium Chloride) 110 mls @ 330 mls/hr IV Q12 [facility] Last Admin: 12/14/18 09:56 Dose: 330 mls/hr Sodium Chloride () 1,000 mls @ 125 mls/hr IV .Q8H [facility] Last Admin: 12/14/18 07:59 Dose: 125 mls/hr Lorazepam (Ativan) 2 mg PO Q2H PRN PRN; Protocol PRN Reason: CIWA score > 8 but <15 Lorazepam (Ativan) 2 mg IV Q2H PRN PRN; Protocol PRN Reason: CIWA score > 8 but <15 Lorazepam (Ativan) 2 mg PO UD PRN; Protocol PRN Reason: CIWA score >/=15. Lorazepam (Ativan) 2 mg IV UD PRN; Protocol PRN Reason: CIWA score >/=15. Metoprolol Succinate (Toprol Xl (Beta Jaxon)) 100 mg PO DAILY [facility] Last Admin: 12/14/18 09:50 Dose: 100 mg Multivitamins/Minerals (Multivitamin With Minerals) [facility] Last Admin: 12/14/18 08:00 Dose: 1 tablet Ondansetron HCl (Zofran) 4 mg IV Q6H PRN PRN PRN Reason: NAUSEA/VOMITING Last Admin: 12/13/18 16:48 Dose: 4 mg Prochlorperazine Edisylate (Compazine Iv) 5 mg IV Q4H PRN PRN PRN Reason: Breakthrough nausea/vomiting Thiamine HCl (Vitamin B1) 100 [facility] Stop: 12/15/18 17:01 Last Admin: 12/14/18 08:00 Dose: 100 mg Medical Necessity - Tobacco Use Smoking Status: Never smoker Assessment/Plan All Active Problems Intractable nausea and vomiting (Acute) Hematemesis (Acute) Severe sepsis (Resolved) UTI (urinary tract infection) (Acute) Generalized weakness (Acute) Dehydration (Resolved) Decreased functional residual capacity (Acute) 1. Upper GI bleed: 2/2 duodenal ulcers no bleeding today IV PPI clears for now 2. Acute blood loss anemia 12.1 to 7.2 Monitor s/p transfusion of 2 units PRBCs repeat Hg 2/2 above 3. Duodenal ulcers no bleeding today continue PPI 4. VTE prophylaxis: SCDs 5. Disposition: monitor overnight to monitor Hg and observe Code Visit Inpatient E&M: 36782 [facility] Hosp L2
--- NOTE | 2018-12-14 11:10 | PN_ITS ---
Patient Problems: Active and Suspected Problems Intractable nausea and vomiting (Acute) Hematemesis (Acute) Subjective: No further bleeding. Vitals/I&O's: Vital Signs Temp Pulse Resp BP Pulse Ox 36.7 C 70 16 107/62 97 12/14/18 08:02 12/14/18 10:50 12/14/18 08:02 12/14/18 09:50 12/14/18 08:37 Oxygen Delivery Method Room Air Weight: 45.9 kg Body Mass Index (BMI) 18.5 Finger Stick Blood Glucose 88 Intake and Output for Last 24 Hours 12/12/18 12/13/18 12/14/18 23:59 23:59 23:59 Intake Total 2662 / 2662 2580 / 2580 Output Total 240 / 240 Balance 2422 / 2422 2580 / 2580 General: Alert, No apparent distress HEENT: Atraumatic, Normocephalic Oral: Moist Mucosa, No Gingival or Mucosal Lesions/ Ulcerations Neck: No Nodes, Thyroid Normal Size and Texture Lungs: Clear to auscultation, Normal air movement, No rhonchi, No wheeze Cardiovascular: Regular rate, Regular Rhythm, Normal S1, Normal S2, No murmurs Abdomen: Bowel Sounds Present, Soft, Non Tender, Non-Distended, No Hepato- splenomegaly Extremities: No edema, No Calf Tenderness Skin: No rashes, No breakdown Psych/Mental Status: Normal Affect, Appropriate Microbiology Past 72 Hours 12/13/18 00:05 Gastric Fluid/Contents Gastric Occult Blood - Final Occult Blood Positive Laboratory Results 12/13/18 12:28: Hgb 7.2 L, Hct 26.2 L 12/13/18 17:30: Hgb 6.3 L, Hct 17.8 L 12/13/18 17:30: Blood Type A POSITIVE, Antibody Screen NEGATIVE, Crossmatch See Detail 12/13/18 17:30: Crossmatch See Detail 12/14/18 07:40: WBC 5.0, RBC 2.72 L, Hgb 8.8 L, Hct 24.5 L, MCV 90.1, MCH 32.4 H , MCHC 35.9, RDW 15.9 H, RDW Differential 52.4 H, Plt Count 102 L, MPV 8.3 12/14/18 07:40: Sodium 138, Potassium 3.4 L, Chloride 107, Carbon Dioxide 26.0, Anion Gap 5, BUN 49 H, Creatinine 0.78, Estim Creat Clear Calc 34.68, Est GFR (MDRD) Af Amer 92, Est GFR (MDRD) Non-Af 76, BUN/Creatinine Ratio 62.8 H, Glucose 76, Calcium 7.6 L, Total Bilirubin 0.50, AST 23, ALT 14, Alkaline Phosphatase 82, Total Protein 4.4 L, Albumin 2.4 L, Globulin 2.0 L, Albumin/Globulin Ratio 1.2 Current Medications Atorvastatin Calcium (Lipitor) 10 mg PO QHS [facility] Last Admin: 12/13/18 23:32 Dose: Not Given Bisacodyl (Dulcolax) 5 mg PO DAILY PRN PRN PRN Reason: Constipation Dextrose (D50w Syringe) 0 gm IV X1 PRN; Protocol PRN Reason: Hypoglycemia Fentanyl (Duragesic Patch) 25 mcg TRANSDERM. Q72H [facility] Last Admin: 12/14/18 09:57 Dose: Not Given Fluoxetine HCl (Prozac) 40 mg PO DAILY [facility] Last Admin: 12/14/18 09:58 Dose: 40 mg Folic Acid (Folic Acid) 1 mg PO DAILY@0800 [facility] Stop: 12/15/18 08:01 Last Admin: 12/14/18 08:00 Dose: 1 mg Glucagon () 1 mg IM .X1 PRN PRN Reason: Hypoglycemia Ceftriaxone Sodium (Rocephin) 1 gm in 50 mls @ 100 mls/hr IV QHS [facility] Last Admin: 12/13/18 23:49 Dose: 100 mls/hr Pantoprazole Sodium 40 mg/ (Sodium Chloride) 110 mls @ 330 mls/hr IV Q12 [facility] Last Admin: 12/14/18 09:56 Dose: 330 mls/hr Sodium Chloride () 1,000 mls @ 125 mls/hr IV .Q8H [facility] Last Admin: 12/14/18 07:59 Dose: 125 mls/hr Lorazepam (Ativan) 2 mg PO Q2H PRN PRN; Protocol PRN Reason: CIWA score > 8 but <15 Lorazepam (Ativan) 2 mg IV Q2H PRN PRN; Protocol PRN Reason: CIWA score > 8 but <15 Lorazepam (Ativan) 2 mg PO UD PRN; Protocol PRN Reason: CIWA score >/=15. Lorazepam (Ativan) 2 mg IV UD PRN; Protocol PRN Reason: CIWA score >/=15. Metoprolol Succinate (Toprol Xl (Beta Jaxon)) 100 mg PO DAILY [facility] Last Admin: 12/14/18 09:50 Dose: 100 mg Multivitamins/Minerals (Multivitamin With Minerals) [facility] Last Admin: 12/14/18 08:00 Dose: 1 tablet Ondansetron HCl (Zofran) 4 mg IV Q6H PRN PRN PRN Reason: NAUSEA/VOMITING Last Admin: 12/13/18 16:48 Dose: 4 mg Prochlorperazine Edisylate (Compazine Iv) 5 mg IV Q4H PRN PRN PRN Reason: Breakthrough nausea/vomiting Thiamine HCl (Vitamin B1) [facility] Stop: 12/15/18 17:01 Last Admin: 12/14/18 08:00 Dose: 100 mg Medical Necessity - Tobacco Use Smoking Status: Never smoker Assessment/Plan All Active Problems Intractable nausea and vomiting (Acute) Hematemesis (Acute) Severe sepsis (Resolved) UTI (urinary tract infection) (Acute) Generalized weakness (Acute) Dehydration (Resolved) Decreased functional residual capacity (Acute) 1. Upper GI bleed: * 2/2 duodenal ulcers * no bleeding today * IV PPI * clears for now 2. Acute blood loss anemia * 12.1 to 7.2 * Monitor * s/p transfusion of 2 units PRBCs * repeat Hg * 2/2 above 3. Duodenal ulcers * no bleeding today * continue PPI 4. VTE prophylaxis: SCDs 5. Disposition: * monitor overnight to monitor Hg and observe Code Visit Inpatient E&M: 67530 Subs Hosp L2
[2018-12-14] MEDS: LORazepam 1 MG Tablet 2 MG PO (18:19)
[2018-12-14] MEDS: Atorvastatin Calcium 10 MG Tablet PO (21:07)
[2018-12-14] MEDS: Ceftriaxone 1 GM/50 ML BAG IV (21:19)
[2018-12-15] VITALS (8 sets, daily range): BP systolic 119–138; BP diastolic 55–68; PULSE 56–68; RESP 16–18; TEMP 36.7–37; O2SAT 98–100
[2018-12-15] MEDS: 0.9% Normal Saline 1,000 ML 125 ML IV ×2 (01:09→09:06)
--- NOTE | 2018-12-15 06:12 | PCM.PN.SRG ---
Patient Problems: Active and Suspected Problems Intractable nausea and vomiting (Acute) Hematemesis (Acute) Subjective: Pt resting comfortably, no c/o abdominal pain. No nausea. Tolerated clears and would like advancement. No stool - Physical Exam Abdomen: Bowel Sounds Present, Soft, Non Tender, Non-Distended Vital Signs Temp Pulse Resp BP Pulse Ox 98.2 F 57 L 18 125/68 H 99 12/15/18 01:15 12/15/18 03:00 12/15/18 01:15 12/15/18 01:15 12/15/18 01:15 Oxygen Delivery Method Room Air Weight: 101 lb 3.075 oz Body Mass Index (BMI) 18.5 Finger Stick Blood Glucose 88 Intake and Output for Last 24 Hours 12/13/18 12/14/18 12/15/18 23:59 23:59 23:59 Intake Total 2662 / 2662 4400 / 4400 736 / 736 Output Total 240 / 240 Balance 2422 / 2422 4400 / 4400 736 / 736 Microbiology Past 72 Hours 12/12/18 22:25 Urine Culture - Preliminary Urine Catheter - Catheter Presumptive E. coli 12/13/18 00:05 Gastric Occult Blood - Final Gastric Fluid/Contents Occult Blood Positive Laboratory Tests Past 24 Hrs 12/14/18 12/14/18 07:40 07:40 WBC 5.0 RBC 2.72 L Hgb 8.8 L Hct 24.5 L MCV 90.1 MCH 32.4 H MCHC 35.9 RDW 15.9 H RDW Differential 52.4 H Plt Count 102 L MPV 8.3 Sodium 138 Potassium 3.4 L Chloride 107 Carbon Dioxide 26.0 Anion Gap 5 BUN 49 H Creatinine 0.78 Estim Creat Clear Calc 34.68 Est GFR (MDRD) Af Amer 92 Est GFR (MDRD) Non-Af 76 BUN/Creatinine Ratio 62.8 H Glucose 76 Calcium 7.6 L Total Bilirubin 0.50 AST 23 ALT 14 Alkaline Phosphatase 82 Total Protein 4.4 L Albumin 2.4 L Globulin 2.0 L Albumin/Globulin Ratio 1.2 Medical Necessity - Tobacco Use Smoking Status: Never smoker Assessment/Plan All Active Problems Intractable nausea and vomiting (Acute) Hematemesis (Acute) Severe sepsis (Resolved) UTI (urinary tract infection) (Acute) Generalized weakness (Acute) Dehydration (Resolved) Decreased functional residual capacity (Acute) On IV Rocephin for ?UTI Will advance diet to non gastric stimulant Pt is not aware of why she was taking a 81mg ASA at home, would hold this currently. Mild thrombocytopenia noted yesterday. I am concerned that she was not taking acid suppression medication. She has had a history of similar duodenal ulceration 2016. I advised to her no NSAIDS and no EtOH. I advised to her she take her newly prescribed meds at discharge Today's labs pending but she appears more stable
[2018-12-15 07:10] LABS: Absolute Lymphocyte Count 1.53 X10^3/ul (0.83-4.51); Basophil# 0.07 X10^3/uL; Basophil% 1.6 % (0-1); Eosinophil# 0.19 X10^3/uL; Eosinophils% 4.4 % (0-5); Hemoglobin 9.7 g/dl (12.0-15.0); Lymphocyte # 1.53 X10^3/ul (4.0); Lymphocyte % 35.4 % (19-41); Mean Corp Hgb Conc 34.6 g/gl (32-36); Mean Corpuscular Hgb 32.6 pg (27.0-32.0); Mean Platelet Vol. 8.4 fl (6.2-12.0); Monocyte# 0.45 X10^3/uL; Monocyte% 10.4 % (0-10); Neutrophil # 2.02 X10^3/uL (2.7-7.7); Neutrophil % 46.8 % (47-70); Platelet Count 120 K/mm3 (150-450); RBC Distribution Width CV 16.6 % (11.6-14.6); RBC Distribution Width SD 57.1 fl (35.1-43.9); Red Blood Count 2.98 M/mm3 (4.2-5.4); White Blood Count 4.3 K/mm3 (4.4-11.0)
[2018-12-15 07:13] LABS: POSITIVE COUNT NO; POSITIVE DIFFERENTIAL NO; POSITIVE MORPHOLOGY NO
[2018-12-15] MEDS: Folic Acid 1 MG Tablet PO (07:19)
[2018-12-15] MEDS: Multivitamins,Ther W-Minerals Tablet 1 TABLET PO (07:19)
[2018-12-15] MEDS: Thiamine Hydrochloride 100 MG Tablet PO (07:19)
[2018-12-15 08:30] LABS: Anion Gap 8 (5-15); BUN 25 mg/dL (7-18); BUN/Creat Ratio 35.2 RATIO (10-20); Calcium,Total 7.7 mg/dL (8.5-10.1); Chloride 109 mmol/L (98-107); Creatinine, Serum 0.71 mg/dL (0.55-1.02); EST Glomerular Filtration Rate 85 mL/min (>60); Est Glom Filt Rate - Afr Amer 103 mL/min (>60); Estimated Creatinine Clearance 34.68 ml/min; Glucose 79 mg/dL (74-106); Sodium Level 138 mmol/L (136-145)
[2018-12-15] MEDS: Metoprolol(XL)Succ 100 MG Tablet PO (09:07)
[2018-12-15] MEDS: FLUoxetine 20 MG Capsule 40 MG PO (09:07)
--- NOTE | 2018-12-15 10:47 | DCINST_ITS ---
- Discharge Diagnoses Current Active Problems: Current Active and Chronic Problems Intractable nausea and vomiting (Acute) Hematemesis (Acute) You will use the following diet at home:: Cardiac Your food should be the consistency of: Regular Your liquids should be the consistency of: Regular/Thin Discharge Activity: Return to Normal Activity Weight Bearing Status: Weight bearing as tolerated Instructions: Bleeding Peptic Ulcer: Treatment, Peptic Ulcer, The Impact of Alcoholism, Alcoholism: Getting Help Additional Instructions: do not take any NSAIDS, and patient strongly advised to stop drinking alcohol Allergies/Adverse Reactions: Allergies acetaminophen Adverse Reaction (Verified 12/13/18 00:50) 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 Q72H #10 patch 06/29/14 Cholecalciferol (Vitamin D3) [D3-2000] 2,000 unit PO DAILY 06/21/18 Ibandronate Sodium [Boniva] 150 mg PO Q30D 06/21/18 Metoprolol Succinate [Toprol Xl] 100 mg PO DAILY 06/21/18 Acetaminophen [Tylenol Arthritis] 650 mg PO QHS 09/27/18 Calcium Carbonate [Calcium] 600 mg PO DAILY 09/27/18 Ferrous Sulfate 325 mg PO DAILY 09/27/18 Atorvastatin Calcium [Lipitor] 10 mg PO QHS 12/12/18 Duloxetine HCl 30 mg PO 12/12/18 Fluoxetine HCl [Prozac] 40 mg PO 12/12/18 Gabapentin [Neurontin] 100 mg PO DAILY 12/12/18 Cefdinir [Omnicef [equiv]] 300 mg PO Q12H #10 cap 12/15/18 Pantoprazole Sodium [Protonix] 40 mg PO BID #60 tab 12/15/18 Sucralfate 1 gm PO 4X/DAY #120 tab 12/15/18 The following prescriptions were given: Cefdinir [Omnicef [equiv]] 300 mg PO Q12H #10 cap Pantoprazole Sodium [Protonix] 40 mg PO BID #60 tab Sucralfate 1 gm PO 4X/DAY #120 tab Primary Care Physician: Ramona Crews MD [Primary Care Provider] - Please follow up with your Primary Care Physician in: one week Test Results: Test results from this visit will be discussed in further detail at your follow- up appointment, if applicable. Please Follow Up With: Star Martínez MD When: one week Proposed Discharge Date: 12/15/18
--- NOTE | 2018-12-15 10:47 | DS.PCM_ITS ---
Discharge Date and Diagnosis - Problem List Patient Problems: Active and Suspected Problems Intractable nausea and vomiting (Acute) Hematemesis (Acute) Date of Admission: 12/12/18 Date of Discharge: 12/15/18 - Primary Discharge Diagnosis Active and Suspected Problems Intractable nausea and vomiting (Acute) Hematemesis (Acute) peptic ulcer disease - Secondary Discharge Diagnosis Chronic Problems History of DVT (deep vein thrombosis) (Chronic) PUD (peptic ulcer disease) (Chronic) Chronic back pain (Chronic) Hyperlipidemia (Chronic) Depression (Chronic) Benign essential hypertension (Chronic) Alcohol abuse (Chronic) Gastrointestinal bleed (Chronic) Recurrent dislocation of right hip (Chronic) Chronic blood loss anemia (Chronic) Recurrent falls (Chronic) Hospital Course and Treatment Imaging Results: Diagnostic Data Chest X-Ray 12/12/18 22:09 IMPRESSION: No acute cardiopulmonary process. Electronically Signed: Jennifer Patel MD at 22:26 EDT Tel , Service support , Operations: None, - Procedures: - - EGD Summary of Care Provided: The patient is a 78 year old F with a PMH as listed, and includes PUD, hypertension, alcohol abuse and DVT. She was admitted on 12/12/18 with a complaint of generalised weakness for 2 weeks prior to presentation, with associated intractable nausea and vomiting also for 2 weeks prior to admission. Patient had been diagnosed with UTI on outpatient basis and started on antibiotics. Patient also reported chronic alcohol intake drinking about 2 glasses of wine 4 times a week though she denied having a drinking problem. In the ED, she was found to have black to red watery emesis which was positive for occult blood. UA was also positive for UTI. She was also found to have FRANK with creatinine of 1.68 and baseline creatinine being 1. She was admitted and managed for acute upper GI bleed due to bleeding peptic ulcer disease, FRANK and UTI. She was also managed for alcohol abuse and acute hyponatremia. She was started on IV ceftriaxone for UTI. She was hydrated with IV fluids and general surgery was consulted. She had an EGD on 12/13/2018 showed grade B reflux esophagitis which was biopsied as well as clotted blood in the stomach and 2 oozing duodenal ulcers with adherent clots which were injected with epinephrine and erythematous mucosa in the antrum which was also biopsied. She had a 219 which showed similar findings though duodenal ulcer status of bleeding and active bleeding witnessed and treated with epinephrine injection had stopped. She was started on clear liquid diet and continued on her PPI. Hemoglobin dropped as low as 6.3 necessitating transfusion of 2 units of packed red blood cells. Hemoglobin on day of discharge was 9.7. Patient remained stable and she was transitioned to a non-gastric stimulant diet. She was counseled strongly to quit drinking alcohol. She was also counseled strongly to be adherent with her PPI. Sucralfate was also added on. She remained stable and was discharged home on 12/15/2018 with home health care. She is to follow-up with her primary care doctor and general surgery. Hyponatremia had resolved at time of discharge and FRANK had also resolved. Seen and examined prior to discharge. She had no complaints and felt well. She did look very frail and stated that she lived alone. He was amenable to getting home health care to come to her home. Review of systems otherwise negative. Labs and vitals reviewed. Home medications reviewed and reconciled. o/e: Vital Signs Height 5 ft 2 in Weight: 101 lb 3.075 oz Weight in Pounds 101.2 lbs Pulse Ox 98 Temperature 98.6 F Pulse Rate 62 Respiratory Rate 16 Blood Pressure 138/63 Blood Pressure Position Sitting [] General: Alert, No apparent distress HEENT: Atraumatic, Normocephalic Oral: Moist Mucosa, No Gingival or Mucosal Lesions/ Ulcerations Neck: No Nodes, Thyroid Normal Size and Texture Lungs: Clear to auscultation, Normal air movement, No rhonchi, No wheeze Cardiovascular: Regular rate, Regular Rhythm, Normal S1, Normal S2, No murmurs Abdomen: Bowel Sounds Present, Soft, Non Tender, Non-Distended, No Hepato- splenomegaly Extremities: No edema, No Calf Tenderness Skin: No rashes, No breakdown Psych/Mental Status: Normal Affect, Appropriate Plan is as above. She was also counseled to abstain from taking any NSAIDS. She was discahrged on p.o. cefdinir 300 mg twice daily for 5 days. Patient Problems: Active and Suspected Problems Intractable nausea and vomiting (Acute) Hematemesis (Acute) - Physical Exam Vital Signs Temp Pulse Resp BP Pulse Ox 98.1 F 65 18 119/55 L 100 12/15/18 06:15 12/15/18 10:33 12/15/18 06:15 12/15/18 09:07 12/15/18 07:26 Oxygen Delivery Method Room Air Weight: 101 lb 3.075 oz Body Mass Index (BMI) 18.5 Finger Stick Blood Glucose 88 Intake and Output for Last 24 Hours 12/13/18 12/14/18 12/15/18 23:59 23:59 23:59 Intake Total 2662 / 2662 4400 / 4400 736 / 736 Output Total 240 / 240 Balance 2422 / 2422 4400 / 4400 736 / 736 Microbiology Past 72 Hours 12/12/18 22:25 Urine Culture - Final Urine Catheter - Catheter Presumptive E. coli 12/13/18 00:05 Gastric Occult Blood - Final Gastric Fluid/Contents Occult Blood Positive Laboratory Tests Past 24 Hrs 12/15/18 12/15/18 06:48 06:48 WBC 4.3 L RBC 2.98 L Hgb 9.7 L Hct 28.0 L MCV 94.0 MCH 32.6 H MCHC 34.6 RDW 16.6 H RDW Differential 57.1 H Plt Count 120 L MPV 8.4 Immature Gran % (Auto) 1.400 H Neut % (Auto) 46.8 L Lymph % (Auto) 35.4 [place] % (Auto) 10.4 H Eos % (Auto) 4.4 Baso % (Auto) 1.6 H Absolute Neuts (auto) 2.0 Absolute Lymphs (auto) 1.53 Total Counted Not Reportable Sodium 138 Potassium 4.0 Chloride 109 H Carbon Dioxide 21.0 Anion Gap 8 BUN 25 H Creatinine 0.71 Estim Creat Clear Calc 34.68 Est GFR (MDRD) Af Amer 103 Est GFR (MDRD) Non-Af 85 BUN/Creatinine Ratio 35.2 H Glucose 79 Calcium 7.7 L Discharge Diet: Low fat/ Low Cholesterol Discharge Activity: Return to Normal Activity Weight Bearing Status: Weight bearing as tolerated Call your doctor if you observe: Fever of 101 or Higher, - - worsening abdominal pain, coffee ground or bloody emesis Home Medications: Medications to take at Discharge fentaNYL patch [Duragesic patch] 25 mcg TRANSDERM. Q72H #10 patch 06/29/14 Cholecalciferol (Vitamin D3) [D3-2000] 2,000 unit PO DAILY 06/21/18 Ibandronate Sodium [Boniva] 150 mg PO Q30D 06/21/18 Metoprolol Succinate [Toprol Xl] 100 mg PO DAILY 06/21/18 Acetaminophen [Tylenol Arthritis] 650 mg PO QHS 09/27/18 Calcium Carbonate [Calcium] 600 mg PO DAILY 09/27/18 Ferrous Sulfate 325 mg PO DAILY 09/27/18 Atorvastatin Calcium [Lipitor] 10 mg PO QHS 12/12/18 Duloxetine HCl 30 mg PO 12/12/18 Fluoxetine HCl [Prozac] 40 mg PO 12/12/18 Gabapentin [Neurontin] 100 mg PO DAILY 12/12/18 Cefdinir [Omnicef [equiv]] 300 mg PO Q12H #10 cap 12/15/18 Pantoprazole Sodium [Protonix] 40 mg PO BID #60 tab 12/15/18 Sucralfate 1 gm PO 4X/DAY #120 tab 12/15/18 Following Prescrptions Were Given to Patient: Cefdinir [Omnicef [equiv]] 300 mg PO Q12H #10 cap Pantoprazole Sodium [Protonix] 40 mg PO BID #60 tab Sucralfate 1 gm PO 4X/DAY #120 tab Primary Care Physician: Ramona Crews MD [Primary Care Provider] - Please follow up with your Primary Care Physician in: one week Please Follow Up With: Star Martínez MD When: one week Patient Instructions: Peptic Ulcer, Bleeding Peptic Ulcer: Treatment, The Impact of Alcoholism, Alcoholism: Getting Help Disposition: Home with Home Health Minutes spent on discharge:: 40 Patient Condition:: Stable Medical Necessity - Tobacco Use Smoking Status: Never smoker Meaningful Use Info Meaningful Use Diagnoses (Choose all that apply): None applicable Code Visit Inpatient E&M: 75352 Disch Hosp
--- NOTE | 2018-12-15 10:48 | CASEMGMT ---
Addendum entered by Aleksandr Gary 12/15/18 11:26: Per Radha @ [facility], they are able to accept pt. Original Note: RN JENNIFER NOTE: Per Dr Villa, she feels pt would benefit from [facility] prison on discharge. To room to talk with pt. Pt resting in bed, awake/alert/oriented. Introduced self and role of ABIGAIL RODRIGUEZ to pt. Discussed [facility] with pt for prison. Pt agreeable to [facility] and denies preference of agency. Call placed to Radha @ [facility] and referral made. Steffanie TORIBION ABIGAIL CM
--- NOTE | 2018-12-15 12:39 | NURSING ---
Pt to be discharged to home today, waiting for her son to get off work around 2pm. Pts RX's sent to [facility] retail pharmacy so she will have them with her at discharge.
--- NOTE | 2018-12-15 13:55 | NURSING ---
Discharge instructions reviewed with pt and her son, verbalizes understanding. Copy of instructions given to pt. Pts son picked up her prescriptions from [facility] pharmacy.
--- NOTE | 2018-12-18 11:53 | CASEMGMT ---
ABIGAIL RODRIGUEZ DC PHONE CALL DC DATE: 12/18/18 DC Disposition: Home with [facility] LACE/STRATA: 11/25 Intro role of CM to patient via phone. Per pt she did not have questions or concerns re: prescriptions, follow up or instructions. Reviewed medication Cefdinir. Pt states she is able to take without difficulty. No further questions, and no care improvement suggestions given. Miriam TORIBION RN AC
== END 2018-12-15 13:55 | disposition home or self-care (01) | DRG 378 ==
LOC: ED 22:11 → PCU 12-13 00:42
PROVIDERS: Anesthesiology; Nurse Practitioner Family; Surgery; Admitting Provider Hospitalist; Emergency Provider Emergency Medicine; Family Provider Family Medicine; PCP Family Medicine; Visit Provider Student in an Organized Health Care Education/Training Program
PROC: 0DJ08ZZ Inspection of Upper Intestinal Tract, Via Natural or Artificial Opening Endoscopic (ICD-10-PCS; CPT 43235; principal; 2018-12-13 11:10)
DX: K26.4 Chronic or unspecified duodenal ulcer with hemorrhage (principal); E87.1 Hypo-osmolality and hyponatremia; N17.9 Acute kidney failure, unspecified; D62 Acute posthemorrhagic anemia; N39.0 Urinary tract infection, site not specified; F32.9 Major depressive disorder, single episode, unspecified; E78.5 Hyperlipidemia, unspecified; Z86.718 Personal history of other venous thrombosis and embolism; F10.10 Alcohol abuse, uncomplicated; I10 Essential (primary) hypertension; K21.0 Gastro-esophageal reflux disease with esophagitis; G89.29 Other chronic pain; M54.9 Dorsalgia, unspecified
CPT/HCPCS: 36415; 71045; 80048; 80053; 80320; 81001; 82271; 83735; 83930; 83935; 84300; 84443; 84484; 85014; 85018; 85025; 85027; 85610; 86850; 86900; 86920; 86922; 87086; 87088; 87186; 88305; 88312; 88342; 92526; 92610; 93005; 97110; 97162; 97166; 99284; J7030; J7040; P9016; A4216; G0480; J2405

== ENCOUNTER 2018-12-20 17:27 | Inpatient (IN) | payer MEDICARE, OTHER, SELFPAY ==
[2018-12-15 13:10] VITALS: BMI 18.5
[2018-12-20 17:29] VITALS: BP 124/67; PULSE 91; RESP 16; TEMP 37; O2SAT 97; BMI 19.5
--- NOTE | 2018-12-20 18:07 | ED.VISSUMM ---
- ER Visit Summary Date of Service: 12/20/18 Chief Complaint: Depression, alcohol abuse and rule out suicidal History of Present Illness: The patient is a 78 F who lost her daughter from cancer about 2 years ago and her from an [place] about a year ago. Since that time she is been severely depressed. She lives alone in a large home. In the last 5 weeks she is been drinking heavily to mask her depression. She has had a recent GI bleed from ulcer disease. She has had falls from the alcohol. Basically she is become increasingly depressed. And son want her evaluated. She is never been suicidal in the past but was admitted to another hospital many years ago for depression. Son thinks she needs admitted for alcoholism more than transferred for psychiatric admission. Physical Examination: Older female vital signs are stable. She is afebrile. She does not look septic or toxic. HEENT exam dry reactive light. She has bruising on her right lower lip from a fall. No dental injury. Scalp nontender. Neck nontender. Trachea midline. Lungs clear to auscultation bilaterally. Heart regular rate and rhythm. Chest wall nontender. Abdomen soft nontender. Back spine is nontender she does have bruising on her right flank. She is moving all 4 extremities. Neurovascular intact. Nontender no deformity. Bruise on her left thigh. Neurologically she is intoxicated but awake alert and able to answer questions and moving all 4 extremities. Strong smell of alcohol on breath. Test Results: CBC White count 6. Hemoglobin 10.6 she is anemic with is actually trending upward from her prior. Electrolytes unremarkable glucose was only 39. She drank some orange juice it was still low she was given an amp of D50. Liver enzymes alk phos 158 AST of 41. Lipase normal. PT/INR PTT normal. Tox screen negative. Alcohol level 318. Emergency Department Course and Treatment: Older female with depression and alcoholism. Will undergo ED mental health work-up and then after a long discussion with her son will decide on disposition. Son does not want her treated for depression at this time. He wants her to be brought in for potential detox. Treatment Plan: I spoke to the hospitalist Dr. Ball and the patient will be admitted. Disposition: Admission Impression: Acute alcohol intoxication History of alcoholism Acute on chronic depression Chronic anemia with a history of GI bleed This note was generated with [email or web address] software. It may contain incorrect words, spelling, and punctuation that were not noted in review of the chart prior to signing ED Disposition - Plan for ED Patient: Referrals: Ramona Crews MD [Primary Care Provider] -
--- NOTE | 2018-12-20 18:10 | ED.DCSUM_ITS ---
- ER Visit Summary Date of Service: 12/20/18 Chief Complaint: Depression, alcohol abuse and rule out suicidal History of Present Illness: The patient is a 78 F who lost her daughter from cancer about 2 years ago and her from an [place] about a year ago. Since that time she is been severely depressed. She lives alone in a large home. In the last 5 weeks she is been drinking heavily to mask her depression. She has had a recent GI bleed from ulcer disease. She has had falls from the alcohol. Basically she is become increasingly depressed. And son want her evaluated. She is never been suicidal in the past but was admitted to another hospital many years ago for depression. Son thinks she needs admitted for alcoholism more than transferred for psychiatric admission. Physical Examination: Older female vital signs are stable. She is afebrile. She does not look septic or toxic. HEENT exam dry reactive light. She has bruising on her right lower lip from a fall. No dental injury. Scalp nontender. Neck nontender. Trachea midline. Lungs clear to auscultation nidhi aterally. Heart regular rate and rhythm. Chest wall nontender. Abdomen soft nontender. Back spine is nontender she does have bruising on her right flank. She is moving all 4 extremities. Neurovascular intact. Nontender no deformity. Bruise on her left thigh. Neurologically she is intoxicated but awake alert and able to answer questions and moving all 4 extremities. Strong smell of alcohol on breath. Test Results: CBC White count 6. Hemoglobin 10.6 she is anemic with is actually trending upward from her prior. Electrolytes unremarkable glucose was only 39. She drank some orange juice it was still low she was given an amp of D50. Liver enzymes alk phos 158 AST of 41. Lipase normal. PT/INR PTT normal. Tox screen negative. Alcohol level 318. Emergency Department Course and Treatment: Older female with depression and alcoholism. Will undergo ED mental health work-up and then after a long discussion with her son will decide on disposition. Son does not want her treated for depression at this time. He wants her to be brought in for potential detox. Treatment Plan: I spoke to the hospitalist Dr. Ball and the patient will be admitted. Disposition: Admission Impression: Acute alcohol intoxication History of alcoholism Acute on chronic depression Chronic anemia with a history of GI bleed This note was generated with [employer] software. It may contain incorrect words, spelling, and punctuation that were not noted in review of the chart prior to signing ED Disposition - Plan for ED Patient: Referrals: Ramona Crews MD [Primary Care Provider] -
[2018-12-20 18:28] LABS: Absolute Lymphocyte Count 1.28 X10^3/ul (0.83-4.51); Absolute Neutrophil Count 4.2 X10^3/uL (2.0-7.7); Basophil# 0.03 X10^3/uL; Basophil% 0.5 % (0-1); Hematocrit 30.8 % (37-47); Hemoglobin 10.6 g/dl (12.0-15.0); Lymphocyte # 1.28 X10^3/ul (4.0); Lymphocyte % 20.1 % (19-41); Mean Corp Hgb Conc 34.4 g/gl (32-36); Mean Corpuscular Hgb 31.9 pg (27.0-32.0); Mean Corpuscular Volume 92.8 fL (81-99); Mean Platelet Vol. 8.4 fl (6.2-12.0); Monocyte# 0.75 X10^3/uL; Monocyte% 11.8 % (0-10); Neutrophil # 4.22 X10^3/uL (2.7-7.7); Neutrophil % 66.3 % (47-70); Platelet Count 323 K/mm3 (150-450); RBC Distribution Width CV 15.8 % (11.6-14.6); RBC Distribution Width SD 51.9 fl (35.1-43.9); Red Blood Count 3.32 M/mm3 (4.2-5.4); White Blood Count 6.4 K/mm3 (4.4-11.0)
[2018-12-20 18:32] LABS: International Normalized Ratio 1.1
[2018-12-20 18:33] LABS: Partial Thromboplast Time 25.3 Seconds (24.1-36.2)
[2018-12-20 18:34] LABS: POSITIVE COUNT NO; POSITIVE DIFFERENTIAL NO; POSITIVE MORPHOLOGY NO
[2018-12-20] MEDS: 0.9% Normal Saline 1,000 ML 200 ML IV (18:35)
[2018-12-20 19:02] LABS: AST(SGOT) 41 U/L (15-37); Alanine Aminotransfer ALT/SGPT 26 U/L (13-56); Albumin, Serum 3.4 g/dL (3.2-5.0); Alkaline Phosphatase 158 U/L (45-117); Anion Gap 14 (5-15); BUN 16 mg/dL (7-18); BUN/Creat Ratio 19.4 RATIO (10-20); Calcium,Total 8.6 mg/dL (8.5-10.1); Chloride 100 mmol/L (98-107); Creatinine, Serum 0.82 mg/dL (0.55-1.02); EST Glomerular Filtration Rate 72 mL/min (>60); Est Glom Filt Rate - Afr Amer 87 mL/min (>60); Globulin 2.8 g/dL (2.2-4.2); Glucose 39 mg/dL (74-106); Lipase 128 U/L (73-393); Potassium 3.5 mmol/L (3.5-5.1); Protein, Total 6.2 g/dL (6.4-8.2); Sodium Level 134 mmol/L (136-145)
--- NOTE | 2018-12-20 19:04 | ED.RN ---
glu [address] called [address] lab. dr brown aware wants food given to the pt
--- NOTE | 2018-12-20 19:17 | ED.RN ---
MICHELA FROM LAB CALLED WITH ETOH 318. DR. CASAS INFORMED OF SAME.
[2018-12-20 19:33] VITALS: O2SAT 16
[2018-12-20 19:41] LABS: Bedside Glucose 57 mg/dL (70-110)
[2018-12-20 20:00] VITALS: RESP 15
[2018-12-20 20:00] LABS: Bedside Glucose 67 mg/dL (70-110)
[2018-12-20] MEDS: Dextrose 50%-Water 25 GM/50 ML DISP.SYRIN IV (20:00)
[2018-12-20 21:00] VITALS: BP 112/60; PULSE 72; RESP 16; O2SAT 95
[2018-12-20 21:10] LABS: Bedside Glucose 273 mg/dL (70-110)
[2018-12-20 21:26] LABS: Amphetamine Urine VISTA NEGATIVE (<1000 ng/mL); Barbiturate Urine VISTA NEGATIVE (< 200 ng/mL); Benzodiazepine Urine VISTA NEGATIVE (< 200 ng/mL); Cocaine Urine VISTA NEGATIVE (< 300 ng/mL); Ecstacy Urine VISTA NEGATIVE (< 500 ng/mL); Methadone Urine VISTA NEGATIVE (< 300 ng/mL); PCP Urine VISTA NEGATIVE (< 25 ng/mL); THC Urine VISTA NEGATIVE (< 50 ng/mL); Vista UDS pH Range 6
--- NOTE | 2018-12-20 22:13 | PCM.HP.STD ---
Problem List (1) Suicidal ideations Status: Acute (2) Major depression Status: Acute Qualifiers: Major depression recurrence: recurrent Active/Remission status: currently active Major depression episode severity: severe (3) Alcohol abuse Status: Chronic (4) Benign essential hypertension Status: Chronic (5) Chronic back pain Status: Chronic Qualifiers: Back pain location: back pain in unspecified location Back pain laterality: unspecified Qualified Code(s): M54.9 - Dorsalgia, unspecified; G89.29 - Other chronic pain (6) Chronic blood loss anemia Status: Chronic (7) Gastrointestinal bleed Status: Chronic Qualifiers: Gastritis type: alcoholic (8) History of DVT (deep vein thrombosis) Status: Chronic (9) Hyperlipidemia Status: Chronic Qualifiers: Hyperlipidemia type: unspecified Qualified Code(s): E78.5 - Hyperlipidemia, unspecified (10) PUD (peptic ulcer disease) Status: Chronic (11) Recurrent falls Status: Chronic History of Present Illness Date of Admission: 12/20/18 Chief Complaint: Brought by son for detox, suicidal ideation noted in the ED, declined detox. The patient is a 78 y/o F w/ PMHx: Chronic EtOH Abuse (at least 1/2 of 5th whiskey daily or several bottles wine daily, rotates), HTN, HLD, Recent recurrent GI bleed w/ PUD on PPI and sucralafate w/ Hx of associated anemia, Recurrent falls associated w/ intoxication, Chronic back pain on chronic narcotic therapy, Hx DVT, Hx of Liver Failure who was recently discharged on 12/15/18 following recurrent GI bleed secondary to peptic ulcer disease with ongoing alcohol abuse and FRANK w/ EGD on 12/13/2018 w/ grade B reflux esophagitis with oozing duodenal ulcers x 2 with adherent clots injected with epinephrine, erythematous mucosa in the antrum s/p biopsies, similar to prior EGD evaluations w/ similar interventions w/ Hgb during that admission dropping to 6.3 w/ PRBC administered 2 u w/ additionally from records review treatment for acute UTI on cefdinir regimen who now re-presents to the [facility] ED on 12/20/18, dropped off per her son secondary to initially stated desire to perform the EtOH Detox program; however, while in the ED the patient noted suicidal ideations, commenting that she would take all the pills in her house to kill herself and eventually admitting last EtOH intake promptly prior to coming to ED (3 mixed whiskey-7up drinks) and then declining any treatment for her EtOH Abuse and requesting to go home. Discussed current presentation, patient completely oriented and noted she would need to remain for evaluation per Crisis given her suicidal ideations which she eventually noted she did not mean and would not kill herself as she has a dog that need her but was willing to remain for evaluation. Work-up in the ED included T 98.6, heart rate 91, BP 124/67, respiratory rate 16, 97% on room air, CBC with WBC 6.4, hemoglobin 10.6, platelet 323 with increased monocytes, increased immature granulocytes otherwise not market, unremarkable coags, CMP with sodium 134, come dioxide 20, glucose 39, AST/ALT 41/26, alkaline phosphatase 158, lipase 128, urine drug screen negative, ethyl alcohol level 318. Past Medical History Past Medical History (Chronic Problems): Chronic Problems History of DVT (deep vein thrombosis) (Chronic) PUD (peptic ulcer disease) (Chronic) Chronic back pain (Chronic) Hyperlipidemia (Chronic) Depression (Chronic) Benign essential hypertension (Chronic) Alcohol abuse (Chronic) Gastrointestinal bleed (Chronic) Recurrent dislocation of right hip (Chronic) Chronic blood loss anemia (Chronic) Recurrent falls (Chronic) Allergies acetaminophen Adverse Reaction (Verified 12/20/18 17:34) Other LIVER FAILURE -PER FAMILY Home Medications: Ambulatory Orders Medication Instructions Recorded fentaNYL patch [Duragesic patch] 25 mcg TRANSDERM. Q72H #10 patch 06/29/14 Cholecalciferol (Vitamin D3) 2,000 unit PO DAILY 06/21/18 [D3-1999] Ibandronate Sodium [Boniva] 150 mg PO Q30D 06/21/18 Metoprolol Succinate [Toprol Xl] 100 mg PO DAILY 06/21/18 Acetaminophen [Tylenol Arthritis] 650 mg PO QHS 09/27/18 Calcium Carbonate [Calcium] 600 mg PO DAILY 09/27/18 Ferrous Sulfate 325 mg PO DAILY 09/27/18 Atorvastatin Calcium [Lipitor] 10 mg PO QHS 12/12/18 Duloxetine HCl 30 mg PO DAILY 12/12/18 Fluoxetine HCl [Prozac] 40 mg PO DAILY 12/12/18 Gabapentin [Neurontin] 100 mg PO DAILY 12/12/18 Cefdinir [Omnicef [equiv]] 300 mg PO Q12H #10 cap 12/15/18 Pantoprazole Sodium [Protonix] 40 mg PO BID #60 tab 12/15/18 Sucralfate 1 gm PO 4X/DAY #120 tab 12/15/18 Surgical History: - - Appendectomy, right hip hemiarthroplasty, several endoscopies with epinephrine injections and biopsies. 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 Drugs: None - *Family History Maternal History Items: - - Patient's brother, nephew and nieces had alcohol problem and went to alcohol rehab. Serveral of patient's sister had stroke. Additionally patient notes a maternal family history of hypertension. Paternal History Items: - - Patient's brother, nephew and nieces had alcohol problem and went to alcohol rehab. Serveral of patient's sister had stroke. Patient notes that her father was a heavy alcohol intake individual but denies that he was an alcoholic. Review of Systems Constitutional: Reports: Anorexia, Malaise, Weakness, Fatigue. Denies: Chills, Fever, Weight Change HEENT: Denies: Head Aches, Sinus Congestion, Sinus Drainage Cardiovascular: Denies: Chest Pain, Palpitations Respiratory: Denies: Cough, Shortness of breath at rest, Sputum production Gastrointestinal: Reports: Dyspepsia. Denies: Abdominal Pain, Nausea, Vomiting Genitourinary: Denies: Dysuria Musculoskeletal: Reports: Back Pain, Joint Pain. Denies: Joint Tenderness Skin: Reports: Skin Changes. Denies: Rash, Wounds Neurological: Denies: Numbness, Tingling, Focal weakness Psychiatric: Reports: Anxiety, Depression, Suicidal Ideations. Denies: Homicidal Ideations Hematologic/ Lymphatic: Reports: Anemia, Easy Bruising, Easy Bleeding VTE Information - Inpt Only VTE Present on Admission: No VTE Mechan Device Prophylaxis: SCD's VTE Pharm Prophylaxis ordered?: No Reason prophylaxis not ordered:: Medical Contraindication Patient Problems: Active and Suspected Problems Suicidal ideations (Acute) Major depression (Acute) Subjective: Seated upright in ED bed, fatigued appearance, very lucid and oriented, initially giving incorrect statements but eventually admitted that she was not interested in detox and although she does admit that she is depressed is not willing to be placed into a facility. Did discuss recent suicidal ideations and patient is amenable to staying for crisis evaluation. Objective: Physical Examination: General: awake, alert, oriented x 3 and cooperative, seated upright in the ED bed, mildly disheveled appearance, flat affect. Skin: normal color, turgor, no icterus, cyanosis except for several various staged ecchymoses including to the face, back, thorax and extremities secondary to current ongoing falls notably with intoxication. HEENT: AT/NC, EOMI, PERRLA, dry MM, visual bruising present, no carotid bruits or JVD noted. Lungs: CTA bilaterally, moderate effort, mild decrease BL bases, no rales, ronchi or wheezing. Heart: Regular rate and rhythm; no gallop, rub audible. Abdomen: soft, cachectic habitus, NTTP, ND, normal BS, +HM. Extremities: no cyanosis, clubbing, or edema, several very staged ecchymoses. Neurological: patient awake, alert, oriented x 3; cognitive function currently appears baseline intact; pupils equally reactive to light and accomodation; cranial nerves II-XII grossly normal, moving all 4 extremities, no focal deficits, strength moderately at least globally decreased. Psychiatric: affect appears light, admits to depressive feelings, discussed suicidal ideations with recent mention of possible intention to take all the pills in her house to kill herself but then she denies this specific plan and states that she would never kill herself because she needs to be there for her dog. - Physical Exam Vital Signs Temp Pulse Resp BP Pulse Ox 98.6 F 72 16 112/60 95 12/20/18 17:29 12/20/18 21:00 12/20/18 21:00 12/20/18 21:00 12/20/18 21:00 Oxygen Delivery Method Room Air Weight: 106 lb 11.26 oz Body Mass Index (BMI) 19.5 Finger Stick Blood Glucose 273 Laboratory Tests Past 24 Hrs 12/20/18 12/20/18 12/20/18 18:10 18:10 18:10 WBC 6.4 RBC 3.32 L Hgb 10.6 L Hct 30.8 L MCV 92.8 MCH 31.9 MCHC 34.4 RDW 15.8 H RDW Differential 51.9 H Plt Count 323 MPV 8.4 Immature Gran % (Auto) 1.300 H Neut % (Auto) 66.3 Lymph % (Auto) 20.1 [place] % (Auto) 11.8 H Eos % (Auto) 0.0 Baso % (Auto) 0.5 Absolute Neuts (auto) 4.2 Absolute Lymphs (auto) 1.28 Total Counted Not Reportable PT INR APTT Sodium 134 L Potassium 3.5 Chloride 100 Carbon Dioxide 20.0 L Anion Gap 14 BUN 16 Creatinine 0.82 Estim Creat Clear Calc 44.60 Est GFR (MDRD) Af Amer 87 Est GFR (MDRD) Non-Af 72 BUN/Creatinine Ratio 19.4 Glucose 39 L* Calcium 8.6 Total Bilirubin 0.60 Direct Bilirubin 0.30 AST 41 H ALT 26 Alkaline Phosphatase 158 H Total Protein 6.2 L Albumin 3.4 Globulin 2.8 Lipase 128 Urine Opiates Screen Urine Methadone Screen Ur Barbiturates Screen Ur Phencyclidine Scrn Ur Amphetamines Screen U Methamphetamin-MDMA U Benzodiazepines Scrn Urine Cocaine Screen U Cannabinoids Screen Ur Drug Screen Comment Ethyl Alcohol 318.0 H* 12/20/18 12/20/18 18:10 21:04 WBC RBC Hgb Hct MCV MCH MCHC RDW RDW Differential Plt Count MPV Immature Gran % (Auto) Neut % (Auto) Lymph % (Auto) [place] % (Auto) Eos % (Auto) Baso % (Auto) Absolute Neuts (auto) Absolute Lymphs (auto) Total Counted PT 14.0 INR 1.1 APTT 25.3 Sodium Potassium Chloride Carbon Dioxide Anion Gap BUN Creatinine Estim Creat Clear Calc Est GFR (MDRD) Af Amer Est GFR (MDRD) Non-Af BUN/Creatinine Ratio Glucose Calcium Total Bilirubin Direct Bilirubin AST ALT Alkaline Phosphatase Total Protein Albumin Globulin Lipase Urine Opiates Screen NEGATIVE Urine Methadone Screen NEGATIVE Ur Barbiturates Screen NEGATIVE Ur Phencyclidine Scrn NEGATIVE Ur Amphetamines Screen NEGATIVE U Methamphetamin-MDMA NEGATIVE U Benzodiazepines Scrn NEGATIVE Urine Cocaine Screen NEGATIVE U Cannabinoids Screen NEGATIVE Ur Drug Screen Comment Ethyl Alcohol POC Glucose 12/20/18 12/20/18 12/20/18 20:44 19:54 19:31 POC Glucose 273 H 67 L 57 L Assessment/Plan All Active Problems Intractable nausea and vomiting (Acute) Hematemesis (Acute) Suicidal ideations (Acute) Major depression (Acute) Severe sepsis (Resolved) UTI (urinary tract infection) (Acute) Generalized weakness (Acute) Dehydration (Resolved) Decreased functional residual capacity (Acute) The patient is a 78 y/o F w/ PMHx: Chronic EtOH Abuse, HTN, HLD, Recent recurrent GI bleed w/ PUD on PPI and sucralafate w/ Hx of associated anemia, Recurrent falls associated w/ intoxication, Chronic back pain on chronic narcotic therapy, Hx DVT, Hx of Liver Failure who was recently discharged on 12/15/18 following recurrent GI bleed secondary to peptic ulcer disease, esophagitis with ongoing alcohol abuse and FRANK as well as UTI Tx who now re-presents to the [facility] ED on 12/20/18, dropped off per her son secondary to initially stated desire to perform the EtOH Detox program; however, while in the ED the patient noted suicidal ideations, commenting that she would take all the pills in her house to kill herself and eventually admitting last EtOH intake promptly prior to coming to ED and then declining any treatment for her EtOH Abuse and requesting to go home. (1) Severe Major Depression with Suicidal Ideations: Patient with long-standing depressive history, would benefit from geriatric psych admission and potentially consideration for ECT, will continue in interim from prior admission on Prozac regimen, suicide precautions, continue treatment as noted for alcohol abuse, currently not in withdrawal symptoms as recent intake, declining any alcohol withdrawal treatment at this time. Repeat alcohol level in a.m. with planned crisis evaluation as well as case management consultation. (2) EtOH Abuse: Patient notes routine consumption of 1/2 5th whiskey versus several bottles wine per day. Will maintain on CIWA protocol, MVI, thiamine and folic acid. Patient notes intention of continued EtOH usage and despite being brought by her son for EtOH detox treatment eventually was honest and noted she really did not want treatment and intends to continue drinking. Given level EtOH upon presentation no concern for current withdrawal. Will defer detox regimen given this presentation and utilize CIWA. Mag and phos pending. (3) Recent GI bleed w/ PUD, Esophagitis: Continue home regimen PPI and sucralfate. Hgb stable 10.6. Continued also on Fe supplementation. (4) Chronic Fe Deficiency Blood Loss Anemia w/ as noted Recent GI bleed: Admission Hgb improved, 10.6, stable from recent presentation, continue Fe supplementation, restarted EtOH as noted, high risk for recurrence. (5) Recent E. Coli UTI: Will continue patient cefdinir to completion for recently noted UTI. (6) Hypoglycemia: Admits to recent poor oral intake since recent discharge secondary to depression and ongoing heavy alcohol binging, will continue hypoglycemia protocols as needed. (7) Hx Liver Failure: Recent admission w/ eventual transfer to [facility] secondary to liver failure, LFTs appropriate upon current presentation. Repeat CMP in AM. (8) Severe protein calorie malnutrition: Evidence per BMI, habitus, muscle and fat loss, poor oral intake, nutrition consulted. (9) Hypertension: Continue home regimen including metoprolol with hold parameters, PRN hydralazine. (10) Hyperlipidemia: Continue home statin regimen. (11) DVT Prophylaxis: SCDs, defer chemoprophylaxis given recent GI bleed. Code Visit OBSV E&M: 33228 Initial observation care L3
[2018-12-20 22:25] VITALS: BP 107/54; PULSE 85; RESP 14; O2SAT 96
[2018-12-20 22:51] VITALS: BMI 19.6
[2018-12-20 23:01] VITALS: BP 113/54; PULSE 74; RESP 12; TEMP 36.9; O2SAT 99
[2018-12-21] VITALS (7 sets, daily range): BP systolic 111–159; BP diastolic 63–82; PULSE 59–88; RESP 16–20; TEMP 36.6–37.1; O2SAT 96–99
[2018-12-21 00:39] LABS: Magnesium 1.7 mg/dL (1.6-2.6)
[2018-12-21] MEDS: Cefdinir 300 MG Capsule PO ×3 (01:09→21:24)
[2018-12-21 01:11] LABS: Bedside Glucose 165 mg/dL (70-110)
[2018-12-21] MEDS: 0.9% Normal Saline 1,000 ML 100 ML IV ×3 (03:15→23:31)
[2018-12-21 05:47] LABS: Absolute Lymphocyte Count 1.32 X10^3/ul (0.83-4.51); Absolute Neutrophil Count 2.3 X10^3/uL (2.0-7.7); Basophil# 0.04 X10^3/uL; Basophil% 0.9 % (0-1); Eosinophil# 0.02 X10^3/uL; Eosinophils% 0.4 % (0-5); Hematocrit 25.6 % (37-47); Hemoglobin 8.9 g/dl (12.0-15.0); Lymphocyte # 1.32 X10^3/ul (4.0); Lymphocyte % 29.2 % (19-41); Mean Corp Hgb Conc 34.8 g/gl (32-36); Mean Corpuscular Volume 92.1 fL (81-99); Mean Platelet Vol. 8.4 fl (6.2-12.0); Monocyte% 17.7 % (0-10); Neutrophil # 2.28 X10^3/uL (2.7-7.7); Neutrophil % 50.5 % (47-70); Platelet Count 282 K/mm3 (150-450); RBC Distribution Width CV 15.4 % (11.6-14.6); RBC Distribution Width SD 49.5 fl (35.1-43.9); Red Blood Count 2.78 M/mm3 (4.2-5.4); White Blood Count 4.5 K/mm3 (4.4-11.0)
[2018-12-21 05:58] LABS: POSITIVE COUNT NO; POSITIVE DIFFERENTIAL NO; POSITIVE MORPHOLOGY NO
[2018-12-21 06:05] LABS: ALB/GLOB Ratio 1.1 RATIO (0.9-2.4); AST(SGOT) 31 U/L (15-37); Alanine Aminotransfer ALT/SGPT 21 U/L (13-56); Albumin, Serum 2.5 g/dL (3.2-5.0); Alkaline Phosphatase 119 U/L (45-117); Anion Gap 10 (5-15); BUN 14 mg/dL (7-18); BUN/Creat Ratio 22.5 RATIO (10-20); Calcium,Total 7.7 mg/dL (8.5-10.1); Chloride 107 mmol/L (98-107); Creatinine, Serum 0.62 mg/dL (0.55-1.02); EST Glomerular Filtration Rate 99 mL/min (>60); Est Glom Filt Rate - Afr Amer 120 mL/min (>60); Globulin 2.3 g/dL (2.2-4.2); Glucose 54 mg/dL (74-106); Potassium 3.3 mmol/L (3.5-5.1); Protein, Total 4.8 g/dL (6.4-8.2); Sodium Level 140 mmol/L (136-145)
[2018-12-21] MEDS: Sucralfate 1 GM Tablet PO ×4 (06:27→21:24)
--- NOTE | 2018-12-21 09:16 | CASEMGMT ---
Addendum entered by Zara King 12/21/18 11:49: SW spoke with RN. Crisis has cleared pt and [facility] is to meet with pt regarding detox. Original Note: Social Work Note SW spoke with RN. RN called crisis to evaluate pt, crisis to come evaluate. Zara King GLEASON OPERATOR, LABORATORY SAMPLER
[2018-12-21] MEDS: Multivitamins,Ther W-Minerals Tablet 1 TABLET PO (09:27)
[2018-12-21] MEDS: Folic Acid 1 MG Tablet PO (09:27)
[2018-12-21] MEDS: Ferrous Sulfate 325 MG Tablet PO (09:27)
[2018-12-21] MEDS: Pantoprazole Sodium 40 MG Tablet PO ×2 (09:28→21:24)
[2018-12-21] MEDS: Gabapentin 100 MG Capsule PO (09:28)
[2018-12-21] MEDS: Thiamine Hydrochloride 100 MG Tablet PO ×2 (09:28→15:55)
[2018-12-21] MEDS: Metoprolol(XL)Succ 100 MG Tablet PO (09:29)
[2018-12-21] MEDS: FLUoxetine 20 MG Capsule 40 MG PO (09:29)
--- NOTE | 2018-12-21 09:30 | PCM.PN.HOSP ---
Patient Problems: Active and Suspected Problems Suicidal ideations (Acute) Major depression (Acute) Subjective: Patient seen and examined. She was admitted via the ED after being brought in by her son for alcohol detox and suicidal ideations as noted in the ED. She was originally brought in by her son o/a of her wanting to go through alcohol withdrawal program. However, on admission, she stated that she had suicidal ideations and admitted to drinking alcohol prior to her admission. She is being managed for acute alcohol withdrawal and suicidal ideation due to major depression. Patient seen and examined. Patient is very depressed in her bed. She denied any suicidal ideations today and said that she had been having difficulty to cope since her a year August 2017. She also denies any homicidal ideations. Her son and etc. were by her bedside. She denies any tremors or palpitations, dizziness, lightheadedness, abdominal pain, diarrhea vomiting. She does have a big ecchymotic bruise on her mouth which she says was due to her walking into a door. Patient lives alone. Labs and vitals reviewed. Vitals/I&O's: Vital Signs Temp Pulse Resp BP Pulse Ox 98.4 F 88 16 126/63 H 99 12/21/18 05:00 12/21/18 09:29 12/21/18 05:00 12/21/18 05:00 12/21/18 07:55 Oxygen Delivery Method Room Air Weight: 107 lb 5.842 oz Body Mass Index (BMI) 19.6 Finger Stick Blood Glucose 273 Intake and Output for Last 24 Hours 12/19/18 12/20/18 12/21/18 23:59 23:59 23:59 Intake Total 814 / 814 Balance 814 / 814 General: Alert, Oriented x3, Cooperative, No apparent distress HEENT: Atraumatic, PERRLA, EOMI, Normocephalic Oral: Dry Mucosa Neck: Supple, No JVD, Negative Carotid Bruits Lungs: Clear to auscultation, Normal air movement, No rhonchi, No wheeze, No rales Cardiovascular: Regular rate, Regular Rhythm, Normal S1, Normal S2, No murmurs Abdomen: Bowel Sounds Present, Soft, Non Tender, Non-Distended, No Hepato-splenomegaly Extremities: No clubbing, No cyanosis, No edema, Capillary Refill Less than 3 Seconds Skin: No rashes, No breakdown Musculoskeletal: No Tenderness to Palpation of Joints or Extremities Lymphatic: No Cervical, Supraclavicular, or Inguinal Adenopathy Neurological: Cranial nerves II-XII grossly intact, Neuro grossly intact, Motor Exam 5/5 strength throughout Psych/Mental Status: Flat Affect, Depressed, Alert and oriented to time, place, person, mood and affect Laboratory Results 12/20/18 18:10: WBC 6.4, RBC 3.32 L, Hgb 10.6 L, Hct 30.8 L, MCV 92.8, MCH 31.9, MCHC 34.4, RDW 15.8 H, RDW Differential 51.9 H, Plt Count 323, MPV 8.4, Immature Gran % (Auto) 1.300 H, Neut % (Auto) 66.3, Lymph % (Auto) 20.1, [place] % (Auto) 11.8 H, Eos % (Auto) 0.0, Baso % (Auto) 0.5, Absolute Neuts (auto) 4.2, Absolute Lymphs (auto) 1.28, Total Counted Not Reportable 12/20/18 18:10: Sodium 134 L, Potassium 3.5, Chloride 100, Carbon Dioxide 20.0 L, Anion Gap 14, BUN 16, Creatinine 0.82, Estim Creat Clear Calc 44.60, Est GFR (MDRD) Af Amer 87, Est GFR (MDRD) Non-Af 72, BUN/Creatinine Ratio 19.4, Glucose 39 L*, Calcium 8.6, Total Bilirubin 0.60, Direct Bilirubin 0.30, AST 41 H, ALT 26, Alkaline Phosphatase 158 H, Total Protein 6.2 L, Albumin 3.4, Globulin 2.8, Lipase 128 12/20/18 18:10: Ethyl Alcohol 318.0 H* 12/20/18 18:10: PT 14.0, INR 1.1, APTT 25.3 12/20/18 18:10: Phosphorus 4.0, Magnesium 1.7 12/20/18 19:31: POC Glucose 57 L 12/20/18 19:54: POC Glucose 67 L 12/20/18 20:44: POC Glucose 273 H 12/20/18 21:04: Urine Opiates Screen NEGATIVE, Urine Methadone Screen NEGATIVE, Ur Barbiturates Screen NEGATIVE, Ur Phencyclidine Scrn NEGATIVE, Ur Amphetamines Screen NEGATIVE, U Methamphetamin-MDMA NEGATIVE, U Benzodiazepines Scrn NEGATIVE, Urine Cocaine Screen NEGATIVE, U Cannabinoids Screen NEGATIVE, Ur Drug Screen Comment 12/21/18 01:04: POC Glucose 165 H 12/21/18 01:09: Ethyl Alcohol 141.0 12/21/18 05:14: WBC 4.5, RBC 2.78 L, Hgb 8.9 L, Hct 25.6 L, MCV 92.1, MCH 32.0, MCHC 34.8, RDW 15.4 H, RDW Differential 49.5 H, Plt Count 282, MPV 8.4, Immature Gran % (Auto) 1.300 H, Neut % (Auto) 50.5, Lymph % (Auto) 29.2, [place] % (Auto) 17.7 H, Eos % (Auto) 0.4, Baso % (Auto) 0.9, Absolute Neuts (auto) 2.3, Absolute Lymphs (auto) 1.32, Total Counted Not Reportable 12/21/18 05:14: Sodium 140, Potassium 3.3 L, Chloride 107, Carbon Dioxide 23.0, Anion Gap 10, BUN 14, Creatinine 0.62, Estim Creat Clear Calc 36.80, Est GFR (MDRD) Af Amer 120, Est GFR (MDRD) Non-Af 99, BUN/Creatinine Ratio 22.5 H, Glucose 54 L, Calcium 7.7 L, Total Bilirubin 0.50, AST 31, ALT 21, Alkaline Phosphatase 119 H, Total Protein 4.8 L, Albumin 2.5 L, Globulin 2.3, Albumin/Globulin Ratio 1.1 Current Medications Al Hydroxide/Mg Hydroxide (Mylanta Ii) 15 - 30 ml PO Q4H PRN PRN PRN Reason: INDIGESTION Albuterol Sulfate (Ventolin Aerosols) 2.5 mg INHALATION Q2H PRN PRN PRN Reason: dyspnea, wheezing Atorvastatin Calcium (Lipitor) 10 mg PO QHS PATRIA Cefdinir (Omnicef [Equiv]) 300 mg PO Q12 PATRIA Last Admin: 12/21/18 09:30 Dose: 300 mg Dextrose (D50w Syringe) 0 gm IV X1 PRN; Protocol PRN Reason: Hypoglycemia Fentanyl (Duragesic Patch) 25 mcg TRANSDERM. Q72H PATRIA Ferrous S[facility] ([facility]ous Sulfate) [facility] Last Admin: 12/21/18 09:27 Dose: 325 mg Fluoxetine HCl (Prozac) 40 mg PO DAILY [facility] Last Admin: 12/21/18 09:29 Dose: 40 mg Folic Acid (Folic Acid) 1 mg PO DAILY@0800 [facility] Stop: 12/23/18 08:01 Last Admin: 12/21/18 09:27 Dose: 1 mg Gabapentin (Neurontin) 100 mg PO DAILY [facility] Last Admin: 12/21/18 09:28 Dose: 100 mg Glucagon () 1 mg IM .X1 PRN PRN Reason: Hypoglycemia Hydralazine HCl (Apresoline Iv) 10 mg IV Q4H PRN PRN PRN Reason: SBP > 160 Sodium Chloride () 1,000 mls @ 100 mls/hr IV .Q10H [facility] Last Admin: 12/21/18 03:15 Dose: 100 mls/hr Lorazepam (Ativan) 2 mg PO Q2H PRN PRN; Protocol PRN Reason: CIWA score > 8 but <15 Lorazepam (Ativan) 2 mg IV Q2H PRN PRN; Protocol PRN Reason: CIWA score > 8 but <15 Lorazepam (Ativan) 2 mg PO UD PRN; Protocol PRN Reason: CIWA score >/=15. Lorazepam (Ativan) 2 mg IV UD PRN; Protocol PRN Reason: CIWA score >/=15. Melatonin (Melatonin) 3 mg PO QHS PRN PRN PRN Reason: INSOMNIA Metoprolol Succinate (Toprol Xl (Beta Jaxon)) 100 mg PO DAILY [facility] Last Admin: 12/21/18 09:29 Dose: 100 mg Multivitamins/Minerals (Multivitamin With Minerals) [facility] Last Admin: 12/21/18 09:27 Dose: 1 tablet Nutritional Formula (Lactose Free) (Ensure Enlive) 120 ml PO 4X/DAY [facility] Ondansetron HCl (Zofran) 4 mg IV Q8H PRN PRN PRN Reason: NAUSEA/VOMITING Pantoprazole Sodium (Protonix) 40 mg PO BID [facility] Last Admin: 12/21/18 09:28 Dose: 40 mg Sodium Chloride () 5 - 15 ml IV UD PRN PRN Reason: SALINE FLUSH Sucralfate (Carafate) 1 gm PO 1HR_ACHS [facility] Last Admin: 12/21/18 06:27 Dose: 1 gm Thiamine HCl (Vitamin B1) [facility] Stop: 12/23/18 17:01 Last Admin: 12/21/18 09:28 Dose: 100 mg Medical Necessity - Tobacco Use Smoking Status: Never smoker Tobacco Use: Non-smoker Assessment/Plan All Active Problems Intractable nausea and vomiting (Acute) Hematemesis (Acute) Suicidal ideations (Acute) Major depression (Acute) Severe sepsis (Resolved) UTI (urinary tract infection) (Acute) Generalized weakness (Acute) Dehydration (Resolved) Decreased functional residual capacity (Acute) 78 y/o female admitted for alcohol withdrawal, and found to have suicidal ideation 1. Suicidal ideation likely due to major depression this is also compounded by alcohol abuse denies any suicidal or homicidal ideation now. son says he doesnt believe his mother is really suicidal, and thinks she wasnt thinking clearly when she said she was suicidal because she was intoxicated mental health crises to evaluate patient; son says she follows up with a psychiatrist in the community, but he doesnt think she is getting enough help. He however also does not want to consider an inpatient Geropsychiatry evaluation because 10 years ago she was sent to an inpatient psychiatric facility and he was unhappy with the care she received there. Son states he wants to get her help for his mental health issues on his own. Son counseled that his mother is very very depressed and so would really benefit from inpatient psychiatric treatment. await mental health evaluation continue Prozac 2. Acute alcohol withdrawal alcohol level was ~ 318 on admission on alcohol withdrawal protocol with ativan on thiamine, multivites and folic acid. 3. Recent UGI bleed due to PUD and esophagitis on pantoprazole and carafate on oral iron supplements. 4. Chronic iron deficiency anemia: on oral iron supplements 5. Hypoglycemia likely due to alcohol and decreased intake glucose was 39 on admission, and 54 today encourage oral intake IV [id number] 6. History of acute liver injury due to tylenol overdose: stable. Liver enzymes WNL 7. Severe protein calorie malnutrition BMI si only ~19 consult nutrition; likely due to poor oral intake ensure supplements TID 8. Hypertension: controlled. On metoprolol. hydralazine prn 9. Hyperlipidemia: on statin 10. Recent E coli UTI: on cefdinir. DVT prophylaxis: SCDs. No anticoagulation o/a of recent GI bleed. Code Visit OBSV E&M: 21832 Subsequent observation care L3
--- NOTE | 2018-12-21 09:35 | PN_ITS ---
Patient Problems: Active and Suspected Problems Suicidal ideations (Acute) Major depression (Acute) Subjective: Patient seen and examined. She was admitted via the ED after being brought in by her son for alcohol detox and suicidal ideations as noted in the ED. She was originally brought in by her son o/a of her wanting to go through alcohol withdrawal program. However, on admission, she stated that she had suicidal ideations and admitted to drinking alcohol prior to her admission. She is being managed for acute alcohol withdrawal and suicidal ideation due to major depression. Patient seen and examined. Patient is very depressed in her bed. She denied any suicidal ideations today and said that she had been having difficulty to cope since her a year August 2017. She also denies any homicidal ideations. Her son and etc. were by her bedside. She denies any tremors or palpitations, dizziness, lightheadedness, abdominal pain, diarrhea vomiting. She does have a big ecchymotic bruise on her mouth which she says was due to her walking into a door. Patient lives alone. Labs and vitals reviewed. Vitals/I&O's: Vital Signs Temp Pulse Resp BP Pulse Ox 98.4 F 88 16 126/63 H 99 12/21/18 05:00 12/21/18 09:29 12/21/18 05:00 12/21/18 05:00 12/21/18 07:55 Oxygen Delivery Method Room Air Weight: 107 lb 5.842 oz Body Mass Index (BMI) 19.6 Finger Stick Blood Glucose 273 Intake and Output for Last 24 Hours 12/19/18 12/20/18 12/21/18 23:59 23:59 23:59 Intake Total 814 / 814 Balance 814 / 814 General: Alert, Oriented x3, Cooperative, No apparent distress HEENT: Atraumatic, PERRLA, EOMI, Normocephalic Oral: Dry Mucosa Neck: Supple, No JVD, Negative Carotid Bruits Lungs: Clear to auscultation, Normal air movement, No rhonchi, No wheeze, No rales Cardiovascular: Regular rate, Regular Rhythm, Normal S1, Normal S2, No murmurs Abdomen: Bowel Sounds Present, Soft, Non Tender, Non-Distended, No Hepato- splenomegaly Extremities: No clubbing, No cyanosis, No edema, Capillary Refill Less than 3 Seconds Skin: No rashes, No breakdown Musculoskeletal: No Tenderness to Palpation of Joints or Extremities Lymphatic: No Cervical, Supraclavicular, or Inguinal Adenopathy Neurological: Cranial nerves II-XII grossly intact, Neuro grossly intact, Motor Exam 5/5 strength throughout Psych/Mental Status: Flat Affect, Depressed, Alert and oriented to time, place, person, mood and affect Laboratory Results 12/20/18 18:10: WBC 6.4, RBC 3.32 L, Hgb 10.6 L, Hct 30.8 L, MCV 92.8, MCH 31.9, MCHC 34.4, RDW 15.8 H, RDW Differential 51.9 H, Plt Count 323, MPV 8.4, Immature Gran % (Auto) 1.300 H, Neut % (Auto) 66.3, Lymph % (Auto) 20.1, Worth % (Auto) 11.8 H, Eos % (Auto) 0.0, Baso % (Auto) 0.5, Absolute Neuts (auto) 4.2, Absolute Lymphs (auto) 1.28, Total Counted Not Reportable 12/20/18 18:10: Sodium 134 L, Potassium 3.5, Chloride 100, Carbon Dioxide 20.0 L , Anion Gap 14, BUN 16, Creatinine 0.82, Estim Creat Clear Calc 44.60, Est GFR (MDRD) Af Amer 87, Est GFR (MDRD) Non-Af 72, BUN/Creatinine Ratio 19.4, Glucose 39 L*, Calcium 8.6, Total Bilirubin 0.60, Direct Bilirubin 0.30, AST 41 H, ALT 26, Alkaline Phosphatase 158 H, Total Protein 6.2 L, Albumin 3.4, Globulin 2.8, Lipase 128 12/20/18 18:10: Ethyl Alcohol 318.0 H* 12/20/18 18:10: PT 14.0, INR 1.1, APTT 25.3 12/20/18 18:10: Phosphorus 4.0, Magnesium 1.7 12/20/18 19:31: POC Glucose 57 L 12/20/18 19:54: POC Glucose 67 L 12/20/18 20:44: POC Glucose 273 H 12/20/18 21:04: Urine Opiates Screen NEGATIVE, Urine Methadone Screen NEGATIVE, Ur Barbiturates Screen NEGATIVE, Ur Phencyclidine Scrn NEGATIVE, Ur Amphetamines Screen NEGATIVE, U Methamphetamin-MDMA NEGATIVE, U Benzodiazepines Scrn NEGATIVE, Urine Cocaine Screen NEGATIVE, U Cannabinoids Screen NEGATIVE, Ur Drug Screen Comment 12/21/18 01:04: POC Glucose 165 H 12/21/18 01:09: Ethyl Alcohol 141.0 12/21/18 05:14: WBC 4.5, RBC 2.78 L, Hgb 8.9 L, Hct 25.6 L, MCV 92.1, MCH 32.0, MCHC 34.8, RDW 15.4 H, RDW Differential 49.5 H, Plt Count 282, MPV 8.4, Immature Gran % (Auto) 1.300 H, Neut % (Auto) 50.5, Lymph % (Auto) 29.2, Worth % (Auto) 17.7 H, Eos % (Auto) 0.4, Baso % (Auto) 0.9, Absolute Neuts (auto) 2.3, Absolute Lymphs (auto) 1.32, Total Counted Not Reportable 12/21/18 05:14: Sodium 140, Potassium 3.3 L, Chloride 107, Carbon Dioxide 23.0, Anion Gap 10, BUN 14, Creatinine 0.62, Estim Creat Clear Calc 36.80, Est GFR (MDRD) Af Amer 120, Est GFR (MDRD) Non-Af 99, BUN/Creatinine Ratio 22.5 H, Glucose 54 L, Calcium 7.7 L, Total Bilirubin 0.50, AST 31, ALT 21, Alkaline Phosphatase 119 H, Total Protein 4.8 L, Albumin 2.5 L, Globulin 2.3, Albumin/Globulin Ratio 1.1 Current Medications Al Hydroxide/Mg Hydroxide (Mylanta Ii) 15 - 30 ml PO Q4H PRN PRN PRN Reason: INDIGESTION Albuterol Sulfate (Ventolin Aerosols) 2.5 mg INHALATION Q2H PRN PRN PRN Reason: dyspnea, wheezing Atorvastatin Calcium (Lipitor) 10 mg PO QHS [facility] Cefdinir (Omnicef [Equiv]) 300 mg PO Q12 [facility] Last Admin: 12/21/18 09:30 Dose: 300 mg Dextrose (D50w Syringe) 0 gm IV X1 PRN; Protocol PRN Reason: Hypoglycemia Fentanyl (Duragesic Patch) 25 mcg TRANSDERM. Q72H [facility] Ferrous Sulfate (Ferrous Sulfate) [facility] Last Admin: 12/21/18 09:27 Dose: 325 mg Fluoxetine HCl (Prozac) 40 mg PO DAILY [facility] Last Admin: 12/21/18 09:29 Dose: 40 mg Folic Acid (Folic Acid) 1 mg PO DAILY@0800 [facility] Stop: 12/23/18 08:01 Last Admin: 12/21/18 09:27 Dose: 1 mg Gabapentin (Neurontin) 100 mg PO DAILY [facility] Last Admin: 12/21/18 09:28 Dose: 100 mg Glucagon () 1 mg IM .X1 PRN PRN Reason: Hypoglycemia Hydralazine HCl (Apresoline Iv) 10 mg IV Q4H PRN PRN PRN Reason: SBP > 160 Sodium Chloride () 1,000 mls @ 100 mls/hr IV .Q10H [facility] Last Admin: 12/21/18 03:15 Dose: 100 mls/hr Lorazepam (Ativan) 2 mg PO Q2H PRN PRN; Protocol PRN Reason: CIWA score > 8 but <15 Lorazepam (Ativan) 2 mg IV Q2H PRN PRN; Protocol PRN Reason: CIWA score > 8 but <15 Lorazepam (Ativan) 2 mg PO UD PRN; Protocol PRN Reason: CIWA score >/=15. Lorazepam (Ativan) 2 mg IV UD PRN; Protocol PRN Reason: CIWA score >/=15. Melatonin (Melatonin) 3 mg PO QHS PRN PRN PRN Reason: INSOMNIA Metoprolol Succinate (Toprol Xl (Beta Jaxon)) 100 mg PO DAILY [facility] Last Admin: 12/21/18 09:29 Dose: 100 mg Multivitamins/Minerals (Multivitamin With Minerals) 1 tablet [facility] Last Admin: 12/21/18 09:27 Dose: 1 tablet Nutritional Formula (Lactose Free) (Ensure Enlive) 120 ml PO 4X/DAY [facility] Ondansetron HCl (Zofran) 4 mg IV Q8H PRN PRN PRN Reason: NAUSEA/VOMITING Pantoprazole Sodium (Protonix) 40 mg PO BID [facility] Last Admin: 12/21/18 09:28 Dose: 40 mg Sodium Chloride () 5 - 15 ml IV UD PRN PRN Reason: SALINE FLUSH Sucralfate (Carafate) 1 gm PO 1HR_ACHS [facility] Last Admin: 12/21/18 06:27 Dose: 1 gm Thiamine HCl (Vitamin B1) [facility] Stop: 12/23/18 17:01 Last Admin: 12/21/18 09:28 Dose: 100 mg Medical Necessity - Tobacco Use Smoking Status: Never smoker Tobacco Use: Non-smoker Assessment/Plan All Active Problems Intractable nausea and vomiting (Acute) Hematemesis (Acute) Suicidal ideations (Acute) Major depression (Acute) Severe sepsis (Resolved) UTI (urinary tract infection) (Acute) Generalized weakness (Acute) Dehydration (Resolved) Decreased functional residual capacity (Acute) 78 y/o female admitted for alcohol withdrawal, and found to have suicidal ideation 1. Suicidal ideation likely due to major depression * this is also compounded by alcohol abuse * denies any suicidal or homicidal ideation now. * son says he doesnt believe his mother is really suicidal, and thinks she wasnt thinking clearly when she said she was suicidal because she was intoxicated * mental health crises to evaluate patient; son says she follows up with a psychiatrist in the community, but he doesnt think she is getting enough help. He however also does not want to consider an inpatient Geropsychiatry evaluation because 10 years ago she was sent to an inpatient psychiatric facility and he was unhappy with the care she received there. Son states he wants to get her help for his mental health issues on his own. Son counseled that his mother is very very depressed and so would really benefit from inpatient psychiatric treatment. * await mental health evaluation * continue Prozac * 2. Acute alcohol withdrawal * alcohol level was ~ 318 on admission * on alcohol withdrawal protocol with ativan * on thiamine, multivites and folic acid. 3. Recent UGI bleed due to PUD and esophagitis * on pantoprazole and carafate * on oral iron supplements. * 4. Chronic iron deficiency anemia: on oral iron supplements 5. Hypoglycemia likely due to alcohol and decreased intake * glucose was 39 on admission, and 54 today * encourage oral intake * IV d50prn * 6. History of acute liver injury due to tylenol overdose: stable. Liver enzymes WNL 7. Severe protein calorie malnutrition * BMI si only ~19 * consult nutrition; likely due to poor oral intake * ensure supplements TID * 8. Hypertension: controlled. On metoprolol. hydralazine prn 9. Hyperlipidemia: on statin 10. Recent E coli UTI: on cefdinir. DVT prophylaxis: SCDs. No anticoagulation o/a of recent GI bleed. Code Visit OBSV E&M: 66342 Subsequent observation care L3
[2018-12-21] MEDS: LORazepam 1 MG Tablet 2 MG PO ×3 (11:08→21:23)
--- NOTE | 2018-12-21 11:46 | NURSING ---
Crisis counselor Michelle Gupta has cleared pt as non-threatening to self. Sitter status removed. Dr. Villa notified and agreed. Son Umair notified. Plan to move forward with [facility].
[2018-12-21 12:21] LABS: Bedside Glucose 112 mg/dL (70-110)
--- NOTE | 2018-12-21 14:43 | NEWVISION ---
Met with patient per [facility] consult request. I asked patient's son to step out so that I may speak with patient. At this time patient is unwilling to agree to outpatient counseling or inpatient treatment. Patient's son came in room and the patient indicated I could speak to him regarding her decision. Son asked if I could stand there while he convinces his mother to be agreeable to continued aftercare. I stated that the patient must be willing and give consent on her own. Son became upset. I advised patient and her son that if patient changes her mind that I will write referral if patient requests. Provided in country resources per patient son's request.
[2018-12-21] MEDS: Atorvastatin Calcium 10 MG Tablet PO (21:24)
[2018-12-22] VITALS (7 sets, daily range): BP systolic 136–158; BP diastolic 78–92; PULSE 63–106; RESP 18–20; TEMP 36.2–37.3; O2SAT 95–98
[2018-12-22] MEDS: LORazepam 1 MG Tablet 2 MG PO (04:51)
[2018-12-22] MEDS: Sucralfate 1 GM Tablet PO ×4 (06:26→20:52)
[2018-12-22 06:44] LABS: Absolute Lymphocyte Count 1.02 X10^3/ul (0.83-4.51); Absolute Neutrophil Count 2.6 X10^3/uL (2.0-7.7); Basophil# 0.03 X10^3/uL; Basophil% 0.7 % (0-1); Eosinophil# 0.05 X10^3/uL; Eosinophils% 1.1 % (0-5); Hematocrit 27.8 % (37-47); Hemoglobin 9.7 g/dl (12.0-15.0); Lymphocyte # 1.02 X10^3/ul (4.0); Lymphocyte % 23.1 % (19-41); Mean Corp Hgb Conc 34.9 g/gl (32-36); Mean Corpuscular Hgb 32.4 pg (27.0-32.0); Mean Platelet Vol. 8.6 fl (6.2-12.0); Monocyte# 0.68 X10^3/uL; Monocyte% 15.4 % (0-10); POSITIVE COUNT NO; POSITIVE DIFFERENTIAL NO; POSITIVE MORPHOLOGY NO; Platelet Count 228 K/mm3 (150-450); RBC Distribution Width CV 16.1 % (11.6-14.6); RBC Distribution Width SD 53.6 fl (35.1-43.9); Red Blood Count 2.99 M/mm3 (4.2-5.4); White Blood Count 4.4 K/mm3 (4.4-11.0)
[2018-12-22 06:48] LABS: Anion Gap 8 (5-15); BUN 11 mg/dL (7-18); BUN/Creat Ratio 19.1 RATIO (10-20); Calcium,Total 7.4 mg/dL (8.5-10.1); Chloride 105 mmol/L (98-107); Creatinine, Serum 0.58 mg/dL (0.55-1.02); EST Glomerular Filtration Rate 108 mL/min (>60); Est Glom Filt Rate - Afr Amer 131 mL/min (>60); Glucose 102 mg/dL (74-106); Potassium 3.6 mmol/L (3.5-5.1); Sodium Level 138 mmol/L (136-145)
[2018-12-22] MEDS: Thiamine Hydrochloride 100 MG Tablet PO ×2 (08:31→17:19)
[2018-12-22] MEDS: Folic Acid 1 MG Tablet PO (08:31)
[2018-12-22] MEDS: Ferrous Sulfate 325 MG Tablet PO (08:31)
[2018-12-22] MEDS: Multivitamins,Ther W-Minerals Tablet 1 TABLET PO (08:31)
--- NOTE | 2018-12-22 09:10 | CASEMGMT ---
Social Work Note RAMO met with pt regarding mental health. SW introduced self and role at [facility]. Pt is alert and orientated x3. Pt states that she lives alone in a two story home with steps to enter. Pt states that she was previously independent with ADLs, states she still drives. Pt states that her son Umair lives close and checks in on her. Pt states that she also has a neighbor that checks in with her. DME include cane, walker, wheelchair. Pt states she is able to use DME when needed. Mental Health Hx: Pt states she has a history of depression. Pt states that the of her daughter Radha four years ago and recent of her Cyril in August 2017 has contributed to her depression. SW explored with pt her feelings of depression, grief, sadness, anger, frustration. SW educated pt on grief process. Pt states that he daughter Radha four years ago due to cancer. Pt states that Radha within 4 months of being diagnosed with cancer. Pt states that she and her were the main caretakers of her daughter Radha during her cancer mccoy. SW explored with pt her feelings of having to watch her daughter pass away. Pt states that her Cyril unexpectedly in August 2017. Pt states he was walking from the kitchen to the chair, didn't feel right, had a heart attack and . Pt states that she was sitting in the chair next to him when he . Pt states she called EMS but her was already gone by the time they arrived. SW again processed with pt the trauma of being next to her and watching him pass away. Pt states that she and her was for 60 years and met at a Homecoming Parade. Pt states that her was in the [employer] and fought in [place]. Pt states that she and her wrote letters to each other. Pt states that they had a good marriage and he was a good man. Pt states that she has feelings of hopelessness, worthlessness, and uselessness. Pt states that she has a history of suicidal thoughts, but currently denied any suicidal/homicidal thoughts/plans/ideations. Pt states that she has seen a psychiatrist before at [facility], states that she last saw her psychiatrist 3 weeks ago. Pt states she stopped going due to having things to do. Pt states that she had to do yardwork and decided to stop going to see her psychiatrist. SW encouraged pt to resume services with her psychiatrist. Pt states her psychiatrist is Dr. Kimble. Substance Abuse Hx: Per H+P, pt drinks 1/2 of 5th whiskey daily or several bottles of wine. Pt confirms she drinks alcohol and states that she has fallen multiple times due to her intoxication. Pt states that the bruise on her lip however is because she walked into a door. Pt states she was trying to go to the bathroom, didn't want to turn the light on and walked into a door. Pt states I need to stop drinking, I need to get my life better. SW asked pt if she would like information regarding substance abuse treatment and pt denied. Pt states I can do this by myself. Pt was able to state that she relates her drinking again to the of her daughter and then the of her . SW educated pt on coping skills and how her choosing alcohol was a coping skill to cope with the of her daughter and then her . SW informed pt that using alcohol as a coping skill is a way to cope but that it is an unhealthy coping skill and can cause serious damage to body, and/or others. Pt again states that she wants to quit drinking, stating I need to quit before I hurt myself or I hurt others. Throughout conversation pt repeatedly stated that she is able to stop drinking by herself. SW educated pt that although individuals feel that they can quit on their own, it may beneficial looking into receiving additional help from other people (counselors, friends/family). Pt again denied wanting information regarding counseling or treatment. SW asked pt if there are reasons as to her not wanting to ask for help. Pt states I just know I can do it on my own, I quit drinking for 2-3 years on my own before drinking again. RAMO spoke with pt stating that it can be difficult to ask for help, but that at one point everyone needs help and having support around pt will be beneficial in quitting alcohol. RAMO educated pt on positive coping skills and asked pt about what her positive coping skills would be. Pt states I like to take my dog for a walk. Pt states she also does yardwork. SW asked pt for her motivation to quit drinking as she has to be motivated and willing to quit. Pt states I have grandchildren and great grandchildren, I have a son who cares, I have good friends, and I have 5 dogs and a cat. SW asked pt to identify what she will do in the event that she feels the urge to drink. Pt states I will drink water or soda instead. SW encouraged pt that if she feels the urge to drink it could be beneficial to at the point call family or friend or take her dog for a walk. Pt states 'I just need to work through the things in my head. SW asked pt to elaborate on the things going on in her head. Pt states right now I just want to get home. RAMO educated pt that trying to deal with the things in our heads can be challenging and difficult and that it could be beneficial to speak with someone regarding the things going on with her head. SW spent much time with pt processing through pt's grief and the loss of her daughter and which contributed to her drinking again. SW provided support, empathy and active listening skills throughout conversation. SW offered resources for bereavement, counseling and treatment for substance abuse but pt repeatedly refused resources at this time. As noted, pt repeatedly stated I can do this by myself. RAMO asked pt if she is able to stay with any family/friends or if any family/friends is able to stay with pt once she discharges from [facility] and pt stated no. RAMO again encouraged pt to reach out for help if she feels like she needs and also informed pt that throwing out her alcohol bottles in the home may also be beneficial for pt. Pt states understanding, states that she will be throwing out her alcohol bottles at home. RAMO again reiterated to pt that having good support is important when trying to quit drinking alcohol and again informed pt to reach out for help if she feels like she needs. RAMO provided pt with business card and informed pt that once she discharges if she wants information regarding counseling or treatment she can call this worker and this worker can provide pt with information. Pt states understanding, denied additional needs or concerns at this time. Plan: Pt wants to discharge home, denied any needs or concerns at this time. Pt adamantly refused wanting information regarding counseling and treatment options. Zara King LAUNDRY HELPER, SWIM INSTRUCTOR
[2018-12-22] MEDS: FLUoxetine 20 MG Capsule 40 MG PO (09:58)
[2018-12-22] MEDS: Gabapentin 100 MG Capsule PO (09:59)
[2018-12-22] MEDS: Cefdinir 300 MG Capsule PO ×2 (09:59→20:52)
[2018-12-22] MEDS: Pantoprazole Sodium 40 MG Tablet PO ×2 (09:59→20:52)
[2018-12-22] MEDS: Metoprolol(XL)Succ 100 MG Tablet PO (09:59)
--- NOTE | 2018-12-22 11:46 | NURSING ---
Pt had visitor at bedside she states it is her nephew. She also express her concern about not being home on Tuesday that she needs to have her dog taken to the vet. Pt was asked if she can ask her son to take care of that. She is very unsteady when up to the bathroom. Continues to verbalize her frustration with being here and missing her pets. Pt is educated on need to be better to take better care at home when she goes back. Poor po intake of fluids and food. Continue to be encouraged on participation with physical therapy and increase nutritional intake. She later stated that she would wake up drink and go back to sleep .And that she has been eating poorly when she was at home. She also reminisce about her spouse passing and daughter.She does go to the support group at [facility].
--- NOTE | 2018-12-22 14:11 | PCM.PN.HOSP ---
Patient Problems: Active and Suspected Problems Suicidal ideations (Acute) Major depression (Acute) Subjective: Feeling better. Denies any suicidal ideation. Vitals/I&O's: Vital Signs Temp Pulse Resp BP Pulse Ox 36.2 C L 80 18 141/87 H 98 12/22/18 09:45 12/22/18 09:59 12/22/18 09:45 12/22/18 09:45 12/22/18 09:45 Oxygen Delivery Method Room Air Weight: 48.7 kg Body Mass Index (BMI) 19.6 Finger Stick Blood Glucose 273 Intake and Output for Last 24 Hours 12/20/18 12/21/18 12/22/18 23:59 23:59 23:59 Intake Total 814 / 814 2634 / 2634 Balance 814 / 814 2634 / 2634 General: Alert, No apparent distress HEENT: Atraumatic, Normocephalic Oral: Moist Mucosa, No Gingival or Mucosal Lesions/ Ulcerations Neck: No Nodes, Thyroid Normal Size and Texture Lungs: Clear to auscultation, Normal air movement, No rhonchi, No wheeze Cardiovascular: Regular rate, Regular Rhythm, Normal S1, Normal S2, No murmurs Abdomen: Bowel Sounds Present, Soft, Non Tender, Non-Distended Extremities: No edema, No Calf Tenderness Skin: No rashes, No breakdown Psych/Mental Status: Normal Affect, Appropriate Laboratory Results 12/22/18 06:15: WBC 4.4, RBC 2.99 L, Hgb 9.7 L, Hct 27.8 L, MCV 93.0, MCH 32.4 H, MCHC 34.9, RDW 16.1 H, RDW Differential 53.6 H, Plt Count 228, MPV 8.6, Immature Gran % (Auto) 0.700, Neut % (Auto) 59.0, Lymph % (Auto) 23.1, [place]ven % (Auto) 15.4 H, Eos % (Auto) 1.1, Baso % (Auto) 0.7, Absolute Neuts (auto) 2.6, Absolute Lymphs (auto) 1.02, Total Counted Not Reportable 12/22/18 06:15: Sodium 138, Potassium 3.6, Chloride 105, Carbon Dioxide 25.0, Anion Gap 8, BUN 11, Creatinine 0.58, Estim Creat Clear Calc 36.80, Est GFR (MDRD) Af Amer 131, Est GFR (MDRD) Non-Af 108, BUN/Creatinine Ratio 19.1, Glucose 102, Calcium 7.4 L Current Medications Al Hydroxide/Mg Hydroxide (Mylanta Ii) 15 - 30 ml PO Q4H PRN PRN PRN Reason: INDIGESTION Albuterol Sulfate (Ventolin Aerosols) 2.5 mg INHALATION Q2H PRN PRN PRN Reason: dyspnea, wheezing Atorvastatin Calcium (Lipitor) 10 mg PO QHS [facility] Last Admin: 12/21/18 21:24 Dose: 10 mg Cefdinir (Omnicef [Equiv]) 300 mg PO Q12 [facility] Last Admin: 12/22/18 09:59 Dose: 300 mg Dextrose (D50w Syringe) 0 gm IV X1 PRN; Protocol PRN Reason: Hypoglycemia Ferrous Sulfate (Ferrous Sulfate) [facility] Last Admin: 12/22/18 08:31 Dose: 325 mg Fluoxetine HCl (Prozac) 40 mg PO DAILY [facility] Last Admin: 12/22/18 09:58 Dose: 40 mg Folic Acid (Folic Acid) 1 mg PO DAILY@0800 [facility] Stop: 12/23/18 08:01 Last Admin: 12/22/18 08:31 Dose: 1 mg Gabapentin (Neurontin) 100 mg PO DAILY [facility] Last Admin: 12/22/18 09:59 Dose: 100 mg Glucagon () 1 mg IM .X1 PRN PRN Reason: Hypoglycemia Hydralazine HCl (Apresoline Iv) 10 mg IV Q4H PRN PRN PRN Reason: SBP > 160 Melatonin (Melatonin) 3 mg PO QHS PRN PRN PRN Reason: INSOMNIA Metoprolol Succinate (Toprol Xl (Beta Jaxon)) 100 mg PO DAILY [facility] Last Admin: 12/22/18 09:59 Dose: 100 mg Multivitamins/Minerals (Multivitamin With Minerals) 1 tablet [facility] Last Admin: 12/22/18 08:31 Dose: 1 tablet Nutritional Formula (Lactose Free) (Ensure Enlive) 120 ml PO 4X/DAY [facility] Last Admin: 12/22/18 10:00 Dose: 120 ml Ondansetron HCl (Zofran) 4 mg IV Q8H PRN PRN PRN Reason: NAUSEA/VOMITING Pantoprazole Sodium (Protonix) 40 mg PO BID [facility] Last Admin: 12/22/18 09:59 Dose: 40 mg Sodium Chloride () 5 - 15 ml IV UD PRN PRN Reason: SALINE FLUSH Sucralfate (Carafate) 1 gm PO 1HR_ACHS [facility] Last Admin: 12/22/18 11:17 Dose: 1 gm Thiamine HCl (Vitamin B1) 100 mg PO BIDCM [facility] Stop: 12/23/18 17:01 Last Admin: 12/22/18 08:31 Dose: 100 mg Medical Necessity - Tobacco Use Smoking Status: Never smoker Tobacco Use: Non-smoker Assessment/Plan All Active Problems Intractable nausea and vomiting (Acute) Hematemesis (Acute) Suicidal ideations (Acute) Major depression (Acute) Severe sepsis (Resolved) UTI (urinary tract infection) (Acute) Generalized weakness (Acute) Dehydration (Resolved) Decreased functional residual capacity (Acute) 1. acute alcohol withdrawal unclear if was actually going through alcohol withdrawal or not. Maybe skewed by underlying anxiety. Will DC lorazepam and observe 2. Suicidal ideation: may have been due to anxiety seen by Crisis who feel patient is not needed for inpatient psychiatric input. 3. PUD: continue PPI and carafate 4. Anemia: stable monitor 5. VTE prophylaxis: SCDs 6. Disposition: monitor overnight, if does well on no BZDs, then anticipate DC on 12/23. Code Visit Inpatient E&M: 12046 Subs Hosp L2
--- NOTE | 2018-12-22 14:19 | PN_ITS ---
Patient Problems: Active and Suspected Problems Suicidal ideations (Acute) Major depression (Acute) Subjective: Feeling better. Denies any suicidal ideation. Vitals/I&O's: Vital Signs Temp Pulse Resp BP Pulse Ox 36.2 C L 80 18 141/87 H 98 12/22/18 09:45 12/22/18 09:59 12/22/18 09:45 12/22/18 09:45 12/22/18 09:45 Oxygen Delivery Method Room Air Weight: 48.7 kg Body Mass Index (BMI) 19.6 Finger Stick Blood Glucose 273 Intake and Output for Last 24 Hours 12/20/18 12/21/18 12/22/18 23:59 23:59 23:59 Intake Total 814 / 814 2634 / 2634 Balance 814 / 814 2634 / 2634 General: Alert, No apparent distress HEENT: Atraumatic, Normocephalic Oral: Moist Mucosa, No Gingival or Mucosal Lesions/ Ulcerations Neck: No Nodes, Thyroid Normal Size and Texture Lungs: Clear to auscultation, Normal air movement, No rhonchi, No wheeze Cardiovascular: Regular rate, Regular Rhythm, Normal S1, Normal S2, No murmurs Abdomen: Bowel Sounds Present, Soft, Non Tender, Non-Distended Extremities: No edema, No Calf Tenderness Skin: No rashes, No breakdown Psych/Mental Status: Normal Affect, Appropriate Laboratory Results 12/22/18 06:15: WBC 4.4, RBC 2.99 L, Hgb 9.7 L, Hct 27.8 L, MCV 93.0, MCH 32.4 H , MCHC 34.9, RDW 16.1 H, RDW Differential 53.6 H, Plt Count 228, MPV 8.6, Immature Gran % (Auto) 0.700, Neut % (Auto) 59.0, Lymph % (Auto) 23.1, [place] % (Auto) 15.4 H, Eos % (Auto) 1.1, Baso % (Auto) 0.7, Absolute Neuts (auto) 2.6, Absolute Lymphs (auto) 1.02, Total Counted Not Reportable 12/22/18 06:15: Sodium 138, Potassium 3.6, Chloride 105, Carbon Dioxide 25.0, Anion Gap 8, BUN 11, Creatinine 0.58, Estim Creat Clear Calc 36.80, Est GFR (MDRD) Af Amer 131, Est GFR (MDRD) Non-Af 108, BUN/Creatinine Ratio 19.1, Glucose 102, Calcium 7.4 L Current Medications Al Hydroxide/Mg Hydroxide (Mylanta Ii) 15 - 30 ml PO Q4H PRN PRN PRN Reason: INDIGESTION Albuterol Sulfate (Ventolin Aerosols) 2.5 mg INHALATION Q2H PRN PRN PRN Reason: dyspnea, wheezing Atorvastatin Calcium (Lipitor) 10 mg PO QHS [facility] Last Admin: 12/21/18 21:24 Dose: 10 mg Cefdinir (Omnicef [Equiv]) 300 mg PO Q12 [facility] Last Admin: 12/22/18 09:59 Dose: 300 mg Dextrose (D50w Syringe) 0 gm IV X1 PRN; Protocol PRN Reason: Hypoglycemia Ferrous S[facility] ([facility] Sulfate) [facility] Last Admin: 12/22/18 08:31 Dose: 325 mg Fluoxetine HCl (Prozac) 40 mg PO DAILY [facility] Last Admin: 12/22/18 09:58 Dose: 40 mg Folic Acid (Folic Acid) 1 mg PO DAILY@0800 [facility] Stop: 12/23/18 08:01 Last Admin: 12/22/18 08:31 Dose: 1 mg Gabapentin (Neurontin) 100 mg PO DAILY [facility] Last Admin: 12/22/18 09:59 Dose: 100 mg Glucagon () 1 mg IM .X1 PRN PRN Reason: Hypoglycemia Hydralazine HCl (Apresoline Iv) 10 mg IV Q4H PRN PRN PRN Reason: SBP > 160 Melatonin (Melatonin) 3 mg PO QHS PRN PRN PRN Reason: INSOMNIA Metoprolol Succinate (Toprol Xl (Beta Jaxon)) 100 mg PO DAILY [facility] Last Admin: 12/22/18 09:59 Dose: 100 mg Multivitamins/Minerals (Multivitamin With Minerals) [facility] Last Admin: 12/22/18 08:31 Dose: 1 tablet Nutritional Formula (Lactose Free) (Ensure Enlive) 120 ml PO 4X/DAY [facility] Last Admin: 12/22/18 10:00 Dose: 120 ml Ondansetron HCl (Zofran) 4 mg IV Q8H PRN PRN PRN Reason: NAUSEA/VOMITING Pantoprazole Sodium (Protonix) 40 mg PO BID [facility] Last Admin: 12/22/18 09:59 Dose: 40 mg Sodium Chloride () 5 - 15 ml IV UD PRN PRN Reason: SALINE FLUSH Sucralfate (Carafate) 1 gm PO 1HR_ACHS [facility] Last Admin: 12/22/18 11:17 Dose: 1 gm Thiamine HCl (Vitamin B1) 100 mg PO BIDCM [facility] Stop: 12/23/18 17:01 Last Admin: 12/22/18 08:31 Dose: 100 mg Medical Necessity - Tobacco Use Smoking Status: Never smoker Tobacco Use: Non-smoker Assessment/Plan All Active Problems Intractable nausea and vomiting (Acute) Hematemesis (Acute) Suicidal ideations (Acute) Major depression (Acute) Severe sepsis (Resolved) UTI (urinary tract infection) (Acute) Generalized weakness (Acute) Dehydration (Resolved) Decreased functional residual capacity (Acute) 1. acute alcohol withdrawal * unclear if was actually going through alcohol withdrawal or not. Maybe skewed by underlying anxiety. * Will DC lorazepam and observe 2. Suicidal ideation: * may have been due to anxiety * seen by Crisis who feel patient is not needed for inpatient psychiatric input. 3. PUD: * continue PPI and carafate 4. Anemia: * stable * monitor 5. VTE prophylaxis: SCDs 6. Disposition: monitor overnight, if does well on no BZDs, then anticipate DC on 12/23. Code Visit Inpatient E&M: 55202 Subs Hosp L2
[2018-12-22] MEDS: fentaNYL 25 MCG Patch TRANSDERM. (20:40)
[2018-12-22] MEDS: Atorvastatin Calcium 10 MG Tablet PO (20:52)
[2018-12-22] MEDS: MELATONIN 3 MG TABLET PO (20:52)
[2018-12-22] MEDS: oxyCODONE 5 MG Tablet PO (22:18)
[2018-12-23 05:00] VITALS: BP 146/72; PULSE 65; RESP 18; TEMP 36.8; O2SAT 98
[2018-12-23] MEDS: Sucralfate 1 GM Tablet PO ×2 (06:29→11:25)
[2018-12-23 07:19] VITALS: O2SAT 97
[2018-12-23 09:00] VITALS: BP 137/81; PULSE 74; RESP 16; TEMP 36.8; O2SAT 100
[2018-12-23] MEDS: Ferrous Sulfate 325 MG Tablet PO (09:03)
[2018-12-23] MEDS: Folic Acid 1 MG Tablet PO (09:03)
[2018-12-23] MEDS: Pantoprazole Sodium 40 MG Tablet PO (09:03)
[2018-12-23 09:04] VITALS: PULSE 75
[2018-12-23] MEDS: Multivitamins,Ther W-Minerals Tablet 1 TABLET PO (09:04)
[2018-12-23] MEDS: Gabapentin 100 MG Capsule PO (09:04)
[2018-12-23] MEDS: Metoprolol(XL)Succ 100 MG Tablet PO (09:04)
[2018-12-23] MEDS: Cefdinir 300 MG Capsule PO (09:04)
[2018-12-23] MEDS: Thiamine Hydrochloride 100 MG Tablet PO (09:04)
[2018-12-23] MEDS: FLUoxetine 20 MG Capsule 40 MG PO (09:04)
--- NOTE | 2018-12-23 10:58 | PCM.PN.HOSP ---
Patient Problems: Active and Suspected Problems Suicidal ideations (Acute) Major depression (Acute) Subjective: No events. Anxious to go home. Vitals/I&O's: Vital Signs Temp Pulse Resp BP Pulse Ox 36.8 C 75 16 137/81 H 100 12/23/18 09:00 12/23/18 09:04 12/23/18 09:00 12/23/18 09:00 12/23/18 09:00 Oxygen Delivery Method Room Air Weight: 48.7 kg Body Mass Index (BMI) 19.6 Finger Stick Blood Glucose 273 Intake and Output for Last 24 Hours 12/21/18 12/22/18 12/23/18 23:59 23:59 23:59 Intake Total 814 / 814 3734 / 3734 200 / 200 Balance 814 / 814 3734 / 3734 200 / 200 General: Alert, No apparent distress HEENT: Normocephalic Skin: - - bruising on right of mouth. Current Medications Al Hydroxide/Mg Hydroxide (Mylanta Ii) 15 - 30 ml PO Q4H PRN PRN PRN Reason: INDIGESTION Albuterol Sulfate (Ventolin Aerosols) 2.5 mg INHALATION Q2H PRN PRN PRN Reason: dyspnea, wheezing Atorvastatin Calcium (Lipitor) 10 mg PO QHS [facility] Last Admin: 12/22/18 20:52 Dose: 10 mg Cefdinir (Omnicef [Equiv]) 300 mg PO Q12 [facility] Last Admin: 12/23/18 09:04 Dose: 300 mg Dextrose (D50w Syringe) 0 gm IV X1 PRN; Protocol PRN Reason: Hypoglycemia Fentanyl (Duragesic Patch) 25 mcg TRANSDERM. Q3D [facility] Last Admin: 12/22/18 20:40 Dose: 25 mcg Ferrous Sulfate (Ferrous Sulfate) 325 mg PO DAILYCM [facility] Last Admin: 12/23/18 09:03 Dose: 325 mg Fluoxetine HCl (Prozac) 40 mg PO DAILY [facility] Last Admin: 12/23/18 09:04 Dose: 40 mg Gabapentin (Neurontin) 100 mg PO DAILY [facility] Last Admin: 12/23/18 09:04 Dose: 100 mg Glucagon () 1 mg IM .X1 PRN PRN Reason: Hypoglycemia Hydralazine HCl (Apresoline Iv) 10 mg IV Q4H PRN PRN PRN Reason: SBP > 160 Melatonin (Melatonin) 3 mg PO QHS PRN PRN PRN Reason: INSOMNIA Last Admin: 12/22/18 20:52 Dose: 3 mg Metoprolol Succinate (Toprol Xl (Beta Jaxon)) 100 mg PO DAILY [facility] Last Admin: 12/23/18 09:04 Dose: 100 mg Multivitamins/Minerals ([facility]ivitamin With Minerals) [facility] Last Admin: 12/23/18 09:04 Dose: 1 tablet Nutritional Formula (Lactose Free) (Ensure Enlive) 120 ml PO 4X/DAY [facility] Last Admin: 12/23/18 09:09 Dose: 120 ml Ondansetron HCl (Zofran) 4 mg IV Q8H PRN PRN PRN Reason: NAUSEA/VOMITING Pantoprazole Sodium (Protonix) 40 mg PO BID [facility] Last Admin: 12/23/18 09:03 Dose: 40 mg Sodium Chloride () 5 - 15 ml IV UD PRN PRN Reason: SALINE FLUSH Sucralfate (Carafate) 1 gm PO 1HR_ACHS [facility] Last Admin: 12/23/18 06:29 Dose: 1 gm Thiamine HCl (Vitamin B1) [facility] Stop: 12/23/18 17:01 Last Admin: 12/23/18 09:04 Dose: 100 mg Medical Necessity - Tobacco Use Smoking Status: Never smoker Tobacco Use: Non-smoker Assessment/Plan All Active Problems Intractable nausea and vomiting (Acute) Hematemesis (Acute) Suicidal ideations (Acute) Major depression (Acute) Severe sepsis (Resolved) UTI (urinary tract infection) (Acute) Generalized weakness (Acute) Dehydration (Resolved) Decreased functional residual capacity (Acute) 1. acute alcohol withdrawal unclear if was actually going through alcohol withdrawal or not. Maybe skewed by underlying anxiety. Stable of lorazepam pt states she will follow up with her counselor and [facility] (which is grief counseling group) Has declined outpatient programs with [facility] ([facility] 12/21) 2. Suicidal ideation: may have been due to anxiety/depression seen by Crisis who feel patient is not needed for inpatient psychiatric input. 3. Depression: complicates care continue fluoxetine, duloxetine Will need to follow up with psychiatrist, Dr. Kimble. 4. PUD: continue PPI and carafate Follow up with Dr. Deedee Martínez 5. Anemia: stable monitor 5. VTE prophylaxis: SCDs 6. Disposition: await on PT eval. Discussed with patient's son, Umair, about her case. He stated that he was concerned the patient is being discharged and stated that she stay in the hospital for another 24 hours to get her strength up. I explained to him that we will have physical therapy evaluate her and to see if she would be a candidate for usp facility. Though I did state that if she was a candidate, she would have to agree to it and expressed to him that she may decline that. And if she were to decline and then she would be discharged. He stated that he would want to guarantee that there is not can be any medical issues when patient is discharged. I told him I cannot tell him that but from a medical standpoint that she would be hemodynamically stable. He stated that a female doctor told him last night, is unclear who that was as Dr. Villa went off service on the and Dr. Ball was on last night but did not leave any note nor indication that she had evaluated the patient. But he stated that was due to her liver function test and her blood sugar that she should have those stabilized. I reviewed her liver function test and her alk phos was slightly high and AST was slightly high but nothing significant from my standpoint to warrant further evaluation. Blood sugars most recently were much improved and did not have any further recommendations pertaining to that. I did state that patient from alcohol withdrawal standpoint was stable for discharge and I did state that I do him that I was not sure that she was from an alcohol withdrawal from the beginning as patient was recently hospitalized and did not undergo any alcohol withdrawal to call at that time and was fine from that standpoint. Patient has continued to decline alcohol treatment services and electing to go to [facility] for [facility] counseling. I did asked the patient's son specifically what he is asked of her and what he is told her did not get a straight answer from him specifically about that but just try to reinforce with him that these are her decisions whether or not we agree with him or not we do have to respect them as long as they are competent to make those decisions. Greater than 40 minutes of which greater than 50% of time was discussing with the patient's son on the phone. Code Visit Inpatient E&M: 40743 Subs Hosp L3
--- NOTE | 2018-12-23 11:12 | PN_ITS ---
Patient Problems: Active and Suspected Problems Suicidal ideations (Acute) Major depression (Acute) Subjective: No events. Anxious to go home. Vitals/I&O's: Vital Signs Temp Pulse Resp BP Pulse Ox 36.8 C 75 16 137/81 H 100 12/23/18 09:00 12/23/18 09:04 12/23/18 09:00 12/23/18 09:00 12/23/18 09:00 Oxygen Delivery Method Room Air Weight: 48.7 kg Body Mass Index (BMI) 19.6 Finger Stick Blood Glucose 273 Intake and Output for Last 24 Hours 12/21/18 12/22/18 12/23/18 23:59 23:59 23:59 Intake Total 814 / 814 3734 / 3734 200 / 200 Balance 814 / 814 3734 / 3734 200 / 200 General: Alert, No apparent distress HEENT: Normocephalic Skin: - - bruising on right of mouth. Current Medications Al Hydroxide/Mg Hydroxide (Mylanta Ii) 15 - 30 ml PO Q4H PRN PRN PRN Reason: INDIGESTION Albuterol Sulfate (Ventolin Aerosols) 2.5 mg INHALATION Q2H PRN PRN PRN Reason: dyspnea, wheezing Atorvastatin Calcium (Lipitor) 10 mg PO QHS [facility] Last Admin: 12/22/18 20:52 Dose: 10 mg Cefdinir (Omnicef [Equiv]) 300 mg PO Q12 [facility] Last Admin: 12/23/18 09:04 Dose: 300 mg Dextrose (D50w Syringe) 0 gm IV X1 PRN; Protocol PRN Reason: Hypoglycemia Fentanyl (Duragesic Patch) 25 mcg TRANSDERM. Q3D [facility] Last Admin: 12/22/18 20:40 Dose: 25 mcg Ferrous Sulfate (Ferrous Sulfate) 325 mg PO DAILYCM [facility] Last Admin: 12/23/18 09:03 Dose: 325 mg Fluoxetine HCl (Prozac) 40 mg PO DAILY [facility] Last Admin: 12/23/18 09:04 Dose: 40 mg Gabapentin (Neurontin) 100 mg PO DAILY [facility] Last Admin: 12/23/18 09:04 Dose: 100 mg Glucagon () 1 mg IM .X1 PRN PRN Reason: Hypoglycemia Hydralazine HCl (Apresoline Iv) 10 mg IV Q4H PRN PRN PRN Reason: SBP > 160 Melatonin (Melatonin) 3 mg PO QHS PRN PRN PRN Reason: INSOMNIA Last Admin: 12/22/18 20:52 Dose: 3 mg Metoprolol Succinate (Toprol Xl (Beta Jaxon)) 100 mg PO DAILY [facility] Last Admin: 12/23/18 09:04 Dose: 100 mg Multivitamins/Minerals ([facility]amin [facility] Minerals) [facility] Admin: 12/23/18 09:04 Dose: 1 tablet Nutritional Formula (Lactose Free) (Ensure Enlive) 120 ml PO 4X/DAY [facility] Last Admin: 12/23/18 09:09 Dose: 120 ml Ondansetron HCl (Zofran) 4 mg IV Q8H PRN PRN PRN Reason: NAUSEA/VOMITING Pantoprazole Sodium (Protonix) 40 mg PO BID [facility] Last Admin: 12/23/18 09:03 Dose: 40 mg Sodium Chloride () 5 - 15 ml IV UD PRN PRN Reason: SALINE FLUSH Sucralfate (Carafate) 1 gm PO 1HR_ACHS [facility] Last Admin: 12/23/18 06:29 Dose: 1 gm Thiamine HCl ([facility]itamin B1) [facility] Stop: 12/23/18 17:01 Last Admin: 12/23/18 09:04 Dose: 100 mg Medical Necessity - Tobacco Use Smoking Status: Never smoker Tobacco Use: Non-smoker Assessment/Plan All Active Problems Intractable nausea and vomiting (Acute) Hematemesis (Acute) Suicidal ideations (Acute) Major depression (Acute) Severe sepsis (Resolved) UTI (urinary tract infection) (Acute) Generalized weakness (Acute) Dehydration (Resolved) Decreased functional residual capacity (Acute) 1. acute alcohol withdrawal * unclear if was actually going through alcohol withdrawal or not. Maybe skewed by underlying anxiety. * Stable of lorazepam * pt states she will follow up with her counselor and [facility] (which is [facility] counseling group) * Has declined outpatient programs with [facility] ([facility] note 12/21) 2. Suicidal ideation: * may have been due to anxiety/depression * seen by Crisis who feel patient is not needed for inpatient psychiatric input. 3. Depression: * complicates care * continue fluoxetine, duloxetine * Will need to follow up with psychiatrist, Dr. Kimble. 4. PUD: * continue PPI and carafate * Follow up with Dr. Deedee Martínez 5. Anemia: * stable * monitor 5. VTE prophylaxis: SCDs 6. Disposition: await on PT eval. Discussed with patient's son, Umair, about her case. He stated that he was concerned the patient is being discharged and stated that she stay in the hospital for another 24 hours to get her strength up. I explained to him that we will have physical therapy evaluate her and to see if she would be a candidate for shelter facility. Though I did state that if she was a candidate, she would have to agree to it and expressed to him that she may decline that. And if she were to decline and then she would be discharged. He stated that he would want to guarantee that there is not can be any medical issues when patient is discharged. I told him I cannot tell him that but from a medical standpoint that she would be hemodynamically stable. He stated that a female doctor told him last night, is unclear who that was as Dr. Villa went off service on the th and Dr. Ball was on last night but did not leave any note nor indication that she had evaluated the patient. But he stated that was due to her liver function test and her blood sugar that she should have those stabilized. I reviewed her liver function test and her alk phos was slightly high and AST was slightly high but nothing significant from my standpoint to warrant further evaluation. Blood sugars most recently were much improved and did not have any further recommendations pertaining to that. I did state that patient from alcohol withdrawal standpoint was stable for discharge and I did state that I do him that I was not sure that she was from an alcohol withdrawal from the beginning as patient was recently hospitalized and did not undergo any alcohol withdrawal to call at that time and was fine from that standpoint. Patient has continued to decline alcohol treatment services and electing to go to [facility] for grief counseling. I did asked the patient's son specifically what he is asked of her and what he is told her did not get a straight answer from him specifically about that but just try to reinforce with him that these are her decisions whether or not we agree with him or not we do have to respect them as long as they are competent to make those decisions. Greater than 40 minutes of which greater than 50% of time was discussing with the patient's son on the phone. Code Visit Inpatient E&M: [id number] Subs Hosp L3
--- NOTE | 2018-12-23 11:33 | DCINST_ITS ---
- Discharge Diagnoses Current Active Problems: Current Active and Chronic Problems Suicidal ideations (Acute) Major depression (Acute) You will use the following diet at home:: No restrictions Your food should be the consistency of: Regular Your liquids should be the consistency of: Regular/Thin Weight Bearing Status: Weight bearing as tolerated Call your doctor if you observe: Fever of 101 or Higher, Shortness of breath Allergies/Adverse Reactions: Allergies acetaminophen Adverse Reaction (Verified 12/20/18 17:34) Other LIVER FAILURE -PER FAMILY Medications to take at Discharge Cholecalciferol (Vitamin D3) [D3-2000] 2,000 unit PO DAILY 06/21/18 Ibandronate Sodium [Boniva] 150 mg PO Q30D 06/21/18 Metoprolol Succinate [Toprol Xl] 100 mg PO DAILY 06/21/18 Calcium Carbonate [Calcium] 600 mg PO DAILY 09/27/18 Ferrous Sulfate 325 mg PO DAILY 09/27/18 Atorvastatin Calcium [Lipitor] 10 mg PO QHS 12/12/18 Duloxetine HCl 30 mg PO DAILY 12/12/18 Fluoxetine HCl [Prozac] 40 mg PO DAILY 12/12/18 Gabapentin [Neurontin] 100 mg PO DAILY 12/12/18 Pantoprazole Sodium [Protonix] 40 mg PO BID #60 tab 12/15/18 Sucralfate 1 gm PO 4X/DAY #120 tab 12/15/18 Acetaminophen 500 mg PO Q4H PRN #1 tablet 12/23/18 The following prescriptions were given: Acetaminophen 500 mg PO Q4H PRN #1 tablet PRN Reason: Pain Primary Care Physician: Ramona Crews MD [Primary Care Provider] - Within 2 Weeks Test Results: Test results from this visit will be discussed in further detail at your follow- up appointment, if applicable. Please Follow Up With: Dr. Kimble - Psychiatry When: 1-2 weeks Please Follow Up With: [facility] When: 1 week Please Follow Up With: Star Martínez MD When: 2-4 weeks Proposed Discharge Date: 12/23/18
--- NOTE | 2018-12-23 11:33 | PCM.DC.SUM ---
Discharge Date and Diagnosis - Problem List Patient Problems: Active and Suspected Problems Intractable nausea and vomiting (Acute) Suicidal ideations (Acute) Alcohol withdrawal (Acute) Date of Admission: 12/20/18 Date of Discharge: 12/23/18 - Primary Discharge Diagnosis Active and Suspected Problems Suicidal ideations (Acute) Major depression (Acute) 1. acute alcohol withdrawal unclear if was actually going through alcohol withdrawal or not. Maybe skewed by underlying anxiety. Stable of lorazepam pt states she will follow up with her counselor and [facility] (which is grief counseling group) Has declined outpatient programs with [facility] ([facility] note 12/21) 2. Suicidal ideation: may have been due to anxiety/depression seen by Crisis who feel patient is not needed for inpatient psychiatric input. 3. Depression: complicates care continue fluoxetine, duloxetine Will need to follow up with psychiatrist, Dr. Kimble. 4. PUD: continue PPI and carafate Follow up with Dr. Deedee Martínez 5. Anemia: stable monitor 6. Debility: seen by therapy and recommend home with home health care. Notified CM who will facilitate home health care services. 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 Patient was in the emergency room, patient stated that she was going to take all the pills in her house and kill herself. Patient was admitted to the emergency room and and had to be brought in for crisis evaluation because of the suicidal ideation. Initial alcohol level was 318. Patient was started on the CIWA protocol and was receiving Ativan. I saw the patient on the and discontinue the Ativan. I was not sure the patient was going through alcohol withdrawal but did not see the patient initially. My concern for not acting other alcohol withdrawal as I did care for the patient during her hospitalization earlier in the month and she was not actively being treated for alcohol withdrawal at that time. Patient was discharged on December 15 and then readmitted on the . Patient did well for 24 hours after receiving no benzodiazepines. For the patient's suicidal ideation, patient was evaluated by crisis and deemed herself and did not warrant treatment in inpatient facility. Patient's son is very concerned for his mother and but did have a very lengthy conversation, please see below for further details, but wanted reassurance that she would have no events after she was discharged. Told him I cannot verify that but medically speaking that she would be safe for discharge. At the time I spoke with him I said that we were having physical therapy evaluate her to see if she would be a candidate for long-term facility. Physical therapy did evaluate her and felt that she was stable for home with home care. Discussed with case management who will facilitate. Patient has continued to decline treatment for her alcohol withdrawal through programs facilitated by [employer]. Patient states that she has gone to follow-up with a grief counseling group [facility]. I did implore her to follow-up with psychiatry as well. Discussed with patient's son, Umair, about her case. He stated that he was concerned the patient is being discharged and stated that she stay in the hospital for another 24 hours to get her strength up. I explained to him that we will have physical therapy evaluate her and to see if she would be a candidate for long-term facility. Though I did state that if she was a candidate, she would have to agree to it and expressed to him that she may decline that. And if she were to decline and then she would be discharged. He stated that he would want to guarantee that there is not can be any medical issues when patient is discharged. I told him I cannot tell him that but from a medical standpoint that she would be hemodynamically stable. He stated that a female doctor told him last night, is unclear who that was as Dr. Villa went off service on the and Dr. Ball was on last night but did not leave any note nor indication that she had evaluated the patient. But he stated that was due to her liver function test and her blood sugar that she should have those stabilized. I reviewed her liver function test and her alk phos was slightly high and AST was slightly high but nothing significant from my standpoint to warrant further evaluation. Blood sugars most recently were much improved and did not have any further recommendations pertaining to that. I did state that patient from alcohol withdrawal standpoint was stable for discharge and I did state that I do him that I was not sure that she was from an alcohol withdrawal from the beginning as patient was recently hospitalized and did not undergo any alcohol withdrawal to call at that time and was fine from that standpoint. Patient has continued to decline alcohol treatment services and electing to go to [facility] for [facility] counseling. I did asked the patient's son specifically what he is asked of her and what he is told her did not get a straight answer from him specifically about that but just try to reinforce with him that these are her decisions whether or not we agree with him or not we do have to respect them as long as they are competent to make those decisions. [] Patient Problems: Active and Suspected Problems Intractable nausea and vomiting (Acute) Suicidal ideations (Acute) Alcohol withdrawal (Acute) - Physical Exam Vital Signs Temp Pulse Resp BP Pulse Ox 36.8 C 75 16 137/81 H 100 12/23/18 09:00 12/23/18 09:04 12/23/18 09:00 12/23/18 09:00 12/23/18 09:00 Oxygen Delivery Method Room Air Weight: 48.7 kg Body Mass Index (BMI) 19.6 Finger Stick Blood Glucose 273 Intake and Output for Last 24 Hours 12/21/18 12/22/18 12/23/18 23:59 23:59 23:59 Intake Total 814 / 814 3734 / 3734 450 / 450 Balance 814 / 814 3734 / 3734 450 / 450 Discharge Diet: No Restrictions Discharge Activity: Return to Normal Activity Weight Bearing Status: Weight bearing as tolerated Call your doctor if you observe: Fever of 101 or Higher, Shortness of breath Home Medications: Medications to take at Discharge Cholecalciferol (Vitamin D3) [D3-2000] 2,000 unit PO DAILY 06/21/18 Ibandronate Sodium [Boniva] 150 mg PO Q30D 06/21/18 Metoprolol Succinate [Toprol Xl] 100 mg PO DAILY 06/21/18 Calcium Carbonate [Calcium] 600 mg PO DAILY 09/27/18 Ferrous Sulfate 325 mg PO DAILY 09/27/18 Atorvastatin Calcium [Lipitor] 10 mg PO QHS 12/12/18 Duloxetine HCl 30 mg PO DAILY 12/12/18 Fluoxetine HCl [Prozac] 40 mg PO DAILY 12/12/18 Gabapentin [Neurontin] 100 mg PO DAILY 12/12/18 Pantoprazole Sodium [Protonix] 40 mg PO BID #60 tab 12/15/18 Sucralfate 1 gm PO 4X/DAY #120 tab 12/15/18 Acetaminophen 500 mg PO Q4H PRN #1 tablet 12/23/18 Following Prescrptions Were Given to Patient: Acetaminophen 500 mg PO Q4H PRN #1 tablet PRN Reason: Pain Primary Care Physician: Ramona Crews MD [Primary Care Provider] - Within 2 Weeks Please Follow Up With: Dr. Kimble - Psychiatry When: 1-2 weeks Please Follow Up With: [facility] When: 1 week Please Follow Up With: Star Martínez MD When: 2-4 weeks Disposition: Home Minutes spent on discharge:: 45 Patient Condition:: Fair Medical Necessity - Tobacco Use Smoking Status: Never smoker Tobacco Use: Non-smoker Meaningful Use Info Meaningful Use Diagnoses (Choose all that apply): None applicable Code Visit Inpatient E&M: 17291 Disch Hosp
--- NOTE | 2018-12-23 11:39 | DS.PCM_ITS ---
Discharge Date and Diagnosis - Problem List Patient Problems: Active and Suspected Problems Intractable nausea and vomiting (Acute) Suicidal ideations (Acute) Alcohol withdrawal (Acute) Date of Admission: 12/20/18 Date of Discharge: 12/23/18 - Primary Discharge Diagnosis Active and Suspected Problems Suicidal ideations (Acute) Major depression (Acute) 1. acute alcohol withdrawal * unclear if was actually going through alcohol withdrawal or not. Maybe skewed by underlying anxiety. * Stable of lorazepam * pt states she will follow up with her counselor and [facility] (which is grief counseling group) * Has declined outpatient programs with [facility] ([facility] note 12/21) 2. Suicidal ideation: * may have been due to anxiety/depression * seen by Crisis who feel patient is not needed for inpatient psychiatric input. 3. Depression: * complicates care * continue fluoxetine, duloxetine * Will need to follow up with psychiatrist, Dr. Kimble. 4. PUD: * continue PPI and carafate * Follow up with Dr. Deedee Martínez 5. Anemia: * stable * monitor 6. Debility: seen by therapy and recommend home with home health care. Notified CM who will facilitate home health care services. 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 Patient was in the emergency room, patient stated that she was going to take all the pills in her house and kill herself. Patient was admitted to the emergency room and and had to be brought in for crisis evaluation because of the suicidal ideation. Initial alcohol level was 318. Patient was started on the CIWA protocol and was receiving Ativan. I saw the patient on the and discontinue the Ativan. I was not sure the patient was going through alcohol withdrawal but did not see the patient initially. My concern for not acting other alcohol withdrawal as I did care for the patient during her hospitalization earlier in the month and she was not actively being treated for alcohol withdrawal at that time. Patient was discharged on December 15 and then readmitted on the . Patient did well for 24 hours after receiving no benzodiazepines. For the patient's suicidal ideation, patient was evaluated by crisis and deemed herself and did not warrant treatment in inpatient facility. Patient's son is very concerned for his mother and but did have a very lengthy conversation, please see below for further details, but wanted reassurance that she would have no events after she was discharged. Told him I cannot verify that but medically speaking that she would be safe for discharge. At the time I spoke with him I said that we were having physical therapy evaluate her to see if she would be a candidate for retirement facility. Physical therapy did evaluate her and felt that she was stable for home with home care. Discussed with case management who will facilitate. Patient has continued to decline treatment for her alcohol withdrawal through programs facilitated by [employer]. Patient states that she has gone to follow- up with a [facility] counseling group [facility]. I did implore her to follow-up with psychiatry as well. Discussed with patient's son, Umair, about her case. He stated that he was concerned the patient is being discharged and stated that she stay in the hospital for another 24 hours to get her strength up. I explained to him that we will have physical therapy evaluate her and to see if she would be a candidate for retirement facility. Though I did state that if she was a candidate, she would have to agree to it and expressed to him that she may decline that. And if she were to decline and then she would be discharged. He stated that he would want to guarantee that there is not can be any medical issues when patient is discharged. I told him I cannot tell him that but from a medical standpoint that she would be hemodynamically stable. He stated that a female doctor told him last night, is unclear who that was as Dr. Villa went off service on the and Dr. Ball was on last night but did not leave any note nor indication that she had evaluated the patient. But he stated that was due to her liver function test and her blood sugar that she should have those stabilized. I reviewed her liver function test and her alk phos was slightly high and AST was slightly high but nothing significant from my standpoint to warrant further evaluation. Blood sugars most recently were much improved and did not have any further recommendations pertaining to that. I did state that patient from alcohol withdrawal standpoint was stable for discharge and I did state that I do him that I was not sure that she was from an alcohol withdrawal from the beginning as patient was recently hospitalized and did not undergo any alcohol withdrawal to call at that time and was fine from that standpoint. Patient has continued to decline alcohol treatment services and electing to go to [facility] for grief counseling. I did asked the patient's son tonio rodasy what he is asked of her and what he is told her did not get a straight answer from him specifically about that but just try to reinforce with him that these are her decisions whether or not we agree with him or not we do have to respect them as long as they are competent to make those decisions. [] Patient Problems: Active and Suspected Problems Intractable nausea and vomiting (Acute) Suicidal ideations (Acute) Alcohol withdrawal (Acute) - Physical Exam Vital Signs Temp Pulse Resp BP Pulse Ox 36.8 C 75 16 137/81 H 100 12/23/18 09:00 12/23/18 09:04 12/23/18 09:00 12/23/18 09:00 12/23/18 09:00 Oxygen Delivery Method Room Air Weight: 48.7 kg Body Mass Index (BMI) 19.6 Finger Stick Blood Glucose 273 Intake and Output for Last 24 Hours 12/21/18 12/22/18 12/23/18 23:59 23:59 23:59 Intake Total 814 / 814 3734 / 3734 450 / 450 Balance 814 / 814 3734 / 3734 450 / 450 Discharge Diet: No Restrictions Discharge Activity: Return to Normal Activity Weight Bearing Status: Weight bearing as tolerated Call your doctor if you observe: Fever of 101 or Higher, Shortness of breath Home Medications: Medications to take at Discharge Cholecalciferol (Vitamin D3) [D3-2000] 2,000 unit PO DAILY 06/21/18 Ibandronate Sodium [Boniva] 150 mg PO Q30D 06/21/18 Metoprolol Succinate [Toprol Xl] 100 mg PO DAILY 06/21/18 Calcium Carbonate [Calcium] 600 mg PO DAILY 09/27/18 Ferrous Sulfate 325 mg PO DAILY 09/27/18 Atorvastatin Calcium [Lipitor] 10 mg PO QHS 12/12/18 Duloxetine HCl 30 mg PO DAILY 12/12/18 Fluoxetine HCl [Prozac] 40 mg PO DAILY 12/12/18 Gabapentin [Neurontin] 100 mg PO DAILY 12/12/18 Pantoprazole Sodium [Protonix] 40 mg PO BID #60 tab 12/15/18 Sucralfate 1 gm PO 4X/DAY #120 tab 12/15/18 Acetaminophen 500 mg PO Q4H PRN #1 tablet 12/23/18 Following Prescrptions Were Given to Patient: Acetaminophen 500 mg PO Q4H PRN #1 tablet PRN Reason: Pain Primary Care Physician: Ramona Crews MD [Primary Care Provider] - Within 2 Weeks Please Follow Up With: Dr. Kimble - Psychiatry When: 1-2 weeks Please Follow Up With: [facility] When: 1 week Please Follow Up With: Star Martínez MD When: 2-4 weeks Disposition: Home Minutes spent on discharge:: 45 Patient Condition:: Fair Medical Necessity - Tobacco Use Smoking Status: Never smoker Tobacco Use: Non-smoker Meaningful Use Info Meaningful Use Diagnoses (Choose all that apply): None applicable Code Visit Inpatient E&M: 55438 Disch Hosp
[2018-12-23 13:40] VITALS: BP 115/61; PULSE 67; RESP 18; TEMP 37.1; O2SAT 100
--- NOTE | 2018-12-23 15:22 | NURSING ---
reviewed discharge information with patient and son. also provided information regarding alcoholism and treatment to patient. provided son and pt with list of resources and AA meetings in the area with phone numbers and encouraged them to call to set up and appointment. son requested multiple times that it be noted in her chart that he is vehemently opposed to her discharge and feels as though she is not appropriate for DC today. pt disagrees with son and is comfortable to DC home with [facility] to follow on Tuesday. she verbalized agreement to follow up with her PCP in regards to home medications, her psychiatrist, and to at least look into therapy options for alcohol management.
--- NOTE | 2018-12-25 14:55 | CASEMGMT ---
Addendum entered by Bashir Capone 12/25/18 15:00: Pt returned call to ABIGAIL RODRIGUEZ. States she does not have questions re: prescriptions, f/u or instructions. Pt states she is feeling better. Reviewed f/u instructions and offered to assist pt with appointments. She states she can make appointments, she just hasn't gotten to them. No care improvement suggestions given. Miriam EATONM Original Note: ABIGAIL RODRIGUEZ DC PHONE CALL DC DATE: 12/23/18 DC Disposition: Home LACE/STRATA: 25/11 Attempted call to pt's home phone. No answer and no message machine picked up. Miriam FLETCHER RN ACM
== END 2018-12-23 13:43 | disposition home or self-care (01) | DRG 896 ==
LOC: ED 18:43 → MS3 22:26
PROVIDERS: Student in an Organized Health Care Education/Training Program; Admitting Provider Family Medicine; Emergency Provider Emergency Medicine; Family Provider Family Medicine; PCP Family Medicine
DX: F10.239 Alcohol dependence with withdrawal, unspecified (principal); E43 Unspecified severe protein-calorie malnutrition; R45.851 Suicidal ideations; Z68.1 Body mass index [BMI] 19.9 or less, adult; Y90.8 Blood alcohol level of 240 mg/100 ml or more; D50.9 Iron deficiency anemia, unspecified; E78.5 Hyperlipidemia, unspecified; I10 Essential (primary) hypertension; F32.9 Major depressive disorder, single episode, unspecified; K27.9 Peptic ulcer, site unspecified, unspecified as acute or chronic, without hemorrhage or perforation; R53.81 Other malaise; Z86.718 Personal history of other venous thrombosis and embolism
CPT/HCPCS: 36415; 80048; 80053; 80076; 80307; 80320; 82962; 83690; 83735; 84100; 85025; 85610; 85730; 97162; 97166; 97802; 99285; J7030; P9612; A4216; G0480

== ENCOUNTER → 2019-01-17 15:54 | Outpatient (CLI) | payer MEDICARE, OTHER, SELFPAY ==
[2019-01-17 15:16] VITALS: BMI 19.5
--- NOTE | 2019-01-17 15:58 | RAD_ITS ---
STUDY: X-RAY - RIGHT WRIST REASON FOR EXAM: Female, 78 years old. Trauma. TECHNIQUE: 3 view(s) of the wrist were obtained. COMPARISON: None. FINDINGS: Severe demineralization. Oblique mildly displaced fracture of the distal ulnar shaft. Mildly displaced fracture through the base of the fifth metacarpal. No dislocations. Severe degenerative changes especially at the base of the thumb. 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 RAD/Wrist min 3 Views IMPRESSION: Fractures of the distal ulnar shaft and the base of the fifth metacarpal. Electronically Signed: Yoel Menjivar MD at 16:22 EDT , Service support ,
--- NOTE | 2019-01-17 15:58 | RAD_ITS ---
STUDY: X-RAY - RIGHT RADIUS AND ULNA REASON FOR EXAM: Female, 78 years old. Trauma. TECHNIQUE: 2 view(s) of the forearm. COMPARISON: None. FINDINGS: There is demineralization. There is oblique mildly displaced fracture through the radial shaft. No angulation. No acute fracture of the radius. No dislocation. Postsurgical changes of the proximal ulna and the first metacarpal. RAD/Forearm 2 Views IMPRESSION: Acute oblique mildly displaced fracture of the distal ulnar shaft. Electronically Signed: Yoel Menjivar MD at 16:14 EDT , Service support ,
== END ==
PROVIDERS: Family Provider Family Medicine; PCP Family Medicine; Referring Provider Physician Assistant Medical; Visit Provider Physician Assistant Medical
DX: R52 Pain, unspecified (principal)
CPT/HCPCS: 73090; 73110

== ENCOUNTER → 2019-01-19 14:19 | Outpatient (CLI) | payer MEDICARE, OTHER, SELFPAY ==
[2019-01-17 15:16] VITALS: BMI 19.5
--- NOTE | 2019-01-19 14:20 | RAD_ITS ---
STUDY: X-RAY - RIGHT WRIST REASON FOR EXAM: Female, 78 years old. Injury TECHNIQUE: 3 view(s) of the wrist were obtained. COMPARISON: January 17, 2019 right wrist x-ray FINDINGS: There is demineralization of the radius and ulna. There is degenerative arthrosis of the radiocarpal articulation. There is degenerative arthrosis of the distal radioulnar articulation. There is erosive appearance of the trapezium or absence. There is degenerative arthrosis of the carpal articulations. There is severe osteopenia of the distal radius. There is a subacute fracture of the distal ulna. There is slight volar displacement of the distal fragment. There is chronic degenerative change at the first carpometacarpal joint. There is postoperative change in arthrodesis of the first metacarpophalangeal joint with heterotopic bone and degenerative change. Bones are osteopenic. There is mild soft tissue edema. There are vascular calcifications. RAD/Wrist min 3 Views IMPRESSION: Degenerative changes especially involving the first digit carpal metacarpal joint and interphalangeal joint with postoperative change. Subacute fracture of the distal ulna. Severe bony osteopenia of the distal radius. Soft tissue edema. Electronically Signed: Viridiana Bragg MD at 13:58 EDT Tel , Service support ,
== END ==
PROVIDERS: Family Provider Family Medicine; PCP Family Medicine; Referring Provider Physician Assistant; Visit Provider Physician Assistant
DX: S62.109A Fracture of unspecified carpal bone, unspecified wrist, initial encounter for closed fracture (principal); X58.XXXA Exposure to other specified factors, initial encounter; Y93.9 Activity, unspecified; Y92.9 Unspecified place or not applicable; Y99.9 Unspecified external cause status
CPT/HCPCS: 73110

== ENCOUNTER 2019-01-24 16:46 | Inpatient (IN) | payer MEDICARE, OTHER, SELFPAY ==
[2019-01-23 13:32] VITALS: BMI 19.5
[2019-01-24] VITALS (21 sets, daily range): BP systolic 132–190; BP diastolic 67–114; PULSE 83–142; RESP 15–27; TEMP 36.6–36.8; O2SAT 26–100; BMI 21.0; BMI 18.8
--- NOTE | 2019-01-24 16:56 | ED.RN ---
FENTANYL PATCH ON LEFT CHEST.
[2019-01-24 17:01] LABS: Bedside Glucose 117 mg/dL (70-110)
--- NOTE | 2019-01-24 17:07 | CT_ITS ---
STUDY: CTA OF THE BRAIN REASON FOR EXAM: Female, 78 years old. CVA RADIATION DOSAGE (If Supplied By Facility): CTDIvol = ( 11.80 ) mGy, DLP = ( 475.26 ) mGycm TECHNIQUE: CT angiography was performed with a multi-detector CT scanner. Data acquisition was obtained from the skull base through the vertex following intravenous administration of 100mL IV Isovue 300. MIP images were reconstructed from the axial data set. Post-processing of the angiographic images was performed, with multiplanar reformation and 3D reconstruction. Individualized dose optimization techniques were used for this CT. COMPARISON: None. FINDINGS: Normal bilateral petrous carotid arteries. Minor calcific plaquing of the right cavernous carotid artery with a normal supraclinoid bifurcation. Minor calcific plaquing of the left cavernous carotid artery with a normal supraclinoid bifurcation. Normal right A1 segments of the anterior cerebral artery. Normal left A1 segments of the anterior cerebral artery. Normal intact anterior communicating artery (ACOM). Normal bilateral A2 segments of the anterior cerebral arteries. Normal right M1 and M2 segments of the middle cerebral arteries, with a normal M1 bifurcation. Normal left M1 and M2 segments of the middle cerebral arteries, with a normal M1 bifurcation. Posterior communicating arteries are not visualized consistent with normal developmental variant. Normal bilateral vertebral arteries. Normal basilar artery with a normal basilar bifurcation. The visualized bilateral superior cerebellar (SCA) arteries are normal. Normal bilateral P1, P2 and visualized P3 segments of the posterior cerebral arteries. There is no demonstrated aneurysm of the [place]. There is no demonstrated abnormality of the visualized brain. IMPRESSION: Mild atherosclerotic disease without a demonstrated aneurysm or hemodynamically significant stenosis. Electronically Signed: Terrence Brambila MD at 17:36 EDT , Service support , STUDY: CTA NECK WITH CONTRAST REASON FOR EXAM: Female, 78 years old. Expressive aphasia RADIATION DOSAGE (If Supplied By Facility): CTDIvol = ( 11.80 ) mGy, DLP = ( 475.26 ) mGycm TECHNIQUE: CT angiography with multi-detector data acquisition was performed from the aortic arch to the skull base following intravenous administration of 100mL IV Isovue 300. MIP images were reconstructed from the axial data set. Post-processing of the angiographic images was performed, with multiplanar reformation and 3D reconstruction. Individualized dose optimization techniques were used for this CT. COMPARISON: None. FINDINGS: AORTIC ARCH: Normal visualized aortic arch. Normal origins of the brachiocephalic, left common carotid, and left subclavian arteries. RIGHT CAROTID ARTERIES: Normal right common carotid artery (CCA). Moderate calcific plaquing of the right common carotid bulb. Mild calcific plaquing of the origin of the right internal carotid (ICA) artery without a hemodynamically significant stenosis. Normal visualized cervical portion of the right internal carotid artery. Normal origin of the right external carotid artery (ECA). LEFT CAROTID ARTERIES: Normal left common carotid artery (CCA). Minor calcific plaquing of the left common carotid bulb. Normal origin of the left internal carotid (ICA) artery without a hemodynamically significant stenosis. Normal visualized cervical portion of the left internal carotid artery. Normal origin of the left external carotid artery (ECA). VERTEBRAL ARTERIES: Left vertebral is dominant and normal caliber. There is diffuse narrowing of the right vertebral consistent with normal developmental variant CT/CTA Neck W/WO Contrast IMPRESSION: Mild atherosclerotic disease without evidence for hemodynamically significant stenosis utilizing NASCET criteria Electronically Signed: Terrence Brambila MD at 17:38 EDT , Service support ,
--- NOTE | 2019-01-24 17:07 | CT_ITS ---
STUDY: CT BRAIN WITHOUT CONTRAST REASON FOR EXAM: Female, 78 years old. CVA RADIATION DOSAGE (If Supplied By Facility): DLP = ( 745.99 ) mGycm TECHNIQUE: Transaxial CT imaging of the brain was performed without administration of intravenous contrast material. Individualized dose optimization techniques were used for this CT. COMPARISON: CT brain September 19, 2018 FINDINGS: There is a subtle region of increased hyperdensity within the left parietal cortex, series 2 image 18. This is not present on the comparison evaluation. There are chronic ischemic and atrophic changes. The ventricles are normal in configuration. There is no hydrocephalus. The visualized paranasal sinuses are clear. The mastoid air cells are well aerated. There is no skull fracture. CT/Brain/Head without Contrast IMPRESSION: Subtle region of increased hyperdensity within the left parietal cortex, not present on the comparison evaluation. Considerations include artifact versus tiny parenchymal bleed or contusion. Suggest CTA/MRI for additional characterization. N.B. : The above information has been verbally conveyed by Terrence Zamora to MD fab, on 01/24/2019 17:30:34 (ET). Electronically Signed: Terrence Zamora, at 17:32 EDT Tel , Service support ,
--- NOTE | 2019-01-24 17:07 | EKG12_ITS ---
Test Reason : STROKE Blood Pressure : / mmHG Vent. Rate : 091 BPM Atrial Rate : 091 BPM P-R Int : 162 ms QRS Dur : 088 ms QT Int : 402 ms P-R-T Axes : 068 010 024 degrees QTc Int : 494 ms Sinus rhythm with Fusion complexes and Premature atrial complexes Nonspecific ST abnormality Prolonged QT Abnormal ECG Confirmed by TALON TILLEY, CHRISTIAN ([id number]), market editor GEOFFREY NUNO ([id number]) on 01/26/2019 8:56:56 AM Referred By: Veronica Hernandez Confirmed By:CHRISTIAN HANLEY MD
--- NOTE | 2019-01-24 17:07 | CT_ITS ---
STUDY: CTA OF THE BRAIN REASON FOR EXAM: Female, 78 years old. CVA RADIATION DOSAGE (If Supplied By Facility): CTDIvol = ( 11.80 ) mGy, DLP = ( 475.26 ) mGycm TECHNIQUE: CT angiography was performed with a multi-detector CT scanner. Data acquisition was obtained from the skull base through the vertex following intravenous administration of 100mL IV Isovue 300. MIP images were reconstructed from the axial data set. Post-processing of the angiographic images was performed, with multiplanar reformation and 3D reconstruction. Individualized dose optimization techniques were used for this CT. COMPARISON: None. FINDINGS: Normal bilateral petrous carotid arteries. Minor calcific plaquing of the right cavernous carotid artery with a normal supraclinoid bifurcation. Minor calcific plaquing of the left cavernous carotid artery with a normal supraclinoid bifurcation. Normal right A1 segments of the anterior cerebral artery. Normal left A1 segments of the anterior cerebral artery. Normal intact anterior communicating artery (ACOM). Normal bilateral A2 segments of the anterior cerebral arteries. Normal right M1 and M2 segments of the middle cerebral arteries, with a normal M1 bifurcation. Normal left M1 and M2 segments of the middle cerebral arteries, with a normal M1 bifurcation. Posterior communicating arteries are not visualized consistent with normal developmental variant. Normal bilateral vertebral arteries. Normal basilar artery with a normal basilar bifurcation. The visualized bilateral superior cerebellar (SCA) arteries are normal. Normal bilateral P1, P2 and visualized P3 segments of the posterior cerebral arteries. There is no demonstrated aneurysm of the [place] of [place]. There is no demonstrated abnormality of the visualized brain. IMPRESSION: Mild atherosclerotic disease without a demonstrated aneurysm or hemodynamically significant stenosis. Electronically Signed: Terrence Brambila MD at 17:36 EDT , Service support , STUDY: CTA NECK WITH CONTRAST REASON FOR EXAM: Female, 78 years old. Expressive aphasia RADIATION DOSAGE (If Supplied By Facility): CTDIvol = ( 11.80 ) mGy, DLP = ( 475.26 ) mGycm TECHNIQUE: CT angiography with multi-detector data acquisition was performed from the aortic arch to the skull base following intravenous administration of 100mL IV Isovue 300. MIP images were reconstructed from the axial data set. Post-processing of the angiographic images was performed, with multiplanar reformation and 3D reconstruction. Individualized dose optimization techniques were used for this CT. COMPARISON: None. FINDINGS: AORTIC ARCH: Normal visualized aortic arch. Normal origins of the brachiocephalic, left common carotid, and left subclavian arteries. RIGHT CAROTID ARTERIES: Normal right common carotid artery (CCA). Moderate calcific plaquing of the right common carotid bulb. Mild calcific plaquing of the origin of the right internal carotid (ICA) artery without a hemodynamically significant stenosis. Normal visualized cervical portion of the right internal carotid artery. Normal origin of the right external carotid artery (ECA). LEFT CAROTID ARTERIES: Normal left common carotid artery (CCA). Minor calcific plaquing of the left common carotid bulb. Normal origin of the left internal carotid (ICA) artery without a hemodynamically significant stenosis. Normal visualized cervical portion of the left internal carotid artery. Normal origin of the left external carotid artery (ECA). VERTEBRAL ARTERIES: Left vertebral is dominant and normal caliber. There is diffuse narrowing of the right vertebral consistent with normal developmental variant CT/CTA Head W/WO Contrast IMPRESSION: Mild atherosclerotic disease without evidence for hemodynamically significant stenosis utilizing NASCET criteria Electronically Signed: Terrence Brambila MD at 17:38 EDT , Service support ,
--- NOTE | 2019-01-24 17:11 | ED.VISSUMM ---
- ER Visit Summary Date of Service: 01/24/19 Chief Complaint: Decreased mental status. Difficulty speaking. History of Present Illness: The patient is a 78 F history of alcohol abuse that quit cold turkey 1 to 2 weeks ago. Patient was her normal self the day and sometime between 3 PM and 3:30 PM when she was with her grandson she had onset of mental status change and difficulty communicating. She was saying the same words over and she could not limits put her words together to form a sentence. She has never had a TIA or stroke before. She has had a recent fall 1 week ago in which she has a fractured right forearm which is getting surgically repaired on Tuesday. Son and her former [id number] are in the room giving most of the history. Physical Examination: Elderly female. Vital signs initial blood pressure 165/97. Afebrile. HEENT exam pupils are round reactive light. Extra motions are intact. Pupils are 2 mm bilaterally. No facial droop. She does speak her words are easily understood but she has a dysarthria and cannot put multiple words together to form a sentence. There is no signs of trauma to her face or scalp. Nontender. Neck nontender. Lungs clear to auscultation bilaterally. Heart regular rhythm rate about 95. No murmur. Chest wall nontender. Abdomen soft nontender. She is moving all 4 extremities. They seem to be neurovascularly intact. She has both a expressive and receptive dysphasia and is having trouble completing tasks. She has an AP splint on her right forearm and wrist. 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 She is able to lift either leg off the bed. Neurologically she is awake. She is alert. Her eyes are open. Her NIH score is a 2 with both expressive and receptive a fascia. I do not find any motor deficits. Test Results: CBC shows a white count of 4. Hemoglobin 9.6 which is her baseline anemia. Electrolytes show a sodium of 125 previously was 138. So she is hyponatremic. Potassium is 3.1. Normal gap. Creatinine is 0.7. Glucose of 108. PT PTT INR unremarkable as is her troponin. CT of the brain shows an area that is subtle with increased hyperdensity in the left parietal region. CTA of brain and neck are basically unremarkable. There is no obvious bleed. No obvious stroke. Chest x-ray read by myself shows no acute abnormality. 2 views. Emergency Department Course and Treatment: Patient will undergo stroke team protocol. Repeat exam patient is doing well at 1800 and has no change. Treatment Plan: I discussed all test results with the family. Discussed the CAT scans with the radiologist. And discussed the CAT scan and exam with the neurologist. Given her history of a recent GI bleed. Alcohol abuse. He had an NIH score of only 2 both myself and the neurologist did not feel that TPA was a viable option at this time and that the risk outweighed her benefits. I have already spoken to the hospitalist the patient will be admitted to PCU. Disposition: Admission Impression: Acute both receptive and expressive a aphasia with dysarthria rule out CVA Acute hyponatremia Prior history of alcoholism but recently sober. History of prior GI bleed This note was generated with FFWD dictation software. It may contain incorrect words, spelling, and punctuation that were not noted in review of the chart prior to signing ED Disposition - Plan for ED Patient: Referrals: Ramona Crews MD [Primary Care Provider] -
--- NOTE | 2019-01-24 17:15 | ED.DCSUM_ITS ---
- ER Visit Summary Date of Service: 01/24/19 Chief Complaint: Decreased mental status. Difficulty speaking. History of Present Illness: The patient is a 78 F history of alcohol abuse that quit cold turkey 1 to 2 weeks ago. Patient was her normal self the day and sometime between 3 PM and 3:30 PM when she was with her grandson she had onset of mental status change and difficulty communicating. She was saying the same words over and she could not limits put her words together to form a sentence. She has never had a TIA or stroke before. She has had a recent fall 1 week ago in which she has a fractured right forearm which is getting surgically repaired on Tuesday. Son and her former [id number] are in the room giving most of the history. Physical Examination: Elderly female. Vital signs initial blood pressure 165/97. Afebrile. HEENT exam pupils are round reactive light. Extra motions are intact. Pupils are 2 mm bilaterally. No facial droop. She does speak her words are easily understood but she has a dysarthria and cannot put multiple words together to form a sentence. There is no signs of trauma to her face or scalp. Nontender. Neck nontender. Lungs clear to auscultation bilaterally. Heart regular rhythm rate about 95. No murmur. Chest wall nontender. Abdomen soft nontender. She is moving all 4 extremities. They seem to be neurovascularly intact. She has both a expressive and receptive dysphasia and is having trouble completing tasks. She has an AP splint on her right forearm and wrist. She has habilitation worker strength bilaterally which is equal and symmetrical. She is able to lift either leg off the bed. Neurologically she is awake. She i s alert. Her eyes are open. Her NIH score is a 2 with both expressive and receptive a fascia. I do not find any motor deficits. Test Results: CBC shows a white count of 4. Hemoglobin 9.6 which is her baseline anemia. Electrolytes show a sodium of 125 previously was 138. So she is hyponatremic. Potassium is 3.1. Normal gap. Creatinine is 0.7. Glucose of 108. PT PTT INR unremarkable as is her troponin. CT of the brain shows an area that is subtle with increased hyperdensity in the left parietal region. CTA of brain and neck are basically unremarkable. There is no obvious bleed. No obvious stroke. Chest x-ray read by myself shows no acute abnormality. 2 views. Emergency Department Course and Treatment: Patient will undergo stroke team protocol. Repeat exam patient is doing well at 1800 and has no change. Treatment Plan: I discussed all test results with the family. Discussed the CAT scans with the radiologist. And discussed the CAT scan and exam with the neurologist. Given her history of a recent GI bleed. Alcohol abuse. He had an NIH score of only 2 both myself and the neurologist did not feel that TPA was a viable option at this time and that the risk outweighed her benefits. I have already spoken to the hospitalist the patient will be admitted to PCU. Disposition: Admission Impression: Acute both receptive and expressive a aphasia with dysarthria rule out CVA Acute hyponatremia Prior history of alcoholism but recently sober. History of prior GI bleed This note was generated with [employer] dictation software. It may contain incorrect words, spelling, and punctuation that were not noted in review of the chart prior to signing ED Disposition - Plan for ED Patient: Referrals: Ramona Crews MD [Primary Care Provider] -
--- NOTE | 2019-01-24 17:15 | RAD_ITS ---
STUDY: X-RAY CHEST REASON FOR EXAM: Female, 78 years old. Stroke TECHNIQUE: Portable COMPARISON: December 12, 2018 FINDINGS: The lungs are clear and expanded. There is no demonstrated pleural abnormality. Heart is enlarged. Normal mediastinum and jez. Normal visualized pulmonary arteries. Tortuous aortic arch and descending thoracic aorta. Dorsal spine demonstrates spondylosis.. Normal visualized ribs, clavicles, and shoulders. There is no demonstrated abnormality of the visualized soft tissue structures of the upper abdomen. RAD/Chest 1 View IMPRESSION: ASHD. No acute cardiopulmonary pathology Electronically Signed: Terrence Brambila MD at 18:43 EDT , Service support ,
[2019-01-24] MEDS: 0.9% Normal Saline 1,000 ML 999 ML IV (17:21)
--- NOTE | 2019-01-24 17:22 | ED.RN ---
DR. CASAS MADE AWARE OF PT NEURO S/SX ON ARRIVAL TO ED AT 1648.
[2019-01-24 17:43] LABS: Absolute Lymphocyte Count 0.82 X10^3/ul (0.83-4.51); Absolute Neutrophil Count 3.5 X10^3/uL (2.0-7.7); Basophil# 0.01 X10^3/uL; Basophil% 0.2 % (0-1); Eosinophil# 0.03 X10^3/uL; Eosinophils% 0.6 % (0-5); Hematocrit 27.7 % (37-47); Hemoglobin 9.6 g/dl (12.0-15.0); Lymphocyte # 0.82 X10^3/ul (4.0); Lymphocyte % 16.7 % (19-41); Mean Corp Hgb Conc 34.7 g/gl (32-36); Mean Corpuscular Hgb 31.9 pg (27.0-32.0); Mean Platelet Vol. 8.9 fl (6.2-12.0); Monocyte# 0.55 X10^3/uL; Monocyte% 11.2 % (0-10); Neutrophil # 3.49 X10^3/uL (2.7-7.7); Neutrophil % 71.1 % (47-70); POSITIVE DIFFERENTIAL NO; POSITIVE MORPHOLOGY NO; Platelet Count 245 K/mm3 (150-450); RBC Distribution Width CV 13.5 % (11.6-14.6); RBC Distribution Width SD 44.2 fl (35.1-43.9); Red Blood Count 3.01 M/mm3 (4.2-5.4); White Blood Count 4.9 K/mm3 (4.4-11.0)
[2019-01-24 17:44] LABS: POSITIVE COUNT NO
[2019-01-24 17:46] LABS: International Normalized Ratio 1.1; Prothrombin Time (Protime)PT. 13.5 SECONDS (11.7-14.9)
[2019-01-24 17:47] LABS: Partial Thromboplast Time 27.4 Seconds (24.1-36.2)
--- NOTE | 2019-01-24 17:54 | ED.RN ---
PER DR. CASAS PT IS NOT A CANDIDATE FOR TPA. RECENT GI BLEEDING AND QUESTIONABLE BLEED ON CT. AWAITING CTA RESULTS. WILL CONTINUE TO MONITOR.
[2019-01-24 17:57] LABS: Anion Gap 8 (5-15); BUN 17 mg/dL (7-18); BUN/Creat Ratio 24.3 RATIO (10-20); Calcium,Total 8.4 mg/dL (8.5-10.1); Chloride 96 mmol/L (98-107); EST Glomerular Filtration Rate 86 mL/min (>60); Est Glom Filt Rate - Afr Amer 104 mL/min (>60); Estimated Creatinine Clearance 34.38 ml/min; Glucose 108 mg/dL (74-106); Potassium 3.1 mmol/L (3.5-5.1); Sodium Level 125 mmol/L (136-145)
--- NOTE | 2019-01-24 18:15 | ED.RN ---
per dr. brown pt nih can be completed. per dr. brown, no longer necessary to continue nih.
--- NOTE | 2019-01-24 18:23 | PCM.HP.STD ---
Problem List (1) TIA (transient ischemic attack) Status: Acute (2) Alcohol withdrawal Status: Acute Qualifiers: Complication of substance-induced condition: with delirium Qualified Code(s): F10.231 - Alcohol dependence with withdrawal delirium (3) Major depression Status: Chronic Qualifiers: Major depression recurrence: recurrent Active/Remission status: currently active Major depression episode severity: severe Psychotic features: without psychotic features Qualified Code(s): F33.2 - Major depressive disorder, recurrent severe without psychotic features History of Present Illness Date of Admission: 01/24/19 Chief Complaint: Altered mental status - 1 day. Seizure - 1 day The patient is a 78 year old F with past medical history of major depression, alcohol use, recent recurrent GI bleed secondary to peptic ulcer disease, status post recent fall, who quit drinking 1 week ago and comes in with altered mental status. Patient was said to have quit drinking as his son took away all her alcohol, took away her car keys. She fell about a week ago was intoxicated and fractured her right radius. She is in a splint and will follow up with Dr. Ravi for planned elective surgery on Tuesday. Patient was found to have confusion 3 days ago which was transient, had problems finding words. Seem to have resolved. She lives alone. She was in her usual state of health until around the afternoon, when she went for her hair appointment. When they came home, patient was said to be confused. She was last known to be well around 3 PM to 3:30 PM . She was found today to have trouble finding words and being unable to speak. The EMS was called. NIH score in the ED was 2. Patient is aphasic, not responsive to questions. Not responding to commands. Son and daughter-inlaw at bedside. Denies any recent illness. Vitals showed temperature of 97.8F, heart rate is 126, blood pressure was 190/96, respiratory rate was 20, SPO2 was 100% on 2 L of oxygen Admitting Blood work showed white cell count of 4.9, hemoglobin 9.6, platelet count 245, chemistry showed sodium 125, potassium 3.1, chloride 96, bicarbonate 21, BUN 17, creatinine 0.70 Past Medical History Past Medical History (Chronic Problems): Chronic Problems (Last Updated 01/17/19 @ 15:16 by Rosa Gifford) Major depression (Chronic) History of DVT (deep vein thrombosis) (Chronic) PUD (peptic ulcer disease) (Chronic) Chronic back pain (Chronic) Hyperlipidemia (Chronic) Depression (Chronic) Benign essential hypertension (Chronic) Alcohol abuse (Chronic) Gastrointestinal bleed (Chronic) Recurrent dislocation of right hip (Chronic) Chronic blood loss anemia (Chronic) Recurrent falls (Chronic) Medical History: Medical History (Last Updated 01/17/19 @ 15:16 by Rosa Gifford) Liver disease K76.9 Stomach ulcer K25.9 Allergies acetaminophen Adverse Reaction (Verified 01/24/19 16:47) Other LIVER FAILURE -PER FAMILY Home Medications: Ambulatory Orders Medication Instructions Recorded Atorvastatin Calcium [Lipitor] 10 mg PO QHS 12/12/18 Cholecalciferol (Vitamin D3) 2,000 unit PO DAILY 01/24/19 [Vitamin D3] Fluoxetine HCl 40 mg PO DAILY 01/24/19 Pantoprazole Sodium [Protonix] 20 mg PO DAILY 01/24/19 Sucralfate 1 gm PO Q6H 01/24/19 Surgical History: - - s/p EGD for PUD Psychiatric History: Anxiety, Depression CRAFT COORDINATOR History: No pertinent CRAFT COORDINATOR history Lives: Alone Smoking Status: Never smoker Tobacco Use: Non-smoker Alcohol: None Drugs: None - *Family History Maternal History Items: - - Patient's brother, nephew and nieces had alcohol problem and went to alcohol rehab. Serveral of patient's sister had stroke. Additionally patient notes a maternal family history of hypertension. Paternal History Items: - - Patient's brother, nephew and nieces had alcohol problem and went to alcohol rehab. Serveral of patient's sister had stroke. Patient notes that her father was a heavy alcohol intake individual but denies that he was an alcoholic. Review of Systems Musculoskeletal: Denies: Joint Pain Skin: Denies: Wounds Unable to obtain accurate/complete ROS d/t: Patient is non-communicative VTE Information - Inpt Only VTE Present on Admission: No VTE Pharm Prophylaxis ordered?: Yes Patient Problems: Active and Suspected Problems (Last Updated 01/17/19 @ 15:16 by Rosa Gifford) TIA (transient ischemic attack) (Acute) - Physical Exam General: Cooperative, - - Noncommunicative, appears unwell, looks at me when I speak to her but does not talk HEENT: Atraumatic, PERRLA, EOMI, Normocephalic Oral: Dry Mucosa Neck: Supple Lungs: Clear to auscultation, Normal air movement Cardiovascular: Regular rate, Regular Rhythm, Normal S1, Normal S2, No murmurs Abdomen: Bowel Sounds Present, Soft, Non Tender, Non-Distended, No Hepato-splenomegaly Extremities: No edema Skin: No rashes, No breakdown Musculoskeletal: No Tenderness to Palpation of Joints or Extremities Lymphatic: No Cervical, Supraclavicular, or Inguinal Adenopathy Neurological: Cranial nerves II-XII grossly intact Psych/Mental Status: Normal Affect, Appropriate Vital Signs Temp Pulse Resp BP Pulse Ox 98.3 F 114 H 15 132/114 H 99 01/24/19 16:48 01/24/19 18:20 01/24/19 18:20 01/24/19 18:20 01/24/19 18:20 Oxygen Flow Rate (L/min) 2 Oxygen Delivery Method Room Air Weight: 48.9 kg Body Mass Index (BMI) 21.0 Finger Stick Blood Glucose 117 Laboratory Tests Past 24 Hrs 01/24/19 01/24/19 01/24/19 16:59 16:59 16:59 WBC 4.9 RBC 3.01 L Hgb 9.6 L Hct 27.7 L MCV 92.0 MCH 31.9 MCHC 34.7 RDW 13.5 RDW Differential 44.2 H Plt Count 245 MPV 8.9 Immature Gran % (Auto) 0.200 Neut % (Auto) 71.1 H Lymph % (Auto) 16.7 L Putnam % (Auto) 11.2 H Eos % (Auto) 0.6 Baso % (Auto) 0.2 Absolute Neuts (auto) 3.5 Absolute Lymphs (auto) 0.82 L Total Counted Not Reportable PT 13.5 INR 1.1 APTT 27.4 Sodium 125 L Potassium 3.1 L Chloride 96 L Carbon Dioxide 21.0 Anion Gap 8 BUN 17 Creatinine 0.70 Estim Creat Clear Calc 34.38 Est GFR (MDRD) Af Amer 104 Est GFR (MDRD) Non-Af 86 BUN/Creatinine Ratio 24.3 H Glucose 108 H Calcium 8.4 L Troponin I < 0.015 Ethyl Alcohol 01/24/19 17:53 WBC RBC Hgb Hct MCV MCH MCHC RDW RDW Differential Plt Count MPV Immature Gran % (Auto) Neut % (Auto) Lymph % (Auto) Putnam % (Auto) Eos % (Auto) Baso % (Auto) Absolute Neuts (auto) Absolute Lymphs (auto) Total Counted PT INR APTT Sodium Potassium Chloride Carbon Dioxide Anion Gap BUN Creatinine Estim Creat Clear Calc Est GFR (MDRD) Af Amer Est GFR (MDRD) Non-Af BUN/Creatinine Ratio Glucose Calcium Troponin I Ethyl Alcohol Cancelled POC Glucose 01/24/19 16:52 POC Glucose 117 H Assessment/Plan All Active Problems (Last Updated 01/17/19 @ 15:16 by Rosa Gifford) TIA (transient ischemic attack) (Acute) Alcohol withdrawal (Acute) Intractable nausea and vomiting (Acute) Hematemesis (Acute) Suicidal ideations (Acute) Severe sepsis (Resolved) UTI (urinary tract infection) (Resolved) Generalized weakness (Acute) Dehydration (Resolved) Decreased functional residual capacity (Acute) 78 year old F with past medical history of major depression, alcohol use, recent recurrent GI bleed secondary to peptic ulcer disease, status post recent fall, who quit drinking 1 week ago and comes in with altered mental status, and has been managed as possible TIA/CVA. Not a candidate for TPA on account of recent GI bleed. Patient had 2 episodes of tonic seizures that lasted for a minute when she go to the medical floor. 1. Altered mental status, likely multifactorial, history of abstinence from alcohol for 1 week, admitting alcohol level of 3.0 Other differentials include new onset seizures/possible CVA related seizures/conversion disorder/major depression Initial CT of the brain shows increased hypodensity within the left parietal cortex. CTA of the brain negative. CT of the neck was negative for any acute abnormalities. Patient is not a TPA candidate. Plan: Admit to ICU, monitor per protocol, neurology consult, refresh technician consult, IV Ativan as needed, IV Keppra loading dose 1000 mg x 1 EEG, repeat labs in am, PT/OT/ST 2. Possible TIA/CVA, patient is aphasic, not TPA candidate, continue on aspirin, statin, will be cautious with aspirin in light of recent GI bleed 3. New onset seizure disorder likely secondary to #2, continue to monitor with seizure precautions, Ativan as needed, Keppra, EEG 3. Hyponatremia, likely related to dehydration, will repeat BMP, continue on IV fluids 4. Hypokalemia, replaced 5. Depression, recent suicidal ideation, possible conversion disorder 6. Recent peptic ulcer disease with GI bleed, continue on sucralfate, famotidine 7. DVT prophylaxis with heparin subcu Code Visit Inpatient E&M: 16317 Init Hosp L3
--- NOTE | 2019-01-24 18:34 | CM.ED ---
Social Work Meeting with patient family outside room due to stroke alert. Patient son, Umair reporting that patient lives alone and that Umair is main support system. Umair reporting to be patient POA for health care and to be working on obtaining guardianship but that no physician will sign off on the paperwork. Umair reporting that patient currently abuses alcohol and that Umair has attempted multiple times to remove all alcohol from the home but that patient continues to purchase more alcohol. Umair reporting that patient still drives. Umair states that patient has a history of depression and that the patient has been in the hospital in the past for alcohol detox. Umair reporting that in the past patient declines to have home health care in the home or to go to a facility. Patient to be admitted to medical floor per medical staff. Umair aware that social work will continue to follow and that therapy will evaluate patient to assess patient level of assistance needed. Umair appearing to be concerned with patient well being but to also want to make all the choices for patient, even when patient is able to make own choices. Support provided. Alexey RIVAS, DENI
--- NOTE | 2019-01-24 19:12 | ECHOD_ITS ---
Reason For Study: TIA/CVA Procedure This was a 2D Doppler, Color Flow transthoracic echocardiogram. Exam performed portable in ICU/CCU. Left Ventricle Normal LV size. sigmoid septal hypetrophy noted. Compared to previous study, the left ventricular systolic function has worsened.. The estimated ejection fraction is 35-40 %. There is evidence of diastolic dysfunction. The base of the heart is willie well. Rest of the LV is hypokinetic. This could represent takotsubo cardiomyopathy in the absence of CAD to explain these findings. Right Ventricle Normal RV size. Normal systolic function. Atria The left atrium is moderately enlarged. Normal right atrium. Mitral Valve There is no mitral valve stenosis. Mild-Moderate (1-2+) eccentric mitral valve insufficiency. Tricuspid Valve There is no tricuspid stenosis. Moderate (2+) tricuspid valve insufficiency. Pulmonary artery systolic pressure is 65 mmHg. Aortic Valve Trisinus/trileaflet aortic valve. There is no aortic stenosis. Mild (1+) aortic valve insufficiency. Pulmonic Valve There is no pulmonic valvular stenosis. Trivial pulmonic valve insufficiency. Great Vessels Normal aortic root. Pericardium/Pleural No pericardial effusion. MMode/2D Measurements & Calculations LVIDd: 4.2 cm IVSd: 0.79 cm Ao root diam: 3.4 cm LVIDs: 3.4 cm LVPWd: 0.81 cm RVDd: 3.7 cm FS: 17.8 % LAV(MOD-bp): 91.1 ml LVAd ap4: 28.5 cm2 SV(MOD-sp4): 46.2 ml LAV(MOD-bp) Indexed: 62.9 ml/m2 EDV(MOD-sp4): 93.0 ml LAV(MOD-sp2): 62.8 ml EDV(sp4-el): 92.3 ml LAV(MOD-sp4): 103.4 ml LVAs ap4: 19.0 cm2 ESV(MOD-sp4): 46.8 ml ESV(sp4-el): 47.3 ml EF(MOD-sp4): 49.7 % EF(sp4-el): 48.8 % SV(sp4-el): 45.0 ml LA A4 area: 29.7 cm2 LA dimension(2D): 4.0 cm RA A4 area: 16.8 cm2 Time Measurements MV dec time: 0.10 sec Doppler Measurements & Calculations MV E max leonard: 71.8 cm/sec Lat Peak E' Leonard: 5.0 cm/sec Med Peak E' Leonard: 4.8 cm/sec MV A max leonard: 72.9 cm/sec E/E' lat: 14.5 E/E' med: 14.8 MV E/A: 0.98 Ao V2 max: 92.9 cm/sec LV V1 max: 57.9 cm/sec PA V2 max: 95.6 cm/sec Ao max P.5 mmHg LV V1 max P.3 mmHg TR max leonard: 367.5 cm/sec TR max P.1 mmHg Interpretation Summary Compared to previous study, the left ventricular systolic function has worsened.. There is evidence of diastolic dysfunction. The base of the heart is willie well. Rest of the LV is hypokinetic. This could represent takotsubo cardiomyopathy in the absence of CAD to explain these findings. Mild-Moderate (1-2+) eccentric mitral valve insufficiency. Pulmonary artery systolic pressure is 65 mmHg. Mild (1+) aortic valve insufficiency. Moderate (2+) tricuspid valve insufficiency. The estimated ejection fraction is 35-40 %. Ordering Physician: Veronica Hernandez Referring Physician: LANIE IBANEZ Performed By: Teressa Horton RDCS
[2019-01-24 19:16] LABS: Bedside Glucose 165 mg/dL (70-110)
[2019-01-24] MEDS: LORazepam 2 MG/ML Syringe IV (20:02)
[2019-01-24] MEDS: 0.9% Normal Saline 1,000 ML 100 ML IV (20:08)
[2019-01-24] MEDS: levETIRAcetam IV 1,000 MG/100 ML BAG 400 MG IV (20:16)
--- NOTE | 2019-01-24 20:25 | NURSING ---
Report called to Ramona in ICU at this time.
[2019-01-24] MEDS: Potassium Chloride 10mEq/100mL 10 MEQ/100 ML IV.SOLN. 100 MEQ IV BOLUS ×3 (20:59→23:09)
[2019-01-24 21:20] LABS: Anion Gap 9 (5-15); BUN 14 mg/dL (7-18); BUN/Creat Ratio 16.9 RATIO (10-20); Calcium,Total 7.6 mg/dL (8.5-10.1); Chloride 98 mmol/L (98-107); Creatinine, Serum 0.83 mg/dL (0.55-1.02); EST Glomerular Filtration Rate 71 mL/min (>60); Est Glom Filt Rate - Afr Amer 86 mL/min (>60); Estimated Creatinine Clearance 42.51 ml/min; Glucose 194 mg/dL (74-106); Potassium 3.2 mmol/L (3.5-5.1); Sodium Level 128 mmol/L (136-145)
--- NOTE | 2019-01-24 21:32 | NURSING ---
Pt with recent seizure, given ativan and keppra, pt is obtunded at this time and i am unable to complete NIHSS at this time.
[2019-01-24 21:39] LABS: Magnesium 1.6 mg/dL (1.6-2.6)
[2019-01-24] MEDS: Heparin Injection (Vial) 5,000 UNIT/ML VIAL 5000 UNIT SC (21:44)
[2019-01-24] MEDS: 0.9% NaCl Peripheral Flush Adult/Peds IV (21:46)
[2019-01-24] MEDS: Potassium Chloride 40 MEQ in 0.9% Normal Saline 1,000 ML 100 MEQ IV (22:30)
[2019-01-24] MEDS: Magnesium Sulfate 4gm/100mL 4 GM/100 ML IV.SOLN. IV (23:09)
--- NOTE | 2019-01-24 23:25 | NURSING ---
Pt still obtunded, does move on her own at times, but will not follow commands or open eyes.
[2019-01-25] VITALS (31 sets, daily range): BP systolic 101–156; BP diastolic 54–98; PULSE 79–128; RESP 16–29; TEMP 36.6–36.9; O2SAT 96–100; BMI 18.8
[2019-01-25] MEDS: Potassium Chloride 10mEq/100mL 10 MEQ/100 ML IV.SOLN. 100 MEQ IV BOLUS (00:15)
[2019-01-25] MEDS: 0.9% NaCl Peripheral Flush Adult/Peds IV ×5 (02:07→23:41)
[2019-01-25] MEDS: LORazepam 2 MG/ML Syringe IV ×6 (02:07→23:41)
--- NOTE | 2019-01-25 02:22 | NURSING ---
Unable to follow commands, so i am unable to complete a full NIHSS
[2019-01-25 04:01] LABS: Absolute Lymphocyte Count 1.02 X10^3/ul (0.83-4.51); Absolute Neutrophil Count 8.1 X10^3/uL (2.0-7.7); Basophil# 0.01 X10^3/uL; Basophil% 0.1 % (0-1); Eosinophil# 0.01 X10^3/uL; Eosinophils% 0.1 % (0-5); Hematocrit 26.9 % (37-47); Hemoglobin 9.4 g/dl (12.0-15.0); Lymphocyte # 1.02 X10^3/ul (4.0); Lymphocyte % 10.8 % (19-41); Mean Corp Hgb Conc 34.9 g/gl (32-36); Mean Corpuscular Hgb 32.2 pg (27.0-32.0); Mean Corpuscular Volume 92.1 fL (81-99); Mean Platelet Vol. 8.5 fl (6.2-12.0); Monocyte# 0.32 X10^3/uL; Monocyte% 3.4 % (0-10); Neutrophil # 8.09 X10^3/uL (2.7-7.7); Neutrophil % 85.4 % (47-70); Platelet Count 213 K/mm3 (150-450); RBC Distribution Width CV 14.2 % (11.6-14.6); RBC Distribution Width SD 47.8 fl (35.1-43.9); Red Blood Count 2.92 M/mm3 (4.2-5.4); White Blood Count 9.5 K/mm3 (4.4-11.0)
[2019-01-25 04:06] LABS: POSITIVE COUNT NO; POSITIVE DIFFERENTIAL NO; POSITIVE MORPHOLOGY NO
[2019-01-25 04:14] LABS: AST(SGOT) 25 U/L (15-37); Alanine Aminotransfer ALT/SGPT 15 U/L (13-56); Albumin, Serum 2.8 g/dL (3.2-5.0); Alkaline Phosphatase 117 U/L (45-117); Anion Gap 8 (5-15); BUN 12 mg/dL (7-18); BUN/Creat Ratio 20.9 RATIO (10-20); Calcium,Total 7.8 mg/dL (8.5-10.1); Chloride 99 mmol/L (98-107); Cholesterol 170 mg/dL (200); Creatinine, Serum 0.58 mg/dL (0.55-1.02); EST Glomerular Filtration Rate 108 mL/min (>60); Est Glom Filt Rate - Afr Amer 131 mL/min (>60); Estimated Creatinine Clearance 35.28 ml/min; Globulin 2.7 g/dL (2.2-4.2); Glucose 112 mg/dL (74-106); High Density Lipoprotein 69 mg/dL; Potassium 5.2 mmol/L (3.5-5.1); Protein, Total 5.5 g/dL (6.4-8.2); Sodium Level 130 mmol/L (136-145); Triglycerides 53 mg/dL; Very Low Density Lipoprotein 11 mg/dL (5-40)
[2019-01-25] MEDS: 0.9% Normal Saline 1,000 ML 50 ML IV ×2 (04:44→23:41)
[2019-01-25] MEDS: CHLORHEXIDINE GLUC 2% CLOTH 1 EACH TOWELETTE TOPICAL (05:35)
--- NOTE | 2019-01-25 07:54 | PCM.CON.CC ---
Problem List (1) TIA (transient ischemic attack) Status: Acute (2) Alcohol withdrawal Status: Acute Qualifiers: Complication of substance-induced condition: with delirium Qualified Code(s): F10.231 - Alcohol dependence with withdrawal delirium (3) Major depression Status: Chronic Qualifiers: Major depression recurrence: recurrent Active/Remission status: currently active Major depression episode severity: severe Psychotic features: without psychotic features Qualified Code(s): F33.2 - Major depressive disorder, recurrent severe without psychotic features (4) UTI (urinary tract infection) Status: Resolved (5) Generalized weakness Status: Acute (6) Decreased functional residual capacity Status: Acute (7) History of DVT (deep vein thrombosis) Status: Chronic (8) PUD (peptic ulcer disease) Status: Chronic (9) Chronic back pain Status: Chronic Qualifiers: Back pain location: back pain in unspecified location Back pain laterality: unspecified Qualified Code(s): M54.9 - Dorsalgia, unspecified; G89.29 - Other chronic pain (10) Depression Status: Chronic (11) Benign essential hypertension Status: Chronic (12) Right arm weakness Status: Inactive (13) Recurrent dislocation of right hip Status: Chronic (14) Chronic blood loss anemia Status: Chronic Reason for Consult Date of Consultation: 01/25/19 Reason for Consultation: Recurrent seizure History of Present Illness: The patient is a 78 year old F, with past medical history listed below, who presented to [facility] on 01/24/2019 secondary to difficulty speaking and decreased mental status. Patient does have a history of alcohol abuse and quit cold turkey 1 to 2 weeks ago. Patient reportedly started to have difficulty communicating between 3 and 3:30 PM. Patient reportedly had echolalia and dysarthria. Patient did not have a history of TIA or stroke previously, but did have a fall 1 week ago resulting in a fractured right forearm which was surgically repaired on Tuesday. On presentation to the ER, patient's blood pressure was 165/97. Patient did have dysarthria, but no signs of head trauma. No A. fib was noted on telemetry. Patient did appear to have expressive and receptive aphasia, but shrub planter strength was reportedly equal. Patient was not able to lift either leg off the bed, but was given an NIH of [address] scan of the head showed a subtle increased hyperdensity in the left parietal region. Given NIH score of 2 and a history of recent GI bleed, patient was not chosen for TPA. Patient was admitted to the PCU for further evaluation. Shortly after arriving to the PCU, patient reportedly had repeated seizure activity. Patient did respond to Ativan therapy, but was transferred to the intensive care unit for further evaluation. Since being in the intensive care unit, patient has received doses of Ativan. Patient is not following commands, but no further seizure activity has been noted. Patient has been scheduled for an MRI and EEG. Patient is on minimal nasal cannula oxygen. Patient did receive some potassium supplementation overnight, but this was held with morning labs showed a potassium of 5.2. Unable to obtain review of systems at this time. No family at the bedside. Most of the medical history was obtained using the electronic medical record. Past Medical History Past Medical History (Chronic Problems): Chronic Problems (Last Updated 01/17/19 @ 15:16 by Rosa Gifford) Major depression (Chronic) History of DVT (deep vein thrombosis) (Chronic) PUD (peptic ulcer disease) (Chronic) Chronic back pain (Chronic) Hyperlipidemia (Chronic) Depression (Chronic) Benign essential hypertension (Chronic) Alcohol abuse (Chronic) Gastrointestinal bleed (Chronic) Recurrent dislocation of right hip (Chronic) Chronic blood loss anemia (Chronic) Recurrent falls (Chronic) Medical History: Medical History (Last Updated 01/17/19 @ 15:16 by Rosa Gifford) Liver disease K76.9 Stomach ulcer K25.9 Allergies acetaminophen Adverse Reaction (Verified 01/24/19 16:47) Other LIVER FAILURE -PER FAMILY Home Medications: Ambulatory Orders Medication Instructions Recorded Atorvastatin Calcium [Lipitor] 10 mg PO QHS 12/12/18 Cholecalciferol (Vitamin D3) 2,000 unit PO DAILY 01/24/19 [Vitamin D3] Fluoxetine HCl 40 mg PO DAILY 01/24/19 Pantoprazole Sodium [Protonix] 20 mg PO DAILY 01/24/19 Sucralfate 1 gm PO Q6H 01/24/19 traMADol [Ultram (G)] 50 mg PO Q6H PRN PRN 01/24/19 Surgical History: - - s/p EGD for PUD Psychiatric History: Anxiety, Depression [employer]PUT[employer] 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 Serveral of patient's sister had stroke. Additionally patient notes a maternal family history of hypertension. Paternal History Items: - - Patient's brother, nephew and nieces had alcohol problem and went to alcohol rehab. Serveral of patient's sister had stroke. Patient notes that her father was a heavy alcohol intake individual but denies that he was an alcoholic. Review of Systems Unable to obtain accurate/complete ROS d/t: Expressive and receptive aphasia Patient Problems: Active and Suspected Problems (Last Updated 01/17/19 @ 15:16 by Rosa Gifford) TIA (transient ischemic attack) (Acute) Objective: Chest x-ray was personally reviewed and showed no acute infiltrate. CT report was personally reviewed. - Physical Exam General: Confused, Disoriented, Non-Cooperative, - - Appears stated age. Not following commands. HEENT: Atraumatic, PERRLA, EOMI, Normocephalic, - - No scleral icterus or injection noted. Oral: Moist Mucosa, No Gingival or Mucosal Lesions/ Ulcerations Neck: Supple, No JVD, No Nodes, Trachea Midline Lungs: No rhonchi, No wheeze, No rales, Diminished, - - Fair effort. Symmetric expansion. Cardiovascular: Regular rate, Regular Rhythm, Normal S1, Normal S2, No murmurs, No rub noted, No Gallop Abdomen: Bowel Sounds Present, Soft, Non Tender, Non-Distended Extremities: No clubbing, No cyanosis, No edema, Capillary Refill Less than 3 Seconds, - - Right arm in splint Skin: No rashes, No breakdown Musculoskeletal: No Tenderness to Palpation of Joints or Extremities Lymphatic: No Cervical, Supraclavicular, or Inguinal Adenopathy Neurological: - - Difficult to assess. Patient does have tremor at rest and left upper extremity. Unable to get patient to extend arm or leg for evaluation. Sensation appears to be intact. Unable to get patient to make eye contact and track, but eyes were noted to past midline. Psych/Mental Status: Flat Affect Vital Signs Temp Pulse Resp BP Pulse Ox 36.8 C 99 24 H 134/69 H 100 01/25/19 04:00 01/25/19 07:29 01/25/19 07:00 01/25/19 07:00 01/25/19 07:00 Oxygen Flow Rate (L/min) 2 Oxygen Delivery Method Nasal Cannula Weight: 47.3 kg Body Mass Index (BMI) 18.8 Finger Stick Blood Glucose 117 Intake and Output for Last 24 Hours 01/23/19 01/24/19 01/25/19 23:59 23:59 23:59 Intake Total 640 / 640 709 / 709 Balance 640 / 640 709 / 709 Laboratory Tests Past 24 Hrs 01/24/19 01/24/19 01/24/19 16:59 16:59 16:59 WBC 4.9 RBC 3.01 L Hgb 9.6 L Hct 27.7 L MCV 92.0 MCH 31.9 MCHC 34.7 RDW 13.5 RDW Differential 44.2 H Plt Count 245 MPV 8.9 Immature Gran % (Auto) 0.200 Neut % (Auto) 71.1 H Lymph % (Auto) 16.7 L [place] % (Auto) 11.2 H Eos % (Auto) 0.6 Baso % (Auto) 0.2 Absolute Neuts (auto) 3.5 Absolute Lymphs (auto) 0.82 L Total Counted Not Reportable PT 13.5 INR 1.1 APTT 27.4 Sodium 125 L Potassium 3.1 L Chloride 96 L Carbon Dioxide 21.0 Anion Gap 8 BUN 17 Creatinine 0.70 Estim Creat Clear Calc 34.38 Est GFR (MDRD) Af Amer 104 Est GFR (MDRD) Non-Af 86 BUN/Creatinine Ratio 24.3 H Glucose 108 H Hemoglobin A1c Calcium 8.4 L Magnesium Total Bilirubin AST ALT Alkaline Phosphatase Troponin I < 0.015 Total Protein Albumin Globulin Albumin/Globulin Ratio Triglycerides Cholesterol LDL Cholesterol VLDL Cholesterol HDL Cholesterol Ethyl Alcohol 01/24/19 01/24/19 01/24/19 17:53 18:35 20:55 WBC RBC Hgb Hct MCV MCH MCHC RDW RDW Differential Plt Count MPV Immature Gran % (Auto) Neut % (Auto) Lymph % (Auto) [place] % (Auto) Eos % (Auto) Baso % (Auto) Absolute Neuts (auto) Absolute Lymphs (auto) Total Counted PT INR APTT Sodium 128 L Potassium 3.2 L Chloride 98 Carbon Dioxide 21.0 Anion Gap 9 BUN 14 Creatinine 0.83 Estim Creat Clear Calc 42.51 Est GFR (MDRD) Af Amer 86 Est GFR (MDRD) Non-Af 71 BUN/Creatinine Ratio 16.9 Glucose 194 H Hemoglobin A1c Calcium 7.6 L Magnesium Total Bilirubin AST ALT Alkaline Phosphatase Troponin I Total Protein Albumin Globulin Albumin/Globulin Ratio Triglycerides Cholesterol LDL Cholesterol VLDL Cholesterol HDL Cholesterol Ethyl Alcohol Cancelled 3.0 01/24/19 01/25/19 01/25/19 20:55 03:47 03:47 WBC RBC Hgb Hct MCV MCH MCHC RDW RDW Differential Plt Count MPV Immature Gran % (Auto) Neut % (Auto) Lymph % (Auto) [place] % (Auto) Eos % (Auto) Baso % (Auto) Absolute Neuts (auto) Absolute Lymphs (auto) Total Counted PT INR APTT Sodium 130 L Potassium 5.2 H Chloride 99 Carbon Dioxide 23.0 Anion Gap 8 BUN 12 Creatinine 0.58 Estim Creat Clear Calc 35.28 Est GFR (MDRD) Af Amer 131 Est GFR (MDRD) Non-Af 108 BUN/Creatinine Ratio 20.9 H Glucose 112 H Hemoglobin A1c Pending Calcium 7.8 L Magnesium 1.6 Total Bilirubin 0.60 AST 25 ALT 15 Alkaline Phosphatase 117 Troponin I Total Protein 5.5 L Albumin 2.8 L Globulin 2.7 Albumin/Globulin Ratio 1.0 Triglycerides 53 Cholesterol 170 LDL Cholesterol 90 VLDL Cholesterol 11 HDL Cholesterol 69 Ethyl Alcohol 01/25/19 03:47 WBC 9.5 RBC 2.92 L Hgb 9.4 L Hct 26.9 L MCV 92.1 MCH 32.2 H MCHC 34.9 RDW 14.2 RDW Differential 47.8 H Plt Count 213 MPV 8.5 Immature Gran % (Auto) 0.200 Neut % (Auto) 85.4 H Lymph % (Auto) 10.8 L [place] % (Auto) 3.4 Eos % (Auto) 0.1 Baso % (Auto) 0.1 Absolute Neuts (auto) 8.1 H Absolute Lymphs (auto) 1.02 Total Counted Not Reportable PT INR APTT Sodium Potassium Chloride Carbon Dioxide Anion Gap BUN Creatinine Estim Creat Clear Calc Est GFR (MDRD) Af Amer Est GFR (MDRD) Non-Af BUN/Creatinine Ratio Glucose Hemoglobin A1c Calcium Magnesium Total Bilirubin AST ALT Alkaline Phosphatase Troponin I Total Protein Albumin Globulin Albumin/Globulin Ratio Triglycerides Cholesterol LDL Cholesterol VLDL Cholesterol HDL Cholesterol Ethyl Alcohol POC Glucose 01/24/19 01/24/19 19:09 16:52 POC Glucose 165 H 117 H Clinical Impression(s) from Imaging Studies Brain CT 01/24/19 17:07 IMPRESSION: Subtle region of increased hyperdensity within the left parietal cortex, not present on the comparison evaluation. Considerations include artifact versus tiny parenchymal bleed or contusion. Suggest CTA/MRI for additional characterization. N.B. : The above information has been verbally conveyed by Terrence Zamora to MD fab, on 01/24/2019 17:30:34 (ET). Electronically Signed: Terrence Zamora, at 17:32 EDT Tel , Service support , ADDENDUM: 01/24/19 1739 IMPRESSION: Subtle region of increased hyperdensity within the left parietal cortex, not present on the comparison evaluation. Considerations include artifact versus tiny parenchymal bleed or contusion. Suggest CTA/MRI for additional characterization. N.B. : The above information has been verbally conveyed by Terrence Zamora to MD fab, on 01/24/2019 17:30:34 (ET). Electronically Signed: Terrence Zamora, at 17:32 EDT Tel , Service support , ADDENDUM: 01/24/19 1753 IMPRESSION: Subtle region of increased hyperdensity within the left parietal cortex, not present on the comparison evaluation. Considerations include artifact versus tiny parenchymal bleed or contusion. Suggest CTA/MRI for additional characterization. N.B. : The above information has been verbally conveyed by Terrence Zamora to Dr. Terrence Kim MD, on 01/24/2019 17:46:54 (ET). Electronically Signed: Terrence Zamora, at 17:32 EDT Tel , Service support , Head CTA 01/24/19 17:07 IMPRESSION: Mild atherosclerotic disease without evidence for hemodynamically significant stenosis utilizing NASCET criteria Electronically Signed: Terrence Brambila MD at 17:38 EDT , Service support , Neck CTA 01/24/19 17:07 IMPRESSION: Mild atherosclerotic disease without evidence for hemodynamically significant stenosis utilizing NASCET criteria Electronically Signed: Terrence Brambila MD at 17:38 EDT , Service support , Chest X-Ray 01/24/19 17:15 IMPRESSION: ASHD. No acute cardiopulmonary pathology Electronically Signed: Terrence Brambila MD at 18:43 EDT , Service support , Assessment/Plan Active and Suspected Problems (Last Updated 01/17/19 @ 15:16 by Rosa Gifford) TIA (transient ischemic attack) (Acute) RECOMMENDATIONS: 1. Continue seizure precautions 2. Ativan as needed seizure/CIWA protocol 3. Wean oxygen as tolerated 4. Await MRI 5. No active therapy for hyperkalemia IMPRESSIONS: 1. Probable CVA Quantification of defects is difficult given expressive and receptive aphasia. Patient did have a fall 1 week ago, recent history of right upper extremity fracture with surgery planned on Tuesday and GI bleed making TPA contraindicated. Patient did have 2 episodes of tonic-clonic seizures reported in PCU, but this appears to be controlled with Ativan. Await MRI for evaluation. Neurology has been consulted. Patient on IV Keppra. 2. New onset seizure Unclear etiology at this time. Patient did have a focal finding of possible early intracerebral bleed, history of recent head trauma and withdrawal of alcohol. Patient has responded well to Keppra therapy. MRI has been ordered. EEG and neurology are currently pending. Continue seizure precautions. 3. Hyponatremia/hyperkalemia Patient likely has an element of hyponatremia secondary to alcohol use. Continue with conservative therapy. Would not actively treat hyperkalemia as patient does not have any EKG changes and renal function is normal. Anticipate normalization on its own. Patient is not a good candidate for Kayexalate given mental status. 4. Recent arm fracture/peptic ulcer disease with recent GI bleed/advanced age/debility/poor history Complicates care, management, recovery and prognosis. Continue to monitor for complications of bleeding. Patient is not a TPA candidate. Code Visit Inpatient E&M: 83495 Init Hosp L3
[2019-01-25 07:57] LABS: Hemoglobin A1c < 3.5 % (4.2-6.3)
--- NOTE | 2019-01-25 07:59 | CON.PCM_ITS ---
Problem List (1) TIA (transient ischemic attack) Status: Acute (2) Alcohol withdrawal Status: Acute Qualifiers: Complication of substance-induced condition: with delirium Qualified Code(s): F10.231 - Alcohol dependence with withdrawal delirium (3) Major depression Status: Chronic Qualifiers: Major depression recurrence: recurrent Active/Remission status: currently active Major depression episode severity: severe Psychotic features: without psychotic features Qualified Code(s): F33.2 - Major depressive disorder, recurrent severe without psychotic features (4) UTI (urinary tract infection) Status: Resolved (5) Generalized weakness Status: Acute (6) Decreased functional residual capacity Status: Acute (7) History of DVT (deep vein thrombosis) Status: Chronic (8) PUD (peptic ulcer disease) Status: Chronic (9) Chronic back pain Status: Chronic Qualifiers: Back pain location: back pain in unspecified location Back pain laterality: unspecified Qualified Code(s): M54.9 - Dorsalgia, unspecified; G89.29 - Other chronic pain (10) Depression Status: Chronic (11) Benign essential hypertension Status: Chronic (12) Right arm weakness Status: Inactive (13) 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 Patient does have a history of alcohol abuse and quit cold turkey 1 to 2 weeks ago. Patient reportedly started to have difficulty communicating between 3 and 3:30 PM. Patient reportedly had echolalia and dysarthria. Patient did not have a history of TIA or stroke previously, but did have a fall 1 week ago resulting in a fractured right forearm which was surgically repaired on Tuesday. On presentation to the ER, patient's blood pressure was 165/97. Patient did have dysarthria, but no signs of head trauma. No A. fib was noted on telemetry. 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 Patient was not able to lift either leg off the bed, but was given an NIH of [address] scan of the head showed a subtle increased hyperdensity in the left parietal region. Given NIH score of 2 and a history of recent GI bleed, patient was not chosen for TPA. Patient was admitted to the PCU for further evaluation. Shortly after arriving to the PCU, patient reportedly had repeated seizure activity. Patient did respond to Ativan therapy, but was transferred to the intensive care unit for further evaluation. Since being in the intensive care unit, patient has received doses of Ativan. Patient is not following commands, but no further seizure activity has been noted. Patient has been scheduled for an MRI and EEG. Patient is on minimal nasal cannula oxygen. Patient did receive some potassium supplementation overnight, but this was held with morning labs showed a potassium of 5.2. Unable to obtain review of systems at this time. No family at the bedside. Most of the medical history was obtained using the electronic medical record. Past Medical History Past Medical History (Chronic Problems): Chronic Problems (Last Updated 01/17/19 @ 15:16 by Rosa Gifford) Major depression (Chronic) History of DVT (deep vein thrombosis) (Chronic) PUD (peptic ulcer disease) (Chronic) Chronic back pain (Chronic) Hyperlipidemia (Chronic) Depression (Chronic) Benign essential hypertension (Chronic) Alcohol abuse (Chronic) Gastrointestinal bleed (Chronic) Recurrent dislocation of right hip (Chronic) Chronic blood loss anemia (Chronic) Recurrent falls (Chronic) Medical History: Medical History (Last Updated 01/17/19 @ 15:16 by Rosa Gifford) Liver disease K76.9 Stomach ulcer K25.9 Allergies acetaminophen Adverse Reaction (Verified 01/24/19 16:47) Other LIVER FAILURE -PER FAMILY Home Medications: Ambulatory Orders Medication Instructions Recorded Atorvastatin Calcium [Lipitor] 10 mg PO QHS 12/12/18 Cholecalciferol (Vitamin D3) 2,000 unit PO DAILY 01/24/19 [Vitamin D3] Fluoxetine HCl 40 mg PO DAILY 01/24/19 Pantoprazole Sodium [Protonix] 20 mg PO DAILY 01/24/19 Sucralfate 1 gm PO Q6H 01/24/19 traMADol [Ultram (G)] 50 mg PO Q6H PRN PRN 01/24/19 Surgical History: - - s/p EGD for PUD Psychiatric History: Anxiety, Depression 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 Serveral of patient's sister had stroke. Additionally patient notes a maternal family history of hypertension. Paternal History Items: - - Patient's brother, nephew and nieces had alcohol problem and went to alcohol rehab. Serveral of patient's sister had stroke. Patient notes that her father was a heavy alcohol intake individual but denies that he was an alcoholic. Review of Systems Unable to obtain accurate/complete ROS d/t: Expressive and receptive aphasia Patient Problems: Active and Suspected Problems (Last Updated 01/17/19 @ 15:16 by Rosa Gifford) TIA (transient ischemic attack) (Acute) Objective: Chest x-ray was personally reviewed and showed no acute infiltrate. CT report was personally reviewed. - Physical Exam General: Confused, Disoriented, Non-Cooperative, - - Appears stated age. Not following commands. HEENT: Atraumatic, PERRLA, EOMI, Normocephalic, - - No scleral icterus or injection noted. Oral: Moist Mucosa, No Gingival or Mucosal Lesions/ Ulcerations Neck: Supple, No JVD, No Nodes, Trachea Midline Lungs: No rhonchi, No wheeze, No rales, Diminished, - - Fair effort. Symmetric expansion. Cardiovascular: Regular rate, Regular Rhythm, Normal S1, Normal S2, No murmurs, No rub noted, No Gallop Abdomen: Bowel Sounds Present, Soft, Non Tender, Non-Distended Extremities: No clubbing, No cyanosis, No edema, Capillary Refill Less than 3 Seconds, - - Right arm in splint Skin: No rashes, No breakdown Musculoskeletal: No Tenderness to Palpation of Joints or Extremities Lymphatic: No Cervical, Supraclavicular, or Inguinal Adenopathy Neurological: - - Difficult to assess. Patient does have tremor at rest and left upper extremity. Unable to get patient to extend arm or leg for evaluation. Sensation appears to be intact. Unable to get patient to make eye contact and track, but eyes were noted to past midline. Psych/Mental Status: Flat Affect Vital Signs Temp Pulse Resp BP Pulse Ox 36.8 C 99 24 H 134/69 H 100 01/25/19 04:00 01/25/19 07:29 01/25/19 07:00 01/25/19 07:00 01/25/19 07:00 Oxygen Flow Rate (L/min) 2 Oxygen Delivery Method Nasal Cannula Weight: 47.3 kg Body Mass Index (BMI) 18.8 Finger Stick Blood Glucose 117 Intake and Output for Last 24 Hours 01/23/19 01/24/19 01/25/19 23:59 23:59 23:59 Intake Total 640 / 640 709 / 709 Balance 640 / 640 709 / 709 Laboratory Tests Past 24 Hrs 01/24/19 01/24/19 01/24/19 16:59 16:59 16:59 WBC 4.9 RBC 3.01 L Hgb 9.6 L Hct 27.7 L MCV 92.0 MCH 31.9 MCHC 34.7 RDW 13.5 RDW Differential 44.2 H Plt Count 245 MPV 8.9 Immature Gran % (Auto) 0.200 Neut % (Auto) 71.1 H Lymph % (Auto) 16.7 L [place] % (Auto) 11.2 H Eos % (Auto) 0.6 Baso % (Auto) 0.2 Absolute Neuts (auto) 3.5 Absolute Lymphs (auto) 0.82 L Total Counted Not Reportable PT 13.5 INR 1.1 APTT 27.4 Sodium 125 L Potassium 3.1 L Chloride 96 L Carbon Dioxide 21.0 Anion Gap 8 BUN 17 Creatinine 0.70 Estim Creat Clear Calc 34.38 Est GFR (MDRD) Af Amer 104 Est GFR (MDRD) Non-Af 86 BUN/Creatinine Ratio 24.3 H Glucose 108 H Hemoglobin A1c Calcium 8.4 L Magnesium Total Bilirubin AST ALT Alkaline Phosphatase Troponin I < 0.015 Total Protein Albumin Globulin Albumin/Globulin Ratio Triglycerides Cholesterol LDL Cholesterol VLDL Cholesterol HDL Cholesterol Ethyl Alcohol 01/24/19 01/24/19 01/24/19 17:53 18:35 20:55 WBC RBC Hgb Hct MCV MCH MCHC RDW RDW Differential Plt Count MPV Immature Gran % (Auto) Neut % (Auto) Lymph % (Auto) [place] % (Auto) Eos % (Auto) Baso % (Auto) Absolute Neuts (auto) Absolute Lymphs (auto) Total Counted PT INR APTT Sodium 128 L Potassium 3.2 L Chloride 98 Carbon Dioxide 21.0 Anion Gap 9 BUN 14 Creatinine 0.83 Estim Creat Clear Calc 42.51 Est GFR (MDRD) Af Amer 86 Est GFR (MDRD) Non-Af 71 BUN/Creatinine Ratio 16.9 Glucose 194 H Hemoglobin A1c Calcium 7.6 L Magnesium Total Bilirubin AST ALT Alkaline Phosphatase Troponin I Total Protein Albumin Globulin Albumin/Globulin Ratio Triglycerides Cholesterol LDL Cholesterol VLDL Cholesterol HDL Cholesterol Ethyl Alcohol Cancelled 3.0 01/24/19 01/25/19 01/25/19 20:55 03:47 03:47 WBC RBC Hgb Hct MCV MCH MCHC RDW RDW Differential Plt Count MPV Immature Gran % (Auto) Neut % (Auto) Lymph % (Auto) [place] % (Auto) Eos % (Auto) Baso % (Auto) Absolute Neuts (auto) Absolute Lymphs (auto) Total Counted PT INR APTT Sodium 130 L Potassium 5.2 H Chloride 99 Carbon Dioxide 23.0 Anion Gap 8 BUN 12 Creatinine 0.58 Estim Creat Clear Calc 35.28 Est GFR (MDRD) Af Amer 131 Est GFR (MDRD) Non-Af 108 BUN/Creatinine Ratio 20.9 H Glucose 112 H Hemoglobin A1c Pending Calcium 7.8 L Magnesium 1.6 Total Bilirubin 0.60 AST 25 ALT 15 Alkaline Phosphatase 117 Troponin I Total Protein 5.5 L Albumin 2.8 L Globulin 2.7 Albumin/Globulin Ratio 1.0 Triglycerides 53 Cholesterol 170 LDL Cholesterol 90 VLDL Cholesterol 11 HDL Cholesterol 69 Ethyl Alcohol 01/25/19 03:47 WBC 9.5 RBC 2.92 L Hgb 9.4 L Hct 26.9 L MCV 92.1 MCH 32.2 H MCHC 34.9 RDW 14.2 RDW Differential 47.8 H Plt Count 213 MPV 8.5 Immature Gran % (Auto) 0.200 Neut % (Auto) 85.4 H Lymph % (Auto) 10.8 L [place] % (Auto) 3.4 Eos % (Auto) 0.1 Baso % (Auto) 0.1 Absolute Neuts (auto) 8.1 H Absolute Lymphs (auto) 1.02 Total Counted Not Reportable PT INR APTT Sodium Potassium Chloride Carbon Dioxide Anion Gap BUN Creatinine Estim Creat Clear Calc Est GFR (MDRD) Af Amer Est GFR (MDRD) Non-Af BUN/Creatinine Ratio Glucose Hemoglobin A1c Calcium Magnesium Total Bilirubin AST ALT Alkaline Phosphatase Troponin I Total Protein Albumin Globulin Albumin/Globulin Ratio Triglycerides Cholesterol LDL Cholesterol VLDL Cholesterol HDL Cholesterol Ethyl Alcohol POC Glucose 01/24/19 01/24/19 19:09 16:52 POC Glucose 165 H 117 H Clinical Impression(s) from Imaging Studies Brain CT 01/24/19 17:07 IMPRESSION: Subtle region of increased hyperdensity within the left parietal cortex, not present on the comparison evaluation. Considerations include artifact versus tiny parenchymal bleed or contusion. Suggest CTA/MRI for additional characterization. N.B. : The above information has been verbally conveyed by Terrence Zamora to MD fab, on 01/24/2019 17:30:34 (ET). Electronically Signed: Terrence Zamora, at 17:32 EDT Tel , Service support , ADDENDUM: 01/24/19 1739 IMPRESSION: Subtle region of increased hyperdensity within the left parietal cortex, not present on the comparison evaluation. Considerations include artifact versus tiny parenchymal bleed or contusion. Suggest CTA/MRI for additional characterization. N.B. : The above information has been verbally conveyed by Terrence Zamora to MD fab, on 01/24/2019 17:30:34 (ET). Electronically Signed: Terrence Zamora, at 17:32 EDT Tel , Service support , ADDENDUM: 01/24/19 1753 IMPRESSION: Subtle region of increased hyperdensity within the left parietal cortex, not present on the comparison evaluation. Considerations include artifact versus tiny parenchymal bleed or contusion. Suggest CTA/MRI for additional characterization. N.B. : The above information has been verbally conveyed by Terrence Zamora to Dr. Terrence Kim MD, on 01/24/2019 17:46:54 (ET). Electronically Signed: Terrence Zamora, at 17:32 EDT Tel , Service support , Head CTA 01/24/19 17:07 IMPRESSION: Mild atherosclerotic disease without evidence for hemodynamically significant stenosis utilizing NASCET criteria Electronically Signed: Terrence Brambila MD at 17:38 EDT , Service support , Neck CTA 01/24/19 17:07 IMPRESSION: Mild atherosclerotic disease without evidence for hemodynamically significant stenosis utilizing NASCET criteria Electronically Signed: Terrence Brambila MD at 17:38 EDT , Service support , Chest X-Ray 01/24/19 17:15 IMPRESSION: ASHD. No acute cardiopulmonary pathology Electronically Signed: Terrence Brambila MD at 18:43 EDT , Service support , Assessment/Plan Active and Suspected Problems (Last Updated 01/17/19 @ 15:16 by Rosa Gifford) TIA (transient ischemic attack) (Acute) RECOMMENDATIONS: 1. Continue seizure precautions 2. Ativan as needed seizure/CIWA protocol 3. Wean oxygen as tolerated 4. Await MRI 5. No active therapy for hyperkalemia IMPRESSIONS: 1. Probable CVA Quantification of defects is difficult given expressive and receptive aphasia. Patient did have a fall 1 week ago, recent history of right upper extremity fracture with surgery planned on Tuesday and GI bleed making TPA contraindicated. Patient did have 2 episodes of tonic-clonic seizures reported in PCU, but this appears to be controlled with Ativan. Await MRI for evaluation. Neurology has been consulted. Patient on IV Keppra. 2. New onset seizure Unclear etiology at this time. Patient did have a focal finding of possible early intracerebral bleed, history of recent head trauma and withdrawal of alcohol. Patient has responded well to Keppra therapy. MRI has been ordered. EEG and neurology are currently pending. Continue seizure precautions. 3. Hyponatremia/hyperkalemia Patient likely has an element of hyponatremia secondary to alcohol use. Continue with conservative therapy. Would not actively treat hyperkalemia as patient does not have any EKG changes and renal function is normal. Anticipate normalization on its own. Patient is not a good candidate for Kayexalate given mental status. 4. Recent arm fracture/peptic ulcer disease with recent GI bleed/advanced age/debility/poor history Complicates care, management, recovery and prognosis. Continue to monitor for complications of bleeding. Patient is not a TPA candidate. Code Visit Inpatient E&M: 76144 Init Hosp L3
--- NOTE | 2019-01-25 08:55 | PCM.CONS.GEN ---
Reason for Consult Date of Consultation: 01/25/19 Reason for Consultation: aphasia History of Present Illness: The patient is a 78 year old female with history of fall one to two weeks ago with right humerus fx, etoh, recent gi bleed with sginificant anemia, who presented yesterday with language abnormality, subsequently on the way to pcu had two generalized seizures. remains confused and unable to give me history. initially a stroke team was called but had multiple contraindications for tpa including gibleed, seizure, alcohol withdrawal and working diagnosis is not cva. per history stopped etoh one week ago however she did have detectable etoh in her drug screen. per admit note: The patient is a 78 year old F with past medical history of major depression, alcohol use, recent recurrent GI bleed secondary to peptic ulcer disease, status post recent fall, who quit drinking 1 week ago and comes in with altered mental status. Patient was said to have quit drinking as his son took away all her alcohol, took away her car keys. She fell about a week ago was intoxicated and fractured her right radius. She is in a splint and will follow up with Dr. Ravi for planned elective surgery on Tuesday. Patient was found to have confusion 3 days ago which was transient, had problems finding words. Seem to have resolved. She lives alone. She was in her usual state of health until around the afternoon, when she went for her hair appointment. When they came home, patient was said to be confused. She was last known to be well around 3 PM to 3:30 PM . She was found today to have trouble finding words and being unable to speak. The EMS was called. NIH score in the ED was 2. Patient is aphasic, not responsive to questions. Not responding to commands. Son and daughter-inlaw at bedside. Denies any recent illness. Vitals showed temperature of 97.8F, heart rate is 126, blood pressure was 190/96, respiratory rate was 20, SPO2 was 100% on 2 L of oxygen Admitting Blood work showed white cell count of 4.9, hemoglobin 9.6, platelet count 245, chemistry showed sodium 125, potassium 3.1, chloride 96, bicarbonate 21, BUN 17, creatinine 0.70 Past Medical History Past Medical History (Chronic Problems): Chronic Problems (Last Reviewed 01/25/19 @ 08:59 by Devonte Santos MD) Major depression (Chronic) History of DVT (deep vein thrombosis) (Chronic) PUD (peptic ulcer disease) (Chronic) Chronic back pain (Chronic) Hyperlipidemia (Chronic) Depression (Chronic) Benign essential hypertension (Chronic) Alcohol abuse (Chronic) Gastrointestinal bleed (Chronic) Recurrent dislocation of right hip (Chronic) Chronic blood loss anemia (Chronic) Recurrent falls (Chronic) Medical History: Medical History (Last Reviewed 01/25/19 @ 08:59 by Devonte Santos MD) Liver disease K76.9 Stomach ulcer K25.9 Allergies acetaminophen Adverse Reaction (Verified 01/24/19 16:47) Other LIVER FAILURE -PER FAMILY Home Medications: Ambulatory Orders Medication Instructions Recorded Atorvastatin Calcium [Lipitor] 10 mg PO QHS 12/12/18 Cholecalciferol (Vitamin D3) 2,000 unit PO DAILY 01/24/19 [Vitamin D3] Fluoxetine HCl 40 mg PO DAILY 01/24/19 Pantoprazole Sodium [Protonix] 20 mg PO DAILY 01/24/19 Sucralfate 1 gm PO Q6H 01/24/19 traMADol [Ultram (G)] 50 mg PO Q6H PRN PRN 01/24/19 Surgical History: - - s/p EGD for PUD Psychiatric History: Anxiety, Depression 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 Serveral of patient's sister had stroke. Additionally patient notes a maternal family history of hypertension. Paternal History Items: - - Patient's brother, nephew and nieces had alcohol problem and went to alcohol rehab. Serveral of patient's sister had stroke. Patient notes that her father was a heavy alcohol intake individual but denies that he was an alcoholic. Review of Systems Unable to obtain accurate/complete ROS d/t: confused Patient Problems: Active and Suspected Problems (Last Reviewed 01/25/19 @ 08:59 by Devonte Santos MD) TIA (transient ischemic attack) (Acute) Objective: awake, follows simple commands, maex4 perrla eomi moody intact to threat unable to tell me her name small tongue ecchymosis present - Physical Exam Vital Signs Temp Pulse Resp BP Pulse Ox 36.6 C 97 23 H 135/94 H 100 01/25/19 08:00 01/25/19 08:00 01/25/19 08:00 01/25/19 08:00 01/25/19 08:00 Oxygen Flow Rate (L/min) 2 Oxygen Delivery Method Room Air Weight: 47.3 kg Body Mass Index (BMI) 18.8 Finger Stick Blood Glucose 117 Intake and Output for Last 24 Hours 01/23/19 01/24/19 01/25/19 23:59 23:59 23:59 Intake Total 640 / 640 709 / 709 Balance 640 / 640 709 / 709 Laboratory Tests Past 24 Hrs 01/24/19 01/24/19 01/24/19 16:59 16:59 16:59 WBC 4.9 RBC 3.01 L Hgb 9.6 L Hct 27.7 L MCV 92.0 MCH 31.9 MCHC 34.7 RDW 13.5 RDW Differential 44.2 H Plt Count 245 MPV 8.9 Immature Gran % (Auto) 0.200 Neut % (Auto) 71.1 H Lymph % (Auto) 16.7 L [place] % (Auto) 11.2 H Eos % (Auto) 0.6 Baso % (Auto) 0.2 Absolute Neuts (auto) 3.5 Absolute Lymphs (auto) 0.82 L Total Counted Not Reportable PT 13.5 INR 1.1 APTT 27.4 Sodium 125 L Potassium 3.1 L Chloride 96 L Carbon Dioxide 21.0 Anion Gap 8 BUN 17 Creatinine 0.70 Estim Creat Clear Calc 34.38 Est GFR (MDRD) Af Amer 104 Est GFR (MDRD) Non-Af 86 BUN/Creatinine Ratio 24.3 H Glucose 108 H Hemoglobin A1c Calcium 8.4 L Magnesium Total Bilirubin AST ALT Alkaline Phosphatase Troponin I < 0.015 Total Protein Albumin Globulin Albumin/Globulin Ratio Triglycerides Cholesterol LDL Cholesterol VLDL Cholesterol HDL Cholesterol Ethyl Alcohol 01/24/19 01/24/19 01/24/19 17:53 18:35 20:55 WBC RBC Hgb Hct MCV MCH MCHC RDW RDW Differential Plt Count MPV Immature Gran % (Auto) Neut % (Auto) Lymph % (Auto) [place] % (Auto) Eos % (Auto) Baso % (Auto) Absolute Neuts (auto) Absolute Lymphs (auto) Total Counted PT INR APTT Sodium 128 L Potassium 3.2 L Chloride 98 Carbon Dioxide 21.0 Anion Gap 9 BUN 14 Creatinine 0.83 Estim Creat Clear Calc 42.51 Est GFR (MDRD) Af Amer 86 Est GFR (MDRD) Non-Af 71 BUN/Creatinine Ratio 16.9 Glucose 194 H Hemoglobin A1c Calcium 7.6 L Magnesium Total Bilirubin AST ALT Alkaline Phosphatase Troponin I Total Protein Albumin Globulin Albumin/Globulin Ratio Triglycerides Cholesterol LDL Cholesterol VLDL Cholesterol HDL Cholesterol Ethyl Alcohol Cancelled 3.0 01/24/19 01/25/19 01/25/19 20:55 03:47 03:47 WBC RBC Hgb Hct MCV MCH MCHC RDW RDW Differential Plt Count MPV Immature Gran % (Auto) Neut % (Auto) Lymph % (Auto) [place] % (Auto) Eos % (Auto) Baso % (Auto) Absolute Neuts (auto) Absolute Lymphs (auto) Total Counted PT INR APTT Sodium 130 L Potassium 5.2 H Chloride 99 Carbon Dioxide 23.0 Anion Gap 8 BUN 12 Creatinine 0.58 Estim Creat Clear Calc 35.28 Est GFR (MDRD) Af Amer 131 Est GFR (MDRD) Non-Af 108 BUN/Creatinine Ratio 20.9 H Glucose 112 H Hemoglobin A1c < 3.5 L Calcium 7.8 L Magnesium 1.6 Total Bilirubin 0.60 AST 25 ALT 15 Alkaline Phosphatase 117 Troponin I Total Protein 5.5 L Albumin 2.8 L Globulin 2.7 Albumin/Globulin Ratio 1.0 Triglycerides 53 Cholesterol 170 LDL Cholesterol 90 VLDL Cholesterol 11 HDL Cholesterol 69 Ethyl Alcohol 01/25/19 03:47 WBC 9.5 RBC 2.92 L Hgb 9.4 L Hct 26.9 L MCV 92.1 MCH 32.2 H MCHC 34.9 RDW 14.2 RDW Differential 47.8 H Plt Count 213 MPV 8.5 Immature Gran % (Auto) 0.200 Neut % (Auto) 85.4 H Lymph % (Auto) 10.8 L [place] % (Auto) 3.4 Eos % (Auto) 0.1 Baso % (Auto) 0.1 Absolute Neuts (auto) 8.1 H Absolute Lymphs (auto) 1.02 Total Counted Not Reportable PT INR APTT Sodium Potassium Chloride Carbon Dioxide Anion Gap BUN Creatinine Estim Creat Clear Calc Est GFR (MDRD) Af Amer Est GFR (MDRD) Non-Af BUN/Creatinine Ratio Glucose Hemoglobin A1c Calcium Magnesium Total Bilirubin AST ALT Alkaline Phosphatase Troponin I Total Protein Albumin Globulin Albumin/Globulin Ratio Triglycerides Cholesterol LDL Cholesterol VLDL Cholesterol HDL Cholesterol Ethyl Alcohol POC Glucose 01/24/19 01/24/19 19:09 16:52 POC Glucose 165 H 117 H Current Medications Generic Name Dose Route Start Last Admin Trade Name Freq PRN Reason Stop Dose Admin Acetaminophen 650 mg 01/24/19 19:12 Tylenol PO Q6H PRN PRN Mild pain 1-3/Temp > 100.7 F Aspirin 81 mg 01/25/19 08:00 Aspirin, Baby PO DAILY@0800 REPLACED BY [facility] Atorvastatin Calcium 40 mg 01/24/19 22:00 01/24/19 21:10 Lipitor PO Not Given QHS REPLACED BY [facility] Chlorhexidine Gluconate 1 each 01/25/19 10:00 01/25/19 05:35 TOPICAL 1 each DAILY REPLACED BY [facility] Administration Cholecalciferol 2,000 unit 01/25/19 10:00 Vitamin D PO DAILY REPLACED BY [facility] Famotidine 20 mg 01/25/19 10:00 Pepcid PO DAILY REPLACED BY [facility] Fluoxetine HCl 40 mg 01/25/19 10:00 Prozac PO DAILY REPLACED BY [facility] Folic Acid 1 mg 01/25/19 08:00 Folic Acid PO 01/27/19 08:01 DAILYCM REPLACED BY [facility] Heparin Sodium (Porcine) 5,000 unit 01/24/19 22:00 01/24/19 21:44 Heparin Na SC 5,000 unit Q12 PATRIA Administration Sodium Chloride 250 mls @ 15 mls/hr 01/24/19 20:00 IV .[id number] PRN SALINE FLUSH Sodium Chloride 250 mls @ 15 mls/hr 01/24/19 21:10 IV .[id number] PRN SALINE FLUSH Sodium Chloride 1,000 mls @ 50 mls/hr 01/25/19 04:35 01/25/19 04:44 IV 50 mls/hr .Q20H PATRIA Administration Lorazepam 2 mg 01/24/19 19:12 Ativan PO Q2H PRN PRN CIWA score > 8 but <15 Protocol Lorazepam 2 mg 01/24/19 19:12 01/25/19 02:07 Ativan IV 2 mg Q2H PRN PRN Administration CIWA score > 8 but <15 Protocol Lorazepam 2 mg 01/24/19 19:12 Ativan PO UD PRN CIWA score >/=15. Protocol Lorazepam 2 mg 01/24/19 19:12 01/25/19 08:57 Ativan IV 2 mg UD PRN Administration CIWA score >/=15. Protocol Lorazepam 2 mg 01/24/19 19:12 01/24/19 20:02 Ativan IV 2 mg X1 PRN Administration Seizure Multivitamins/Minerals 1 tablet 01/25/19 08:00 01/25/19 08:24 Multivitamin With Minerals PO Not Given DAILYCM REPLACED BY [facility] Pantoprazole Sodium 20 mg 01/25/19 10:00 Protonix PO DAILY REPLACED BY [facility] Sodium Chloride 5 - 15 ml 01/24/19 21:10 01/25/19 04:44 IV 10 ml UD PRN Administration SALINE FLUSH Sucralfate 1 gm 01/24/19 22:00 01/25/19 05:44 Carafate PO Not Given 1HR_ACHS REPLACED BY [facility] Thiamine HCl 100 mg 01/25/19 08:00 Vitamin B1 PO 01/27/19 17:01 BIDCM REPLACED BY [facility] ct reviewed, no acute, atrophy Assessment/Plan All Active Problems (Last Reviewed 01/25/19 @ 08:59 by Devonte Santos MD) TIA (transient ischemic attack) (Acute) Alcohol withdrawal (Acute) Intractable nausea and vomiting (Acute) Hematemesis (Acute) Suicidal ideations (Acute) Severe sepsis (Resolved) UTI (urinary tract infection) (Resolved) Generalized weakness (Acute) Dehydration (Resolved) Decreased functional residual capacity (Acute) a/p: suspect multifactorial encephalopathy due to etoh withdrawal, sz, underlying mental status unclear. also has hyponatremia. history of liver disease ciwa protocol eeg in process, prelim no active sz rekha repeat ct later today, mri if needed when feasible
--- NOTE | 2019-01-25 09:00 | CON.PCM_ITS ---
Reason for Consult Date of Consultation: 01/25/19 Reason for Consultation: aphasia History of Present Illness: The patient is a 78 year old female with history of fall one to two weeks ago with right humerus fx, etoh, recent gi bleed with sginificant anemia, who presented yesterday with language abnormality, subsequently on the way to pcu had two generalized seizures. remains confused and unable to give me history. initially a stroke team was called but had multiple contraindications for tpa including gibleed, seizure, alcohol withdrawal and working diagnosis is not cva. per history stopped etoh one week ago however she did have detectable etoh in her drug screen. per admit note: The patient is a 78 year old F with past medical history of major depression, alcohol use, recent recurrent GI bleed secondary to peptic ulcer disease, status post recent fall, who quit drinking 1 week ago and comes in with altered mental status. Patient was said to have quit drinking as his son took away all her alcohol, took away her car keys. She fell about a week ago was intoxicated and fractured her right radius. She is in a splint and will follow up with Dr. Ravi for planned elective surgery on Tuesday. Patient was found to have confusion 3 days ago which was transient, had problems finding words. Seem to have resolved. She lives alone. She was in her usual state of health until around the afternoon, when she went for her hair appointment. When they came home, patient was said to be confused. She was last known to be well around 3 PM to 3:30 PM . She was found today to have trouble finding words and being unable to speak. The EMS was called. NIH score in the ED was 2. Patient is aphasic, not responsive to questions. Not responding to commands. Son and daughter-inlaw at bedside. Denies any recent illness. Vitals showed temperature of 97.8F, heart rate is 126, blood pressure was 190/96, respiratory rate was 20, SPO2 was 100% on 2 L of oxygen Admitting Blood work showed white cell count of 4.9, hemoglobin 9.6, platelet count 245, chemistry showed sodium 125, potassium 3.1, chloride 96, bicarbonate 21, BUN 17, creatinine 0.70 Past Medical History Past Medical History (Chronic Problems): Chronic Problems (Last Reviewed 01/25/19 @ 08:59 by Devonte Santos MD) Major depression (Chronic) History of DVT (deep vein thrombosis) (Chronic) PUD (peptic ulcer disease) (Chronic) Chronic back pain (Chronic) Hyperlipidemia (Chronic) Depression (Chronic) Benign essential hypertension (Chronic) Alcohol abuse (Chronic) Gastrointestinal bleed (Chronic) Recurrent dislocation of right hip (Chronic) Chronic blood loss anemia (Chronic) Recurrent falls (Chronic) Medical History: Medical History (Last Reviewed 01/25/19 @ 08:59 by Devonte Santos MD) Liver disease K76.9 Stomach ulcer K25.9 Allergies acetaminophen Adverse Reaction (Verified 01/24/19 16:47) Other LIVER FAILURE -PER FAMILY Home Medications: Ambulatory Orders Medication Instructions Recorded Atorvastatin Calcium [Lipitor] 10 mg PO QHS 12/12/18 Cholecalciferol (Vitamin D3) 2,000 unit PO DAILY 01/24/19 [Vitamin D3] Fluoxetine HCl 40 mg PO DAILY 01/24/19 Pantoprazole Sodium [Protonix] 20 mg PO DAILY 01/24/19 Sucralfate 1 gm PO Q6H 01/24/19 traMADol [Ultram (G)] 50 mg PO Q6H PRN PRN 01/24/19 Surgical History: - - s/p EGD for PUD Psychiatric History: Anxiety, Depression 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 Serveral of patient's sister had stroke. Additionally patient notes a maternal family history of hypertension. Paternal History Items: - - Patient's brother, nephew and nieces had alcohol problem and went to alcohol rehab. Serveral of patient's sister had stroke. Patient notes that her father was a heavy alcohol intake individual but denies that he was an alcoholic. Review of Systems Unable to obtain accurate/complete ROS d/t: confused Patient Problems: Active and Suspected Problems (Last Reviewed 01/25/19 @ 08:59 by Devonte Santos MD) TIA (transient ischemic attack) (Acute) Objective: awake, follows simple commands, maex4 perrla eomi moody intact to threat unable to tell me her name small tongue ecchymosis present - Physical Exam Vital Signs Temp Pulse Resp BP Pulse Ox 36.6 C 97 23 H 135/94 H 100 01/25/19 08:00 01/25/19 08:00 01/25/19 08:00 01/25/19 08:00 01/25/19 08:00 Oxygen Flow Rate (L/min) 2 Oxygen Delivery Method Room Air Weight: 47.3 kg Body Mass Index (BMI) 18.8 Finger Stick Blood Glucose 117 Intake and Output for Last 24 Hours 01/23/19 01/24/19 01/25/19 23:59 23:59 23:59 Intake Total 640 / 640 709 / 709 Balance 640 / 640 709 / 709 Laboratory Tests Past 24 Hrs 01/24/19 01/24/19 01/24/19 16:59 16:59 16:59 WBC 4.9 RBC 3.01 L Hgb 9.6 L Hct 27.7 L MCV 92.0 MCH 31.9 MCHC 34.7 RDW 13.5 RDW Differential 44.2 H Plt Count 245 MPV 8.9 Immature Gran % (Auto) 0.200 Neut % (Auto) 71.1 H Lymph % (Auto) 16.7 L [place] % (Auto) 11.2 H Eos % (Auto) 0.6 Baso % (Auto) 0.2 Absolute Neuts (auto) 3.5 Absolute Lymphs (auto) 0.82 L Total Counted Not Reportable PT 13.5 INR 1.1 APTT 27.4 Sodium 125 L Potassium 3.1 L Chloride 96 L Carbon Dioxide 21.0 Anion Gap 8 BUN 17 Creatinine 0.70 Estim Creat Clear Calc 34.38 Est GFR (MDRD) Af Amer 104 Est GFR (MDRD) Non-Af 86 BUN/Creatinine Ratio 24.3 H Glucose 108 H Hemoglobin A1c Calcium 8.4 L Magnesium Total Bilirubin AST ALT Alkaline Phosphatase Troponin I < 0.015 Total Protein Albumin Globulin Albumin/Globulin Ratio Triglycerides Cholesterol LDL Cholesterol VLDL Cholesterol HDL Cholesterol Ethyl Alcohol 01/24/19 01/24/19 01/24/19 17:53 18:35 20:55 WBC RBC Hgb Hct MCV MCH MCHC RDW RDW Differential Plt Count MPV Immature Gran % (Auto) Neut % (Auto) Lymph % (Auto) [place] % (Auto) Eos % (Auto) Baso % (Auto) Absolute Neuts (auto) Absolute Lymphs (auto) Total Counted PT INR APTT Sodium 128 L Potassium 3.2 L Chloride 98 Carbon Dioxide 21.0 Anion Gap 9 BUN 14 Creatinine 0.83 Estim Creat Clear Calc 42.51 Est GFR (MDRD) Af Amer 86 Est GFR (MDRD) Non-Af 71 BUN/Creatinine Ratio 16.9 Glucose 194 H Hemoglobin A1c Calcium 7.6 L Magnesium Total Bilirubin AST ALT Alkaline Phosphatase Troponin I Total Protein Albumin Globulin Albumin/Globulin Ratio Triglycerides Cholesterol LDL Cholesterol VLDL Cholesterol HDL Cholesterol Ethyl Alcohol Cancelled 3.0 01/24/19 01/25/19 01/25/19 20:55 03:47 03:47 WBC RBC Hgb Hct MCV MCH MCHC RDW RDW Differential Plt Count MPV Immature Gran % (Auto) Neut % (Auto) Lymph % (Auto) [place] % (Auto) Eos % (Auto) Baso % (Auto) Absolute Neuts (auto) Absolute Lymphs (auto) Total Counted PT INR APTT Sodium 130 L Potassium 5.2 H Chloride 99 Carbon Dioxide 23.0 Anion Gap 8 BUN 12 Creatinine 0.58 Estim Creat Clear Calc 35.28 Est GFR (MDRD) Af Amer 131 Est GFR (MDRD) Non-Af 108 BUN/Creatinine Ratio 20.9 H Glucose 112 H Hemoglobin A1c < 3.5 L Calcium 7.8 L Magnesium 1.6 Total Bilirubin 0.60 AST 25 ALT 15 Alkaline Phosphatase 117 Troponin I Total Protein 5.5 L Albumin 2.8 L Globulin 2.7 Albumin/Globulin Ratio 1.0 Triglycerides 53 Cholesterol 170 LDL Cholesterol 90 VLDL Cholesterol 11 HDL Cholesterol 69 Ethyl Alcohol 01/25/19 03:47 WBC 9.5 RBC 2.92 L Hgb 9.4 L Hct 26.9 L MCV 92.1 MCH 32.2 H MCHC 34.9 RDW 14.2 RDW Differential 47.8 H Plt Count 213 MPV 8.5 Immature Gran % (Auto) 0.200 Neut % (Auto) 85.4 H Lymph % (Auto) 10.8 L [place] % (Auto) 3.4 Eos % (Auto) 0.1 Baso % (Auto) 0.1 Absolute Neuts (auto) 8.1 H Absolute Lymphs (auto) 1.02 Total Counted Not Reportable PT INR APTT Sodium Potassium Chloride Carbon Dioxide Anion Gap BUN Creatinine Estim Creat Clear Calc Est GFR (MDRD) Af Amer Est GFR (MDRD) Non-Af BUN/Creatinine Ratio Glucose Hemoglobin A1c Calcium Magnesium Total Bilirubin AST ALT Alkaline Phosphatase Troponin I Total Protein Albumin Globulin Albumin/Globulin Ratio Triglycerides Cholesterol LDL Cholesterol VLDL Cholesterol HDL Cholesterol Ethyl Alcohol POC Glucose 01/24/19 01/24/19 19:09 16:52 POC Glucose 165 H 117 H Current Medications Generic Name Dose Route Start Last Admin Trade Name Freq PRN Reason Stop Dose Admin Acetaminophen 650 mg 01/24/19 19:12 Tylenol PO Q6H PRN PRN Mild pain 1-3/Temp > 100.7 F Aspirin 81 mg 01/25/19 08:00 Aspirin, Baby PO DAILY@0800 [facility] Atorvastatin Calcium 40 mg 01/24/19 22:00 01/24/19 21:10 Lipitor PO Not Given QHS [facility] Chlorhexidine Gluconate 1 each 01/25/19 10:00 01/25/19 05:35 TOPICAL 1 each DAILY [facility] Administration Cholecalciferol 2,000 unit 01/25/19 10:00 Vitamin D PO DAILY [facility] Famotidine 20 mg 01/25/19 10:00 Pepcid PO DAILY [facility] Fluoxetine HCl 40 mg 01/25/19 10:00 Prozac PO DAILY [facility] Folic Acid 1 mg 01/25/19 08:00 Folic Acid PO 01/27/19 08:01 DAILYCM [facility] Heparin Sodium (Porcine) 5,000 unit 01/24/19 22:00 01/24/19 21:44 Heparin Na SC 5,000 unit Q12 PATRIA Administration Sodium Chloride 250 mls @ 15 mls/hr 01/24/19 20:00 IV .[id number] PRN SALINE FLUSH Sodium Chloride 250 mls @ 15 mls/hr 01/24/19 21:10 IV .[id number] PRN SALINE FLUSH Sodium Chloride 1,000 mls @ 50 mls/hr 01/25/19 04:35 01/25/19 04:44 IV 50 mls/hr .Q20H PATRIA Administration Lorazepam 2 mg 01/24/19 19:12 Ativan PO Q2H PRN PRN CIWA score > 8 but <15 Protocol Lorazepam 2 mg 01/24/19 19:12 01/25/19 02:07 Ativan IV 2 mg Q2H PRN PRN Administration CIWA score > 8 but <15 Protocol Lorazepam 2 mg 01/24/19 19:12 Ativan PO UD PRN CIWA score >/=15. Protocol Lorazepam 2 mg 01/24/19 19:12 01/25/19 08:57 Ativan IV 2 mg UD PRN Administration CIWA score >/=15. Protocol Lorazepam 2 mg 01/24/19 19:12 01/24/19 20:02 Ativan IV 2 mg X1 PRN Administration Seizure Multivitamins/Minerals 1 tablet 01/25/19 08:00 01/25/19 08:24 Multivitamin With Minerals PO Not Given DAILYCM [facility] Pantoprazole Sodium 20 mg 01/25/19 10:00 Protonix PO DAILY [facility] Sodium Chloride 5 - 15 ml 01/24/19 21:10 01/25/19 04:44 IV 10 ml UD PRN Administration SALINE FLUSH Sucralfate 1 gm 01/24/19 22:00 01/25/19 05:44 Carafate PO Not Given 1HR_ACHS [facility] Thiamine HCl 100 mg 01/25/19 08:00 Vitamin B1 PO 01/27/19 17:01 BIDCM [facility] ct reviewed, no acute, atrophy Assessment/Plan All Active Problems (Last Reviewed 01/25/19 @ 08:59 by Devonte Santos MD) TIA (transient ischemic attack) (Acute) Alcohol withdrawal (Acute) Intractable nausea and vomiting (Acute) Hematemesis (Acute) Suicidal ideations (Acute) Severe sepsis (Resolved) UTI (urinary tract infection) (Resolved) Generalized weakness (Acute) Dehydration (Resolved) Decreased functional residual capacity (Acute) a/p: suspect multifactorial encephalopathy due to etoh withdrawal, sz, underlying mental status unclear. also has hyponatremia. history of liver disease ciwa protocol eeg in process, prelim no active sz rekha repeat ct later today, mri if needed when feasible
--- NOTE | 2019-01-25 09:00 | NURSING ---
unable to complete full NIH d/t patient not following simple commands and expressive aphasia
--- NOTE | 2019-01-25 09:47 | CASEMGMT ---
SW participated in ICU rounds. Pt's son Tony present. He states pt had been drinking a box of wine every two days. Son states he took her keys away and threw away all of her alcohol. He states pt gets drunk, falls, and breaks bones. Pt's arm is broken at present. SW spoke w/Tony after rounds. Tony expressed frustration with pt's situation. He explains that pt needs help with her drinking, but he has been told if she is not in agreement with it she cannot get the help. Tony states that he thinks the system is failing her. He states that he was trying to go for guardianship but neither pt's PCP or psychologist would not complete the paperwork for this. He states they both feel she is not able to make her own decisions but neither will fill out the paperwork. SW offered support to pt's son. SW gave the son this SW's number and remains available for support to son. SW will continue to follow, pt not able to speak w/pt at this time due to confusion. SW also cannot complete PHQ-9 w/pt at this time due to the confusion. Once pt is able, SW will speak w/her directly in regard to alcohol use and discharge plan. ADOLFO [place]
[2019-01-25] MEDS: Heparin Injection (Vial) 5,000 UNIT/ML VIAL 5000 UNIT SC ×2 (11:00→21:56)
--- NOTE | 2019-01-25 11:01 | EEG ---
- Electroencephalogram Date of service 01/25/2019 This is an 18 channel EEG performed on this 8-year-old female with a history of mental status changes, possible alcohol withdrawal, hyponatremia, GI bleed, and right arm fracture. Hyperventilation was not performed due to patient's inability to cooperate. Background activity is slow at 6 Hz symmetrically in the posterior leads. The patient was drowsy throughout the recording. EKG reference leads demonstrated normal sinus rhythm throughout the recording, photic stimulation does demonstrate a normal symmetric driving response the posterior leads. There are no lateralizing or epileptic form changes. Impression: Abnormal asleep electroencephalogram due to the presence of diffuse nonspecific slowing. No epileptiform discharges are noted.
[2019-01-25 11:20] LABS: Anion Gap 5 (5-15); BUN 9 mg/dL (7-18); BUN/Creat Ratio 18.8 RATIO (10-20); Calcium,Total 7.2 mg/dL (8.5-10.1); Chloride 103 mmol/L (98-107); Creatinine, Serum 0.48 mg/dL (0.55-1.02); EST Glomerular Filtration Rate 134 mL/min (>60); Est Glom Filt Rate - Afr Amer 162 mL/min (>60); Estimated Creatinine Clearance 35.74 ml/min; Glucose 84 mg/dL (74-106); Potassium 3.8 mmol/L (3.5-5.1); Sodium Level 131 mmol/L (136-145)
[2019-01-25 11:24] LABS: Lactic Acid 0.8 mmol/L (0.4-2.0)
--- NOTE | 2019-01-25 12:58 | CHAPLAIN ---
Type of Pastoral Visit _x__ Initial Visit ___ Follow-up Visit ___ On-call Visit ___ General Patient Visit ___ Spiritual Assessment ___ Family Conference ___ Bereavement ___ Rapid Response ___ Code Blue ___ Other (describe below) Pastoral Care Referral From ___ Patient ___ Family ___ Nurse ___ Physician ___ Senior Brand Manager ___ Crusher Screen Repairer _x__ Other (describe below) Sacrament/Intervention ___ Active listening ___ Anointing ___ Zoroastrian ___ Bereavement ___ Communion ___ Alisha exploration ___ ___ Life review ___ Prayer ___ Reconciliation ___ Sacrament of Sick ___ Supportive presence ___ Wedding _x__ Other (describe below) Pastoral Comments patient was sleeping and RN stated that pt will not be able to respond to you; entered room and left a calling card with promise of prayer support; this pt has been seen before by this stevedoring superintendent on previous admissions for alcohol abuse and grief issues
--- NOTE | 2019-01-25 13:00 | NURSING ---
unable to complete full NIH assessment at this time d/t pt unable to follow commands
--- NOTE | 2019-01-25 14:52 | CASEMGMT ---
POA form completed in September 2018 on [facility], names son Umair as POA. LW from 2009 also on [facility]. SW printed and will place in paper chart. ADOLFO Westbrook
--- NOTE | 2019-01-25 15:06 | NURSING ---
wound photo: right upper arm
--- NOTE | 2019-01-25 15:21 | NURSING ---
unable to complete full NIH d/t patient unable to follow commands
--- NOTE | 2019-01-25 16:06 | CT_ITS ---
STUDY: CT BRAIN WITHOUT CONTRAST REASON FOR EXAM: Female, 78 years old. Confusion RADIATION DOSAGE (If Supplied By Facility): DLP = ( 812.98 ) mGycm TECHNIQUE: Transaxial CT imaging of the brain was performed without administration of intravenous contrast material. Individualized dose optimization techniques were used for this CT. COMPARISON: CTs head January 24, 2019 FINDINGS: There is no acute bleed or infarct. Previously described left parietal cortical area of increased density appears artifactual. There are chronic ischemic and atrophic changes. The ventricles are normal in configuration. There is no hydrocephalus. The visualized paranasal sinuses are clear. The mastoid air cells are well aerated. There is no skull fracture. CT/Brain/Head without Contrast IMPRESSION: No acute intracranial abnormality. Chronic ischemic and atrophic changes. Electronically Signed: Terrence Zamora, at 16:44 EDT Tel , Service support ,
[2019-01-25] MEDS: Haloperidol Lactate 5 MG/ML Vial 3 MG IV (16:35)
--- NOTE | 2019-01-25 17:00 | PN_ITS ---
Patient Problems: Active and Suspected Problems (Last Reviewed 01/25/19 @ 08:59 by Devonte Santos MD) TIA (transient ischemic attack) (Acute) Subjective: Patient was seen and examined in the ICU today, she is lethargic but she has been given Ativan recently so that she might undergo a CT of the brain. CT of the brain showed no acute bleed or infarct today. - Physical Exam General: No apparent distress, Lethargic HEENT: Atraumatic, PERRLA, EOMI, Normocephalic Oral: Moist Mucosa Neck: Supple, No JVD, Trachea Midline, Thyroid Normal Size and Texture Lungs: Clear to auscultation, Normal air movement, No rhonchi, No wheeze, No rales Cardiovascular: Regular rate, Regular Rhythm, Normal S1, Normal S2, No murmurs, No Ectopic Activity Abdomen: Bowel Sounds Present, Soft, Non Tender, Non-Distended Extremities: No clubbing, No cyanosis, No edema, Capillary Refill Less than 3 Seconds Skin: No rashes, No breakdown Musculoskeletal: No Tenderness to Palpation of Joints or Extremities Neurological: Cranial nerves II-XII grossly intact Psych/Mental Status: - - Patient is lethargic but responds to verbal stimuli by moving her head, she remains nonverbal Vital Signs Temp Pulse Resp BP Pulse Ox 98.3 F 113 H 24 H 142/98 H 97 01/25/19 16:00 01/25/19 16:00 01/25/19 16:00 01/25/19 16:00 01/25/19 16:00 Oxygen Flow Rate (L/min) 2 Oxygen Delivery Method Room Air Weight: 47.3 kg Body Mass Index (BMI) 18.8 Finger Stick Blood Glucose 117 Intake and Output for Last 24 Hours 01/23/19 01/24/19 01/25/19 23:59 23:59 23:59 Intake Total 640 / 640 1327 / 1327 Balance 640 / 640 1327 / 1327 Laboratory Tests Past 24 Hrs 01/24/19 01/24/19 01/24/19 16:59 16:59 16:59 WBC 4.9 RBC 3.01 L Hgb 9.6 L Hct 27.7 L MCV 92.0 MCH 31.9 MCHC 34.7 RDW 13.5 RDW Differential 44.2 H Plt Count 245 MPV 8.9 Immature Gran % (Auto) 0.200 Neut % (Auto) 71.1 H Lymph % (Auto) 16.7 L [place] % (Auto) 11.2 H Eos % (Auto) 0.6 Baso % (Auto) 0.2 Absolute Neuts (auto) 3.5 Absolute Lymphs (auto) 0.82 L Total Counted Not Reportable PT 13.5 INR 1.1 APTT 27.4 Sodium 125 L Potassium 3.1 L Chloride 96 L Carbon Dioxide 21.0 Anion Gap 8 BUN 17 Creatinine 0.70 Estim Creat Clear Calc 34.38 Est GFR (MDRD) Af Amer 104 Est GFR (MDRD) Non-Af 86 BUN/Creatinine Ratio 24.3 H Glucose 108 H Hemoglobin A1c Lactic Acid Calcium 8.4 L Magnesium Total Bilirubin AST ALT Alkaline Phosphatase Troponin I < 0.015 Total Protein Albumin Globulin Albumin/Globulin Ratio Triglycerides Cholesterol LDL Cholesterol VLDL Cholesterol HDL Cholesterol Ethyl Alcohol 01/24/19 01/24/19 01/24/19 17:53 18:35 20:55 WBC RBC Hgb Hct MCV MCH MCHC RDW RDW Differential Plt Count MPV Immature Gran % (Auto) Neut % (Auto) Lymph % (Auto) [place] % (Auto) Eos % (Auto) Baso % (Auto) Absolute Neuts (auto) Absolute Lymphs (auto) Total Counted PT INR APTT Sodium 128 L Potassium 3.2 L Chloride 98 Carbon Dioxide 21.0 Anion Gap 9 BUN 14 Creatinine 0.83 Estim Creat Clear Calc 42.51 Est GFR (MDRD) Af Amer 86 Est GFR (MDRD) Non-Af 71 BUN/Creatinine Ratio 16.9 Glucose 194 H Hemoglobin A1c Lactic Acid Calcium 7.6 L Magnesium Total Bilirubin AST ALT Alkaline Phosphatase Troponin I Total Protein Albumin Globulin Albumin/Globulin Ratio Triglycerides Cholesterol LDL Cholesterol VLDL Cholesterol HDL Cholesterol Ethyl Alcohol Cancelled 3.0 01/24/19 01/25/19 01/25/19 20:55 03:47 03:47 WBC RBC Hgb Hct MCV MCH MCHC RDW RDW Differential Plt Count MPV Immature Gran % (Auto) Neut % (Auto) Lymph % (Auto) [place] % (Auto) Eos % (Auto) Baso % (Auto) Absolute Neuts (auto) Absolute Lymphs (auto) Total Counted PT INR APTT Sodium 130 L Potassium 5.2 H Chloride 99 Carbon Dioxide 23.0 Anion Gap 8 BUN 12 Creatinine 0.58 Estim Creat Clear Calc 35.28 Est GFR (MDRD) Af Amer 131 Est GFR (MDRD) Non-Af 108 BUN/Creatinine Ratio 20.9 H Glucose 112 H Hemoglobin A1c < 3.5 L Lactic Acid Calcium 7.8 L Magnesium 1.6 Total Bilirubin 0.60 AST 25 ALT 15 Alkaline Phosphatase 117 Troponin I Total Protein 5.5 L Albumin 2.8 L Globulin 2.7 Albumin/Globulin Ratio 1.0 Triglycerides 53 Cholesterol 170 LDL Cholesterol 90 VLDL Cholesterol 11 HDL Cholesterol 69 Ethyl Alcohol 01/25/19 01/25/19 01/25/19 03:47 10:57 10:57 WBC 9.5 RBC 2.92 L Hgb 9.4 L Hct 26.9 L MCV 92.1 MCH 32.2 H MCHC 34.9 RDW 14.2 RDW Differential 47.8 H Plt Count 213 MPV 8.5 Immature Gran % (Auto) 0.200 Neut % (Auto) 85.4 H Lymph % (Auto) 10.8 L [place] % (Auto) 3.4 Eos % (Auto) 0.1 Baso % (Auto) 0.1 Absolute Neuts (auto) 8.1 H Absolute Lymphs (auto) 1.02 Total Counted Not Reportable PT INR APTT Sodium 131 L Potassium 3.8 Chloride 103 Carbon Dioxide 23.0 Anion Gap 5 BUN 9 Creatinine 0.48 L Estim Creat Clear Calc 35.74 Est GFR (MDRD) Af Amer 162 Est GFR (MDRD) Non-Af 134 BUN/Creatinine Ratio 18.8 Glucose 84 Hemoglobin A1c Lactic Acid 0.8 Calcium 7.2 L Magnesium Total Bilirubin AST ALT Alkaline Phosphatase Troponin I Total Protein Albumin Globulin Albumin/Globulin Ratio Triglycerides Cholesterol LDL Cholesterol VLDL Cholesterol HDL Cholesterol Ethyl Alcohol POC Glucose 01/24/19 01/24/19 19:09 16:52 POC Glucose 165 H 117 H Medical Necessity - Tobacco Use Smoking Status: Never smoker Tobacco Use: Non-smoker Assessment/Plan All Active Problems (Last Reviewed 01/25/19 @ 08:59 by Devonte Santos MD) TIA (transient ischemic attack) (Acute) Alcohol withdrawal (Resolved) Intractable nausea and vomiting (Resolved) Hematemesis (Resolved) Suicidal ideations (Resolved) Severe sepsis (Resolved) UTI (urinary tract infection) (Resolved) Generalized weakness (Resolved) Dehydration (Resolved) Decreased functional residual capacity (Acute) #1 altered mental status-etiology unclear at this time, continue supportive care, neurology is participating in her care as is critical care. #2 new onset seizure disorder-patient remains on Keppra at this point #3 hyponatremia-possibly alcohol related, this has improved since admission #4 hypokalemia-corrected at this time #5 chronic depression #6 hyperlipidemia Code Visit Inpatient E&M: 97958 Subs Hosp L2
[2019-01-26] VITALS (22 sets, daily range): BP systolic 113–154; BP diastolic 68–102; PULSE 76–118; RESP 14–23; TEMP 36.2–36.8; O2SAT 97–100; BMI 18.8
[2019-01-26] MEDS: LORazepam 2 MG/ML Syringe IV ×2 (03:46→10:47)
[2019-01-26] MEDS: 0.9% NaCl Peripheral Flush Adult/Peds IV ×2 (03:46→10:47)
[2019-01-26] MEDS: CHLORHEXIDINE GLUC 2% CLOTH 1 EACH TOWELETTE TOPICAL (04:13)
[2019-01-26 05:28] LABS: Absolute Lymphocyte Count 0.53 X10^3/ul (0.83-4.51); Absolute Neutrophil Count 4.5 X10^3/uL (2.0-7.7); Basophil# 0.01 X10^3/uL; Basophil% 0.2 % (0-1); Eosinophil# 0.04 X10^3/uL; Eosinophils% 0.7 % (0-5); Hematocrit 30.4 % (37-47); Hemoglobin 10.4 g/dl (12.0-15.0); Lymphocyte # 0.53 X10^3/ul (4.0); Lymphocyte % 9.2 % (19-41); Mean Corp Hgb Conc 34.2 g/gl (32-36); Mean Corpuscular Hgb 31.5 pg (27.0-32.0); Mean Corpuscular Volume 92.1 fL (81-99); Mean Platelet Vol. 8.9 fl (6.2-12.0); Monocyte# 0.67 X10^3/uL; Monocyte% 11.6 % (0-10); Neutrophil # 4.52 X10^3/uL (2.7-7.7); Neutrophil % 78.1 % (47-70); Platelet Count 230 K/mm3 (150-450); RBC Distribution Width CV 14.1 % (11.6-14.6); RBC Distribution Width SD 47.3 fl (35.1-43.9); White Blood Count 5.8 K/mm3 (4.4-11.0)
[2019-01-26 05:32] LABS: Differential Indicated SCAN CRITERIA MET; POSITIVE COUNT NO; POSITIVE DIFFERENTIAL YES; POSITIVE MORPHOLOGY NO
[2019-01-26 05:37] LABS: Anion Gap 10 (5-15); BUN 9 mg/dL (7-18); BUN/Creat Ratio 17.3 RATIO (10-20); Chloride 101 mmol/L (98-107); Creatinine, Serum 0.52 mg/dL (0.55-1.02); EST Glomerular Filtration Rate 122 mL/min (>60); Est Glom Filt Rate - Afr Amer 147 mL/min (>60); Estimated Creatinine Clearance 34.23 ml/min; Glucose 74 mg/dL (74-106); Potassium 3.4 mmol/L (3.5-5.1); Sodium Level 133 mmol/L (136-145)
[2019-01-26 07:25] LABS: Alkaline Phosphatase 126 U/L (45-117); Magnesium 1.7 mg/dL (1.6-2.6)
--- NOTE | 2019-01-26 07:28 | PCM.PN.INT ---
Subjective: Patient did okay overnight. Patient has received several doses of Ativan secondary to CIWA protocol, approximately every 4 hours. Patient is more appropriate, but still continues to be spontaneous. Nursing reports nonsustained V. tach overnight. Patient has maintained on room air throughout. General: Alert, Confused, Disoriented, Non-Cooperative, - - Not interactive. Follows some commands. HEENT: Atraumatic, PERRLA, EOMI, Normocephalic, - - No scleral icterus or injection noted. Oral: Moist Mucosa, No Gingival or Mucosal Lesions/ Ulcerations Neck: Supple, No JVD, No Nodes, Trachea Midline Lungs: Clear to auscultation, Normal air movement, No rhonchi, No wheeze, No rales, - - Symmetric expansion. No dullness to percussion. Cardiovascular: Regular rate, Regular Rhythm, Normal S1, Normal S2, No murmurs, No rub noted, No Gallop, - - Telemetry reviewed Abdomen: Bowel Sounds Present, Soft, Non Tender, Non-Distended Extremities: No clubbing, No cyanosis, No edema, Capillary Refill Less than 3 Seconds Skin: No rashes, No breakdown, - - Dermal atrophy Musculoskeletal: No Tenderness to Palpation of Joints or Extremities Lymphatic: No Cervical, Supraclavicular, or Inguinal Adenopathy Neurological: Cranial nerves II-XII grossly intact, - - No facial droop. Moves all extremities appropriately. Still not communicating Psych/Mental Status: Flat Affect Vital Signs Temp Pulse Resp BP Pulse Ox 36.6 C 78 18 133/71 H 99 01/26/19 04:00 01/26/19 06:00 01/26/19 06:00 01/26/19 06:00 01/26/19 06:00 Oxygen Flow Rate (L/min) 2 Oxygen Delivery Method Room Air Weight: 45.3 kg Body Mass Index (BMI) 18.8 Finger Stick Blood Glucose 117 Intake and Output for Last 24 Hours 01/24/19 01/25/19 01/26/19 23:59 23:59 23:59 Intake Total 640 / 640 1861 / 1861 285 / 285 Balance 640 / 640 186 / 186 285 / 285 Labs (Last 48 Hours) 01/24/19 01/24/19 01/24/19 16:52 16:59 16:59 WBC 4.9 RBC 3.01 L Hgb 9.6 L Hct 27.7 L MCV 92.0 MCH 31.9 MCHC 34.7 RDW 13.5 RDW Differential 44.2 H Plt Count 245 MPV 8.9 Immature Gran % (Auto) 0.200 Neut % (Auto) 71.1 H Lymph % (Auto) 16.7 L [place] % (Auto) 11.2 H Eos % (Auto) 0.6 Baso % (Auto) 0.2 Absolute Neuts (auto) 3.5 Absolute Lymphs (auto) 0.82 L Total Counted Not Reportable Differential Comment PT 13.5 INR 1.1 APTT 27.4 Sodium Potassium Chloride Carbon Dioxide Anion Gap BUN Creatinine Estim Creat Clear Calc Est GFR (MDRD) Af Amer Est GFR (MDRD) Non-Af BUN/Creatinine Ratio Glucose Hemoglobin A1c Lactic Acid Calcium Magnesium Total Bilirubin AST ALT Alkaline Phosphatase Troponin I Total Protein Albumin Globulin Albumin/Globulin Ratio Triglycerides Cholesterol LDL Cholesterol VLDL Cholesterol HDL Cholesterol Ethyl Alcohol POC Glucose 117 H 01/24/19 01/24/19 01/24/19 16:59 17:53 18:35 WBC RBC Hgb Hct MCV MCH MCHC RDW RDW Differential Plt Count MPV Immature Gran % (Auto) Neut % (Auto) Lymph % (Auto) [place] % (Auto) Eos % (Auto) Baso % (Auto) Absolute Neuts (auto) Absolute Lymphs (auto) Total Counted Differential Comment PT INR APTT Sodium 125 L Potassium 3.1 L Chloride 96 L Carbon Dioxide 21.0 Anion Gap 8 BUN 17 Creatinine 0.70 Estim Creat Clear Calc 34.38 Est GFR (MDRD) Af Amer 104 Est GFR (MDRD) Non-Af 86 BUN/Creatinine Ratio 24.3 H Glucose 108 H Hemoglobin A1c Lactic Acid Calcium 8.4 L Magnesium Total Bilirubin AST ALT Alkaline Phosphatase Troponin I < 0.015 Total Protein Albumin Globulin Albumin/Globulin Ratio Triglycerides Cholesterol LDL Cholesterol VLDL Cholesterol HDL Cholesterol Ethyl Alcohol Cancelled 3.0 POC Glucose 01/24/19 01/24/19 01/24/19 19:09 20:55 20:55 WBC RBC Hgb Hct MCV MCH MCHC RDW RDW Differential Plt Count MPV Immature Gran % (Auto) Neut % (Auto) Lymph % (Auto) [place] % (Auto) Eos % (Auto) Baso % (Auto) Absolute Neuts (auto) Absolute Lymphs (auto) Total Counted Differential Comment PT INR APTT Sodium 128 L Potassium 3.2 L Chloride 98 Carbon Dioxide 21.0 Anion Gap 9 BUN 14 Creatinine 0.83 Estim Creat Clear Calc 42.51 Est GFR (MDRD) Af Amer 86 Est GFR (MDRD) Non-Af 71 BUN/Creatinine Ratio 16.9 Glucose 194 H Hemoglobin A1c Lactic Acid Calcium 7.6 L Magnesium 1.6 Total Bilirubin AST ALT Alkaline Phosphatase Troponin I Total Protein Albumin Globulin Albumin/Globulin Ratio Triglycerides Cholesterol LDL Cholesterol VLDL Cholesterol HDL Cholesterol Ethyl Alcohol POC Glucose 165 H 01/25/19 01/25/19 01/25/19 03:47 03:47 03:47 WBC 9.5 RBC 2.92 L Hgb 9.4 L Hct 26.9 L MCV 92.1 MCH 32.2 H MCHC 34.9 RDW 14.2 RDW Differential 47.8 H Plt Count 213 MPV 8.5 Immature Gran % (Auto) 0.200 Neut % (Auto) 85.4 H Lymph % (Auto) 10.8 L [place] % (Auto) 3.4 Eos % (Auto) 0.1 Baso % (Auto) 0.1 Absolute Neuts (auto) 8.1 H Absolute Lymphs (auto) 1.02 Total Counted Not Reportable Differential Comment PT INR APTT Sodium 130 L Potassium 5.2 H Chloride 99 Carbon Dioxide 23.0 Anion Gap 8 BUN 12 Creatinine 0.58 Estim Creat Clear Calc 35.28 Est GFR (MDRD) Af Amer 131 Est GFR (MDRD) Non-Af 108 BUN/Creatinine Ratio 20.9 H Glucose 112 H Hemoglobin A1c < 3.5 L Lactic Acid Calcium 7.8 L Magnesium Total Bilirubin 0.60 AST 25 ALT 15 Alkaline Phosphatase 117 Troponin I Total Protein 5.5 L Albumin 2.8 L Globulin 2.7 Albumin/Globulin Ratio 1.0 Triglycerides 53 Cholesterol 170 LDL Cholesterol 90 VLDL Cholesterol 11 HDL Cholesterol 69 Ethyl Alcohol POC Glucose 01/25/19 01/25/19 01/26/19 10:57 10:57 05:05 WBC 5.8 RBC 3.30 L Hgb 10.4 L Hct 30.4 L MCV 92.1 MCH 31.5 MCHC 34.2 RDW 14.1 RDW Differential 47.3 H Plt Count 230 MPV 8.9 Immature Gran % (Auto) 0.200 Neut % (Auto) 78.1 H Lymph % (Auto) 9.2 L [place] % (Auto) 11.6 H Eos % (Auto) 0.7 Baso % (Auto) 0.2 Absolute Neuts (auto) 4.5 Absolute Lymphs (auto) 0.53 L Total Counted Not Reportable Differential Comment PT INR APTT Sodium 131 L Potassium 3.8 Chloride 103 Carbon Dioxide 23.0 Anion Gap 5 BUN 9 Creatinine 0.48 L Estim Creat Clear Calc 35.74 Est GFR (MDRD) Af Amer 162 Est GFR (MDRD) Non-Af 134 BUN/Creatinine Ratio 18.8 Glucose 84 Hemoglobin A1c Lactic Acid 0.8 Calcium 7.2 L Magnesium Total Bilirubin AST ALT Alkaline Phosphatase Troponin I Total Protein Albumin Globulin Albumin/Globulin Ratio Triglycerides Cholesterol LDL Cholesterol VLDL Cholesterol HDL Cholesterol Ethyl Alcohol POC Glucose 01/26/19 01/26/19 05:05 05:05 WBC RBC Hgb Hct MCV MCH MCHC RDW RDW Differential Plt Count MPV Immature Gran % (Auto) Neut % (Auto) Lymph % (Auto) [place] % (Auto) Eos % (Auto) Baso % (Auto) Absolute Neuts (auto) Absolute Lymphs (auto) Total Counted Differential Comment PT INR APTT Sodium 133 L Potassium 3.4 L Chloride 101 Carbon Dioxide 22.0 Anion Gap 10 BUN 9 Creatinine 0.52 L Estim Creat Clear Calc 34.23 Est GFR (MDRD) Af Amer 147 Est GFR (MDRD) Non-Af 122 BUN/Creatinine Ratio 17.3 Glucose 74 Hemoglobin A1c Lactic Acid Calcium 8.0 L Magnesium 1.7 Total Bilirubin AST ALT Alkaline Phosphatase 126 H Troponin I Total Protein Albumin Globulin Albumin/Globulin Ratio Triglycerides Cholesterol LDL Cholesterol VLDL Cholesterol HDL Cholesterol Ethyl Alcohol POC Glucose Clinical Impression(s) from Imaging Studies Brain CT 01/25/19 16:06 IMPRESSION: No acute intracranial abnormality. Chronic ischemic and atrophic changes. Electronically Signed: Terrence Zamora, at 16:44 EDT Tel , Service support , Medical Necessity - Tobacco Use Smoking Status: Current every day smoker Tobacco Use: Non-smoker Assessment/Plan All Active Problems (Last Reviewed 01/25/19 @ 08:59 by Devonte Santos MD) TIA (transient ischemic attack) (Acute) Alcohol withdrawal (Resolved) Intractable nausea and vomiting (Resolved) Hematemesis (Resolved) Suicidal ideations (Resolved) Severe sepsis (Resolved) UTI (urinary tract infection) (Resolved) Generalized weakness (Resolved) Dehydration (Resolved) Decreased functional residual capacity (Acute) RECOMMENDATIONS: 1. Continue seizure precautions 2. Ativan as needed seizure/CIWA protocol 3. Obtain magnesium and phosphorus, electrolyte repletion as indicated 4. Increase activity as tolerated 5. Possible transfer from the intensive care unit later today IMPRESSIONS: 1. Metabolic encephalopathy Quantification of defects is difficult given expressive and receptive aphasia. Patient did have a fall 1 week ago, recent history of right upper extremity fracture with surgery planned on Tuesday and GI bleed making TPA contraindicated. Patient did have 2 episodes of tonic-clonic seizures reported in PCU, but this appears to be controlled with Ativan. Patient unable to have MRI secondary to previous orthopedic interventions. Patient appears to be following more appropriately today. No seizure activity has been reported, but patient is receiving Ativan approximately every 4 hours 2. New onset seizure Unclear etiology at this time. Patient did have a focal finding of possible early intracerebral bleed, history of recent head trauma and withdrawal of alcohol. No further Keppra has been ordered. Patient unable to have an MRI. EEGs did not show epileptiform discharges. Continue seizure precautions. 3. Hyponatremia/hyperkalemia Improved. Patient likely has an element of hyponatremia secondary to alcohol use. Continue with conservative therapy. Would not actively treat hyperkalemia as patient does not have any EKG changes and renal function is normal. 4. Recent arm fracture/peptic ulcer disease with recent GI bleed/advanced age/debility/poor history Complicates care, management, recovery and prognosis. Continue to monitor for complications of bleeding. Patient is not a TPA candidate. Code Visit Inpatient E&M: 04284 Subs Hosp L3
[2019-01-26] MEDS: Potassium Chloride 10mEq/100mL 10 MEQ/100 ML IV.SOLN. 100 MEQ IV BOLUS ×4 (08:32→12:28)
[2019-01-26] MEDS: Heparin Injection (Vial) 5,000 UNIT/ML VIAL 5000 UNIT SC ×2 (09:10→21:52)
--- NOTE | 2019-01-26 09:50 | CASEMGMT ---
SW participated in ICU rounds this morning, pt's son present. Pt remains confused at this time. Pt may have had a stroke, however pt cannot participate in completing a PHQ-9 at this time. SW will continue to follow for discharge needs. ADOLFO Westbrook
[2019-01-26 11:18] LABS: Mucous, Urine 0 SEEN /hpf (<or=2+); Red Blood Cells-Urine 0 SEEN /hpf (0-5); Squamous Epithelial Cells - UA 0 SEEN /hpf (5-10)
[2019-01-26 11:22] LABS: Glucose, Dipstick Normal (Normal); Ketone-Dipstick 50 mg/dl (Negative); Leukocyte Esterase-Dipstick 500 /ul (Negative); Nitrite-Dipstick Negative (Negative); Occult Blood-Urine 250 /ul (Negative); Protein-Dipstick 30 mg/dl (Negative); Urine Bilirubin Dipstick Negative (Negative); Urine Urobilinogen Normal (Normal)
[2019-01-26 11:23] LABS: Color, Urine Yellow (Yellow); Urine Clarity Clear (Clear)
[2019-01-26 11:28] LABS: Bacteria 3+ /hpf (None Seen); White Blood Cells >100 SEEN /hpf (0-5)
--- NOTE | 2019-01-26 17:28 | NURSING ---
pt fidgeting in bed again with legs out of rails. repositioned in bed sat up and given glass of water. able to take several drinks with no cough or wet vocal sounds. pt still confused however. applesauce given and joselito 2 bites well with no cough. crane follower notified of feed and dysphagia protocol. son in to see pt and asking about diet as well.
--- NOTE | 2019-01-26 19:16 | PN_ITS ---
Patient Problems: Active and Suspected Problems (Last Reviewed 01/25/19 @ 08:59 by Devonte Santos MD) TIA (transient ischemic attack) (Acute) Subjective: Patient was seen and examined this morning in ICU, there is no evidence that she has suffered a CVA, she still is intermittently being medicated for alcohol withdrawal. - Physical Exam General: No apparent distress, Well developed, Lethargic HEENT: Atraumatic, PERRLA, Normocephalic Oral: Moist Mucosa Neck: Supple, Trachea Midline, Thyroid Normal Size and Texture Lungs: Clear to auscultation, Normal air movement, No rhonchi, No wheeze, No rales Cardiovascular: Regular rate, Regular Rhythm, Normal S1, Normal S2, No murmurs, No Ectopic Activity, PMI Normal, No rub noted, No Gallop Abdomen: Bowel Sounds Present, Soft, Non Tender, Non-Distended, No hernias noted Extremities: No clubbing, No cyanosis, No edema, Capillary Refill Less than 3 Seconds Skin: No rashes, No breakdown Musculoskeletal: No Tenderness to Palpation of Joints or Extremities Neurological: Cranial nerves II-XII grossly intact, Neuro grossly intact Psych/Mental Status: - - Patient is lethargic, she is able to speak a few words and answer occasional questions appropriately Vital Signs Temp Pulse Resp BP Pulse Ox 98.0 F 118 H 16 154/79 H 98 01/26/19 17:55 01/26/19 17:55 01/26/19 17:55 01/26/19 17:55 01/26/19 17:55 Oxygen Flow Rate (L/min) 2 Oxygen Delivery Method Room Air Weight: 45.3 kg Body Mass Index (BMI) 18.8 Finger Stick Blood Glucose 117 Intake and Output for Last 24 Hours 01/24/19 01/25/19 01/26/19 23:59 23:59 23:59 Intake Total 640 / 640 1861 / 1861 1103 / 1103 Output Total 300 / 300 Balance 640 / 640 1861 / 1861 803 / 803 Laboratory Tests Past 24 Hrs 01/26/19 01/26/19 01/26/19 05:05 05:05 05:05 WBC 5.8 RBC 3.30 L Hgb 10.4 L Hct 30.4 L MCV 92.1 MCH 31.5 MCHC 34.2 RDW 14.1 RDW Differential 47.3 H Plt Count 230 MPV 8.9 Immature Gran % (Auto) 0.200 Neut % (Auto) 78.1 H Lymph % (Auto) 9.2 L [place] % (Auto) 11.6 H Eos % (Auto) 0.7 Baso % (Auto) 0.2 Absolute Neuts (auto) 4.5 Absolute Lymphs (auto) 0.53 L Total Counted Not Reportable Differential Comment Sodium 133 L Potassium 3.4 L Chloride 101 Carbon Dioxide 22.0 Anion Gap 10 BUN 9 Creatinine 0.52 L Estim Creat Clear Calc 34.23 Est GFR (MDRD) Af Amer 147 Est GFR (MDRD) Non-Af 122 BUN/Creatinine Ratio 17.3 Glucose 74 Calcium 8.0 L Phosphorus Magnesium 1.7 Alkaline Phosphatase 126 H Urine Color Urine Clarity Urine pH Ur Specific [place] Urine Protein Urine Glucose (UA) Urine Ketones Urine Occult Blood Urine Nitrite Urine Bilirubin Urine Urobilinogen Ur Leukocyte Esterase Urine RBC Urine WBC Ur Squamous Epith Cells Urine Bacteria Urine Mucus 01/26/19 01/26/19 05:05 11:10 WBC RBC Hgb Hct MCV MCH MCHC RDW RDW Differential Plt Count MPV Immature Gran % (Auto) Neut % (Auto) Lymph % (Auto) [place] % (Auto) Eos % (Auto) Baso % (Auto) Absolute Neuts (auto) Absolute Lymphs (auto) Total Counted Differential Comment Sodium Potassium Chloride Carbon Dioxide Anion Gap BUN Creatinine Estim Creat Clear Calc Est GFR (MDRD) Af Amer Est GFR (MDRD) Non-Af BUN/Creatinine Ratio Glucose Calcium Phosphorus 3.0 Magnesium Alkaline Phosphatase Urine Color Yellow Urine Clarity Clear Urine pH 6.0 Ur Specific [place] 1.020 Urine Protein 30 H Urine Glucose (UA) Normal Urine Ketones 50 H Urine Occult Blood 250 H Urine Nitrite Negative Urine Bilirubin Negative Urine Urobilinogen Normal Ur Leukocyte Esterase 500 H Urine RBC 0 SEEN Urine WBC >100 SEEN Ur Squamous Epith Cells 0 SEEN Urine Bacteria 3+ Urine Mucus 0 SEEN Medical Necessity - Tobacco Use Smoking Status: Current every day smoker Tobacco Use: Non-smoker Assessment/Plan All Active Problems (Last Reviewed 01/25/19 @ 08:59 by Devonte Santos MD) TIA (transient ischemic attack) (Acute) Alcohol withdrawal (Resolved) Intractable nausea and vomiting (Resolved) Hematemesis (Resolved) Suicidal ideations (Resolved) Severe sepsis (Resolved) UTI (urinary tract infection) (Resolved) Generalized weakness (Resolved) Dehydration (Resolved) Decreased functional residual capacity (Acute) #1 Encephalopathy-probably secondary to alcohol withdrawal, continue supportive care, neurology is participating in her care as is critical care. #2 new onset seizure disorder-patient remains on Keppra at this point #3 hyponatremia-possibly alcohol related, this has improved since admission #4 hypokalemia-BMP will be repeated tomorrow, potassium was slightly low at 3.4 today #5 chronic depression #6 hyperlipidemia Patient will be moved to PCU today Code Visit Inpatient E&M: 40269 Subs Hosp L2
[2019-01-26] MEDS: 0.9% Normal Saline 1,000 ML 50 ML IV (20:11)
[2019-01-26] MEDS: Atorvastatin Calcium 10 MG Tablet PO (21:55)
[2019-01-27] VITALS (9 sets, daily range): BP systolic 109–147; BP diastolic 64–85; PULSE 80–118; RESP 14–16; TEMP 36.4–37; O2SAT 97–99; BMI 18.8
--- NOTE | 2019-01-27 08:41 | CASEMGMT ---
Addendum entered by Paula Mcgregor 01/27/19 09:22: SW spoke w/Adam at [facility], he states can review referral but would need to also see PT/OT. Once PT/OT is completed, SW will call Adam back and fax referral. ADOLFO [place] Original Note: SW spoke w/physician, son would like pt to go to [facility]. SW called [facility], awaiting business solutions consultantbanquet server on call to call this SW back. Pt has not participated in therapy yet however, so this may impede placement. Pt still too confused to participate in PHQ-9. SW will continue to follow. ADOLFO [place]
[2019-01-27] MEDS: Heparin Injection (Vial) 5,000 UNIT/ML VIAL 5000 UNIT SC ×2 (10:01→21:21)
[2019-01-27] MEDS: FLUoxetine 20 MG Capsule 40 MG PO (10:01)
--- NOTE | 2019-01-27 10:02 | PN_ITS ---
Subjective: Patient transferred out of the intensive care unit yesterday. No acute issues have been reported. Patient has not been interactive and is unable to provide a review of systems at this time. Patient has remained on room air. General: Confused, Disoriented, - - Opens eyes briefly to voice, but not following commands HEENT: Atraumatic, PERRLA, EOMI, Normocephalic, - - Slight scleral injection Oral: Moist Mucosa, No Gingival or Mucosal Lesions/ Ulcerations Neck: Supple, No JVD, No Nodes, Trachea Midline Lungs: Clear to auscultation, Normal air movement, No rhonchi, No wheeze, No rales Cardiovascular: Regular rate, Regular Rhythm, Normal S1, Normal S2, No murmurs, No rub noted, No Gallop Abdomen: Bowel Sounds Present, Soft, Non Tender, Non-Distended Extremities: No clubbing, No cyanosis, No edema, - - Right arm in cast Skin: - - No significant change Musculoskeletal: No Tenderness to Palpation of Joints or Extremities Lymphatic: No Cervical, Supraclavicular, or Inguinal Adenopathy Neurological: Neuro grossly intact - None cooperative with exam. Does not appear significantly changed compared to previous Psych/Mental Status: Flat Affect Vital Signs Temp Pulse Resp BP Pulse Ox 36.4 C L 80 16 147/82 H 97 01/27/19 04:40 01/27/19 07:45 01/27/19 04:40 01/27/19 04:40 01/27/19 04:40 Oxygen Flow Rate (L/min) 2 Oxygen Delivery Method Room Air Weight: 44.3 kg Body Mass Index (BMI) 18.8 Finger Stick Blood Glucose 117 Intake and Output for Last 24 Hours 01/25/19 01/26/19 01/27/19 23:59 23:59 23:59 Intake Total 186 / 1861 1681 / 1681 277 / 277 Output Total 300 / 300 Balance 186 / 186 1381 / 1381 277 / 277 Labs (Last 48 Hours) 01/25/19 01/25/19 01/26/19 10:57 10:57 05:05 WBC 5.8 RBC 3.30 L Hgb 10.4 L Hct 30.4 L MCV 92.1 MCH 31.5 MCHC 34.2 RDW 14.1 RDW Differential 47.3 H Plt Count 230 MPV 8.9 Immature Gran % (Auto) 0.200 Neut % (Auto) 78.1 H Lymph % (Auto) 9.2 L [place] % (Auto) 11.6 H Eos % (Auto) 0.7 Baso % (Auto) 0.2 Absolute Neuts (auto) 4.5 Absolute Lymphs (auto) 0.53 L Total Counted Not Reportable Differential Comment Sodium 131 L Potassium 3.8 Chloride 103 Carbon Dioxide 23.0 Anion Gap 5 BUN 9 Creatinine 0.48 L Estim Creat Clear Calc 35.74 Est GFR (MDRD) Af Amer 162 Est GFR (MDRD) Non-Af 134 BUN/Creatinine Ratio 18.8 Glucose 84 Lactic Acid 0.8 Calcium 7.2 L Phosphorus Magnesium Alkaline Phosphatase Urine Color Urine Clarity Urine pH Ur Specific [place] Urine Protein Urine Glucose (UA) Urine Ketones Urine Occult Blood Urine Nitrite Urine Bilirubin Urine Urobilinogen Ur Leukocyte Esterase Urine RBC Urine WBC Ur Squamous Epith Cells Urine Bacteria Urine Mucus 01/26/19 01/26/19 01/26/19 05:05 05:05 05:05 WBC RBC Hgb Hct MCV MCH MCHC RDW RDW Differential Plt Count MPV Immature Gran % (Auto) Neut % (Auto) Lymph % (Auto) [place] % (Auto) Eos % (Auto) Baso % (Auto) Absolute Neuts (auto) Absolute Lymphs (auto) Total Counted Differential Comment Sodium 133 L Potassium 3.4 L Chloride 101 Carbon Dioxide 22.0 Anion Gap 10 BUN 9 Creatinine 0.52 L Estim Creat Clear Calc 34.23 Est GFR (MDRD) Af Amer 147 Est GFR (MDRD) Non-Af 122 BUN/Creatinine Ratio 17.3 Glucose 74 Lactic Acid Calcium 8.0 L Phosphorus 3.0 Magnesium 1.7 Alkaline Phosphatase 126 H Urine Color Urine Clarity Urine pH Ur Specific [place] Urine Protein Urine Glucose (UA) Urine Ketones Urine Occult Blood Urine Nitrite Urine Bilirubin Urine Urobilinogen Ur Leukocyte Esterase Urine RBC Urine WBC Ur Squamous Epith Cells Urine Bacteria Urine Mucus 01/26/19 11:10 WBC RBC Hgb Hct MCV MCH MCHC RDW RDW Differential Plt Count MPV Immature Gran % (Auto) Neut % (Auto) Lymph % (Auto) [place] % (Auto) Eos % (Auto) Baso % (Auto) Absolute Neuts (auto) Absolute Lymphs (auto) Total Counted Differential Comment Sodium Potassium Chloride Carbon Dioxide Anion Gap BUN Creatinine Estim Creat Clear Calc Est GFR (MDRD) Af Amer Est GFR (MDRD) Non-Af BUN/Creatinine Ratio Glucose Lactic Acid Calcium Phosphorus Magnesium Alkaline Phosphatase Urine Color Yellow Urine Clarity Clear Urine pH 6.0 Ur Specific [place] 1.020 Urine Protein 30 H Urine Glucose (UA) Normal Urine Ketones 50 H Urine Occult Blood 250 H Urine Nitrite Negative Urine Bilirubin Negative Urine Urobilinogen Normal Ur Leukocyte Esterase 500 H Urine RBC 0 SEEN Urine WBC >100 SEEN Ur Squamous Epith Cells 0 SEEN Urine Bacteria 3+ Urine Mucus 0 SEEN Medical Necessity - Tobacco Use Smoking Status: Current every day smoker Tobacco Use: Non-smoker Assessment/Plan All Active Problems (Last Reviewed 01/25/19 @ 08:59 by Devonte Santos MD) TIA (transient ischemic attack) (Acute) Alcohol withdrawal (Resolved) Intractable nausea and vomiting (Resolved) Hematemesis (Resolved) Suicidal ideations (Resolved) Severe sepsis (Resolved) UTI (urinary tract infection) (Resolved) Generalized weakness (Resolved) Dehydration (Resolved) Decreased functional residual capacity (Acute) RECOMMENDATIONS: 1. Continue seizure precautions 2. Ativan as needed seizure/CIWA protocol 3. Defer to neurology/hospitalist 4. Increase activity as tolerated 5. Emo dynamically stable on room air. Will sign off from a critical care perspective IMPRESSIONS: 1. Metabolic encephalopathy Quantification of defects is difficult given expressive and receptive aphasia. Patient did have a fall 1 week ago, recent history of right upper extremity fracture with surgery planned on Tuesday and GI bleed making TPA contraindicated. Patient did have 2 episodes of tonic-clonic seizures reported in PCU, but this appears to be controlled with Ativan. Patient unable to have MRI secondary to previous orthopedic interventions. Patient appears to be grossly unchanged compared to previous. However, patient has been hemodynamically stable for over 24 hours on room air. Will sign off from a critical care perspective 2. New onset seizure Unclear etiology at this time. Patient did have a focal finding of possible early intracerebral bleed, history of recent head trauma and withdrawal of alcohol. No further Keppra has been ordered. Patient unable to have an MRI. EEGs did not show epileptiform discharges. Continue seizure precautions. 3. Hyponatremia/hyperkalemia Improved. Patient likely has an element of hyponatremia secondary to alcohol use. Continue with conservative therapy. Would not actively treat hyperkalemia as patient does not have any EKG changes and renal function is normal. 4. Recent arm fracture/peptic ulcer disease with recent GI bleed/advanced age/debility/poor history Complicates care, management, recovery and prognosis. Continue to monitor for complications of bleeding. Patient is not a TPA candidate. Code Visit Inpatient E&M: 12560 Subs Hosp L2
--- NOTE | 2019-01-27 13:37 | PCM.PROGNOTE ---
Patient Problems: Active and Suspected Problems (Last Reviewed 01/25/19 @ 08:59 by Devonte Santos MD) TIA (transient ischemic attack) (Acute) Subjective: Patient was seen and examined today, she still appears restless and has moderate confusion. I talked at length with the patient's son, son wants her to go through detox but the patient is not been forthright about going through detox in the past. I told the son that I recommend the patient go to an extended care facility due to her debility, he has agreed and we will try to put in for placement at [facility]. PT and OT are going to be seeing the patient here - Physical Exam General: No apparent distress, Well developed, Lethargic HEENT: Atraumatic, PERRLA, Normocephalic Oral: Moist Mucosa Neck: Supple, No JVD, Trachea Midline, Thyroid Normal Size and Texture Lungs: Clear to auscultation, Normal air movement, No rhonchi, No wheeze, No rales Cardiovascular: Regular rate, Regular Rhythm, Normal S1, Normal S2, No murmurs, No Ectopic Activity, PMI Normal, No rub noted, No Gallop Abdomen: Bowel Sounds Present, Soft, Non Tender, Non-Distended, No hernias noted Extremities: No clubbing, No cyanosis, No edema, Capillary Refill Less than 3 Seconds Skin: No rashes, No breakdown Musculoskeletal: No Tenderness to Palpation of Joints or Extremities, Cachexia, Muscle Wasting Neurological: Cranial nerves II-XII grossly intact, Neuro grossly intact, Sensory exam intact to light touch and pain, Coordination normal Psych/Mental Status: Flat Affect, - - Patient is lethargic, she answers with yes or no to simple questions at times, she does not carry on a conversation Vital Signs Temp Pulse Resp BP Pulse Ox 97.8 F 93 14 134/71 H 99 01/27/19 10:30 01/27/19 10:30 01/27/19 10:30 01/27/19 10:30 01/27/19 10:30 Oxygen Flow Rate (L/min) 2 Oxygen Delivery Method Room Air Weight: 44.3 kg Body Mass Index (BMI) 18.8 Finger Stick Blood Glucose 117 Intake and Output for Last 24 Hours 01/25/19 01/26/19 01/27/19 23:59 23:59 23:59 Intake Total 1861 / 1861 1681 / 1681 574 / 574 Output Total 300 / 300 Balance 1860 / 1860 1381 / 1381 574 / 574 Microbiology Past 72 Hours 01/26/19 11:10 Urine Culture - Preliminary Urine, Catheterized Presumptive E. coli Medical Necessity - Tobacco Use Smoking Status: Current every day smoker Tobacco Use: Non-smoker Assessment/Plan All Active Problems (Last Reviewed 01/25/19 @ 08:59 by Devonte Santos MD) TIA (transient ischemic attack) (Acute) Alcohol withdrawal (Resolved) Intractable nausea and vomiting (Resolved) Hematemesis (Resolved) Suicidal ideations (Resolved) Severe sepsis (Resolved) UTI (urinary tract infection) (Resolved) Generalized weakness (Resolved) Dehydration (Resolved) Decreased functional residual capacity (Acute) #1 Encephalopathy-probably secondary to alcohol withdrawal, continue supportive care, patient will need temporary placement in a care home facility #2 new onset seizure disorder-patient remains on Keppra at this point #3 hyponatremia-possibly alcohol related, this has improved since admission #4 hypokalemia-BMP will be repeated tomorrow, potassium was slightly low at 3.4 today #5 chronic depression #6 hyperlipidemia #7 bacteremia with leukocytes in the urine-I will place the patient on an anabiotic for suspected cystitis Code Visit Inpatient E&M: 74151 Subs Hosp L2
--- NOTE | 2019-01-27 13:55 | CASEMGMT ---
RAMO called Adam at [facility], message left, referral faxed as PT/OT is completed. RAMO did ask Adam to have Saida follow up w/Nessa on Tuesday if he cannot get back to this SW today. ADOLFO [place]
[2019-01-27] MEDS: Cephalexin 500 MG Capsule PO ×2 (15:23→21:21)
[2019-01-27] MEDS: 0.9% Normal Saline 1,000 ML 50 ML IV (16:00)
[2019-01-27] MEDS: Atorvastatin Calcium 10 MG Tablet PO (21:21)
[2019-01-28] VITALS (10 sets, daily range): BP systolic 103–133; BP diastolic 57–76; PULSE 80–150; RESP 16–18; TEMP 36.5–37.1; O2SAT 97–99
[2019-01-28] MEDS: Cephalexin 500 MG Capsule PO ×3 (05:26→21:30)
[2019-01-28] MEDS: Ibuprofen 400 MG Tablet PO ×2 (08:22→18:12)
[2019-01-28] MEDS: Heparin Injection (Vial) 5,000 UNIT/ML VIAL 5000 UNIT SC ×2 (08:22→21:30)
[2019-01-28] MEDS: FLUoxetine 20 MG Capsule 40 MG PO (08:22)
--- NOTE | 2019-01-28 09:50 | EKG12_ITS ---
Test Reason : RHYTHM Blood Pressure : / mmHG Vent. Rate : 096 BPM Atrial Rate : 095 BPM P-R Int : 000 ms QRS Dur : 072 ms QT Int : 388 ms P-R-T Axes : 000 021 120 degrees QTc Int : 490 ms Sinus Rhythm with PSVC's Nonspecific T- wave Abnormality Abnormal ECG Confirmed by TANIA TILLEY, HIRAM ([id number]), legal editor GEOFFREY NUNO ([id number]) on 01/31/2019 12:30:58 PM Referred By: Veronica Hernandez Confirmed By:HIRAM MARIN MD
[2019-01-28] MEDS: 0.9% Normal Saline 1,000 ML 50 ML IV (15:22)
[2019-01-28 16:26] LABS: Anion Gap 6 (5-15); BUN 17 mg/dL (7-18); BUN/Creat Ratio 26.1 RATIO (10-20); Calcium,Total 8.1 mg/dL (8.5-10.1); Chloride 101 mmol/L (98-107); Creatinine, Serum 0.65 mg/dL (0.55-1.02); EST Glomerular Filtration Rate 94 mL/min (>60); Est Glom Filt Rate - Afr Amer 114 mL/min (>60); Estimated Creatinine Clearance 35.28 ml/min; Glucose 117 mg/dL (74-106); Magnesium 1.2 mg/dL (1.6-2.6); Potassium 3.6 mmol/L (3.5-5.1); Sodium Level 132 mmol/L (136-145)
--- NOTE | 2019-01-28 18:17 | PCM.PROGNOTE ---
Patient Problems: Active and Suspected Problems (Last Reviewed 01/25/19 @ 08:59 by Devonte Santos MD) TIA (transient ischemic attack) (Acute) Subjective: Patient was seen and examined today, she is much more alert and appropriate. She is agreed to go to an extended care facility for short-term rehab services. We are currently in the process of obtaining approval from the extended care facility for the patient to be transferred. This will probably happen early this week. - Physical Exam General: Alert, Oriented x3, Cooperative, No apparent distress, Well developed, Well nourished HEENT: Atraumatic, PERRLA, EOMI, Normocephalic Oral: Moist Mucosa Neck: Supple, No JVD, No Nuchal Rigidity, Trachea Midline, Thyroid Normal Size and Texture Lungs: Clear to auscultation, Normal air movement, No rhonchi, No wheeze, No rales Cardiovascular: Regular rate, Regular Rhythm, Normal S1, Normal S2, No murmurs, No Ectopic Activity Abdomen: Bowel Sounds Present, Soft, Non Tender, Non-Distended, No hernias noted Extremities: No clubbing, No cyanosis, Capillary Refill Less than 3 Seconds Skin: No rashes, No breakdown Neurological: Cranial nerves II-XII grossly intact, Neuro grossly intact, Sensory exam intact to light touch and pain, Coordination normal Psych/Mental Status: Normal Affect, Appropriate, Alert and oriented to time, place, person, mood and affect Vital Signs Temp Pulse Resp BP Pulse Ox 98.6 F 99 16 103/57 L 99 01/28/19 15:25 01/28/19 15:25 01/28/19 15:25 01/28/19 15:25 01/28/19 15:25 Oxygen Flow Rate (L/min) 2 Oxygen Delivery Method Room Air Weight: 46.7 kg Body Mass Index (BMI) 18.8 Finger Stick Blood Glucose 117 Intake and Output for Last 24 Hours 01/26/19 01/27/19 01/28/19 23:59 23:59 23:59 Intake Total 1681 / 1681 1186 / 1186 1547 / 1547 Output Total 300 / 300 Balance 1381 / 1381 1186 / 1186 1547 / 1547 Microbiology Past 72 Hours 01/26/19 11:10 Urine Culture - Final Urine, Catheterized Presumptive E. coli Laboratory Tests Past 24 Hrs 01/28/19 15:55 Sodium 132 L Potassium 3.6 Chloride 101 Carbon Dioxide 25.0 Anion Gap 6 BUN 17 Creatinine 0.65 Estim Creat Clear Calc 35.28 Est GFR (MDRD) Af Amer 114 Est GFR (MDRD) Non-Af 94 BUN/Creatinine Ratio 26.1 H Glucose 117 H Calcium 8.1 L Magnesium 1.2 L Medical Necessity - Tobacco Use Smoking Status: Current every day smoker Tobacco Use: Non-smoker Assessment/Plan All Active Problems (Last Reviewed 01/25/19 @ 08:59 by Devonte Santos MD) TIA (transient ischemic attack) (Acute) Alcohol withdrawal (Resolved) Intractable nausea and vomiting (Resolved) Hematemesis (Resolved) Suicidal ideations (Resolved) Severe sepsis (Resolved) UTI (urinary tract infection) (Resolved) Generalized weakness (Resolved) Dehydration (Resolved) Decreased functional residual capacity (Acute) #1 Encephalopathy-probably secondary to alcohol withdrawal, this appears to have resolved at this time, continue PT and OT #2 new onset seizure disorder-patient remains on Keppra at this point #3 hyponatremia-possibly alcohol related, this has improved since admission #4 hypokalemia-resolved #5 chronic depression #6 hyperlipidemia #7 bacteremia with leukocytes in the urine-I will place the patient on an anabiotic for suspected cystitis Code Visit Inpatient E&M: 06536 Subs Hosp L2
[2019-01-28] MEDS: Atorvastatin Calcium 10 MG Tablet PO (21:30)
[2019-01-29] VITALS (8 sets, daily range): BP systolic 126–144; BP diastolic 72–85; PULSE 87–108; RESP 16; TEMP 36.6–36.9; O2SAT 98–99
[2019-01-29] MEDS: Cephalexin 500 MG Capsule PO ×2 (05:46→13:33)
[2019-01-29] MEDS: Ibuprofen 400 MG Tablet PO ×2 (07:36→13:41)
[2019-01-29] MEDS: Acetaminophen 325 MG Tablet 650 MG PO (08:35)
[2019-01-29] MEDS: 0.9% Normal Saline 1,000 ML 50 ML IV (08:35)
[2019-01-29] MEDS: FLUoxetine 20 MG Capsule 40 MG PO (08:37)
[2019-01-29] MEDS: Heparin Injection (Vial) 5,000 UNIT/ML VIAL 5000 UNIT SC (08:38)
--- NOTE | 2019-01-29 08:44 | CASEMGMT ---
Updates faxed to [facility]. Still waiting to see if they will accept patient. Nessa CHEEMA MSW
[2019-01-29] MEDS: Magnesium Oxide 400 MG Tablet PO (09:09)
--- NOTE | 2019-01-29 10:42 | CASEMGMT ---
RAMO received a call from Saida at [facility]. They are not going to accept patient as they do not feel they could records analysis manager her alcohol withdrawal symptoms. RAMO told Saida that patient has been here for 5 days and she is through her withdrawal. She continued to say they cannot accept patient. RAMO called patient's son Umair and let him know [facility] is not able to accept patient. He then asked what his other options were. SW told him names of the local facilities. He asked SW to send a referral to [facility]. RAMO attempted to fax referral, however phone and fax system is down. RAMO did call [facility] with referral and will fax referral as soon as system is back up. Nessa CHEEMA AN/SSN 2 4 OPERATOR
[2019-01-29] MEDS: traMADol 50 MG Tablet PO (11:05)
--- NOTE | 2019-01-29 12:38 | CASEMGMT ---
Addendum entered by Nessa Torres 01/29/19 13:35: SW received return call from patient's son and he said he will go ahead and have patient go to [facility] [place]. SW notified physician. Nessa RIVAS Original Note: SW spoke with Carline from [facility] and they can accept patient as long as she knows she will not be able to smoke. SW notified physician. SW also called patient's son and let him know about [facility]. He said he has a couple of friends that work at [facility] and they are trying to get her into [facility]. He said he will call SW back in an hour. Plan: [facility] vs [facility] Nessa RIVAS
--- NOTE | 2019-01-29 15:12 | PCM.TXEXTCAR ---
- Diet 01/26/19 15:07 Diet: Regular Diet Type of Dietary Supplement:: Ensure Complete Is pt able to select menu?: No - Wound(s) Coccyx Wound Type: Pressure Injury Mid Back Wound Type: Pressure Injury right upper arm Wound Type: superficial healing abrasion Dressing Change: xeroform gauze - Therapies Physical Therapy: Eval and Treat Occupational Therapy: Eval and Treat - Problem/Diagnosis (1) Right distal ulnar fracture Status: Chronic Comment: sustained fracture 01/14/19 Current Visit: Yes (2) Alcohol abuse Status: Chronic Current Visit: Yes (3) Benign essential hypertension Status: Chronic Current Visit: Yes (4) Alcohol withdrawal Status: Acute Current Visit: Yes (5) UTI (urinary tract infection) Status: Acute Comment: e.coli Current Visit: Yes (6) Malnutrition of moderate degree Status: Acute Current Visit: Yes - Allergies/Procedures Done in Hospital Allergies/Adverse Reactions: Allergies acetaminophen Adverse Reaction (Verified 01/24/19 16:47) Other LIVER FAILURE -PER FAMILY Procedures: None - Type of Care/Length of Stay Estimated LOS: Convalescent Care Less Than 30 days Type of Care Needed: Skilled Rehab Potential: Good Prognosis: Good - Additional Orders/Day of Discharge Additional Orders: CALL DR MCKEON'S OFFICE TO ARRANGE FOR RESCHEDULING OG PATIENTS RIGHT ARM SURGERY H&P will serve as current which was dated: 01/24/19 Day of Discharge: 01/29/19 - Dietary and Speech Recommendations Dietitian Recommendations/Changes: Continue Regular diet with boost with each meal - Follow Up Care Primary Care Physician: Ramona Crews MD [Primary Care Provider] -
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
--- NOTE | 2019-01-29 16:21 | NURSING ---
This RN called report to the Brittany RN at the [facility].
--- NOTE | 2019-01-29 16:39 | PCA ---
Faxed discharge papers over to [facility], spoke with pt son Umair on the phone and notified him of ETA of [phone].
--- NOTE | 2019-01-29 19:27 | PCM.DC.SUM ---
Discharge Date and Diagnosis Date of Admission: 01/24/19 Date of Discharge: 01/29/19 - Primary Discharge Diagnosis #1 Encephalopathy-probably secondary to alcohol withdrawal #2 new onset seizure disorder #3 hyponatremia-possibly alcohol related #4 hypokalemia #5 chronic depression #6 hyperlipidemia #7 Acute cystitis secondary to E. coli No evidence of bacteremia #8 cardiomyopathy-probably Takotsubo's #9 pulmonary hypertension #10 recent distal right ulnar fracture - Secondary Discharge Diagnosis Chronic Problems (Last Reviewed 01/25/19 @ 08:59 by Devonte Santos MD) Right distal ulnar fracture (Chronic) sustained fracture 01/14/19 Major depression (Chronic) History of DVT (deep vein thrombosis) (Chronic) PUD (peptic ulcer disease) (Chronic) Chronic back pain (Chronic) Hyperlipidemia (Chronic) Depression (Chronic) Benign essential hypertension (Chronic) Alcohol abuse (Chronic) Gastrointestinal bleed (Chronic) Recurrent dislocation of right hip (Chronic) Chronic blood loss anemia (Chronic) Recurrent falls (Chronic) Hospital Course and Treatment Consultations 01/25/19 09:37 Consult: Onc/Wound/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 Examination in the emergency room included labs which showed a sodium of 125, potassium was 3.1, CT of the brain shows an area that was subtle with increased hyperdensity in the left parietal region, stroke team was called and neurology was contacted. Her NIH score was 2 and after consulting neurology, the emergency room physician did not feel that TPA was a valuable option and she was not given TPA. Patient was admitted with receptive and expressive aphasia with dysarthria and electrolyte abnormality, shortly after arriving at PCU, the patient reportedly had repeated seizure activity which responded to Ativan therapy and she was transferred to the intensive care for further care. She was seen in consultation by pulmonary medicine and neurology, she received IV Keppra. The next day, patient had an EEG performed which showed no evidence of seizure activity, CT of her brain was repeated which showed no evidence of stroke, and patient was felt to be undergoing alcohol withdrawal and she was medicated appropriately. Patient stabilized in the ICU and was moved to PCU for further care, she was seen by PT and OT, patient's mental status improved and she agreed to go to an extended care facility for short-term rehab. Patient had an echocardiogram performed which showed evidence of a possibleTakotsubo cardiomyopathy and pulmonary hypertension. On 01/29/2019, patient was seen and examined: On examination she appeared in good health and spirits. Vital signs as documented. Skin warm and dry and without overt rashes. Neck without JVD. Lungs clear. Heart exam notable for regular rhythm, normal sounds and absence of murmurs, rubs or gallops. Abdomen unremarkable and without evidence of organomegaly, masses, or abdominal aortic enlargement. Extremities-patient has a splint over her right forearm. Neuro: Cranial nerves II through XII are grossly intact, no focal motor deficits were noted, sensation to light touch and pinprick is intact. Psych: Patient is alert and oriented x3, she does not appear anxious or depressed On 01/29/2019, patient was discharged in stable condition to an extended care facility for short-term rehab - Physical Exam Vital Signs Temp Pulse Resp BP Pulse Ox 98.0 F 101 H 16 130/74 H 98 01/29/19 14:35 01/29/19 14:42 01/29/19 14:35 01/29/19 14:35 01/29/19 14:35 Oxygen Flow Rate (L/min) 2 Oxygen Delivery Method Room Air Weight: 47.7 kg Body Mass Index (BMI) 18.8 Finger Stick Blood Glucose 117 Intake and Output for Last 24 Hours 01/27/19 01/28/19 01/29/19 23:59 23:59 23:59 Intake Total 1186 / 1186 2058 463 / 463 Balance 1186 / 1186 2058 463 / 463 Microbiology Past 72 Hours 01/26/19 11:10 Urine Culture - Final Urine, Catheterized Presumptive E. coli Home Medications: Medications to take at Discharge Atorvastatin Calcium [Lipitor] 10 mg PO QHS 12/12/18 Cholecalciferol (Vitamin D3) [Vitamin D3] 2,000 unit PO DAILY 01/24/19 Fluoxetine HCl 40 mg PO DAILY 01/24/19 Pantoprazole Sodium [Protonix] 20 mg PO DAILY 01/24/19 traMADol [Ultram] 50 mg PO Q6H PRN PRN 01/24/19 Acetaminophen [Tylenol Tablet] 650 mg PO Q6H PRN PRN tablet 01/29/19 Atorvastatin Calcium [Lipitor] 10 mg PO QHS tablet 01/29/19 Cephalexin [Keflex] 500 mg PO TID #16 capsule 01/29/19 Ibuprofen [Motrin] 400 mg PO Q6H PRN PRN tablet 01/29/19 traMADol [Ultram] 50 mg PO 4X/DAY PRN 7 Days #20 tab 01/29/19 Following Prescrptions Were Given to Patient: Cephalexin [Keflex] 500 mg PO TID #16 capsule traMADol [Ultram] 50 mg PO 4X/DAY PRN 7 Days #20 tab PRN Reason: Moderate Pain (4-5/10) Primary Care Physician: Ramona Crews MD [Primary Care Provider] - Disposition: Care Home facility Minutes spent on discharge:: 32 Patient Condition:: Stable Medical Necessity - Tobacco Use Smoking Status: Current every day smoker Tobacco Use: Non-smoker Meaningful Use Info Meaningful Use Diagnoses (Choose all that apply): None applicable Code Visit Inpatient E&M: 07979 Disch Hosp
--- NOTE | 2019-01-29 19:53 | PCM.HOSP.N ---
Hospitalist Note Additional note concerning this patient: I contacted this patient's correction physician christin to go over the findings of her echocardiogram with him indicating the patient may have a stress cardiomyopathy and suggested that the patient be placed on an KATELYN inhibitor and a beta-dorian. Patient may need a work-up prior to her undergoing repair of her ulnar fracture, I will contact cardiology and try to facilitate stabilization of the patient for her upcoming surgery. I talked to orthopedic surgery who is performing the ORIF and the surgery is scheduled for next week. Finally, I did talk with the patient's son who is her POA about the abnormal findings on her echocardiogram and told him that I had relayed this information to her attending physician at the correction Dr. Chan.
== END 2019-01-29 18:29 | disposition skilled nursing facility (03) | DRG 896 ==
LOC: ED 17:54 → PCU 18:29 → ICU 20:36 → PCU 01-27 14:24
PROVIDERS: Hospitalist; Internal Medicine Critical Care Medicine; Psychiatry & Neurology Neurology; Admitting Provider Internal Medicine; Emergency Provider Emergency Medicine; Family Provider Family Medicine; PCP Family Medicine; Referring Provider Internal Medicine; Visit Provider Internal Medicine
DX: F10.239 Alcohol dependence with withdrawal, unspecified (principal); G93.41 Metabolic encephalopathy; S52.601A Unspecified fracture of lower end of right ulna, initial encounter for closed fracture; E87.1 Hypo-osmolality and hyponatremia; N30.00 Acute cystitis without hematuria; I51.81 Takotsubo syndrome; E87.6 Hypokalemia; E87.5 Hyperkalemia; Y90.0 Blood alcohol level of less than 20 mg/100 ml; E78.5 Hyperlipidemia, unspecified; I27.20 Pulmonary hypertension, unspecified; W19.XXXA Unspecified fall, initial encounter; G40.909 Epilepsy, unspecified, not intractable, without status epilepticus; Z86.718 Personal history of other venous thrombosis and embolism; I10 Essential (primary) hypertension; B96.20 Unspecified Escherichia coli [E. coli] as the cause of diseases classified elsewhere; D50.0 Iron deficiency anemia secondary to blood loss (chronic); R29.6 Repeated falls; G89.29 Other chronic pain; M54.9 Dorsalgia, unspecified; F17.200 Nicotine dependence, unspecified, uncomplicated
CPT/HCPCS: 36415; 70450; 70496; 70498; 71045; 80048; 80053; 80061; 80320; 81001; 82962; 83036; 83605; 83735; 84075; 84100; 84484; 85025; 85610; 85730; 87086; 87088; 87186; 92507; 92526; 92610; 93005; 93306; 95819; 97162; 97166; 97530; 97535; 97802; 99285; J7030; J7040; Q9957; Q9967; A4216; G0480; J3490

== ENCOUNTER → 2019-02-02 10:24 | Outpatient (CLI) | payer MEDICARE, OTHER, SELFPAY ==
[2019-01-27 23:47] VITALS: BMI 18.8
--- NOTE | 2019-02-02 10:25 | RAD_ITS ---
STUDY: X-RAY - RIGHT RADIUS AND ULNA REASON FOR EXAM: Fracture follow-up. TECHNIQUE: 2 view(s) of the forearm. COMPARISON: Radiographs 01/17/2019. FINDINGS: There is osteopenia. There is an overlying cast. Normal visualized radius. There is no significant change of the oblique fracture of the distal ulnar diaphysis with mild ulnar displacement. There is an intact orthopedic plate and screws transfixing the proximal ulna. There is a nondisplaced fracture of the fifth metacarpal base. RAD/Forearm 2 Views IMPRESSION: No significant change of the distal ulnar fracture. No significant change of the fifth metacarpal base fracture. Electronically Signed: Gideon Campoverde MD at 13:54 EDT Tel , Service support ,
== END ==
PROVIDERS: Family Provider Family Medicine; PCP Family Medicine; Visit Provider Orthopaedic Surgery
DX: S52.601A Unspecified fracture of lower end of right ulna, initial encounter for closed fracture (principal); X58.XXXA Exposure to other specified factors, initial encounter; Y93.9 Activity, unspecified; Y92.9 Unspecified place or not applicable; Y99.9 Unspecified external cause status
CPT/HCPCS: 73090

== ENCOUNTER 2019-02-07 07:47 | Day surgery (SDC) | payer MEDICARE, OTHER, SELFPAY ==
--- NOTE | 2019-01-19 03:56 | HP_ITS ---
I have re-examined the patient. There are no clinical changes since date of exam. Intake Vital Signs 01/19/19 Body Mass Index (BMI) 19.5 Intake Visit Reasons: RIGHT WRIST Is patient in pain?: Yes Pain scale (1-10): 10 Allergies acetaminophen Adverse Reaction (Verified 12/20/18 17:34) Other Medications Cholecalciferol (Vitamin D3) [D3-2000] 2,000 unit PO DAILY 06/21/18 [History Confirmed 01/19/19] Ibandronate Sodium [Boniva] 150 mg PO Q30D 06/21/18 [History Confirmed 01/19/19] Metoprolol Succinate [Toprol Xl] 100 mg PO DAILY 06/21/18 [History Confirmed 01/19/19] Calcium Carbonate [Calcium] 600 mg PO DAILY 09/27/18 [History Confirmed 01/19/19] Ferrous Sulfate 325 mg PO DAILY 09/27/18 [History Confirmed 01/19/19] Atorvastatin Calcium [Lipitor] 10 mg PO QHS 12/12/18 [History Confirmed 01/19/19] Duloxetine HCl 30 mg PO DAILY 12/12/18 [History Confirmed 01/19/19] Fluoxetine HCl [Prozac] 40 mg PO DAILY 12/12/18 [History Confirmed 01/19/19] Gabapentin [Neurontin] 100 mg PO DAILY 12/12/18 [History Confirmed 01/19/19] Pantoprazole Sodium [Protonix] 40 mg PO BID #60 tab 12/15/18 [Rx Confirmed 01/19/19] Sucralfate 1 gm PO 4X/DAY #120 tab 12/15/18 [Rx Confirmed 01/19/19] tramadol 50 mg tablet See Rx Instructions PO Q6H #30 tab 01/19/19 [Rx Confirmed 01/19/19] PFSH Medical History Liver disease (Acute) Stomach ulcer (Acute) Social History Smoking Status: Never smoker alcohol intake: current HPI RIGHT WRIST: Surgical H&P: Yes Details: Parts of this documentation were recorded by a scribe, this documentation accurately reflects the service provided and the decisions made by , HOLLI Peña 01/19/19 [id number]. TELLY GOOD is a 78 year old F here today for a fractured right ulna. Her son explained that on tuesday she fell hitting her arm on the railing of the porch, she declined medical attention that day. On Tuesday [facility], xrays were reviewed and she was placed in a wrist cock up brace that she states she removes for showers and sleeping. Today the brace is ill fitting and patient is shaky and having trouble ambulating on her own. Ortho Exam Right Wrist/Hand Skin/Wound: Yes Swelling (Mild swelling of the wrist and hand), Yes Ecchymosis (Generalized ecchymosis of the hand) Contralateral Normal: Yes Right Wrist: Yes TTP Fracture site; no ROM-Extension 0-60, ROM-Flexion 0-80, ROM-Pronation 0-80, ROM-Supination 0-90 or Snuffbox tenderness Motor: EPL: 5, FDP-2: 5, 1st Dorsal Interosseous: 5, APB: 5 Sensation: Radial: I, Ulnar: I, Median: I WRIST: On inspection of the wrist she does have some evident ecchymosis and some mild swelling of the dorsal surface of the hand as well as the wrist. She does have localized reproducible tenderness on palpation of the distal ulna which is the site of the fracture. She does not have tenderness on palpation of the distal radius or of the forearm. She does not have any tenderness on palpation of the fingers, metacarpals, or carpal bones. She does have some decreased range of motion due to pain and discomfort. She does have pain throughout all active range of motion. She does have normal sensation throughout the entire hand and normal movement of the fingers. Left Wrist/Hand Skin/Wound: Yes Swelling (Mild swelling of the wrist and hand), Yes Ecchymosis (Generalized ecchymosis of the hand) Right Elbow Skin/Wound: No erythema, No Swelling ROM: Yes Flexion 0-140 and Extension 0; no Supination 0-90 (Due to pain in the wrist) or Pronation 0-80 (Due to pain in the wrist) Assessment & Plan Problems 1. Other closed fracture of distal end of right ulna, initial encounter P20.515W Plan Patient presents the office today for follow-up of right distal ulna fracture. Injury occurred when she fell throwing her arm and hitting the outside of her arm against an object. The injury did not occur falling onto an outstretched arm or onto the elbow. We did discuss her radiograph findings which do show evidence spiral oblique fracture of the distal ulna with some minor shortening. She has been wearing a cock-up wrist splint intermittently over the last few days but states that it has not helped her pain. I explained that with the nature of this fracture movements of the wrist including pronation supination are going to cause this to be painful. We did discuss options to treat this fracture which include immobilization with a long-arm cast for 6 weeks and/or possibly proceeding with ORIF of the distal ulna (These options were discussed with surgeon prior to todays visit). We did discuss pros and cons of both of these treatment options. After discussing patient states she does not wish to be immobilized for 6 weeks and would like to proceed with surgical intervention of the fracture. We again discussed pros and cons of surgical intervention which she is aware of and understands. Consent was signed in office today. All of her questions including her son's questions were answered to their satisfaction. Patient was then placed in a long-arm posterior mold including the wrist for immobilization. She can try to elevate this the best she can this weekend take anti-inflammatories as needed. Patient did have an abrasion on the lateral posterior aspect of the upper arm. This did not show any signs of erythema, inflammation, discharge, or infections. Since we are can have this covered I did explain to them that she can return on Tuesday and I can take a look and put her back in this to make sure there is no changes underneath the splint. If she has any discomforts of the splint they are more than welcome to take the splint off just to make sure there is no signs of infection. If they do notice any signs of infection please notify the office and/or can proceed to the emergency department. Patient has had multiple falls in the past that have caused bony abnormalities/fractures. Her son states that she is an alcoholic which is the reason for her falls. They have tried to take measures to curb this habit as a result has not had any drink for over 24 hours. They can notify the office if they have any questions or any concerns or complaints in the meantime. This note was generated with vMoboation software. It may contain incorrect words, spelling, and punctuation that were not noted in checking the note before signing. Orders Orders: Wrist min 3 Views Today S62.109A Forearm 2 Views Today S52.601A Medications New: tramadol 1-2 PO Q6H; 30 tabs 0RF pain S52.737U Coding Level of Care Code Off vis,new,level 3 Diagnoses Other closed fracture of distal end of right ulna, initial encounter S52.698O ??Encounter type: initial encounter ??Fracture morphology: other fracture ??Laterality: right 01/19/19 9766 <Electronically signed by Tiburcio DE LA GARZA> Date _ Tiburcio DE LA GARZA
[2019-01-19 15:56] VITALS: BMI 19.5
[2019-02-02 10:52] VITALS: BMI 18.8
[2019-02-07 08:22] VITALS: BP 118/76; PULSE 78; RESP 16; TEMP 36.3; O2SAT 100; BMI 19.1
--- NOTE | 2019-02-07 09:43 | DCINST_ITS ---
Discharge Diet: No Restrictions - nonweight bearing right arm, follow up in clinic in 2 weeks, call with concerns, percocet 5/325 1-2 tabs by mouth every 6 hours, stop all tylenol Discharge Activity: May Not Drive May shower in (days): 1 Ice area for (Minutes): 20 - Every hour while awake. Weight Bearing Status: Weight bearing as tolerated Keep extremity elevated above heart level: Operative Extremity Call your doctor if your incision/area has: Continuous Slow Oozing, Sudden Increased Bleeding, Increased Pain/ Swelling, Increased Redness, Foul Smelling Discharge Call your doctor if you observe: Fever of 101 or Higher, Coldness, Increased Pain, Numbness or Tingling, Change in Color, Calf discomfort Allergies/Adverse Reactions: Allergies acetaminophen Adverse Reaction (Verified 01/24/19 16:47) Other LIVER FAILURE -PER FAMILY Medications to take at Discharge Cholecalciferol (Vitamin D3) [Vitamin D3] 2,000 unit PO DAILY 01/24/19 traMADol [Ultram] 50 mg PO Q6H PRN PRN 01/24/19 Hydroxyzine Pamoate [Vistaril] 50 mg PO Q6H PRN PRN 02/07/19 Hydroxyzine Pamoate [Vistaril] 50 mg PO QHS 02/07/19 Thiamine HCl 100 mg PO 02/07/19 traMADol [Ultram] 50 mg PO BID 02/07/19 Orders to be completed after discharge: CBC-Complete Blood Cnt No Diff Time Frame: 01/23/19, Location: Laboratory Liver Profile Time Frame: 01/23/19, Location: Laboratory Primary Care Physician: Ramona Crews MD [Primary Care Provider] - Test Results: Test results from this visit will be discussed in further detail at your follow- up appointment, if applicable. Please Follow Up With: Desiree Ravi, DO - [phone]
--- NOTE | 2019-02-07 09:44 | OP.PCM_ITS ---
Report of Operation Date of Procedure: 02/07/19 Pre-Operative Diagnosis: right distal ulna shaft fracture Post-Operative Diagnosis: same Surgery/Procedure Performed:: orif distal ulna shaft damascener: Heriberto Man Type of Anesthesia:: General Anesthesiologist: Chuy Ackerman Estimated Blood Loss (mL): minimal Fluids Replaced: 800cc lr Description of Procedure: Preop note Patient is a 78-year-old female who had an injury to her right upper extremity. Most likely secondary to alcoholic induced fall. Direct injury to the ulnar distal ulna shaft displaced and was seen in our office. That time she had us an abrasion on her arm and did not we wanted to wait until the abrasion had healed to ensure that she did not get infected she returned and the abrasion had healed we sign her up for consent for that Tuesday however on Tuesday prior to the Tuesday she did have a questionable stroke versus seizure secondary to alcohol detox. She was admitted to the ICU. At that time she was found to be hyponatremic as well as other comorbid conditions please see chart for further details. Patient was then discharged patient followed up in our office the following week and determined that she was per medicine okay for surgical fixation of her arm. At that point she was evaluated her shaft of her arm was painful she had no pain at her elbow she has had a previous ORIF of her elbow as well as of her hand. Her son was present within the room in the room at all times. We discussed risks benefits and alternatives surgery. Risks including but not limited to blood loss, blood clot, infection, neurovascular, failure procedure, loss of life and loss of limb. Patient is aware likely stable. Consent for open reduction internal fixation right ulna. No Next Patient seen and examined capital area. Right arm was marked. Patient brought to the operating placed supine on the abdomen table. Sign, anesthesia, antibiotics were administered. The right arm was prepped and draped usual sterile fashion with a tourniquet around her upper arm. Opening possible plan SCDs placed on her bilateral lower extremity. We then used fluoroscopy to ascertain the level of the fracture site as well as extent of her incision. The arm was elevated at the same classified advertising clerk rates her pressure 250 torr. We then marked our incision on the lateral aspect of the ulna between the FCU and the ECU. That was about a 10 cm incision. We dissected first with mid skin incision with 15 blade dissect down tenotomies down to the level of the lateral ulnar shaft subperiosteally dissect both the flexor and ulnar mass in order to debride the fracture site which had a little bit of scant callus but not extensive amount of callus on the shaft side there is more on the ulnar side there is more callus on the radial side. We debrided this extensively we used lobster clamps to reduce the fracture site due to the spiral nature of the fracture we did place the plate use that to reduce it the fracture proximally and distally and then also use the lag screw configuration across the fracture site which proved to be a little bit difficult as she had poor bone quality we converted from a 2 7 screw to a 3 5 screw which provide us better fixation at the fracture site. We then filled 6 cortices above and below again exchanging 1 of the screws out distally for a locking screw as she had quite a poor bone quality and osteopenia. We used a Synthes 2 7 plate please see chart for further details. We placed one screw distally and one screw proximally ensuring that we had the plate and positioned on the center on the dorsal aspect of the bone please note that we may protect the neurovascular structures at all times and to dissect subperiosteally to not injure the ulnar nerve on the FCU's side. And placed all screws sequentially please see fluoroscopy for the level. We took multiple images in both AP and lateral planes. We tried to not dissect too much freely as to prevent a synostosis however due the fact that she already had callus on the radial side of the ulna is a fracture but it have to dissected in order to regain some stability and reduction of the fracture site we had good length and offset at the fracture site at that time. made the incision was irrigated with sterile saline Patient transferred to recovery room in stable condition tolerated procedure well no complications Postoperative Nonweightbearing upper extremity Transfer back to [facility] Discussed with [facility] to get x-rays of her elbow as they were supposed to be done in the PACU but were not ordered Nurse that they would order the x-rays on and get us a copy of the report and the images as soon as possible Follow-up in a week if no x-rays or elbow please make sure the x-rays of the elbow are done on her first follow-up appointment Call with increased pain numbness tingling further issues arise Discussed in detail with son the risks and the comorbidity and the combination of her bone we will be happy to make sure that she is compliant however son states she will not be compliant with nonweightbearing of her extremity di scussed that she was noncompliant and Pallotta weight through this but due to her bone poor bone quality she is at risk for me breaking in the inferior further surgery son is aware. This note was generated with [employer] dictation software. It may contain incorrect words, spelling, and punctuation that were not noted in checking the note before signing. addendum 02/13 called [facility] after case and asked for an elbow xray as did not get one intraop to assess for radial head and needed elbow xray. staff said one would be done the following day. after multiple calls, fax, etc to the [facility] and speaking with the son, the report of xray i read today stated that elbow no dislocation, previous xray of olecranon visualized. son not able to bring in mom to our office as needs 48 hours advanced notice so will await images from [facility].
[2019-02-07] MEDS: Cefazolin 2 GM in 0.9% Normal Saline 100 ML IV (09:46)
--- NOTE | 2019-02-07 10:00 | RAD_ITS ---
STUDY: X-RAY - RIGHT WRIST REASON FOR EXAM: ORIF of ulnar fracture. TECHNIQUE: 8 intraoperative images of the wrist were obtained. COMPARISON: Radiographs 02/02/2019. FINDINGS: There is an orthopedic plate and screws transfixing a distal ulnar fracture in anatomical alignment and position. 80.1 seconds of fluoroscopy time was used. Electronically Signed: Gideon Campoverde MD at 15:26 EDT Tel , Service support , RAD/Wrist min 3 Views
[2019-02-07] MEDS: Mupirocin Ointment 22gm Tube 1 APPLIC (12:30)
[2019-02-07 12:46] VITALS: BP 118/76; BP 145/100; PULSE 89; RESP 16; TEMP 36.6; O2SAT 98
[2019-02-07 13:01] VITALS: BP 118/76; BP 142/87; PULSE 91; RESP 16; O2SAT 97
[2019-02-07 13:16] VITALS: BP 118/76; BP 149/88; PULSE 87; RESP 16; O2SAT 99
[2019-02-07 13:21] LABS: Absolute Lymphocyte Count 1.07 X10^3/ul (0.83-4.51); Absolute Neutrophil Count 2.5 X10^3/uL (2.0-7.7); Basophil# 0.05 X10^3/uL; Basophil% 1.1 % (0-1); Eosinophil# 0.13 X10^3/uL; Eosinophils% 2.9 % (0-5); Hematocrit 26.8 % (37-47); Hemoglobin 9.1 g/dl (12.0-15.0); Lymphocyte # 1.07 X10^3/ul (4.0); Lymphocyte % 23.5 % (19-41); Mean Corpuscular Hgb 30.8 pg (27.0-32.0); Mean Corpuscular Volume 90.8 fL (81-99); Mean Platelet Vol. 8.3 fl (6.2-12.0); Monocyte# 0.78 X10^3/uL; Monocyte% 17.1 % (0-10); Platelet Count 342 K/mm3 (150-450); RBC Distribution Width CV 14.2 % (11.6-14.6); RBC Distribution Width SD 47.4 fl (35.1-43.9); Red Blood Count 2.95 M/mm3 (4.2-5.4); White Blood Count 4.6 K/mm3 (4.4-11.0)
[2019-02-07 13:22] VITALS: BP 118/76; BP 147/85; PULSE 85; RESP 16; TEMP 36.9; O2SAT 100
[2019-02-07 13:23] LABS: POSITIVE COUNT NO; POSITIVE DIFFERENTIAL NO; POSITIVE MORPHOLOGY NO
[2019-02-07 13:34] LABS: AST(SGOT) 22 U/L (15-37); Alanine Aminotransfer ALT/SGPT 17 U/L (13-56); Alkaline Phosphatase 99 U/L (45-117); Bilirubin, Direct 0.19 mg/dL (0.00-0.30); Globulin 3.4 g/dL (2.2-4.2); Protein, Total 6.4 g/dL (6.4-8.2)
[2019-02-07] MEDS: HYDROcodone Bitartrate/Apap 5/325 Tablet PO (14:02)
[2019-02-07 14:21] VITALS: BP 118/76
== END 2019-02-07 14:23 | disposition home or self-care (01) ==
LOC: SDC 07:49 → AC 07:49
PROVIDERS: Family Provider Family Medicine; PCP Family Medicine; Referring Provider Orthopaedic Surgery; Visit Provider Orthopaedic Surgery
PROC: (CPT 25545; principal; 2019-02-07 09:15)
DX: S52.691A Other fracture of lower end of right ulna, initial encounter for closed fracture (principal); W01.10XA Fall on same level from slipping, tripping and stumbling with subsequent striking against unspecified object, initial encounter; Y93.9 Activity, unspecified; Y92.9 Unspecified place or not applicable; Y99.9 Unspecified external cause status; I10 Essential (primary) hypertension; E78.00 Pure hypercholesterolemia, unspecified; I27.20 Pulmonary hypertension, unspecified; K21.9 Gastro-esophageal reflux disease without esophagitis; F32.9 Major depressive disorder, single episode, unspecified; Z78.0 Asymptomatic menopausal state; Z79.899 Other long term (current) drug therapy
CPT/HCPCS: 25545; 73110; 76000; 80076; 85025; C1713; J7120; J2405

== ENCOUNTER → 2019-02-21 12:46 | Outpatient (CLI) | payer MEDICARE, OTHER, SELFPAY ==
[2019-02-07 08:22] VITALS: BMI 19.1
--- NOTE | 2019-02-21 12:48 | RAD_ITS ---
STUDY: X-RAY - RIGHT RADIUS AND ULNA REASON FOR EXAM: Female, 78 years old. Injury TECHNIQUE: 2 view(s) of the forearm. COMPARISON: X-ray right forearm February 02, 2019 FINDINGS: Internal fixation of the distal and proximal ulna is present. There is no evidence of complication. Intraoperative fixation of the first metacarpal is also present. Degenerative changes are noted at the wrist. There are no radiodense foreign bodies. RAD/Forearm 2 Views IMPRESSION: Postsurgical changes as described above without evidence of complication. Electronically Signed: Terrence Zamora, at 21:38 EDT Tel , Service support ,
== END ==
PROVIDERS: Family Provider Family Medicine; PCP Family Medicine; Referring Provider Physician Assistant; Visit Provider Physician Assistant
DX: S52.601A Unspecified fracture of lower end of right ulna, initial encounter for closed fracture (principal); X58.XXXA Exposure to other specified factors, initial encounter; Y93.9 Activity, unspecified; Y92.9 Unspecified place or not applicable; Y99.9 Unspecified external cause status
CPT/HCPCS: 73090

== ENCOUNTER → 2019-03-21 15:10 | Outpatient (CLI) | payer MEDICARE, OTHER, SELFPAY ==
[2019-02-21 15:28] VITALS: BMI 19.1
--- NOTE | 2019-03-21 15:12 | RAD_ITS ---
STUDY: X-RAY - RIGHT RADIUS AND ULNA REASON FOR EXAM: Female, 78 years old. Follow-up post surgery. TECHNIQUE: 2 view(s) of the forearm. COMPARISON: Right forearm, February 21, 2019. FINDINGS: There is no demonstrated soft tissue swelling. Stable plates and screws of the proximal and distal ulna. No change in alignment. There is no evidence of callus formation. Normal visualized radius. RAD/Forearm 2 Views IMPRESSION: No change from February 21, 2019. Electronically Signed: Patricio Bello DO at 22:21 EDT Tel [phone], Service support ,
== END ==
PROVIDERS: Family Provider Family Medicine; PCP Family Medicine; Referring Provider Orthopaedic Surgery; Visit Provider Orthopaedic Surgery
DX: S52.601A Unspecified fracture of lower end of right ulna, initial encounter for closed fracture (principal); X58.XXXA Exposure to other specified factors, initial encounter; Y93.9 Activity, unspecified; Y92.9 Unspecified place or not applicable; Y99.9 Unspecified external cause status
CPT/HCPCS: 73090

== ENCOUNTER 2019-08-09 15:46 | Emergency (ER) | payer MEDICARE, OTHER, SELFPAY ==
[2019-03-21 15:24] VITALS: BMI 19.1
[2019-08-09 15:48] VITALS: TEMP 35.3; BMI 26.6
--- NOTE | 2019-08-09 15:48 | CM.ED ---
SOCIAL WORK REASON FOR REFERRAL: CODE BLUE RESPONDED TO CODE MARC[facility]. PATIENT ARRIVED HARI HANNAH. UPON ARRIVAL TIME OF CALLED AT 15:45. NO FAMILY PRESENT. WILL REMAIN AVAILABLE. Kervin MATOS MSW, VOLUNTEER COORDINATOR.
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
--- NOTE | 2019-08-09 16:55 | ED.RN ---
allergist and Rich medical scientific officer at bedside.
--- NOTE | 2019-08-09 18:05 | ED.RN ---
arthur hernandez [id number] [facility] [phone]
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
== END 2019-08-09 18:48 ==
PROVIDERS: Emergency Provider Emergency Medicine; Family Provider Family Medicine; PCP Family Medicine
DX: S83.105A Unspecified dislocation of left knee, initial encounter (principal); S00.83XA Contusion of other part of head, initial encounter; S00.81XA Abrasion of other part of head, initial encounter; X58.XXXA Exposure to other specified factors, initial encounter; Y93.K1 Activity, walking an animal; Y92.410 Unspecified street and highway as the place of occurrence of the external cause; I46.8 Cardiac arrest due to other underlying condition
CPT/HCPCS: 99283